=== PATIENT | female | born 1935 | race Caucasian/White ===

== ENCOUNTER 2016-03-07 11:25 | Inpatient (IN) | payer OTHER ==
[~2016-03-07] VITALS: Ht 160 cm; Wt 102.1 kg
[2016-03-07] MEDS ORDERED: ALBUTEROL 0.5% NEB SOLN 2.5 MG/0.5 ML VIAL INH STA (11:40)
--- NOTE | 2016-03-07 11:51 | EMERGENCY ROOM VISIT NOTE ---
History Report prepared by Marcie: Santa Schmidt Under the Supervision of: Dr. Pierce Owen DAnnabel. First contact with patient: 11:37 Chief Complaint: COUGH Stated Complaint: COUGH,WHEEZING, SOB Nursing Triage Summary: pt here with prod cough, wheezing x 3 days. pt having some bilateral leg swelling. hx of cardiac issues. History of Present Illness The patient is an 80 year old female who presents to the Emergency Room with complaints of a persistent cough for the past week. The patient states that two weeks ago she initially got sick for three days and states that her symptoms went away. She states that she became weak after the first illness. The patient states that she has been feeling intermittently chilled and chest pain with coughing, but denies any fever. She denies any sick contacts recently. The patient notes that she has a cardiac catheterization scheduled for next week due to her aorta narrowing. She additionally notes a history of diabetes, heart disease, congestive heart failure, and kidney disease. The patient notes that she had a DVT several years ago and notes that she had previously been on blood thinners. She notes that she then had bleeding problems so her anticoagulants were stopped, but she still takes 81 mg of aspirin daily. The patient denies any history of COPD. She notes a surgical history of an appendectomy, hysterectomy and triple bypass. The patient notes swelling to her bilateral legs. She states that a few years ago she had her pneumonia shot. Source of History: patient Onset: past week Position: other (global) Quality: other (cough) Timing: other (persistent) Associated Symptoms: + chest pain, + chills, + weakness, No fevers Review of Systems See above for pertinent positives & negatives. A total of 10 systems reviewed and were otherwise negative. Past Medical & Surgical Medical Problems: (1) Afib (2) Aortic stenosis (3) AVN of femur (4) CAD (coronary artery disease) (5) CHF (congestive heart failure) (6) CKD (chronic kidney disease), stage III (7) Congestive heart failure (8) Cough (9) DM2 (diabetes mellitus, type 2) (10) DVT (deep venous thrombosis) (11) History of cardioversion (12) HLD (hyperlipidemia) (13) HTN (hypertension) (14) Hypertension Surgical Problems: (1) H/O colonoscopy (2) H/O knee surgery (3) H/O: hysterectomy (4) H/O: hysterectomy (5) History of appendectomy (6) Hx of CABG (7) S/P appendectomy (8) S/P hip replacement (9) S/P triple vessel bypass (10) Stented coronary artery Family History Diabetes mellitus Heart disease Hypertension Social History Smoking Status: Never Smoker Smokeless Tobacco Use: No Alcohol Use: none Housing Status: lives alone Occupation Status: retired Current/Historical Medications Scheduled Aspirin (Aspirin Ec), 81 MG PO DAILY Atorvastatin (Lipitor), 20 MG PO HS Bumetanide (Bumex), 2 MG PO DAILY Cholecalciferol (Vitamin D), 1 TAB PO DAILY Docusate Sodium (Stool Softener), 1 TAB PO BID Gabapentin (Neurontin), 100 MG PO BID Glimepiride (Amaryl), 4 MG PO QAM Metoprolol Succinate (Toprol Xl), 25 MG PO DAILY Pyridoxine HCl (Vitamin B-6), 100 MG PO DAILY Sitagliptin (Januvia), 50 MG PO DAILY Scheduled PRN Hydrocodone/Acetaminophen 5MG/325MG ([place] 5MG/325MG), 1 TABLET PO Q8 PRN for Pain Allergies Coded Allergies: Iodinated Diagnostic Agents (Verified Allergy, Intermediate, HIVES/ LOST VOICE, 03/07/16) Lisinopril (Verified Adverse Reaction, Mild, COUGH, 03/07/16) Physical Exam Vital Signs Date Time Temp Pulse Resp B/P Pulse Ox O2 Delivery O2 Flow Rate FiO2 03/07/16 14:40 69 18 143/68 95 Room Air 03/07/16 12:48 76 22 143/57 94 Room Air 03/07/16 11:56 95 03/07/16 11:52 96 Room Air 03/07/16 11:52 96 Room Air 03/07/16 11:28 37.1 84 18 177/77 96 Room Air Physical Exam GENERAL: Patient is well appearing and in no acute distress. HEENT: No acute trauma, normocephalic atraumatic, mucous membranes moist, no nasal congestion, no scleral icterus. NECK: No stridor, no adenopathy, no meningismus, trachea is midline. LUNGS: Diffuse wheezes bilaterally, Tactile fremitus on right with egophony. HEART: 5/6 systolic ejection murmur. Regular rate and rhythm. No murmurs, rubs , gallops appreciated. ABDOMEN: Soft, nontender, bowel sounds positive, no masses appreciated, no peritonitis. BACK: No midline tenderness, no CVA tenderness EXTREMITIES: Normal motion all extremities, no cyanosis, no edema. NEUROLOGIC: Alert and oriented, no acute motor or sensory deficits, no focal weakness, cranial nerves grossly intact. SKIN: No rash, no jaundice, no diaphoresis. Medical Decision & Procedures ER Provider Diagnostic Interpretation: X ray results and stated below per my interpretation and radiologist interpretation. Other radiology results and stated below per my review and radiologist interpretation: CHEST 2 VIEWS ROUTINE HISTORY: cough COMPARISON: None. FINDINGS: The heart is mildly enlarged. There are poststernotomy changes. No pleural effusions. No pneumothorax. There is mild central pulmonary vascular congestion without overt edema. Mild anterior wedging within the mid thoracic spine vertebral bodies consistent with old compression deformities. IMPRESSION: Cardiomegaly. Mild central pulmonary vascular congestion without overt edema. Electronically signed by: Raghavendra Shaw M.D. 03/07/2016 12:37 PM Dictated Date/Time: 03/07/2016 12:35 PM Laboratory Results 03/07/16 12:05 Red Blood Count 4.57, Mean Corpuscular Volume 93.9, Mean Corpuscular Hemoglobin 31.1, Mean Corpuscular Hemoglobin Concent 33.1, Mean Platelet Volume 12.1, Neutrophils (%) (Auto) 67.9, Lymphocytes (%) (Auto) 13.6, Monocytes (%) (Auto) 15.5, Eosinophils (%) (Auto) 1.9, Basophils (%) (Auto) 0.8, Neutrophils # (Auto ) 4.33, Lymphocytes # (Auto) 0.87, Monocytes # (Auto) 0.99, Eosinophils # (Auto ) 0.12, Basophils # (Auto) 0.05 03/07/16 12:05 03/07/16 13:00 Test 03/07/16 12:05 03/07/16 13:00 03/07/16 14:34 White Blood Count 6.38 K/uL (4.8-10.8) Red Blood Count 4.57 M/uL (4.2-5.4) Hemoglobin 14.2 g/dL (12.0-16.0) Hematocrit 42.9 % (37-47) Mean Corpuscular Volume 93.9 fL (80-100) Mean Corpuscular Hemoglobin 31.1 pg (25-34) Mean Corpuscular Hemoglobin Concent 33.1 g/dl (32-36) Platelet Count 152 K/uL (130-400) Mean Platelet Volume 12.1 fL (7.4-10.4) Neutrophils (%) (Auto) 67.9 % Lymphocytes (%) (Auto) 13.6 % Monocytes (%) (Auto) 15.5 % Eosinophils (%) (Auto) 1.9 % Basophils (%) (Auto) 0.8 % Neutrophils # (Auto) 4.33 K/uL (1.4-6.5) Lymphocytes # (Auto) 0.87 K/uL (1.2-3.4) Monocytes # (Auto) 0.99 K/uL (0.11-0.59) Eosinophils # (Auto) 0.12 K/uL (0-0.5) Basophils # (Auto) 0.05 K/uL (0-0.2) RDW Standard Deviation 49.3 fL (36.4-46.3) RDW Coefficient of Variation 14.5 % (11.5-14.5) Immature Granulocyte % (Auto) 0.3 % Immature Granulocyte # (Auto) 0.02 K/uL (0.00-0.02) Prothrombin Time 10.9 SECONDS (9.0-12.0) Prothromb Time International Ratio 1.0 (0.9-1.1) Activated Partial Thromboplast Time 25.3 SECONDS (21.0-31.0) Partial Thromboplastin Ratio 1.0 Anion Gap 13.0 mmol/L (3-11) Est Creatinine Clear Calc Drug Dose 42.4 ml/min Estimated GFR () 49.1 Estimated GFR (Non- 42.4 BUN/Creatinine Ratio 16.0 (10-20) Calcium Level 9.2 mg/dl (8.5-10.1) Total Bilirubin 0.7 mg/dl (0.2-1) Alanine Aminotransferase (ALT/SGPT) 16 U/L (12-78) Alkaline Phosphatase 82 U/L (45-117) Troponin I < 0.015 ng/ml (0-0.045) Pro-B-Type Natriuretic Peptide 1397 pg/ml (0-1800) Total Protein 7.6 gm/dl (6.4-8.2) Albumin 3.5 gm/dl (3.4-5.0) Lipase 233 U/L (73-393) Magnesium Level 2.3 mg/dl (1.8-2.4) Direct Bilirubin 0.2 mg/dl (0-0.2) Aspartate Amino Transf (AST/SGOT) 14 U/L (15-37) Acetaminophen Level < 2 ug/ml (10-30) Laboratory results as reviewed by me. Medications Administered Medications (Trade) Dose Ordered Sig/Meeta Route Start Time Stop Time Status Last Admin Dose Admin Albuterol Sulfate (Ventolin 0.5% 2.5MG/0.5ML Neb) 2.5 mg NOW STAT INH 03/07/16 11:40 03/07/16 11:43 DC 03/07/16 11:53 2.5 MG Furosemide (Lasix Inj) 40 mg NOW STAT IV 03/07/16 13:08 03/07/16 13:26 DC 03/07/16 13:36 40 MG ECG Indication: chest pain Rate (beats per minute): 84 Rhythm: atrial fibrillation Findings: nonspecific-ST abn, RBBB (incomplete) Comparison ECG Date: no prior available ED Course 1137: The patient was evaluated in room C5. A complete history and physical exam was performed. 1140: Ordered Albuterol Sulfate 2.5 mg INH. 1159: I reevaluated the patient and she is resting comfortably. I discussed her EKG findings with her at this time. 1308: Ordered Lasix Inj 40 mg IV. 1330: I reevaluated the patient and she is resting comfortably. I discussed all the exam findings with her and I discussed the treatment plan. She verbalized complete understanding and agreement. She is ready going to be evaluated for further treatment. 1430: I discussed the patient's case with Rowan Nicolas. She is going to evaluate the patient for further treatment. Medical Decision Differential: Cardiac Ischemia (STEMI, NSTEMI, Unstable Angina, etc), Aortic Dissection, Arrhythmia, Pulmonary Embolism, Pneumonia, Pneumothorax, MSK, Infectious, Pericarditis/Myocarditis, Esophageal Rupture, Gastrointestinal, amongst other pathologies entertained. Consults Time Called: 1424 Consulting Physician: Rowan Nicolas Returned Call: 1430 I discussed the patient's case with Rowan Nicolas. She is going to evaluate the patient for further treatment. Impression Primary Impression: CHF (congestive heart failure) Additional Impressions: Afib Hypokalemia Elevated BUN Contraindication to anticoagulation therapy Cough Scribe Attestation The scribe's documentation has been prepared under my direction and personally reviewed by me in its entirety. I confirm that the note above accurately reflects all work, treatment, procedures, and medical decision making performed by me. Departure Information Dispostion Being Evaluated By Hospitalist Timothy Mccloud M.D. (PCP) Problem Qualifiers
[2016-03-07 12:18] LABS: BASO % 0.8 %; BASO ABS # 0.05 K/uL (0-0.2); COMPLETE YES; EOS % 1.9 %; HEMATOCRIT 42.9 % (37-47); IG% 0.3 %; LYMPH % 13.6 %; LYMPH ABS # 0.87 K/uL (1.2-3.4); MEAN CELL VOLUME 93.9 fL (80-100); MEAN CORPUSCULAR HEMOGLOBIN 31.1 pg (25-34); MEAN CORPUSCULAR HGB CONC 33.1 g/dl (32-36); MEAN PLATELET VOLUME 12.1 fL (7.4-10.4); MONO % 15.5 %; NEUT % 67.9 %; PLATELET COUNT 152 K/uL (130-400); RED BLOOD COUNT 4.57 M/uL (4.2-5.4); WHITE BLOOD COUNT 6.38 K/uL (4.8-10.8)
[2016-03-07] MEDS ORDERED: GABA-112 PO (12:19)
[2016-03-07] MEDS ORDERED: DOCU100C PO (12:19)
[2016-03-07] MEDS ORDERED: ATOR-22 PO (12:19)
[2016-03-07] MEDS ORDERED: GLIM4TAB PO (12:19)
[2016-03-07] MEDS ORDERED: ASPI81TA28 PO (12:19)
[2016-03-07] MEDS ORDERED: METO25TA3 PO (12:19)
[2016-03-07] MEDS ORDERED: CHOL20009 PO (12:19)
[2016-03-07] MEDS ORDERED: HYDR-5688 PO (12:19)
[2016-03-07] MEDS ORDERED: BUME2TAB3 PO (12:19)
[2016-03-07] MEDS ORDERED: SITA50TA3 PO (12:19)
[2016-03-07] MEDS ORDERED: PYR50 PO (12:19)
--- NOTE | 2016-03-07 12:38 | DIAGNOSTIC IMAGING REPORT ---
CHEST 2 VIEWS ROUTINE HISTORY: cough COMPARISON: None. FINDINGS: The heart is mildly enlarged. There are poststernotomy changes. No pleural effusions. No pneumothorax. There is mild central pulmonary vascular congestion without overt edema. Mild anterior wedging within the mid thoracic spine vertebral bodies consistent with old compression deformities. IMPRESSION: Cardiomegaly. Mild central pulmonary vascular congestion without overt edema. Electronically signed by: Raghavendra Shaw M.D. 03/07/2016 12:37 PM Dictated Date/Time: 03/07/2016 12:35 PM
[2016-03-07 12:42] LABS: ALKALINE PHOSPHATASE 82 U/L (45-117); ALT/SGPT 16 U/L (12-78); BLOOD UREA NITROGEN 19 mg/dl (7-18); CALCIUM 9.2 mg/dl (8.5-10.1); CARBON DIOXIDE 23 mmol/L (21-32); CHLORIDE 105 mmol/L (98-107); GLUCOSE 116 mg/dl (70-99); SODIUM 141 mmol/L (136-145)
[2016-03-07 12:45] LABS: PROTHROMBIN TIME (PATIENT) 10.9 SECONDS (9.0-12.0)
[2016-03-07] MEDS ORDERED: FUROSEMIDE 40 MG/4 ML VIAL IV STA (13:08)
[2016-03-07 13:16] LABS: POTASSIUM 3.4 mmol/L (3.5-5.1)
[2016-03-07] MEDS ORDERED: FUROSEMIDE 40 MG/4 ML VIAL ONE (13:26)
[2016-03-07] MEDS ORDERED: ONDANSETRON INJ 2 MG/ML 2 ML VIAL IV PRN (15:00)
[2016-03-07] MEDS ORDERED: NITROGLYCERIN 0.4 MG SL PER TAB CHARGE SL PRN (15:00)
[2016-03-07] MEDS ORDERED: ACETAMINOPHEN 325 MG TAB PO PRN (15:00)
[2016-03-07] MEDS ORDERED: POTASSIUM CHLORIDE 10 MEQ TABCR PO STA ×2 (15:13→16:33)
[2016-03-07] MEDS ORDERED: GLUCOSE 10 TABS/TUBE PO PRN (15:15)
[2016-03-07] MEDS ORDERED: LEVALBUTEROL/IPRATROPIUM NEB INH PRN (15:15)
[2016-03-07] MEDS ORDERED: DEXTROSE 50% 50 ML SYR IV PRN (15:15)
[2016-03-07] MEDS ORDERED: GLUCAGON FOR INJ 1 MG VIAL SQ PRN (15:15)
[2016-03-07] MEDS ORDERED: GLUCOSE 40% GEL 15 GM TUBE PO PRN (15:15)
--- NOTE | 2016-03-07 15:33 | History and Physical ---
History & Physical Date & Time of Service: Mar 07, 2016 at 15:13 Chief Complaint: Cough,Wheezing, Sob Primary Care Physician: Timothy Nathan M.D. History of Present Illness Source: patient, family, clinic records, hospital records Patient seen and examined. 80 year old female with PMHx of CAD, Afib, Valvular Disease, Diastolic CHF, DM2, CKD stage 3, HLD, and HTN presents to the ED complaining of cough x 3-4 days. Patient reports that the cough is productive of yellow sputum. She reports associated wheezing. Over the last day or so she has had increased SOB, and has noticed increased peripheral edema despite taking her Bumex. She reports she feels generally weak and tired. She states she does not follow a low sodium diet or fluid restriction at home. She denies fevers, chills, chest pain, nausea, vomiting, diarrhea, dysuria, calf pain. She denies sick contacts. She reports she is schedule for a heart cath on Tuesday for evaluation of her for risk stratification for elective hip surgery. In the ED VS are stable, she is saturating well on RA.BNP is negative, as are the first set of Alysha. CXR shows mild congestion. She is given IV Lasix and a Duoneb. She is resting comfortably she will be admitted for further workup and treatment. Past Medical/Surgical History Medical Problems: (1) Afib Status: Chronic (2) Aortic stenosis Status: Chronic (3) AVN of femur Status: Chronic (4) CAD (coronary artery disease) Status: Chronic (5) CKD (chronic kidney disease), stage III Status: Chronic (6) Congestive heart failure Status: Chronic (7) DM2 (diabetes mellitus, type 2) Status: Chronic (8) DVT (deep venous thrombosis) Status: Resolved (9) History of cardioversion Status: Chronic (10) HLD (hyperlipidemia) Status: Chronic (11) HTN (hypertension) Status: Chronic (12) Hypertension Status: Chronic Surgical Problems: (1) H/O colonoscopy Status: Chronic (2) H/O knee surgery Status: Chronic (3) H/O: hysterectomy Status: Resolved (4) H/O: hysterectomy Status: Chronic (5) History of appendectomy Status: Chronic (6) Hx of CABG Status: Chronic (7) S/P appendectomy Status: Resolved (8) S/P hip replacement Status: Chronic (9) S/P triple vessel bypass Status: Resolved (10) Stented coronary artery Status: Chronic Family History Diabetes mellitus Heart disease Hypertension Social History Smoking Status: Never Smoker Smokeless Tobacco Use: No Alcohol Use: none Housing status: lives alone Occupational Status: retired Allergies Coded Allergies: Iodinated Diagnostic Agents (Verified Allergy, Intermediate, HIVES/ LOST VOICE, 03/07/16) Lisinopril (Verified Adverse Reaction, Mild, COUGH, 03/07/16) Home Medications Scheduled Aspirin (Aspirin Ec), 81 MG PO DAILY Atorvastatin (Lipitor), 20 MG PO HS Bumetanide (Bumex), 2 MG PO DAILY Cholecalciferol (Vitamin D), 1 TAB PO DAILY Docusate Sodium (Stool Softener), 1 TAB PO BID Gabapentin (Neurontin), 100 MG PO BID Glimepiride (Amaryl), 4 MG PO QAM Metoprolol Succinate (Toprol Xl), 25 MG PO DAILY Pyridoxine HCl (Vitamin B-6), 100 MG PO DAILY Sitagliptin (Januvia), 50 MG PO DAILY Scheduled PRN Hydrocodone/Acetaminophen 5MG/325MG ([place] 5MG/325MG), 1 TABLET PO Q8 PRN for Pain Review of Systems See above for pertinent positives & negatives. A total of 10 systems reviewed and were otherwise negative. Physical Exam Vital Signs Date Time Temp Pulse Resp B/P Pulse Ox O2 Delivery O2 Flow Rate FiO2 03/07/16 14:40 69 18 143/68 95 Room Air 03/07/16 12:48 76 22 143/57 94 Room Air 03/07/16 11:56 95 03/07/16 11:52 96 Room Air 03/07/16 11:52 96 Room Air 03/07/16 11:28 37.1 84 18 177/77 96 Room Air General Appearance: + pertinent finding (Pleasant obese 80 year old female lying in bed in NAD with family at bedside ) Head: normocephalic, atraumatic Eyes: PERRL, EOMI, sclerae normal ENT: normal ENT inspection, hearing grossly normal Neck: supple, no JVD Respiratory/Chest: chest non-tender, lungs clear (trace wheezing ), normal breath sounds, no respiratory distress, no accessory muscle use Cardiovascular: no gallop, no JVD, normal peripheral pulses, + systolic murmur , + irregularly irregular (rate 802) Abdomen/GI: normal bowel sounds, non tender, soft Back: normal inspection, no muscle spasm Extremities/Musculoskelatal: no calf tenderness, normal capillary refill, + pedal edema (+1) Neurologic/Psych: alert, oriented x 3, + pertinent finding (no motor or sensory deficits noted on gross exam ) Skin: normal color, warm/dry, no rash Lymphatic: no adenopathy Diagnostics Laboratory Results Results Past 24 Hours Test 03/07/16 12:05 03/07/16 13:00 03/07/16 14:34 Range/Units White Blood Count 6.38 4.8-10.8 K/uL Red Blood Count 4.57 4.2-5.4 M/uL Hemoglobin 14.2 12.0-16.0 g/dL Hematocrit 42.9 37-47 % Mean Corpuscular Volume 93.9 80-100 fL Mean Corpuscular Hemoglobin 31.1 25-34 pg Mean Corpuscular Hemoglobin Concent 33.1 32-36 g/dl Platelet Count 152 130-400 K/uL Mean Platelet Volume 12.1 7.4-10.4 fL Neutrophils (%) (Auto) 67.9 % Lymphocytes (%) (Auto) 13.6 % Monocytes (%) (Auto) 15.5 % Eosinophils (%) (Auto) 1.9 % Basophils (%) (Auto) 0.8 % Neutrophils # (Auto) 4.33 1.4-6.5 K/uL Lymphocytes # (Auto) 0.87 1.2-3.4 K/uL Monocytes # (Auto) 0.99 0.11-0.59 K/uL Eosinophils # (Auto) 0.12 0-0.5 K/uL Basophils # (Auto) 0.05 0-0.2 K/uL RDW Standard Deviation 49.3 36.4-46.3 fL RDW Coefficient of Variation 14.5 11.5-14.5 % Immature Granulocyte % (Auto) 0.3 % Immature Granulocyte # (Auto) 0.02 0.00-0.02 K/uL Prothrombin Time 10.9 9.0-12.0 SECONDS Prothromb Time International Ratio 1.0 0.9-1.1 Activated Partial Thromboplast Time 25.3 21.0-31.0 SECONDS Partial Thromboplastin Ratio 1.0 Sodium Level 141 136-145 mmol/L Potassium Level 3.4 3.5-5.1 mmol/L Chloride Level 105 98-107 mmol/L Carbon Dioxide Level 23 21-32 mmol/L Anion Gap 13.0 3-11 mmol/L Blood Urea Nitrogen 19 7-18 mg/dl Creatinine 1.20 0.60-1.20 mg/dl Est Creatinine Clear Calc Drug Dose 42.4 ml/min Estimated GFR () 49.1 Estimated GFR (Non- 42.4 BUN/Creatinine Ratio 16.0 10-20 Random Glucose 116 70-99 mg/dl Calcium Level 9.2 8.5-10.1 mg/dl Total Bilirubin 0.7 0.2-1 mg/dl Direct Bilirubin 0.2 0-0.2 mg/dl Aspartate Amino Transf (AST/SGOT) 14 15-37 U/L Alanine Aminotransferase (ALT/SGPT) 16 12-78 U/L Alkaline Phosphatase 82 45-117 U/L Troponin I < 0.015 0-0.045 ng/ml Pro-B-Type Natriuretic Peptide 1397 0-1800 pg/ml Total Protein 7.6 6.4-8.2 gm/dl Albumin 3.5 3.4-5.0 gm/dl Lipase 233 73-393 U/L Diagnostic Radiology CXR Per radiologist read: IMPRESSION: Cardiomegaly. Mild central pulmonary vascular congestion without overt edema. EKG Afib 84 BPM, incomplete RBBB, QTc 475 Impression Assessment and Plan 80 year old female presents to the ED complaining of cough, congestion, worsening SOB ACUTE EXACERBATION OF DIASTOLIC HEART FAILURE -Admit to tele -CXR with mild congestion, increased peripheral ED, BNP <2000 -Hold Bumex -Has history of Diastolic CHF and Severe Valvular disease -IV Lasix 40mg daily -Serial Alysha, EKGs -Repeat Echo -Cardiology consult for further recommendations, input appreciated -I&Os, Daily Weights -AHA, Low Sodium Diet -Repeat CXR in AM ACUTE BRONCHITIS -R/O Flu -CXR with out consolidation -PCR flu pending -Sputum culture pending -Empirically treat with Doxycycline -Will avoid nebs as able d/t Afib HYPOKALEMIA -replaced -daily supplementation while on Lasix -check Mg -follow PRP daily VALVULAR HEART DISEASE -reports she is to have a heart cath on Tuesday for Aortic Stenosis because she would like to have elective hip surgery -Cardiology consult placed CAD -S/P stent, s/p CABG -follows with Dr. Steven -Continue ASA, BB, Statin -nitro prn -Cardiology consulted CKD STAGE 3 -crea at baseline -may see increase with diuresis -monitor PRP daily -avoid nephrotoxins as able AFIB -not on anticoagulation d/t history of GI bleed -continue ASA -continue BB for rate control DM2 -A1c pending -Hold po diabetic agents -SSI coverage -BSG AC HS -Consistent carbohydrate diet HLD -continue Statin -lipid panel in AM HTN -stable -continue BB CHRONIC HIP PAIN -continue home narcotics DVT PROPHYLAXIS: Sq heparin CODE STATUS: LEVEL 3 NO MECHANICAL VENTILATION per my discussion with the patient DISPO:In my clinical judgment this beneficiary meets acute admission criteria, established by [facility], that includes being hospitalized through two midnights. Discharge planning eval Patient seen in collaboration with Dr. Smyth Agree with above H and P.Briefly 80F presents with cough with yellow sputum going on for last few days. says edema in her lower extremity worsening. Denies chest pain. No fevres. No nausea or abdominal pain. 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 worsening lower extremity edema bnp ok Lasix 40mg daily f/u echo cardio consult Acute bronchitis no infiltrate on cxr has cough with sputum nebs and doxycycline will monitor VTE Prophylaxis VTE Risk Assessment Done? Y/N: Yes Risk Level: Moderate
[2016-03-07] MEDS ORDERED: ACETAMINOPHEN 500 MG TAB PO PRN (16:00)
[2016-03-07] MEDS: INSULIN ASPART 100 UNITS/ML 3 ML PEN SC SCH ×2 (16:15→20:40)
[2016-03-07 16:20] VITALS: BP 129/84; PULSE 67; TEMP 36.8; O2SAT 96; BMI 38.9
[2016-03-07] MEDS: HYDROCODONE/ACETAMOPHEN 5/325MG TAB PO PRN (17:34)
[2016-03-07 18:53] LABS: CKMB/CK RATIO 1.6 (0-3.0)
[2016-03-07] MEDS: GABAPENTIN 100 MG CAP PO SCH (19:29)
[2016-03-07] MEDS: ATORVASTATIN 20 MG TAB PO SCH (19:29)
[2016-03-07] MEDS: DOCUSATE SODIUM 100 MG CAP PO SCH (19:30)
[2016-03-07] MEDS: DOXYCYCLINE HYCLATE 100 MG CAP PO SCH (19:30)
[2016-03-07] MEDS: IPRATROPIUM BROMIDE NEB SOLN 0.02% 2.5 ML VIAL INH SCH (19:57)
[2016-03-07] MEDS: LEVALBUTEROL 1.25MG/0.5ML NEB INH SCH (19:57)
[2016-03-07 19:58] VITALS: PULSE 68; O2SAT 96
[2016-03-07 20:09] VITALS: BP 143/74; PULSE 63; TEMP 37; O2SAT 96
[2016-03-07] MEDS ORDERED: LEVALBUTEROL/IPRATROPIUM NEB INH SCH (21:00)
[2016-03-07] MEDS: HEPARIN SOD 5000 UNIT/0.5 ML CARP SQ SCH (21:36)
[2016-03-07 23:14] LABS: INFLUENZA A PCR Neg for Influ A (NEG); INFLUENZA B PCR Neg for Influ B (NEG)
[2016-03-07 23:18] VITALS: BP 113/51; PULSE 66; TEMP 37; O2SAT 94
[2016-03-08] VITALS (11 sets, daily range): BP systolic 99–144; BP diastolic 58–86; PULSE 68–91; TEMP 36.5–37; O2SAT 92–97; Ht 160 cm; Wt 102.1 kg
[2016-03-08 00:48] LABS: CKMB/CK RATIO 1.6 (0-3.0)
[2016-03-08] MEDS: HYDROCODONE/ACETAMOPHEN 5/325MG TAB PO PRN ×2 (03:10→15:31)
[2016-03-08] MEDS: HEPARIN SOD 5000 UNIT/0.5 ML CARP SQ SCH ×3 (06:08→20:20)
[2016-03-08 06:18] LABS: HEMATOCRIT 41.3 % (37-47); MEAN CELL VOLUME 95.8 fL (80-100); MEAN CORPUSCULAR HEMOGLOBIN 30.9 pg (25-34); MEAN CORPUSCULAR HGB CONC 32.2 g/dl (32-36); MEAN PLATELET VOLUME 12.2 fL (7.4-10.4); PLATELET COUNT 143 K/uL (130-400); RED BLOOD COUNT 4.31 M/uL (4.2-5.4); WHITE BLOOD COUNT 5.37 K/uL (4.8-10.8)
[2016-03-08 06:31] LABS: ESTIMATED AVERAGE GLUCOSE 131 mg/dl; HA1C FLAG Normal (Normal)
[2016-03-08 07:00] LABS: CALCIUM 8.9 mg/dl (8.5-10.1); CHOLESTEROL/HDL RATIO 4.2; CREATININE 1.3 mg/dl (0.60-1.20); MAGNESIUM 2.3 mg/dl (1.8-2.4); POTASSIUM 4.1 mmol/L (3.5-5.1)
[2016-03-08] MEDS: DOCUSATE SODIUM 100 MG CAP PO SCH ×2 (07:43→20:18)
[2016-03-08] MEDS: POTASSIUM CHLORIDE 20 MEQ TABCR PO SCH (07:43)
[2016-03-08] MEDS: ASPIRIN 81 MG ECTAB PO SCH (07:43)
[2016-03-08] MEDS: PYRIDOXINE HCL 50 MG TAB PO SCH (07:44)
[2016-03-08] MEDS: CHOLECALCIFEROL 1000 INTER.UNIT TAB PO SCH (07:44)
[2016-03-08] MEDS: GABAPENTIN 100 MG CAP PO SCH ×2 (07:44→20:18)
[2016-03-08] MEDS: DOXYCYCLINE HYCLATE 100 MG CAP PO SCH ×2 (07:44→20:18)
[2016-03-08] MEDS: METOPROLOL SUCC 25MG EXT REL TAB PO SCH (07:44)
[2016-03-08] MEDS: INSULIN ASPART 100 UNITS/ML 3 ML PEN SC SCH ×4 (07:51→20:25)
[2016-03-08] MEDS: LEVALBUTEROL 1.25MG/0.5ML NEB INH SCH ×3 (09:00→19:42)
[2016-03-08] MEDS ORDERED: FUROSEMIDE INJ 40 MG in SYRINGE 0 ML IV SCH (09:00)
[2016-03-08] MEDS: IPRATROPIUM BROMIDE NEB SOLN 0.02% 2.5 ML VIAL INH SCH ×3 (09:00→19:42)
[2016-03-08] MEDS ORDERED: NURSING VERBAL MED ORDER ONE (09:15)
[2016-03-08] MEDS ORDERED: FUROSEMIDE INJ 60 MG in SYRINGE 0 ML IV SCH (09:30)
[2016-03-08] MEDS ORDERED: FUROSEMIDE INJ 20 MG in SYRINGE 0 ML IV ONE (09:45)
--- NOTE | 2016-03-08 09:52 | DIAGNOSTIC IMAGING REPORT ---
TWO VIEW CHEST CLINICAL HISTORY: CHF follow-up. FINDINGS: AP and lateral chest radiographs are compared to study dated 03/07/2016. The examination is degraded by large body habitus. The patient is status post midline sternotomy. The heart is enlarged and there is atherosclerotic calcification of the thoracic aorta. There is mild prominence of the pulmonary vasculature. Chronic interstitial thickening is unchanged. No airspace consolidation or pleural effusion is identified. There is no pneumothorax. The skeletal structures are osteopenic. Degenerative change is noted throughout the thoracic spine. IMPRESSION: 1. Cardiomegaly with mild prominence of the central pulmonary vessels. Correlate clinically for evidence of minimal congestive failure. This is less apparent than on the 03/07/2016 examination. 2. There is no airspace consolidation or pleural effusion identified. Electronically signed by: Thien Ray M.D. 03/08/2016 9:51 AM Dictated Date/Time: 03/08/2016 9:49 AM
--- NOTE | 2016-03-08 10:10 | ECHOCARDIOGRAM REPORT ---
*NOTICE TO RECEIVING [employer] This information is strictly Confidential and protected under [place] law. [place] law prohibits you from making any further disclosure of this information unless further disclosure is expressly permitted by the written consent of the person to whom it pertains or is authorized by law. A general authorization for the release of medical or other information is not sufficient for this purpose. Hospital accepts no responsibility if the information is made available to any other person, INCLUDING THE PATIENT. Interpretation Summary * Name: TWYLA SMITH Study Date: 03/08/2016 06:52 AM BP: 99/361 mmHg * Patient Location: C.2T\S\E218\S\1 HR: 68 * : 1935 (M/d/yyyy) Gender: Female Height: 63 in * Age: 80 yrs Ethnicity: [place] Weight: 229 lb * Ordering Physician: Isatu Bryan * Referring Physician: Self, Referred * Performed By: Juanpablo King RCS * * Reason For Study: CHF * BSA: 2.0 m2 * -- Conclusions -- * Compared to previous study of 06/09/15: aortic valve velocity has slightly increased, still moderate. * Normal LV chamber size and wall thickness. * Normal LV systolic function, EF 65-70%. * No segmental left ventricular wall motion abnormalities are noted. * Diastolic dysfunction is present. * The aortic valve has three leaflets. The aortic valve is moderately calcified. Moderate aortic valve * stenosis is present. Moderate aortic valve regurgitation is present. * Moderate mitral annular calcification with mild mitral regurgitation. * Mild to moderate tricuspid regurgitation. * Mild left atrial enlargement. Procedure Details * A complete two-dimensional transthoracic echocardiogram was performed (2D, M-mode, Doppler and color flow Doppler). Left Ventricle * The left ventricle is normal in size. * There is normal left ventricular wall thickness. * Left ventricular systolic function is normal. * No segmental left ventricular wall motion abnormalities are noted. * Ejection Fraction = 65-70%. * The left ventricular wall motion is normal. Right Ventricle * The right ventricular cavity size is normal (basal dimension <4.2 cm in right ventricular apical 4-chamber view). * The right ventricular systolic function is normal. Atria * The left atrium is mildly dilated. * Right atrial size is normal. * No ASD detected; PFO is not assessed. Mitral Valve * There is moderate mitral annular calcification. * There is no mitral valve stenosis. * There is mild mitral regurgitation. Tricuspid Valve * The tricuspid valve anatomy is normal. * There is no tricuspid stenosis. * There is mild to moderate tricuspid regurgitation. Aortic Valve * The aortic valve has three leaflets. The aortic valve is moderately calcified. Moderate aortic valve stenosis is present. Moderate aortic valve regurgitation is present. Pulmonic Valve * The pulmonary valve is not well seen, but the Doppler examination is normal without significant regurgitation or stenosis. Great Vessels * The aortic root is normal size. Pericardium/Pleural * There is no pericardial effusion. Left Ventricular Diastolic Function * Pulse wave TDI of the anterior and posterior mitral annulas demonstrates abnormal LV relaxation MMode 2D Measurements and Calculations IVSd 0.97 cm IVSs 1.3 cm LVIDd 5.6 cm LVIDs 3.0 cm LVPWd 1.0 cm LVPWs 1.4 cm IVS/LVPW 0.93 FS 47.2 % EDV(Teich) 155.3 ml ESV(Teich) 34.1 ml EF(Teich) 78.0 % EDV(cubed) 178.0 ml ESV(cubed) 26.2 ml EF(cubed) 85.3 % % IVS thick 34.1 % % LVPW thick 32.0 % LV mass(C)d 223.8 grams LV mass(C)dI 109.3 grams/m\S\2 LV mass(C)s 129.0 grams LV mass(C)sI 63.0 grams/m\S\2 CO(Teich) 9.9 l/min CI(Teich) 4.9 l/min/m\S\2 SV(Teich) 121.2 ml SI(Teich) 59.2 ml/m\S\2 CO(cubed) 12.5 l/min CI(cubed) 6.1 l/min/m\S\2 SV(cubed) 151.9 ml SI(cubed) 74.1 ml/m\S\2 LVOT diam 1.8 cm LVOT area 2.5 cm\S\2 LVAd ap4 26.7 cm\S\2 LVLd ap4 7.4 cm EDV(MOD-sp4) 81.0 ml LVAs ap4 12.6 cm\S\2 LVLs ap4 6.1 cm ESV(MOD-sp4) 23.0 ml EF(MOD-sp4) 71.6 % LVAd ap2 23.7 cm\S\2 LVLd ap2 7.7 cm EDV(MOD-sp2) 60.0 ml LVAs ap2 13.4 cm\S\2 LVLs ap2 6.5 cm ESV(MOD-sp2) 23.0 ml EF(MOD-sp2) 61.7 % CO(MOD-sp4) 4.8 l/min CI(MOD-sp4) 2.3 l/min/m\S\2 SV(MOD-sp4) 58.0 ml SI(MOD-sp4) 28.3 ml/m\S\2 CO(MOD-sp2) 3.0 l/min CI(MOD-sp2) 1.5 l/min/m\S\2 SV(MOD-sp2) 37.0 ml SI(MOD-sp2) 18.1 ml/m\S\2 Doppler Measurements and Calculations MV E max leonora 162.7 cm/sec MV P1/2t max leonora 187.7 cm/sec MV P1/2t 87.7 msec MVA(P1/2t) 2.5 cm\S\2 MV dec slope 627.2 cm/sec\S\2 MV dec time 0.25 sec Ao V2 max 382.4 cm/sec Ao max PG 58.6 mmHg Ao max PG (full) 53.6 mmHg Ao V2 mean 265.4 cm/sec Ao mean PG 31.7 mmHg Ao mean PG (full) 29.2 mmHg Ao V2 VTI 97.7 cm CHER(I,A) 0.66 cm\S\2 CHER(I,D) 0.66 cm\S\2 CHER(V,A) 0.73 cm\S\2 CHER(V,D) 0.73 cm\S\2 AI max leonora 402.8 cm/sec AI max PG 64.9 mmHg AI dec slope 332.0 cm/sec\S\2 AI P1/2t 355.4 msec LV V1 max PG 5.0 mmHg LV V1 mean PG 2.5 mmHg LV V1 max 112.0 cm/sec LV V1 mean 72.8 cm/sec LV V1 VTI 25.6 cm SV(LVOT) 64.1 ml SI(LVOT) 31.3 ml/m\S\2 PA V2 max 156.1 cm/sec PA max PG 9.8 mmHg PI max leonora 268.5 cm/sec PI max PG 28.8 mmHg PI dec slope 324.8 cm/sec\S\2 PI P1/2t 242.1 msec TR max leonora 245.3 cm/sec
--- NOTE | 2016-03-08 11:30 | CARDIOLOGY CONSULTATION ---
DATE OF CONSULTATION: 03/08/2016 CONSULTATION REQUESTED BY: Isatu Bryan PA-C. REASON FOR CONSULTATION: Questionable CHF. HISTORY OF PRESENT ILLNESS: Mrs. Alexander is a very pleasant 80-year-old woman who follows very closely with Dr. Steven of our outpatient cardiology practice, who presented to [facility] on 03/07/2016 with a complaint of nonproductive cough and wheezing. She states that since being seen by Dr. Steven on the , she subsequently developed a cough about 4 days ago. She described it as mostly nonproductive, but rather constant. She also has inspiratory wheezing when she would try and breathe, and she is having significant orthopnea, stating that she could not lay down at night or else she would get short of breath. This was also associated with increasing lower extremity edema. She states that she has been compliant with all of her medications. However, she does not follow any salt or fluid restriction at home. Upon presentation to [facility], she was found to have a combination of bronchitis and mild volume overload. She was given a dose of IV Lasix with improvement of her cough and she was also started on antibiotics, as well as nebulizer treatments for her bronchitis. Otherwise, she denies any chest pain, palpitations, lightheadedness, dizziness or syncope. Of note, the patient is already scheduled for a cardiac catheterization on March 16 for further evaluation of her aortic stenosis. Otherwise, she states that she is still having significant hip pain. PAST SURGICAL HISTORY: 1. Coronary artery bypass grafting surgery x3 in 1997, along with PCI to unknown vessel at that time. 2. Repeat cardiac catheterization in 2010. 3. Colonoscopy. 4. Hemorrhoidectomy. 5. Left total hip replacement. 6. Cataract surgery. 7. Hysterectomy. 8. Appendectomy. 9. History of DC cardioversion. PAST MEDICAL ILLNESSES: 1. Coronary artery disease status post CABG x3. 2. Moderate to severe aortic stenosis. 3. Ongoing right hip pain. 4. Stage 3 chronic kidney disease. 5. History of atrial fibrillation. 6. Diabetes. 7. Obstructive sleep apnea. 8. Chronic venous insufficiency. 9. Peripheral neuropathy. FAMILY HISTORY: Noncontributory. SOCIAL HISTORY: The patient denies any alcohol, tobacco or recreational drug use. REVIEW OF SYSTEMS: As per HPI, all other review of systems reviewed and negative at this time. ALLERGIES: 1. IV DYE. 2. KLONOPIN 3. LISINOPRIL. 4. MEPERIDINE. MEDICATIONS AN OUTPATIENT: 1. Aspirin 81 mg daily. 2. Bumex 2 mg p.o. daily. 3. Toprol-XL 25 mg daily. 4. Januvia daily. 5. Amaryl daily. 6. Atorvastatin 20 mg daily. PHYSICAL EXAMINATION: VITALS: Temperature 37, pulse 70, respiratory rate 12, blood pressure 144/77. GENERAL: Awake, alert, oriented x3 in no acute distress, out of bed in chair. HEENT: Normocephalic, atraumatic. Pupils equal, round, and reactive to light and accommodation. Extraocular muscles intact. Anicteric sclerae. Moist mucous membranes. NECK: No JVD, no bruit. CARDIOVASCULAR: Irregularly irregular with a harsh 4/6 mid to late systolic ejection murmur greatest at the right sternal border second intercostal space with radiation to the bilateral carotids. S2 is still present. PULMONARY: Scant bibasilar crackles, no rhonchi, with scattered wheezing. ABDOMEN: Bowel sounds x4, soft. No rebound, guarding, tenderness. No organomegaly. EXTREMITIES: +1 bilateral lower extremity pitting edema. No clubbing or cyanosis. +2 pedal pulses bilaterally. SKIN: Warm and dry. TEST RESULTS: A 12-lead EKG performed in the Emergency Department independently reviewed at this time shows atrial fibrillation at 84 beats per minute. Compared to previous EKG of 02/26/2016 atrial fibrillation has replaced sinus tachycardia with second-degree heart block. No ischemic EKG changes. Chest x-ray was read as cardiomegaly and mild central pulmonary vascular congestion without overt edema. LABORATORY STUDIES OF SIGNIFICANCE: Sodium 144, potassium 4.1, BUN 20, creatinine 1.3. IMPRESSION: 1. Active bronchitis. 2. Minimal volume overload. 3. Chronic venous insufficiency. 4. Moderate to severe aortic stenosis. 5. Paroxysmal atrial fibrillation, no longer a Coumadin candidate secondary to a gastrointestinal bleed. 6. Coronary artery disease. 7. Ongoing right hip pain. RECOMMENDATIONS: It was my pleasure to see Mrs. Alexander in consultation today. At this point I believe her cough and wheezing are most likely due to a combination of active bronchitis and slight volume overload. So at this time, she will be given a dose of Lasix 60 mg IV this a.m. and then further diuretics will be held and her volume status will be followed clinically. Otherwise, I agree with the antibiotics and nebulizers for her bronchitis. I still believe that a plan for her aortic stenosis workup should be maintained. We will attempt to resolve her cough and shortness of breath, and then proceed with outpatient cardiac catheterization as scheduled on the . Otherwise a resting echocardiogram will be repeated at this time. Thank you very much for allowing me to participate in the care of your patient.
--- NOTE | 2016-03-08 14:45 | Progress Note ---
Internal Med Progress Note Date of Service: Mar 08, 2016. Provider Documentation: SUBJECTIVE: sitting on the chair comfortably walking to bathroom made her sob cough improving afebrile says cannot lie flat on the bed leg swelling better complains of lot of soreness in lower extremities OBJECTIVE: Vital Signs-as noted below Exam: General-alert and oriented ENT-normal hearing Neck-no neck masses Lungs-cta b/l no wheezing or crackles Heart-s1 and s2 heard regular rate and rhythm no murmurs Abdomen-soft bowel sounds present non tender no distension Extremities-no erythema b/l lower extremity edema present and tender Neuro-alert and awake moves extremities Lab data as noted below. ASSESSMENT & PLAN: 80 year old female presents to the ED complaining of cough, congestion, worsening SOB ACUTE EXACERBATION OF DIASTOLIC HEART FAILURE echo valvular heart disease and diastolic dusynction holding home Bumex received iv Lasix 40mg yesterday and 60mg today cardiology on board and appreciate inputs close monitor in tele ACUTE BRONCHITIS FLU negative CXR with out consolidation Empirically treating with Doxycycline SOB form above will also check for d dimer and lower extremity Doppler. HYPOKALEMIA replaced f/u labs. VALVULAR HEART DISEASE Plan for heart cath on Tuesday for Aortic Stenosis because she would like to have elective hip surgery Appreciate Cardiology consult CAD S/P stent, s/p CABG follows with Dr. Steven On ASA, BB, Statin nitro prn Cardiology on board. CKD STAGE 3 cr 1.3 today will f/u labs on iv lasix AFIB not on anticoagulation secondary to history of GI bleed on ASA On BB for rate control DM2 HBA1c 6.2 Holding po diabetic agents On SSI coverage will monitor. HLD On Statin LDL 87 HDL 37 TG 152 Total cholesterol 154 HTN stable on BB CHRONIC HIP PAIN To continue home narcotics DVT PROPHYLAXIS: Sq heparin CODE STATUS: LEVEL 3 NO MECHANICAL VENTILATION DISPOSITION To be determined pt/ot Vital Signs: Date Time Temp Pulse Resp B/P Pulse Ox O2 Delivery O2 Flow Rate FiO2 03/08/16 12:04 97 Room Air 03/08/16 11:28 36.9 72 18 120/86 97 Room Air 03/08/16 08:01 97 Room Air 03/08/16 07:48 37.0 70 18 144/77 97 Room Air 03/08/16 04:00 Room Air 03/08/16 03:52 36.5 68 20 99/61 96 Room Air 03/08/16 00:00 Room Air 03/07/16 23:18 37.0 66 22 113/51 94 Room Air 03/07/16 20:09 37.0 63 20 143/74 96 Room Air 03/07/16 20:00 Room Air 03/07/16 19:58 68 20 96 Room Air 03/07/16 16:20 36.8 67 18 129/84 96 Room Air 03/07/16 14:40 69 18 143/68 95 Room Air Lab Results: Results Past 24 Hours Test 03/07/16 17:26 03/07/16 18:07 03/07/16 20:21 03/07/16 21:30 Range/Units Bedside Glucose 116 93 70-90 mg/dl Total Creatine Kinase 67 26-192 U/L Creatine Kinase MB 1.1 0.5-3.6 ng/ml Creatine Kinase MB Ratio 1.6 0-3.0 Troponin I < 0.015 0-0.045 ng/ml Influenza Type A (RT-PCR) Neg for Influ A NEG Influenza Type A Antigen Neg for Influ A NEG Influenza Type B Antigen Neg for Influ B NEG Influenza Type B (RT-PCR) Neg for Influ B NEG Test 03/08/16 00:21 03/08/16 05:56 03/08/16 06:38 03/08/16 11:14 Range/Units Total Creatine Kinase 69 26-192 U/L Creatine Kinase MB 1.1 0.5-3.6 ng/ml Creatine Kinase MB Ratio 1.6 0-3.0 Troponin I < 0.015 0-0.045 ng/ml White Blood Count 5.37 4.8-10.8 K/uL Red Blood Count 4.31 4.2-5.4 M/uL Hemoglobin 13.3 12.0-16.0 g/dL Hematocrit 41.3 37-47 % Mean Corpuscular Volume 95.8 80-100 fL Mean Corpuscular Hemoglobin 30.9 25-34 pg Mean Corpuscular Hemoglobin Concent 32.2 32-36 g/dl RDW Standard Deviation 52.1 36.4-46.3 fL RDW Coefficient of Variation 14.7 11.5-14.5 % Platelet Count 143 130-400 K/uL Mean Platelet Volume 12.2 7.4-10.4 fL Sodium Level 144 136-145 mmol/L Potassium Level 4.1 3.5-5.1 mmol/L Chloride Level 106 98-107 mmol/L Carbon Dioxide Level 28 21-32 mmol/L Anion Gap 10.0 3-11 mmol/L Blood Urea Nitrogen 20 7-18 mg/dl Creatinine 1.30 0.60-1.20 mg/dl Est Creatinine Clear Calc Drug Dose 38.7 ml/min Estimated GFR () 44.6 Estimated GFR (Non- 38.4 BUN/Creatinine Ratio 15.0 10-20 Random Glucose 68 70-99 mg/dl Estimated Average Glucose 131 mg/dl Hemoglobin A1c 6.2 4.5-5.6 % Calcium Level 8.9 8.5-10.1 mg/dl Magnesium Level 2.3 1.8-2.4 mg/dl Triglycerides Level 152 0-150 mg/dl Cholesterol Level 154 0-200 mg/dl HDL Cholesterol 37 mg/dl LDL Cholesterol, Calculated 87 mg/dl VLDL Cholesterol, Calculated 30 mg/dl Cholesterol/HDL Ratio 4.2 Bedside Glucose 75 115 70-90 mg/dl Microbiology Results 03/08/16 Gram Stain, Moustapha Batch Pending 03/08/16 Sputum Culture, Moustapha Batch Pending
--- NOTE | 2016-03-08 16:05 | DIAGNOSTIC IMAGING REPORT ---
ULTRASOUND VENOUS DOPPLER LWR EXT BILA CLINICAL HISTORY: Leg swelling. Cough. Congestive failure. COMPARISON STUDY: No previous studies for comparison. FINDINGS: Real-time and color flow Doppler imaging were performed. Flow was seen within the femoral, popliteal and calf veins with no intraluminal thrombus demonstrated. The saphenous vein is patent. IMPRESSION: No evidence of lower extremity DVT. Electronically signed by: Duran Price M.D. 03/08/2016 4:04 PM Dictated Date/Time: 03/08/2016 4:03 PM
[2016-03-08] MEDS: ATORVASTATIN 20 MG TAB PO SCH (20:18)
[2016-03-09] VITALS (13 sets, daily range): BP systolic 91–134; BP diastolic 53–76; PULSE 62–100; TEMP 36.6–38; O2SAT 93–97
[2016-03-09] MEDS: HYDROCODONE/ACETAMOPHEN 5/325MG TAB PO PRN ×2 (04:15→13:46)
[2016-03-09] MEDS: HEPARIN SOD 5000 UNIT/0.5 ML CARP SQ SCH ×3 (05:34→21:13)
[2016-03-09] MEDS: INSULIN ASPART 100 UNITS/ML 3 ML PEN SC SCH ×4 (07:00→21:12)
[2016-03-09] MEDS: IPRATROPIUM BROMIDE NEB SOLN 0.02% 2.5 ML VIAL INH SCH ×3 (07:22→19:33)
[2016-03-09] MEDS: LEVALBUTEROL 1.25MG/0.5ML NEB INH SCH ×3 (07:22→19:33)
[2016-03-09 08:12] LABS: BASO % 0.6 %; BASO ABS # 0.04 K/uL (0-0.2); COMPLETE YES; EOS % 1.8 %; IG% 0.4 %; LYMPH % 37.5 %; MEAN CELL VOLUME 94.9 fL (80-100); MEAN CORPUSCULAR HEMOGLOBIN 30.7 pg (25-34); MEAN CORPUSCULAR HGB CONC 32.3 g/dl (32-36); MEAN PLATELET VOLUME 12.1 fL (7.4-10.4); MONO % 13.9 %; NEUT % 45.8 %; PLATELET COUNT 139 K/uL (130-400); RED BLOOD COUNT 4.53 M/uL (4.2-5.4)
[2016-03-09 08:36] LABS: BUN/CREATININE RATIO 19.4 (10-20); CREATININE 1.3 mg/dl (0.60-1.20); POTASSIUM 4.1 mmol/L (3.5-5.1)
[2016-03-09] MEDS: GABAPENTIN 100 MG CAP PO SCH ×2 (08:57→21:11)
[2016-03-09] MEDS: DOCUSATE SODIUM 100 MG CAP PO SCH ×2 (08:58→21:11)
[2016-03-09] MEDS: PYRIDOXINE HCL 50 MG TAB PO SCH (08:58)
[2016-03-09] MEDS: ASPIRIN 81 MG ECTAB PO SCH (08:58)
[2016-03-09] MEDS: DOXYCYCLINE HYCLATE 100 MG CAP PO SCH ×2 (08:59→21:11)
[2016-03-09] MEDS: CHOLECALCIFEROL 1000 INTER.UNIT TAB PO SCH (09:00)
[2016-03-09] MEDS: POTASSIUM CHLORIDE 20 MEQ TABCR PO SCH (09:00)
[2016-03-09] MEDS: METOPROLOL SUCC 25MG EXT REL TAB PO SCH (09:00)
--- NOTE | 2016-03-09 10:39 | Cardiology Follow-Up ---
Subjective Subjective Date of Service: Mar 09, 2016. Pt evaluation today including: conversation w/ patient, physical exam, chart review, lab review, review of studies, review of inpatient medication list Additional Details: Pt seen and examined, states that she feels about the same except lower extremity edema almost resolved. Still with nonproductive cough and dyspnea. Denies cp, palpitations, lightheadedness or dizziness. Tele reviewed: atrial fibrillation rate controlled Problem List Medical Problems: (1) Afib Status: Chronic (2) Contraindication to anticoagulation therapy Status: Acute (3) Elevated BUN Status: Acute (4) Hypokalemia Status: Acute Review of Systems Respiratory: + dyspnea on exertion, No cough, No dyspnea at rest, No hemoptysis , No problem reported, No see HPI, No shortness of breath, No sputum, No wheezing Cardiac: + edema, No PND, No chest pain, No claudication, No orthopnea, No palpitations, No problem reported, No see HPI Objective Vital Signs Last Vital Signs Documentation Date Time Temp Pulse Resp B/P Pulse Ox O2 Delivery O2 Flow Rate FiO2 03/09/16 07:28 36.6 79 20 105/66 93 Room Air Physical Exam: General Appearance: WD/WN, no apparent distress Eyes: bilateral eyes EOMI, bilateral eyes PERRL, bilateral eyes normal inspection ENT: normal ENT inspection, hearing grossly normal, pharynx normal Neck: supple, no adenopathy, thyroid normal, no JVD Respiratory/Chest: chest non-tender, lungs clear, normal breath sounds, no respiratory distress Cardiovascular: + systolic murmur, + gallop/S4 (4/6 mid to late SATISH, 2nd ICS, RSB with radiation to B/L carotids), + irregularly irregular Abdomen: normal bowel sounds, non tender, soft, no organomegaly Extremities: normal inspection, + calf tenderness, + pedal edema (trace) Neurologic/Psychiatric: 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 SOB/cough likely a combination of diastolic failure and bronchitis has now diuresed well but symptoms persist, believe to be more bronchitis at this point will restart outpatient oral diuretic 2. aortic stenosis stable by exam for cardiac cath on 03/16 no further treatment at this time 3. borderline hypotension has diuresed well will hold AM lopressor oral diuretic restarted
[2016-03-09] MEDS ORDERED: BUMETANIDE 1 MG TAB PO ONE (10:45)
[2016-03-09] MEDS: CEFTRIAXONE SOD INJ 1 GM in DEXTROSE 5% ADD-VANTAGE 50ML 50 ML IV SCH (11:50)
--- NOTE | 2016-03-09 13:59 | Progress Note ---
Internal Med Progress Note Date of Service: Mar 09, 2016. Provider Documentation: SUBJECTIVE: still feeling sob and wheezing had temp spike cough improving no chest pain OBJECTIVE: Vital Signs-as noted below Exam: General-alert and oriented ENT-normal hearing Neck-no neck masses Lungs-cta b/l mild b/l exp wheezing no crackles Heart-s1 and s2 heard regular rate and rhythm no murmurs Abdomen-soft bowel sounds present non tender no distension Extremities-no erythema b/l lower extremity edema present and tender Neuro-alert and awake moves extremities Lab data as noted below. ASSESSMENT & PLAN: 80 year old female presents to the ED complaining of cough, congestion, worsening SOB ACUTE EXACERBATION OF DIASTOLIC HEART FAILURE echo valvular heart disease and diastolic dysfunction received iv Lasix 40mg yesterday and 60mg today cardiology on board and appreciate inputs restarted home Bumex today close monitor in tele ACUTE BRONCHITIS FLU negative CXR with out consolidation Empirically treating with Doxycycline added Rocephin and prednisone d dimer elevated but lower ext Doppler negative for dvt will monitor HYPOKALEMIA replaced f/u labs. VALVULAR HEART DISEASE Plan for heart cath on Tuesday for Aortic Stenosis because she would like to have elective hip surgery Appreciate Cardiology consult CAD S/P stent, s/p CABG follows with Dr. Steven On ASA, BB, Statin nitro prn Cardiology on board. stable CKD STAGE 3 cr 1.3 today will f/u labs AFIB not on anticoagulation secondary to history of GI bleed on ASA On BB for rate control DM2 HBA1c 6.2 Holding po diabetic agents On SSI coverage will monitor. HLD On Statin LDL 87 HDL 37 TG 152 Total cholesterol 154 HTN stable on BB CHRONIC HIP PAIN To continue home narcotics DVT PROPHYLAXIS: Sq heparin CODE STATUS: LEVEL 3 NO MECHANICAL VENTILATION DISPOSITION possible d/c in 1-2days pt/ot Vital Signs: Date Time Temp Pulse Resp B/P Pulse Ox O2 Delivery O2 Flow Rate FiO2 03/09/16 12:00 Room Air 03/09/16 11:30 37.1 68 18 126/76 95 Room Air 03/09/16 08:00 96 Room Air 03/09/16 07:28 36.6 79 20 105/66 93 Room Air 03/09/16 07:22 82 18 93 Room Air 03/09/16 04:00 37.2 98 22 134/62 95 Room Air 03/09/16 04:00 96 Room Air 03/09/16 00:15 96 Room Air 03/09/16 00:00 38.0 100 20 127/57 95 Room Air 03/08/16 20:15 96 Room Air 03/08/16 19:52 37.0 82 18 107/58 96 Room Air 03/08/16 19:43 82 18 96 Room Air 03/08/16 16:18 36.8 91 18 125/74 92 Room Air 03/08/16 16:11 97 Room Air 03/08/16 14:44 73 18 92 Room Air Lab Results: Results Past 24 Hours Test 03/08/16 14:55 03/08/16 16:10 03/08/16 20:24 03/09/16 06:25 Range/Units D-Dimer 1150 0-500 ug/L FEU Bedside Glucose 161 96 116 70-90 mg/dl Test 03/09/16 07:53 03/09/16 11:21 Range/Units White Blood Count 7.20 4.8-10.8 K/uL Red Blood Count 4.53 4.2-5.4 M/uL Hemoglobin 13.9 12.0-16.0 g/dL Hematocrit 43.0 37-47 % Mean Corpuscular Volume 94.9 80-100 fL Mean Corpuscular Hemoglobin 30.7 25-34 pg Mean Corpuscular Hemoglobin Concent 32.3 32-36 g/dl Platelet Count 139 130-400 K/uL Mean Platelet Volume 12.1 7.4-10.4 fL Neutrophils (%) (Auto) 45.8 % Lymphocytes (%) (Auto) 37.5 % Monocytes (%) (Auto) 13.9 % Eosinophils (%) (Auto) 1.8 % Basophils (%) (Auto) 0.6 % Neutrophils # (Auto) 3.30 1.4-6.5 K/uL Lymphocytes # (Auto) 2.70 1.2-3.4 K/uL Monocytes # (Auto) 1.00 0.11-0.59 K/uL Eosinophils # (Auto) 0.13 0-0.5 K/uL Basophils # (Auto) 0.04 0-0.2 K/uL RDW Standard Deviation 52.5 36.4-46.3 fL RDW Coefficient of Variation 15.0 11.5-14.5 % Immature Granulocyte % (Auto) 0.4 % Immature Granulocyte # (Auto) 0.03 0.00-0.02 K/uL Sodium Level 137 136-145 mmol/L Potassium Level 4.1 3.5-5.1 mmol/L Chloride Level 101 98-107 mmol/L Carbon Dioxide Level 26 21-32 mmol/L Anion Gap 10.0 3-11 mmol/L Blood Urea Nitrogen 25 7-18 mg/dl Creatinine 1.30 0.60-1.20 mg/dl Est Creatinine Clear Calc Drug Dose 38.7 ml/min Estimated GFR () 44.6 Estimated GFR (Non- 38.4 BUN/Creatinine Ratio 19.4 10-20 Random Glucose 131 70-99 mg/dl Calcium Level 9.0 8.5-10.1 mg/dl Bedside Glucose 129 70-90 mg/dl Microbiology Results 03/08/16 Gram Stain - Final, Resulted 03/08/16 Sputum Culture - Preliminary, Resulted HEAVY NORMAL WALI Present, Final Rep...
[2016-03-09] MEDS: ATORVASTATIN 20 MG TAB PO SCH (21:11)
[2016-03-10] VITALS (13 sets, daily range): BP systolic 124–155; BP diastolic 66–89; PULSE 68–88; TEMP 36.5–36.8; O2SAT 92–96
[2016-03-10] MEDS: HYDROCODONE/ACETAMOPHEN 5/325MG TAB PO PRN ×2 (00:35→20:24)
[2016-03-10] MEDS: HEPARIN SOD 5000 UNIT/0.5 ML CARP SQ SCH ×3 (06:10→21:18)
[2016-03-10] MEDS: IPRATROPIUM BROMIDE NEB SOLN 0.02% 2.5 ML VIAL INH SCH ×4 (07:04→23:49)
[2016-03-10] MEDS: LEVALBUTEROL 1.25MG/0.5ML NEB INH SCH ×4 (07:05→23:49)
[2016-03-10 07:42] LABS: BASO % 0.3 %; BASO ABS # 0.02 K/uL (0-0.2); COMPLETE YES; HEMATOCRIT 42.4 % (37-47); IG% 0.3 %; LYMPH % 21.6 %; LYMPH ABS # 1.55 K/uL (1.2-3.4); MEAN PLATELET VOLUME 12.4 fL (7.4-10.4); MONO % 14.8 %; PLATELET COUNT 142 K/uL (130-400); RED BLOOD COUNT 4.51 M/uL (4.2-5.4); WHITE BLOOD COUNT 7.16 K/uL (4.8-10.8)
[2016-03-10] MEDS: POTASSIUM CHLORIDE 20 MEQ TABCR PO SCH (08:10)
[2016-03-10] MEDS: INSULIN ASPART 100 UNITS/ML 3 ML PEN SC SCH ×4 (08:10→21:16)
[2016-03-10 08:11] LABS: BUN/CREATININE RATIO 23.2 (10-20); CALCIUM 9.2 mg/dl (8.5-10.1); CREATININE 1.1 mg/dl (0.60-1.20); MAGNESIUM 2.5 mg/dl (1.8-2.4); POTASSIUM 4.3 mmol/L (3.5-5.1)
[2016-03-10] MEDS: METOPROLOL SUCC 25MG EXT REL TAB PO SCH (08:11)
[2016-03-10] MEDS: ASPIRIN 81 MG ECTAB PO SCH (08:11)
[2016-03-10] MEDS: DOXYCYCLINE HYCLATE 100 MG CAP PO SCH ×2 (08:11→20:27)
[2016-03-10] MEDS: DOCUSATE SODIUM 100 MG CAP PO SCH ×3 (08:11→20:28)
[2016-03-10] MEDS: GABAPENTIN 100 MG CAP PO SCH ×2 (08:12→20:25)
[2016-03-10] MEDS: CHOLECALCIFEROL 1000 INTER.UNIT TAB PO SCH (08:12)
[2016-03-10] MEDS: PYRIDOXINE HCL 50 MG TAB PO SCH (08:12)
[2016-03-10] MEDS: CEFTRIAXONE SOD INJ 1 GM in DEXTROSE 5% ADD-VANTAGE 50ML 50 ML IV SCH (09:50)
--- NOTE | 2016-03-10 10:00 | Cardiology Follow-Up ---
Subjective Subjective Date of Service: Mar 10, 2016. Pt evaluation today including: conversation w/ patient, physical exam, chart review, lab review, review of studies, review of inpatient medication list Additional Details: Pt seen and examined, states that her cough is now productive and slightly improved since initiation of steroids. Still sob. LE edema resolved. Denies cp, palpitations, lightheadedness or dizziness. Tele reviewed: atrial fibrillation, rates controlled, some episodes of rvr overnight. Problem List Medical Problems: (1) Afib Status: Chronic (2) Contraindication to anticoagulation therapy Status: Acute (3) Elevated BUN Status: Acute (4) Hypokalemia Status: Acute Review of Systems Respiratory: + dyspnea on exertion, No cough, No dyspnea at rest, No hemoptysis , No problem reported, No see HPI, No shortness of breath, No sputum, No wheezing Cardiac: + edema, No PND, No chest pain, No claudication, No orthopnea, No palpitations, No problem reported, No see HPI Objective Vital Signs Last Vital Signs Documentation Date Time Temp Pulse Resp B/P Pulse Ox O2 Delivery O2 Flow Rate FiO2 03/10/16 08:33 68 22 95 Room Air 03/10/16 04:00 36.7 143/66 Physical Exam: General Appearance: WD/WN, no apparent distress Eyes: bilateral eyes EOMI, bilateral eyes PERRL, bilateral eyes normal inspection ENT: normal ENT inspection, hearing grossly normal, pharynx normal Neck: supple, no adenopathy, thyroid normal, no JVD Respiratory/Chest: chest non-tender, normal breath sounds, no accessory muscle use, + rhonchi, + wheezing Cardiovascular: + systolic murmur, + gallop/S4 (4/6 mid to late SATISH, 2nd ICS, RSB with radiation to B/L carotids), + irregularly irregular Abdomen: normal bowel sounds, non tender, soft, no organomegaly Extremities: normal inspection, + calf tenderness, + pedal edema (trace) 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 SOB/cough likely a combination of diastolic failure and bronchitis has now diuresed well but symptoms persist, believe to be more bronchitis at this point will restart outpatient oral diuretic somewhat improved with steroids recheck chest xray, PA/LL 2. aortic stenosis stable by exam for cardiac cath on 03/16 no further treatment at this time 3. borderline hypotension resolved beta sid restarted ok to d/c tele from cardiac standpoint
--- NOTE | 2016-03-10 13:05 | DIAGNOSTIC IMAGING REPORT ---
TWO VIEW CHEST CLINICAL HISTORY: Cough and dyspnea. FINDINGS: PA and lateral chest radiographs are compared to study dated 03/08/2016. The examination is degraded by large body habitus. The patient is status post midline sternotomy. The heart is enlarged and there is atherosclerotic calcification of the thoracic aorta. There the pulmonary vasculature is noncongested. Chronic interstitial thickening is unchanged. No airspace consolidation or pleural effusion is identified. There is no pneumothorax. The skeletal structures are osteopenic. Degenerative change is noted throughout the thoracic spine. IMPRESSION: 1. Cardiomegaly. Pulmonary vascular congestion has resolved. 2. There is no airspace consolidation or pleural effusion identified. Electronically signed by: Thien Ray M.D. 03/10/2016 1:04 PM Dictated Date/Time: 03/10/2016 1:02 PM
--- NOTE | 2016-03-10 15:52 | Progress Note ---
Internal Med Progress Note Date of Service: Mar 10, 2016. Provider Documentation: SUBJECTIVE: says still has sob and wheezing asks if she can stay in hospital until Tuesday when she is scheduled for cardiac cath afebrile no chest pain lower extremity edema improved OBJECTIVE: Vital Signs-as noted below Exam: General-alert and oriented ENT-normal hearing Neck-no neck masses Lungs-cta b/l mild b/l exp wheezing no crackles Heart-s1 and s2 heard regular rate and rhythm no murmurs Abdomen-soft bowel sounds present non tender no distension Extremities-no erythema b/l lower extremity edema present improving Neuro-alert and awake moves extremities Lab data as noted below. ASSESSMENT & PLAN: 80 year old female presents to the ED complaining of cough, congestion, worsening SOB ACUTE EXACERBATION OF DIASTOLIC HEART FAILURE echo valvular heart disease and diastolic dysfunction received iv Lasix cardiology on board and appreciate inputs restarted home Bumex 03/09/16 improving close monitor in tele ACUTE BRONCHITIS FLU negative CXR with out consolidation Empirically treating with Doxycycline added Rocephin and prednisone d dimer elevated but lower ext Doppler negative for dvt continue same will monitor HYPOKALEMIA replaced f/u labs. VALVULAR HEART DISEASE Plan for heart cath on Tuesday for Aortic Stenosis because she would like to have elective hip surgery Appreciate Cardiology consult CAD S/P stent, s/p CABG follows with Dr. Steven On ASA, BB, Statin nitro prn Cardiology on board. no issues CKD STAGE 3 cr 1.1 today will f/u labs AFIB not on anticoagulation secondary to history of GI bleed on ASA On BB for rate control DM2 HBA1c 6.2 Holding po diabetic agents On SSI coverage plan to cut back on glimepiride on discharge will monitor. HLD On Statin LDL 87 HDL 37 TG 152 Total cholesterol 154 HTN stable on BB CHRONIC HIP PAIN To continue home narcotics DVT PROPHYLAXIS: Sq heparin CODE STATUS: LEVEL 3 NO MECHANICAL VENTILATION DISPOSITION possible d/c in 1-2days pt/ot Vital Signs: Date Time Temp Pulse Resp B/P Pulse Ox O2 Delivery O2 Flow Rate FiO2 03/10/16 15:37 36.7 74 20 142/89 93 Room Air 03/10/16 12:00 94 Room Air 03/10/16 11:11 36.8 88 18 127/70 92 Room Air 03/10/16 08:33 68 22 95 Room Air 03/10/16 08:00 94 Room Air 03/10/16 04:00 Room Air 03/10/16 04:00 36.7 82 20 143/66 94 Room Air 03/10/16 00:10 Room Air 03/10/16 00:00 36.8 88 20 152/76 94 Room Air 03/09/16 20:16 36.6 18 124/63 97 Room Air 03/09/16 20:05 96 Room Air 03/09/16 19:33 72 18 96 Room Air 03/09/16 16:00 96 Room Air Lab Results: Results Past 24 Hours Test 03/09/16 16:17 03/09/16 20:09 03/10/16 06:42 03/10/16 07:15 Range/Units Bedside Glucose 240 291 129 70-90 mg/dl White Blood Count 7.16 4.8-10.8 K/uL Red Blood Count 4.51 4.2-5.4 M/uL Hemoglobin 14.0 12.0-16.0 g/dL Hematocrit 42.4 37-47 % Mean Corpuscular Volume 94.0 80-100 fL Mean Corpuscular Hemoglobin 31.0 25-34 pg Mean Corpuscular Hemoglobin Concent 33.0 32-36 g/dl Platelet Count 142 130-400 K/uL Mean Platelet Volume 12.4 7.4-10.4 fL Neutrophils (%) (Auto) 63.0 % Lymphocytes (%) (Auto) 21.6 % Monocytes (%) (Auto) 14.8 % Eosinophils (%) (Auto) 0.0 % Basophils (%) (Auto) 0.3 % Neutrophils # (Auto) 4.51 1.4-6.5 K/uL Lymphocytes # (Auto) 1.55 1.2-3.4 K/uL Monocytes # (Auto) 1.06 0.11-0.59 K/uL Eosinophils # (Auto) 0.00 0-0.5 K/uL Basophils # (Auto) 0.02 0-0.2 K/uL RDW Standard Deviation 49.8 36.4-46.3 fL RDW Coefficient of Variation 14.6 11.5-14.5 % Immature Granulocyte % (Auto) 0.3 % Immature Granulocyte # (Auto) 0.02 0.00-0.02 K/uL Sodium Level 138 136-145 mmol/L Potassium Level 4.3 3.5-5.1 mmol/L Chloride Level 103 98-107 mmol/L Carbon Dioxide Level 26 21-32 mmol/L Anion Gap 9.0 3-11 mmol/L Blood Urea Nitrogen 26 7-18 mg/dl Creatinine 1.10 0.60-1.20 mg/dl Est Creatinine Clear Calc Drug Dose 45.7 ml/min Estimated GFR () 54.5 Estimated GFR (Non- 47.0 BUN/Creatinine Ratio 23.2 10-20 Random Glucose 127 70-99 mg/dl Calcium Level 9.2 8.5-10.1 mg/dl Magnesium Level 2.5 1.8-2.4 mg/dl Test 03/10/16 11:07 Range/Units Bedside Glucose 162 70-90 mg/dl
[2016-03-10] MEDS: ATORVASTATIN 20 MG TAB PO SCH (20:26)
[2016-03-10] MEDS: INSULIN GLARGINE SOLOSTAR 100 UNITS/ML 3 ML PEN SC SCH (21:17)
[2016-03-11 03:49] VITALS: BP 142/68; PULSE 78; TEMP 36.7; O2SAT 96
[2016-03-11] MEDS: HEPARIN SOD 5000 UNIT/0.5 ML CARP SQ SCH ×3 (06:20→21:16)
[2016-03-11 07:07] LABS: BASO % 0.2 %; BASO ABS # 0.02 K/uL (0-0.2); COMPLETE YES; EOS % 0.3 %; IG% 0.3 %; LYMPH % 21.5 %; LYMPH ABS # 1.91 K/uL (1.2-3.4); MEAN CELL VOLUME 94.5 fL (80-100); MEAN CORPUSCULAR HEMOGLOBIN 30.5 pg (25-34); MEAN CORPUSCULAR HGB CONC 32.3 g/dl (32-36); MEAN PLATELET VOLUME 12.6 fL (7.4-10.4); MONO % 10.9 %; NEUT % 66.8 %; PLATELET COUNT 158 K/uL (130-400); RED BLOOD COUNT 4.55 M/uL (4.2-5.4); WHITE BLOOD COUNT 8.89 K/uL (4.8-10.8)
[2016-03-11 07:22] VITALS: PULSE 76; O2SAT 96
[2016-03-11] MEDS: IPRATROPIUM BROMIDE NEB SOLN 0.02% 2.5 ML VIAL INH SCH ×3 (07:22→19:40)
[2016-03-11] MEDS: LEVALBUTEROL 1.25MG/0.5ML NEB INH SCH ×3 (07:22→19:40)
[2016-03-11 07:40] VITALS: BP 129/58; PULSE 68; TEMP 36.4; O2SAT 95
[2016-03-11 07:42] LABS: BUN/CREATININE RATIO 29.1 (10-20); CALCIUM 9.5 mg/dl (8.5-10.1); CREATININE 1.1 mg/dl (0.60-1.20); MAGNESIUM 2.5 mg/dl (1.8-2.4); POTASSIUM 3.9 mmol/L (3.5-5.1)
[2016-03-11] MEDS: HYDROCODONE/ACETAMOPHEN 5/325MG TAB PO PRN ×2 (07:56→21:12)
[2016-03-11] MEDS: METOPROLOL SUCC 25MG EXT REL TAB PO SCH (07:56)
[2016-03-11] MEDS: DOCUSATE SODIUM 100 MG CAP PO SCH ×2 (07:56→21:07)
[2016-03-11] MEDS: GABAPENTIN 100 MG CAP PO SCH ×2 (07:57→21:06)
[2016-03-11] MEDS: DOXYCYCLINE HYCLATE 100 MG CAP PO SCH ×2 (07:57→21:07)
[2016-03-11] MEDS: POTASSIUM CHLORIDE 20 MEQ TABCR PO SCH (07:57)
[2016-03-11] MEDS: ASPIRIN 81 MG ECTAB PO SCH (07:57)
[2016-03-11] MEDS: CHOLECALCIFEROL 1000 INTER.UNIT TAB PO SCH (07:58)
[2016-03-11] MEDS: PYRIDOXINE HCL 50 MG TAB PO SCH (07:58)
[2016-03-11] MEDS: INSULIN ASPART 100 UNITS/ML 3 ML PEN SC SCH ×4 (08:01→21:15)
[2016-03-11] MEDS: CEFTRIAXONE SOD INJ 1 GM in DEXTROSE 5% ADD-VANTAGE 50ML 50 ML IV SCH (09:19)
[2016-03-11] MEDS: METHYLPREDNISOLONE IV 40 MG in SYRINGE 0 ML IV SCH ×2 (09:52→21:05)
--- NOTE | 2016-03-11 10:05 | Cardiology Follow-Up ---
Subjective Subjective Date of Service: Mar 11, 2016. Pt evaluation today including: conversation w/ patient, physical exam, chart review, lab review, review of studies, review of inpatient medication list Additional Details: Pt seen and examined, states that she feels the same, however, upon inspection seems to be significantly improved. States still coughing and wheezing. No edema. Denies cp, palpitations, lightheadedness or dizziness Tele reviewed: afib, rate controlled Problem List Medical Problems: (1) Afib Status: Chronic (2) Contraindication to anticoagulation therapy Status: Acute (3) Elevated BUN Status: Acute (4) Hypokalemia Status: Acute Review of Systems Respiratory: + dyspnea on exertion, No cough, No dyspnea at rest, No hemoptysis , No problem reported, No see HPI, No shortness of breath, No sputum, No wheezing Cardiac: + edema, No PND, No chest pain, No claudication, No orthopnea, No palpitations, No problem reported, No see HPI Objective Vital Signs Last Vital Signs Documentation Date Time Temp Pulse Resp B/P Pulse Ox O2 Delivery O2 Flow Rate FiO2 03/11/16 08:00 Room Air 03/11/16 07:40 36.4 68 20 129/58 95 Physical Exam: General Appearance: WD/WN, no apparent distress Eyes: bilateral eyes EOMI, bilateral eyes PERRL, bilateral eyes normal inspection ENT: normal ENT inspection, hearing grossly normal, pharynx normal Neck: supple, no adenopathy, thyroid normal, no JVD Respiratory/Chest: chest non-tender, normal breath sounds, no accessory muscle use, + rhonchi, + wheezing Cardiovascular: + systolic murmur, + gallop/S4 (4/6 mid to late SATISH, 2nd ICS, RSB with radiation to B/L carotids), + irregularly irregular Abdomen: normal bowel sounds, non tender, soft, no organomegaly Extremities: normal inspection, + calf tenderness, + pedal edema (trace) 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 SOB/cough likely a combination of diastolic failure and bronchitis has now diuresed well but symptoms persist, believe to be more bronchitis at this point outpatient oral diuretic restarted somewhat improved with steroids fluid resolved on repeat cxr no consolidation either 2. aortic stenosis stable by exam for cardiac cath on 03/16 no further treatment at this time 3. borderline hypotension resolved beta sid restarted ok to d/c tele or to home from cardiac standpoint Pt requesting to stay an inpatient until cath on Tuesday, explained that would not be possible
[2016-03-11 14:35] VITALS: PULSE 67; O2SAT 96
[2016-03-11 15:09] VITALS: BP 158/91; PULSE 74; TEMP 36.4; O2SAT 98
--- NOTE | 2016-03-11 17:23 | Progress Note ---
Internal Med Progress Note Date of Service: Mar 11, 2016. Provider Documentation: SUBJECTIVE: says sob is same cough better no chest pain ambulated ok in therapy afebrile OBJECTIVE: Vital Signs-as noted below Exam: General-alert and oriented ENT-normal hearing Neck-no neck masses Lungs-cta b/l mild b/l exp wheezing no crackles Heart-s1 and s2 heard regular rate and rhythm no murmurs Abdomen-soft bowel sounds present non tender no distension Extremities-no erythema b/l lower extremity edema present improving Neuro-alert and awake moves extremities Lab data as noted below. ASSESSMENT & PLAN: 80 year old female presents to the ED complaining of cough, congestion, worsening SOB ACUTE EXACERBATION OF DIASTOLIC HEART FAILURE echo valvular heart disease and diastolic dysfunction received iv Lasix cardiology on board and appreciate inputs restarted home Bumex 03/09/16 improving stable ACUTE BRONCHITIS FLU negative CXR with out consolidation Empirically treating with Doxycycline added Rocephin and prednisone still has mild wheezing. changed prednisone to solumedrol. d dimer elevated but lower ext Doppler negative for dvt will monitor HYPOKALEMIA replaced f/u labs. VALVULAR HEART DISEASE Plan for heart cath on Tuesday for Aortic Stenosis because she would like to have elective hip surgery Appreciate Cardiology consult CAD S/P stent, s/p CABG follows with Dr. Steven On ASA, BB, Statin nitro prn Cardiology on board. no issues CKD STAGE 3 cr 1.1 today will f/u labs AFIB not on anticoagulation secondary to history of GI bleed on ASA On BB for rate control DM2 HBA1c 6.2 Holding po diabetic agents On SSI coverage plan to cut back on glimepiride on discharge will monitor. HLD On Statin LDL 87 HDL 37 TG 152 Total cholesterol 154 HTN stable on BB CHRONIC HIP PAIN To continue home narcotics DVT PROPHYLAXIS: Sq heparin CODE STATUS: LEVEL 3 NO MECHANICAL VENTILATION DISPOSITION transfer to medical floor pt/ot Vital Signs: Date Time Temp Pulse Resp B/P Pulse Ox O2 Delivery O2 Flow Rate FiO2 03/11/16 15:09 36.4 74 20 158/91 98 Room Air 03/11/16 14:35 67 18 96 Room Air 03/11/16 10:06 36.4 68 20 95 03/11/16 08:00 Room Air 03/11/16 07:40 36.4 68 20 129/58 95 Room Air 03/11/16 07:22 76 20 96 Room Air 03/11/16 04:00 Room Air 03/11/16 03:49 36.7 78 18 142/68 96 Room Air 03/10/16 23:59 Room Air 03/10/16 23:57 36.5 71 20 155/77 96 Room Air 03/10/16 23:49 69 20 93 Room Air 03/10/16 20:00 93 Room Air 03/10/16 20:00 93 Room Air 03/10/16 19:52 36.6 73 18 124/69 94 Room Air 03/10/16 19:39 76 22 93 Room Air Lab Results: Results Past 24 Hours Test 03/10/16 20:01 03/11/16 06:34 03/11/16 06:36 03/11/16 11:27 Range/Units Bedside Glucose 219 137 150 70-90 mg/dl White Blood Count 8.89 4.8-10.8 K/uL Red Blood Count 4.55 4.2-5.4 M/uL Hemoglobin 13.9 12.0-16.0 g/dL Hematocrit 43.0 37-47 % Mean Corpuscular Volume 94.5 80-100 fL Mean Corpuscular Hemoglobin 30.5 25-34 pg Mean Corpuscular Hemoglobin Concent 32.3 32-36 g/dl Platelet Count 158 130-400 K/uL Mean Platelet Volume 12.6 7.4-10.4 fL Neutrophils (%) (Auto) 66.8 % Lymphocytes (%) (Auto) 21.5 % Monocytes (%) (Auto) 10.9 % Eosinophils (%) (Auto) 0.3 % Basophils (%) (Auto) 0.2 % Neutrophils # (Auto) 5.93 1.4-6.5 K/uL Lymphocytes # (Auto) 1.91 1.2-3.4 K/uL Monocytes # (Auto) 0.97 0.11-0.59 K/uL Eosinophils # (Auto) 0.03 0-0.5 K/uL Basophils # (Auto) 0.02 0-0.2 K/uL RDW Standard Deviation 49.4 36.4-46.3 fL RDW Coefficient of Variation 14.6 11.5-14.5 % Immature Granulocyte % (Auto) 0.3 % Immature Granulocyte # (Auto) 0.03 0.00-0.02 K/uL Sodium Level 139 136-145 mmol/L Potassium Level 3.9 3.5-5.1 mmol/L Chloride Level 104 98-107 mmol/L Carbon Dioxide Level 24 21-32 mmol/L Anion Gap 11.0 3-11 mmol/L Blood Urea Nitrogen 32 7-18 mg/dl Creatinine 1.10 0.60-1.20 mg/dl Est Creatinine Clear Calc Drug Dose 45.8 ml/min Estimated GFR () 54.5 Estimated GFR (Non- 47.0 BUN/Creatinine Ratio 29.1 10-20 Random Glucose 136 70-99 mg/dl Calcium Level 9.5 8.5-10.1 mg/dl Magnesium Level 2.5 1.8-2.4 mg/dl Test 03/11/16 16:50 Range/Units Bedside Glucose 246 70-90 mg/dl
[2016-03-11 19:40] VITALS: PULSE 71; O2SAT 97
[2016-03-11] MEDS: ATORVASTATIN 20 MG TAB PO SCH (21:07)
[2016-03-11] MEDS: INSULIN GLARGINE SOLOSTAR 100 UNITS/ML 3 ML PEN SC SCH (21:15)
[2016-03-11] MEDS: GUAIFENESIN/CODEINE 100MG/10MG 5ML UDC PO PRN (21:28)
[2016-03-12] VITALS (7 sets, daily range): BP systolic 128–163; BP diastolic 69–78; PULSE 62–88; TEMP 36.5–36.7; O2SAT 94–97
[2016-03-12] MEDS: HEPARIN SOD 5000 UNIT/0.5 ML CARP SQ SCH ×3 (05:50→21:13)
[2016-03-12] MEDS: IPRATROPIUM BROMIDE NEB SOLN 0.02% 2.5 ML VIAL INH SCH ×3 (07:00→19:44)
[2016-03-12] MEDS: LEVALBUTEROL 1.25MG/0.5ML NEB INH SCH ×3 (07:00→19:44)
[2016-03-12 07:31] LABS: BASO % 0.1 %; BASO ABS # 0.01 K/uL (0-0.2); COMPLETE YES; HEMATOCRIT 41.8 % (37-47); IG% 0.5 %; LYMPH % 14.1 %; MEAN CELL VOLUME 94.8 fL (80-100); MEAN CORPUSCULAR HEMOGLOBIN 30.2 pg (25-34); MEAN CORPUSCULAR HGB CONC 31.8 g/dl (32-36); MEAN PLATELET VOLUME 12.5 fL (7.4-10.4); MONO % 5.4 %; NEUT % 79.9 %; PLATELET COUNT 152 K/uL (130-400); RED BLOOD COUNT 4.41 M/uL (4.2-5.4); WHITE BLOOD COUNT 8.53 K/uL (4.8-10.8)
[2016-03-12 08:28] LABS: BUN/CREATININE RATIO 28.1 (10-20); CREATININE 1.2 mg/dl (0.60-1.20); MAGNESIUM 2.6 mg/dl (1.8-2.4); POTASSIUM 5.3 mmol/L (3.5-5.1)
[2016-03-12] MEDS: POTASSIUM CHLORIDE 20 MEQ TABCR PO SCH (09:02)
[2016-03-12] MEDS: DOCUSATE SODIUM 100 MG CAP PO SCH ×2 (09:02→21:09)
[2016-03-12] MEDS: METOPROLOL SUCC 25MG EXT REL TAB PO SCH (09:02)
[2016-03-12] MEDS: DOXYCYCLINE HYCLATE 100 MG CAP PO SCH ×2 (09:03→21:08)
[2016-03-12] MEDS: ASPIRIN 81 MG ECTAB PO SCH (09:03)
[2016-03-12] MEDS: CHOLECALCIFEROL 1000 INTER.UNIT TAB PO SCH (09:03)
[2016-03-12] MEDS: PYRIDOXINE HCL 50 MG TAB PO SCH (09:03)
[2016-03-12] MEDS: GABAPENTIN 100 MG CAP PO SCH ×2 (09:03→21:08)
[2016-03-12] MEDS: CEFTRIAXONE SOD INJ 1 GM in DEXTROSE 5% ADD-VANTAGE 50ML 50 ML IV SCH (09:04)
[2016-03-12] MEDS: METHYLPREDNISOLONE IV 40 MG in SYRINGE 0 ML IV SCH ×2 (09:04→21:09)
[2016-03-12] MEDS: INSULIN ASPART 100 UNITS/ML 3 ML PEN SC SCH ×4 (09:10→21:13)
[2016-03-12] MEDS ORDERED: BUMETANIDE IV 2 MG in SYRINGE 0 ML IV ONE (11:00)
[2016-03-12] MEDS: GUAIFENESIN/CODEINE 100MG/10MG 5ML UDC PO PRN ×2 (11:04→21:06)
[2016-03-12] MEDS ORDERED: FUROSEMIDE INJ 40 MG in SYRINGE 0 ML IV SCH (11:30)
--- NOTE | 2016-03-12 17:39 | Progress Note ---
Internal Med Progress Note Date of Service: Mar 12, 2016. Provider Documentation: SUBJECTIVE: sob is improving cough better resting on the chair comfortably afebrile no chest pain OBJECTIVE: Vital Signs-as noted below Exam: General-alert and oriented ENT-normal hearing Neck-no neck masses Lungs-cta b/l mild b/l exp wheezing no crackles Heart-s1 and s2 heard regular rate and rhythm no murmurs Abdomen-soft bowel sounds present non tender no distension Extremities-no erythema b/l lower extremity edema present improving Neuro-alert and awake moves extremities Lab data as noted below. ASSESSMENT & PLAN: 80 year old female presents to the ED complaining of cough, congestion, worsening SOB ACUTE EXACERBATION OF DIASTOLIC HEART FAILURE echo valvular heart disease and diastolic dysfunction received iv Lasix cardiology on board and appreciate inputs restarted home Bumex improving stable ACUTE BRONCHITIS FLU negative CXR with out consolidation Empirically treating with Doxycycline added Rocephin and prednisone still has mild wheezing. changed prednisone to solumedrol. d dimer elevated but lower ext Doppler negative for dvt improving will monitor HYPOKALEMIA replaced f/u labs. VALVULAR HEART DISEASE Plan for heart cath on Tuesday for Aortic Stenosis because she would like to have elective hip surgery Appreciate Cardiology consult CAD S/P stent, s/p CABG follows with Dr. Steven On ASA, BB, Statin nitro prn Cardiology on board. no issues CKD STAGE 3 cr 1.2 today will f/u labs AFIB not on anticoagulation secondary to history of GI bleed on ASA On BB for rate control DM2 HBA1c 6.2 Holding po diabetic agents On SSI coverage plan to cut back on glimepiride on discharge will monitor. HLD On Statin LDL 87 HDL 37 TG 152 Total cholesterol 154 HTN stable on BB CHRONIC HIP PAIN To continue home narcotics DVT PROPHYLAXIS: Sq heparin CODE STATUS: LEVEL 3 NO MECHANICAL VENTILATION DISPOSITION possible d/c in am if stable pt/ot Vital Signs: Date Time Temp Pulse Resp B/P Pulse Ox O2 Delivery O2 Flow Rate FiO2 03/12/16 15:03 36.5 88 20 158/69 94 Room Air 03/12/16 14:05 70 18 97 Room Air 03/12/16 09:25 95 Room Air 03/12/16 08:03 36.5 65 18 128/76 95 Room Air 03/12/16 08:00 Room Air 03/12/16 07:00 77 18 95 Room Air 03/12/16 00:01 36.7 62 18 163/78 94 Room Air 03/12/16 00:01 Room Air 03/11/16 19:40 71 18 97 Room Air Lab Results: Results Past 24 Hours Test 03/11/16 20:12 03/12/16 06:51 03/12/16 07:30 03/12/16 11:24 Range/Units Bedside Glucose 293 204 243 70-90 mg/dl White Blood Count 8.53 4.8-10.8 K/uL Red Blood Count 4.41 4.2-5.4 M/uL Hemoglobin 13.3 12.0-16.0 g/dL Hematocrit 41.8 37-47 % Mean Corpuscular Volume 94.8 80-100 fL Mean Corpuscular Hemoglobin 30.2 25-34 pg Mean Corpuscular Hemoglobin Concent 31.8 32-36 g/dl Platelet Count 152 130-400 K/uL Mean Platelet Volume 12.5 7.4-10.4 fL Neutrophils (%) (Auto) 79.9 % Lymphocytes (%) (Auto) 14.1 % Monocytes (%) (Auto) 5.4 % Eosinophils (%) (Auto) 0.0 % Basophils (%) (Auto) 0.1 % Neutrophils # (Auto) 6.82 1.4-6.5 K/uL Lymphocytes # (Auto) 1.20 1.2-3.4 K/uL Monocytes # (Auto) 0.46 0.11-0.59 K/uL Eosinophils # (Auto) 0.00 0-0.5 K/uL Basophils # (Auto) 0.01 0-0.2 K/uL RDW Standard Deviation 50.3 36.4-46.3 fL RDW Coefficient of Variation 14.5 11.5-14.5 % Immature Granulocyte % (Auto) 0.5 % Immature Granulocyte # (Auto) 0.04 0.00-0.02 K/uL Sodium Level 137 136-145 mmol/L Potassium Level 5.3 3.5-5.1 mmol/L Chloride Level 104 98-107 mmol/L Carbon Dioxide Level 23 21-32 mmol/L Anion Gap 10.0 3-11 mmol/L Blood Urea Nitrogen 34 7-18 mg/dl Creatinine 1.20 0.60-1.20 mg/dl Est Creatinine Clear Calc Drug Dose 41.9 ml/min Estimated GFR () 49.1 Estimated GFR (Non- 42.4 BUN/Creatinine Ratio 28.1 10-20 Random Glucose 225 70-99 mg/dl Calcium Level 9.0 8.5-10.1 mg/dl Magnesium Level 2.6 1.8-2.4 mg/dl Test 03/12/16 16:53 03/12/16 17:00 Range/Units Bedside Glucose 230 70-90 mg/dl
[2016-03-12] MEDS: HYDROCODONE/ACETAMOPHEN 5/325MG TAB PO PRN (21:07)
[2016-03-12] MEDS: ATORVASTATIN 20 MG TAB PO SCH (21:09)
[2016-03-12] MEDS: INSULIN GLARGINE SOLOSTAR 100 UNITS/ML 3 ML PEN SC SCH (21:13)
[2016-03-13] VITALS (7 sets, daily range): BP systolic 116–144; BP diastolic 66–73; PULSE 60–88; TEMP 36.6; O2SAT 93–98
[2016-03-13] MEDS: HEPARIN SOD 5000 UNIT/0.5 ML CARP SQ SCH ×3 (05:57→21:36)
[2016-03-13] MEDS: LEVALBUTEROL 1.25MG/0.5ML NEB INH SCH ×3 (06:59→19:10)
[2016-03-13] MEDS: IPRATROPIUM BROMIDE NEB SOLN 0.02% 2.5 ML VIAL INH SCH ×3 (06:59→19:10)
[2016-03-13] MEDS: ASPIRIN 81 MG ECTAB PO SCH (08:57)
[2016-03-13] MEDS: DOCUSATE SODIUM 100 MG CAP PO SCH ×2 (08:57→21:34)
[2016-03-13] MEDS: METOPROLOL SUCC 25MG EXT REL TAB PO SCH (08:57)
[2016-03-13] MEDS: DOXYCYCLINE HYCLATE 100 MG CAP PO SCH ×2 (08:57→21:35)
[2016-03-13] MEDS: GABAPENTIN 100 MG CAP PO SCH ×2 (08:57→21:35)
[2016-03-13] MEDS: CHOLECALCIFEROL 1000 INTER.UNIT TAB PO SCH (08:58)
[2016-03-13] MEDS: BUMETANIDE 1 MG TAB PO SCH (08:58)
[2016-03-13] MEDS: PYRIDOXINE HCL 50 MG TAB PO SCH (08:59)
[2016-03-13] MEDS: POTASSIUM CHLORIDE 20 MEQ TABCR PO SCH (08:59)
[2016-03-13] MEDS: INSULIN ASPART 100 UNITS/ML 3 ML PEN SC SCH ×4 (09:01→21:32)
[2016-03-13] MEDS: CEFTRIAXONE SOD INJ 1 GM in DEXTROSE 5% ADD-VANTAGE 50ML 50 ML IV SCH (09:43)
[2016-03-13] MEDS: METHYLPREDNISOLONE IV 40 MG in SYRINGE 0 ML IV SCH ×2 (09:44→21:36)
[2016-03-13] MEDS: GUAIFENESIN/CODEINE 100MG/10MG 5ML UDC PO PRN (15:56)
--- NOTE | 2016-03-13 17:53 | Progress Note ---
Internal Med Progress Note Date of Service: Mar 13, 2016. Provider Documentation: SUBJECTIVE: says sob same still resting comfortably 'saturating fine on room air afebrile no chest pain OBJECTIVE: Vital Signs-as noted below Exam: General-alert and oriented ENT-normal hearing Neck-no neck masses Lungs-cta b/l mild b/l exp wheezing no crackles Heart-s1 and s2 heard regular rate and rhythm no murmurs Abdomen-soft bowel sounds present non tender no distension Extremities-no erythema b/l lower extremity edema present improving Neuro-alert and awake moves extremities Lab data as noted below. ASSESSMENT & PLAN: 80 year old female presents to the ED complaining of cough, congestion, worsening SOB ACUTE EXACERBATION OF DIASTOLIC HEART FAILURE echo valvular heart disease and diastolic dysfunction received iv Lasix cardiology on board and appreciate inputs restarted home Bumex continue same stable ACUTE BRONCHITIS FLU negative CXR with out consolidation Empirically treating with Doxycycline added Rocephin and prednisone still has mild wheezing. changed prednisone to solumedrol. d dimer elevated but lower ext Doppler negative for dvt will f/u v/q scan as still sob will monitor HYPOKALEMIA replaced f/u labs. Stable conditions: VALVULAR HEART DISEASE Plan for heart cath on Tuesday for Aortic Stenosis because she would like to have elective hip surgery Appreciate Cardiology consult CAD S/P stent, s/p CABG follows with Dr. Steven On ASA, BB, Statin nitro prn Cardiology on board. no issues CKD STAGE 3 cr 1.2 today will f/u labs AFIB not on anticoagulation secondary to history of GI bleed on ASA On BB for rate control DM2 HBA1c 6.2 Holding po diabetic agents On SSI coverage plan to cut back on glimepiride on discharge will monitor. HLD On Statin LDL 87 HDL 37 TG 152 Total cholesterol 154 HTN stable on BB CHRONIC HIP PAIN To continue home narcotics DVT PROPHYLAXIS: Sq heparin CODE STATUS: LEVEL 3 NO MECHANICAL VENTILATION DISPOSITION possible d/c in am if stable pt/ot Vital Signs: Date Time Temp Pulse Resp B/P Pulse Ox O2 Delivery O2 Flow Rate FiO2 03/13/16 16:00 Room Air 03/13/16 15:46 36.6 88 20 144/70 93 03/13/16 14:11 81 18 96 Room Air 03/13/16 07:54 Room Air 03/13/16 07:33 36.6 71 20 116/66 96 Room Air 03/13/16 06:59 77 18 93 Room Air 03/13/16 00:18 36.6 60 18 119/71 96 Room Air 03/13/16 00:00 95 Room Air 03/12/16 19:45 70 18 95 Room Air Lab Results: Results Past 24 Hours Test 03/12/16 20:31 03/13/16 07:46 03/13/16 11:46 03/13/16 16:22 Range/Units Bedside Glucose 231 186 229 273 70-90 mg/dl
--- NOTE | 2016-03-13 18:23 | DIAGNOSTIC IMAGING REPORT ---
NUCLEAR MEDICINE VENTILATION/PERFUSION SCAN CLINICAL HISTORY: Cough. Chest pain. COMPARISON: None TECHNIQUE: For the ventilation portion of this exam, 25.5 mCi of DTPA was inhaled at 6:16 PM. Immediately following inhalation, imaging of the chest was carried out in the anterior, posterior, left lateral, right lateral, LPO, RPO, DANISH and CHRISTIE projections. For the perfusion portion of exam, 5.7 mCi of technetium 99m MAA was injected IV at 6:16 PM. Immediately following injection, imaging of the chest was carried out in the same projections. FINDINGS: Moderate central air trapping. Moderate in homogeneity of perfusion. No significant ventilation/perfusion mismatch is not identified. IMPRESSION: Low probability of pulmonary embolus. Moderate central air trapping. Electronically signed by: Josh Talbert M.D. 03/13/2016 6:21 PM Dictated Date/Time: 03/13/2016 6:20 PM
--- NOTE | 2016-03-13 18:24 | DIAGNOSTIC IMAGING REPORT ---
CHEST 2 VIEWS ROUTINE CLINICAL HISTORY: FOR V/Q SCAN dyspnea COMPARISON STUDY: 03/10/2016 FINDINGS: Mild stable cardiomegaly. Mild chronic pulmonary vascular congestion. No focal infiltrate. IMPRESSION: Mild cardiomegaly. Mild chronic pulmonary vascular congestion. Electronically signed by: Josh Talbert M.D. 03/13/2016 6:22 PM Dictated Date/Time: 03/13/2016 6:22 PM
--- NOTE | 2016-03-13 19:36 | DIAGNOSTIC IMAGING REPORT ---
CHEST CT WITHOUT CONTRAST CT DOSE: 902.07 mGy.cm HISTORY: Chest pain infiltrate TECHNIQUE: Multiaxial CT images of the chest were performed without contrast. COMPARISON: Chest series same date. Lung scan same date. FINDINGS: Lungs are clear. Moderate emphysematous change. No significant mediastinal or hilar adenopathy. Minimal dependent basilar atelectasis. IMPRESSION: 1. Moderate emphysematous change. 2. Minimal platelike bibasilar atelectatic change. 3. Lungs otherwise are clear. Electronically signed by: Josh Talbert M.D. 03/13/2016 7:35 PM Dictated Date/Time: 03/13/2016 7:34 PM
[2016-03-13] MEDS: INSULIN GLARGINE SOLOSTAR 100 UNITS/ML 3 ML PEN SC SCH (21:33)
[2016-03-13] MEDS: ATORVASTATIN 20 MG TAB PO SCH (21:34)
[2016-03-14] VITALS: O2SAT 96
[2016-03-14 00:07] VITALS: BP 147/58; PULSE 79; TEMP 36.5; O2SAT 94
[2016-03-14] MEDS: HYDROCODONE/ACETAMOPHEN 5/325MG TAB PO PRN (01:30)
[2016-03-14] MEDS: HEPARIN SOD 5000 UNIT/0.5 ML CARP SQ SCH ×2 (05:43→14:05)
[2016-03-14 06:32] LABS: BASO % 0.1 %; BASO ABS # 0.01 K/uL (0-0.2); COMPLETE YES; HEMATOCRIT 43.7 % (37-47); IG% 1.3 %; LYMPH % 12.6 %; LYMPH ABS # 1.39 K/uL (1.2-3.4); MEAN CORPUSCULAR HEMOGLOBIN 29.9 pg (25-34); MEAN CORPUSCULAR HGB CONC 31.8 g/dl (32-36); MEAN PLATELET VOLUME 12.4 fL (7.4-10.4); MONO % 4.7 %; NEUT % 81.3 %; PLATELET COUNT 168 K/uL (130-400); RED BLOOD COUNT 4.65 M/uL (4.2-5.4); WHITE BLOOD COUNT 11.07 K/uL (4.8-10.8)
[2016-03-14] MEDS: LEVALBUTEROL 1.25MG/0.5ML NEB INH SCH (06:55)
[2016-03-14] MEDS: IPRATROPIUM BROMIDE NEB SOLN 0.02% 2.5 ML VIAL INH SCH (06:55)
[2016-03-14 06:56] VITALS: PULSE 91; O2SAT 94
[2016-03-14 06:58] LABS: BUN/CREATININE RATIO 35.3 (10-20); CALCIUM 9.3 mg/dl (8.5-10.1); CREATININE 1.2 mg/dl (0.60-1.20); MAGNESIUM 2.6 mg/dl (1.8-2.4); POTASSIUM 5.1 mmol/L (3.5-5.1)
[2016-03-14 07:01] VITALS: BP 153/67; PULSE 65; TEMP 36.4; O2SAT 92
[2016-03-14] MEDS: BUMETANIDE 1 MG TAB PO SCH (08:29)
[2016-03-14] MEDS: DOCUSATE SODIUM 100 MG CAP PO SCH (08:29)
[2016-03-14] MEDS: ASPIRIN 81 MG ECTAB PO SCH (08:29)
[2016-03-14] MEDS: DOXYCYCLINE HYCLATE 100 MG CAP PO SCH (08:29)
[2016-03-14] MEDS: METOPROLOL SUCC 25MG EXT REL TAB PO SCH (08:30)
[2016-03-14] MEDS: CHOLECALCIFEROL 1000 INTER.UNIT TAB PO SCH (08:30)
[2016-03-14] MEDS: POTASSIUM CHLORIDE 20 MEQ TABCR PO SCH (08:30)
[2016-03-14] MEDS: GABAPENTIN 100 MG CAP PO SCH (08:30)
[2016-03-14] MEDS: PYRIDOXINE HCL 50 MG TAB PO SCH (08:31)
[2016-03-14] MEDS: INSULIN ASPART 100 UNITS/ML 3 ML PEN SC SCH ×2 (08:35→12:39)
[2016-03-14] MEDS: METHYLPREDNISOLONE IV 40 MG in SYRINGE 0 ML IV SCH (10:26)
[2016-03-14] MEDS: CEFTRIAXONE SOD INJ 1 GM in DEXTROSE 5% ADD-VANTAGE 50ML 50 ML IV SCH (10:26)
[2016-03-14] MEDS ORDERED: PRED10TA PO (11:38)
[2016-03-14] MEDS ORDERED: GLIM2TAB2 PO (11:38)
[2016-03-14] MEDS ORDERED: CEFU1TAB36 PO (11:38)
[2016-03-14] MEDS ORDERED: DOXY100C41 PO (11:38)
[2016-03-14] MEDS ORDERED: GUAISYP4 PO (11:38)
[2016-03-14] MEDS ORDERED: IPRA1AER2 INH (11:39)
[2016-03-14] MEDS ORDERED: VNTHFA/IN INH (11:39)
--- NOTE | 2016-03-14 11:42 | Discharge Instructions ---
Discharge Instructions Admission Reason for Admission: Chf,Cough Discharge Discharge Diagnosis / Problem: ACUTE BRONCHITIS, CHF Discharge Goals Goal(s): Decrease discomfort, Improve function Activity Recommendations Activity Limitations: resume your previous activity . Instructions / Follow-Up Instructions / Follow-Up FOLLOWUP WITH FAMILY DOCTOR Timothy Madison ON Mar AT 2:10PM FOLLOWUP WITH CARDIOLOGY SCHEDULED. CUT BACK ON DIABETES MEDICATION GLIMEPIRIDE TO 2MG DAILY. CHECK BLOOD SUGARS DAILY AT LEAST TWICE IN AM AND PM AND NOTE THEM IN A LOG BOOK AND SHOW THEM TO FAMILY DOCTOR FOR ANY FURTHER ADJUSTMENTS IN DIABETES MEDICATION. Call your Primary Care doctor if any of the following symptoms or problems start or get worse: * Shortness of breath or difficulty breathing * Wake up at night short of breath * Chest pain * Cough * Swelling of your hands, feet, or legs * More fatigued or tired with your normal activity * Palpitations - sudden fast heart beats WEIGHT * Weigh yourself every morning after using the bathroom. * Use the same scale. * Wear the same amount of clothing. * Write your weight down on a chart. * Call your Primary Care doctor if you gain more than 2-3 pounds in 1-2 days. MEDICATIONS * Use this discharge instruction sheet for medication instructions. * Take your medications at the time your doctor ordered. * Do not skip a dose of your medicines. * If you miss a dose of medicine, take it as soon as possible, but DO NOT DOUBLE A DOSE. * Read your medicine information when you get home. * Know all of the side effects of your medicine. If in doubt, ask your pharmacist * Call your Primary Care doctor's office if you have any side effects. * Be sure all of your doctors know what medicine and herbs you take (including cold, flu, and herbal medicine). Take the following with you to your follow-up doctor appointments: * Weight Chart * Medication List * List of questions Do not drink excessive alcohol, beer or wine. Current Hospital Diet Patient's current hospital diet: AHA Diet (Heart Healthy), Diabetes Type 2 Diet , Low Sodium Diet (2gm Na) Discharge Diet Recommended Diet: AHA Diet (Heart Healthy), Diabetes Type 2 Diet Pending Studies Studies pending at discharge: no Laboratory Results Hemoglobin A1c Test 03/08/16 05:56 Range/Units Estimated Average Glucose 131 mg/dl Hemoglobin A1c 6.2 H 4.5-5.6 % Lipid Panel Test 03/08/16 05:56 Range/Units Triglycerides Level 152 H 0-150 mg/dl Cholesterol Level 154 0-200 mg/dl HDL Cholesterol 37 mg/dl Cholesterol/HDL Ratio 4.2 LDL Cholesterol, Calculated 87 mg/dl Medical Emergencies . Who to Call and When: Call 911 or go to the Emergency Room if: * If at any time you feel your situation is an emergency * You have tightness or pain in your chest that does not go away with rest or Nitroglycerin * You are very short of breath even with rest . Non-Emergent Contact Non-Emergency issues call your: Primary Care Provider . . "Provider Documentation" section prepared by Vlad Smyth. VTE Core Measure Inpt VTE Proph given/why not?: Unfractionated heparin SQ
[2016-03-14] MEDS ORDERED: SODIUM POLYST. SULF SUSP 15G/60ML PO ONE (11:45)
--- NOTE | 2016-03-14 12:51 | Progress Note ---
Internal Med Progress Note Date of Service: Mar 14, 2016. Provider Documentation: SUBJECTIVE: sob is getting better afebrile ambulated fine passed two step ok to go home OBJECTIVE: Vital Signs-as noted below Exam: General-alert and oriented ENT-normal hearing Neck-no neck masses Lungs-cta b/l mild b/l exp wheezing no crackles Heart-s1 and s2 heard regular rate and rhythm no murmurs Abdomen-soft bowel sounds present non tender no distension Extremities-no erythema b/l lower extremity edema present improving Neuro-alert and awake moves extremities Lab data as noted below. ASSESSMENT & PLAN: 80 year old female presents to the ED complaining of cough, congestion, worsening SOB ACUTE EXACERBATION OF DIASTOLIC HEART FAILURE echo valvular heart disease and diastolic dysfunction received iv Lasix cardiology on board and appreciate inputs restarted home Bumex continue same f/u with cardiology stable ACUTE BRONCHITIS FLU negative CXR with out consolidation Empirically treating with Doxycycline added Rocephin and prednisone still has mild wheezing. changed prednisone to solumedrol. d dimer elevated but lower ext Doppler negative for dvt v/q scan -low probability ct chest no acute findings discharged on prednisone taper, abx to complete course, inhalers f/u with pcp HYPOKALEMIA replaced f/u labs. VALVULAR HEART DISEASE Plan for heart cath on Tuesday for Aortic Stenosis because she would like to have elective hip surgery Appreciate Cardiology consult CAD S/P stent, s/p CABG follows with Dr. Steven On ASA, BB, Statin nitro prn Cardiology on board. no issues CKD STAGE 3 cr 1.2 today will f/u labs AFIB not on anticoagulation secondary to history of GI bleed on ASA On BB for rate control DM2 HBA1c 6.2 Holding po diabetic agents On SSI coverage plan to cut back on glimepiride on discharge f/u with pcp HLD On Statin LDL 87 HDL 37 TG 152 Total cholesterol 154 HTN stable on BB CHRONIC HIP PAIN To continue home narcotics Discharged home with home health Vital Signs: Date Time Temp Pulse Resp B/P Pulse Ox O2 Delivery O2 Flow Rate FiO2 03/14/16 07:32 Room Air 03/14/16 07:01 36.4 65 18 153/67 92 Room Air 03/14/16 06:56 91 18 94 Room Air 03/14/16 00:07 36.5 79 20 147/58 94 Room Air 03/14/16 00:00 96 Room Air 03/13/16 20:00 Room Air 03/13/16 16:00 Room Air 03/13/16 15:46 36.6 88 20 144/70 93 03/13/16 14:11 81 18 96 Room Air Lab Results: Results Past 24 Hours Test 03/13/16 16:22 03/13/16 20:10 03/14/16 05:19 03/14/16 07:41 Range/Units Bedside Glucose 273 312 222 70-90 mg/dl White Blood Count 11.07 4.8-10.8 K/uL Red Blood Count 4.65 4.2-5.4 M/uL Hemoglobin 13.9 12.0-16.0 g/dL Hematocrit 43.7 37-47 % Mean Corpuscular Volume 94.0 80-100 fL Mean Corpuscular Hemoglobin 29.9 25-34 pg Mean Corpuscular Hemoglobin Concent 31.8 32-36 g/dl Platelet Count 168 130-400 K/uL Mean Platelet Volume 12.4 7.4-10.4 fL Neutrophils (%) (Auto) 81.3 % Lymphocytes (%) (Auto) 12.6 % Monocytes (%) (Auto) 4.7 % Eosinophils (%) (Auto) 0.0 % Basophils (%) (Auto) 0.1 % Neutrophils # (Auto) 9.01 1.4-6.5 K/uL Lymphocytes # (Auto) 1.39 1.2-3.4 K/uL Monocytes # (Auto) 0.52 0.11-0.59 K/uL Eosinophils # (Auto) 0.00 0-0.5 K/uL Basophils # (Auto) 0.01 0-0.2 K/uL RDW Standard Deviation 49.3 36.4-46.3 fL RDW Coefficient of Variation 14.5 11.5-14.5 % Immature Granulocyte % (Auto) 1.3 % Immature Granulocyte # (Auto) 0.14 0.00-0.02 K/uL Sodium Level 138 136-145 mmol/L Potassium Level 5.1 3.5-5.1 mmol/L Chloride Level 102 98-107 mmol/L Carbon Dioxide Level 27 21-32 mmol/L Anion Gap 9.0 3-11 mmol/L Blood Urea Nitrogen 42 7-18 mg/dl Creatinine 1.20 0.60-1.20 mg/dl Est Creatinine Clear Calc Drug Dose 41.9 ml/min Estimated GFR () 49.1 Estimated GFR (Non- 42.4 BUN/Creatinine Ratio 35.3 10-20 Random Glucose 227 70-99 mg/dl Calcium Level 9.3 8.5-10.1 mg/dl Magnesium Level 2.6 1.8-2.4 mg/dl Test 03/14/16 11:25 Range/Units Bedside Glucose 235 70-90 mg/dl
[2016-03-14 13:06] VITALS: BP 153/67; PULSE 65; TEMP 36.4; O2SAT 92
--- NOTE | 2016-03-14 13:09 | Discharge Summary ---
Discharge Summary Admission Date: Mar 07, 2016 at 15:00 Discharge Date: Mar 14, 2016 Discharge Disposition: Home with services Principal Diagnosis: ACUTE BRONCHITIS ACUTE DIASTOLIC CHF Secondary Diagnoses/Problems: (1) Afib Status: Chronic (2) Aortic stenosis Status: Chronic (3) AVN of femur Status: Chronic (4) CAD (coronary artery disease) Status: Chronic (5) CKD (chronic kidney disease), stage III Status: Chronic (6) Congestive heart failure Status: Chronic (7) DM2 (diabetes mellitus, type 2) Status: Chronic (8) DVT (deep venous thrombosis) Status: Resolved (9) History of cardioversion Status: Chronic (10) HLD (hyperlipidemia) Status: Chronic (11) HTN (hypertension) Status: Chronic (12) Hypertension Status: Chronic Procedures: CXR: Cardiomegaly. Mild central pulmonary vascular congestion without overt edema. VENOUS DOPPLER: No evidence of lower extremity DVT. V/Q SCAN: Low probability of pulmonary embolus. Moderate central air trapping. CT CHEST: 1. Moderate emphysematous change. 2. Minimal platelike bibasilar atelectatic change. 3. Lungs otherwise are clear. ECHO: Compared to previous study of 06/09/15: aortic valve velocity has slightly increased, still moderate. * Normal LV chamber size and wall thickness. * Normal LV systolic function, EF 65-70%. * No segmental left ventricular wall motion abnormalities are noted. * Diastolic dysfunction is present. * The aortic valve has three leaflets. The aortic valve is moderately calcified. Moderate aortic valve * stenosis is present. Moderate aortic valve regurgitation is present. * Moderate mitral annular calcification with mild mitral regurgitation. * Mild to moderate tricuspid regurgitation. * Mild left atrial enlargement. Consultations: CARDIOLOGY Medication Reconciliation New Medications: Albuterol Hfa (Ventolin Hfa) 200 Puffs/14241 Mcg Aers 2 PUFFS INH Q4 PRN for SOB/Wheezing, #1 INHALER 1 Refill Cefuroxime Axetil (Cefuroxime Axetil) 500 Mg Tab 1 TAB PO BID for 3 Days, #6 TAB Doxycycline (Monohydrate) (Monodox) 100 Mg Cap 100 MG PO BID for 3 Days, #6 CAP Glimepiride (Glimepiride) 2 Mg Tab 1 TAB PO DAILY for 90 Days, #90 TAB 3 Refills Ipratropium-Albuterol (Combivent Respimat) 1 Aer Aer 1 PUFFS INH QID, #1 INH 1 Refill Prednisone Tab (Prednisone) 10 Mg Tab 60 MG PO UD, #43 TAB PREDNISONE 60MG PO DAILY X 2 DAYS THEN PREDNISONE 50MG PO DAILY X 2 DAYS THEN PREDNISONE 40MG PO DAILY X 2 DAYS THEN PREDNISONE 30MG PO DAILY X 2 DAYS THEN PREDNISONE 20MG PO DAILY X 2 DAYS THEN PREDNISONE 10MG PO DAILY X 2 DAYS THEN PREDNISONE 5MG PO DAILY X 2 DAYS THEN SOP. Guaifenesin/Codeine (Robitussin-Ac Syrup) Syrp 5 ML PO Q6H PRN for Cough for 10 Days Continued Medications: Aspirin (Aspirin Ec) 81 Mg Tab 81 MG PO DAILY Atorvastatin (Lipitor) 20 Mg Tab 20 MG PO HS, TAB Bumetanide (Bumex) 2 Mg Tab 2 MG PO DAILY, TAB Cholecalciferol (Vitamin D) 2,000 Unit Tab 1 TAB PO DAILY Docusate Sodium (Stool Softener) 100 Mg Cap 1 TAB PO BID Gabapentin (Neurontin) 100 Mg Cap 100 MG PO BID, CAP Hydrocodone/Acetaminophen 5MG/325MG ([place] 5MG/325MG) Tab 1 TABLET PO Q8 PRN for Pain, TAB PRN PAIN Metoprolol Succinate (Toprol Xl) 25 Mg Tabcr 25 MG PO DAILY, #30 TAB Pyridoxine HCl (Vitamin B-6) 50 Mg Tab 100 MG PO DAILY Sitagliptin (Januvia) 50 Mg Tab 50 MG PO DAILY, TAB Discontinued Medications: Glimepiride (Amaryl) 4 Mg Tab 4 MG PO QAM, TAB Admission Information HPI (per Admitting provider): Patient seen and examined. 80 year old female with PMHx of CAD, Afib, Valvular Disease, Diastolic CHF, DM2, CKD stage 3, HLD, and HTN presents to the ED complaining of cough x 3-4 days. Patient reports that the cough is productive of yellow sputum. She reports associated wheezing. Over the last day or so she has had increased SOB, and has noticed increased peripheral edema despite taking her Bumex. She reports she feels generally weak and tired. She states she does not follow a low sodium diet or fluid restriction at home. She denies fevers, chills, chest pain, nausea, vomiting, diarrhea, dysuria, calf pain. She denies sick contacts. She reports she is schedule for a heart cath on Tuesday for evaluation of her for risk stratification for elective hip surgery. In the ED VS are stable, she is saturating well on RA.BNP is negative, as are the first set of Alysha. CXR shows mild congestion. She is given IV Lasix and a Duoneb. She is resting comfortably she will be admitted for further workup and treatment. Physical Exam (per Admitting): General Appearance: + pertinent finding (Pleasant obese 80 year old female lying in bed in NAD with family at bedside ) Head: normocephalic, atraumatic Eyes: PERRL, EOMI, sclerae normal ENT: normal ENT inspection, hearing grossly normal Neck: supple, no JVD Respiratory/Chest: chest non-tender, lungs clear (trace wheezing ), normal breath sounds, no respiratory distress, no accessory muscle use Cardiovascular: no gallop, no JVD, normal peripheral pulses, + systolic murmur, + irregularly irregular (rate 802) Abdomen/GI: normal bowel sounds, non tender, soft Back: normal inspection, no muscle spasm Extremities/Musculoskelatal: no calf tenderness, normal capillary refill, + pedal edema (+1) Neurologic/Psych: alert, oriented x 3, + pertinent finding (no motor or sensory deficits noted on gross exam ) Skin: normal color, warm/dry, no rash Lymphatic: no adenopathy Physical Exam (per Admitting): General Appearance: + pertinent finding (Pleasant obese 80 year old female lying in bed in NAD with family at bedside ) Head: normocephalic, atraumatic Eyes: PERRL, EOMI, sclerae normal ENT: normal ENT inspection, hearing grossly normal Neck: supple, no JVD Respiratory/Chest: chest non-tender, lungs clear (trace wheezing ), normal breath sounds, no respiratory distress, no accessory muscle use Cardiovascular: no gallop, no JVD, normal peripheral pulses, + systolic murmur , + irregularly irregular (rate 802) Abdomen/GI: normal bowel sounds, non tender, soft Back: normal inspection, no muscle spasm Extremities/Musculoskelatal: no calf tenderness, normal capillary refill, + pedal edema (+1) Neurologic/Psych: alert, oriented x 3, + pertinent finding (no motor or sensory deficits noted on gross exam ) Skin: normal color, warm/dry, no rash Lymphatic: no adenopathy Hospital Course 80 year old female presents to the ED complaining of cough, congestion, worsening SOB ACUTE EXACERBATION OF DIASTOLIC HEART FAILURE echo valvular heart disease and diastolic dysfunction received iv Lasix cardiology on board and appreciate inputs restarted home Bumex continue same f/u with cardiology stable ACUTE BRONCHITIS FLU negative CXR with out consolidation Empirically treating with Doxycycline added Rocephin and prednisone still has mild wheezing. changed prednisone to solumedrol. d dimer elevated but lower ext Doppler negative for dvt v/q scan -low probability ct chest no acute findings discharged on prednisone taper, abx to complete course, inhalers f/u with pcp HYPOKALEMIA replaced f/u labs. VALVULAR HEART DISEASE Plan for heart cath on Tuesday for Aortic Stenosis because she would like to have elective hip surgery Appreciate Cardiology consult CAD S/P stent, s/p CABG follows with Dr. Steven On ASA, BB, Statin nitro prn Cardiology on board. no issues CKD STAGE 3 cr 1.2 today will f/u labs AFIB not on anticoagulation secondary to history of GI bleed on ASA On BB for rate control DM2 HBA1c 6.2 Holding po diabetic agents On SSI coverage plan to cut back on glimepiride on discharge f/u with pcp HLD On Statin LDL 87 HDL 37 TG 152 Total cholesterol 154 HTN stable on BB CHRONIC HIP PAIN To continue home narcotics Discharged home with home health Total time spent on discharge = 40MINUTES This includes examination of the patient, discharge planning, medication reconciliation, and communication with other providers. Discharge Instructions Please take this sheet to every appointment for the next month Discharge Instructions Admission Reason for Admission: Chf,Cough Discharge Discharge Diagnosis / Problem: ACUTE BRONCHITIS, CHF Discharge Goals Goal(s): Decrease discomfort, Improve function Activity Recommendations Activity Limitations: resume your previous activity . Instructions / Follow-Up Instructions / Follow-Up FOLLOWUP WITH FAMILY DOCTOR Timothy Madison ON Mar AT 2:10PM FOLLOWUP WITH CARDIOLOGY SCHEDULED. CUT BACK ON DIABETES MEDICATION GLIMEPIRIDE TO 2MG DAILY. CHECK BLOOD SUGARS DAILY AT LEAST TWICE IN AM AND PM AND NOTE THEM IN A LOG BOOK AND SHOW THEM TO FAMILY DOCTOR FOR ANY FURTHER ADJUSTMENTS IN DIABETES MEDICATION. Call your Primary Care doctor if any of the following symptoms or problems start or get worse: * Shortness of breath or difficulty breathing * Wake up at night short of breath * Chest pain * Cough * Swelling of your hands, feet, or legs * More fatigued or tired with your normal activity * Palpitations - sudden fast heart beats WEIGHT * Weigh yourself every morning after using the bathroom. * Use the same scale. * Wear the same amount of clothing. * Write your weight down on a chart. * Call your Primary Care doctor if you gain more than 2-3 pounds in 1-2 days. MEDICATIONS * Use this discharge instruction sheet for medication instructions. * Take your medications at the time your doctor ordered. * Do not skip a dose of your medicines. * If you miss a dose of medicine, take it as soon as possible, but DO NOT DOUBLE A DOSE. * Read your medicine information when you get home. * Know all of the side effects of your medicine. If in doubt, ask your pharmacist * Call your Primary Care doctor's office if you have any side effects. * Be sure all of your doctors know what medicine and herbs you take (including cold, flu, and herbal medicine). Take the following with you to your follow-up doctor appointments: * Weight Chart * Medication List * List of questions Do not drink excessive alcohol, beer or wine. Current Hospital Diet Patient's current hospital diet: AHA Diet (Heart Healthy), Diabetes Type 2 Diet , Low Sodium Diet (2gm Na) Discharge Diet Recommended Diet: AHA Diet (Heart Healthy), Diabetes Type 2 Diet Pending Studies Studies pending at discharge: no Laboratory Results Hemoglobin A1c Test 03/08/16 05:56 Range/Units Estimated Average Glucose 131 mg/dl Hemoglobin A1c 6.2 H 4.5-5.6 % Lipid Panel Test 03/08/16 05:56 Range/Units Triglycerides Level 152 H 0-150 mg/dl Cholesterol Level 154 0-200 mg/dl HDL Cholesterol 37 mg/dl Cholesterol/HDL Ratio 4.2 LDL Cholesterol, Calculated 87 mg/dl Medical Emergencies . Who to Call and When: Call 911 or go to the Emergency Room if: * If at any time you feel your situation is an emergency * You have tightness or pain in your chest that does not go away with rest or Nitroglycerin * You are very short of breath even with rest . Non-Emergent Contact Non-Emergency issues call your: Primary Care Provider . . "Provider Documentation" section prepared by Vlad Smyth. VTE Core Measure Inpt VTE Proph given/why not?: Unfractionated heparin SQ
[2016-03-16] MEDS ORDERED: VNTHFA/IN INH (09:58)
[2016-03-16] MEDS ORDERED: IPRA1AER2 INH (09:58)
[2016-03-16] MEDS ORDERED: CEFU1TAB36 PO (10:07)
[2016-03-16] MEDS ORDERED: GLIM2TAB2 PO (10:07)
[2016-03-16] MEDS ORDERED: DOXY-300 PO (10:07)
[2016-03-16] MEDS ORDERED: PRED10TA PO (10:07)
== END 2016-03-14 14:48 | disposition home health service (06) | DRG 202 ==
LOC: ENRESERVTM → ENRESERVDT → C.EDB 11:26 → C.2T 15:00 → C.MS2W 03-11 10:13
PROVIDERS: ADMIT Internal Medicine; ATTEND Internal Medicine
DX: J20.9 Acute bronchitis, unspecified (principal); I50.33 Acute on chronic diastolic (congestive) heart failure; E11.9 Type 2 diabetes mellitus without complications; E78.5 Hyperlipidemia, unspecified; E87.6 Hypokalemia; G47.33 Obstructive sleep apnea (adult) (pediatric); I12.9 Hypertensive chronic kidney disease with stage 1 through stage 4 chronic kidney disease, or unspecified chronic kidney disease; I25.10 Atherosclerotic heart disease of native coronary artery without angina pectoris; I35.0 Nonrheumatic aortic (valve) stenosis; I48.0 Paroxysmal atrial fibrillation; I48.2 Chronic atrial fibrillation; I87.2 Venous insufficiency (chronic) (peripheral); M25.551 Pain in right hip; N18.3 Chronic kidney disease, stage 3 (moderate); Z95.1 Presence of aortocoronary bypass graft; Z96.642 Presence of left artificial hip joint; R60.9 Edema, unspecified

== ENCOUNTER → 2016-03-16 | Day surgery (SDC) | payer OTHER ==
[~2016-03-16] VITALS: Ht 158.8 cm; Wt 102.0 kg
[~2016-03-16] MED LIST: ACETAMINOPHEN 325 MG TAB PO PRN; ASPEC325 PO; ASPI-435 PO; ASPI325T4 PO; ASPI81TA28 PO; ATOR-22 PO; ATROPINE SULFATE 0.1 MG/ML 5ML SYR IV PRN; BUME2TAB3 PO; CEFU1TAB36 PO; CHOL20009 PO; DOCU100C PO; DOXY-300 PO; DOXY100C41 PO; DiphenhydrAMINE HCL 50 MG/ML VIAL ONE; FENTANYL CITRATE INJ 50 MCG/1 ML 2 ML VIAL ONE; GABA-112 PO; GLIM2TAB2 PO; GUAISYP4 PO; HYDR-5688 PO; IPRA1AER2 INH; METHYLPREDNISOLONE 125 MG VIAL ONE; METO25TA3 PO; MIDAZOLAM HCL 1 MG/ML 2ML VIAL ONE; ONDANSETRON INJ 2 MG/ML 2 ML VIAL IV PRN; OXYC1TAB3 PO; PRD20 PO; PRED10TA PO; PRT40 PO; PYR50 PO; RANITIDINE HCL 25 MG/ML INJ ONE; SITA50TA3 PO; SODIUM CHLORIDE 0.9% 1000ML 1,000 ML IV ONE; SODIUM CHLORIDE 0.9% 1000ML 250 ML IV PRN; VNTHFA/IN INH
[2016-03-16 09:16] VITALS: BP 171/75; PULSE 71; TEMP 36.4; O2SAT 94; Ht 158.8 cm; Wt 102.0 kg
--- NOTE | 2016-03-16 11:58 | History & Physical Bridge Note ---
H&P Re-Evaluation Bridge Note: I have examined the patient, reviewed the History & Physical and in the interval since the performance of the History & Physical I have noted the following changes of clinical significance: No changes noted
--- NOTE | 2016-03-16 12:07 | Cardiac Catheterization ---
Procedure Note Procedure Date Mar 16, 2016. Pre-Procedure Diagnosis Valvular Disease, Cardiomyopathy AUC Score 9 Post-Procedure Diagnosis Moderate CAD, Normal LV Systolic Function Procedure(s) Performed Coronary Angiography, Left Heart Cath, Right Heart Cath, LV Angiography, Aortography Regulatory Affairs Manager Dr. Steven Osteology Teacher(s) None Estimated Blood Loss None Medication(s) Versed, Lidocaine 1%, Diphenhydramine Summary of Findings moderate , Bipass grafts patent Hemodynamics Rest Ao: 181/79 Final Ao: 186/84 LV: 190/10 RA: 8 RV: 52/4 PA: 52/18 PW: 15 Recommendations Medical therapy and/or Counseling Specimens None Radiation Exposure (mGy) 2134 Contrast (mls) 196 Fluids (cc crystalloids) 100 Procedural Complication(s) None Disposition Furnace Room Supervisor Holding/Recovery ACC Data Cardiac Status Clinical evaluation leading to the procedure CAD Presntation: No Sxs, no angina Anginal Classification: No symptoms Heart Failure: No Cardiogenic Shock w/in 24Hrs: No Cardiac Arrest w/in 24Hrs: No Imaging studies past 6 months: Yes Stress studies past 6 months: No Standard Exercise Stress Test: No Stress Echocardiogram: No Stress Testing w/SPECT MPI: No Cardiac CTA: No Coronary Anatomy Dominant: Right Left Main (% Stenosis): Normal LAD (% Stenosis): Normal Circumflex (% Stenosis): Ostial (90) OM2 (% Stenosis): Ostial (90) RCA (% Stenosis): Ostial (100) Grafts - LAD (%): Normal Grafts - Circumflex (%): Normal Grafts - RCA (%): Normal Left Ventricular Angiography EF (%): 50 Mitral Regurgitation: None Aortography Aortic Regurgitation: 1+ Diagnostic Status: Elective Closure Device Percutaneous Entry Location: Femoral Closure Device: Mynx Recommendations: Medical therapy and/or Counseling
--- NOTE | 2016-03-16 12:09 | Discharge Instructions ---
Discharge Instructions Procedure Procedure Date: Mar 16, 2016. Reason for Visit: Pt Has Iv Dye Allergy/Aortic Valve Stenosis. Discharge Discharge Date: Mar 16, 2016. Discharge Diagnosis: Moderate Aortic Stenosis, Patent bipass grafts Last Recorded Wt (Kilograms): 102 Anesthesia Post Anesthesia Instructions: If you have had General Anesthesia or IV Sedation: * Do not drive today. * Resume driving when surgeon permits. * Do not make important decisions or sign legal documents today. * Call surgeon for: 1. Temperature elevations greater than 101 degrees F. 2. Uncontrollable pain. 3. Excessive bleeding. 4. Persistent nausea and vomiting. 5. Medication intolerance (nausea, vomiting or rash). * For nausea and vomiting use only clear liquids such as: tea, soda, bouillon until nausea subsides, then gradually increase diet as tolerated. * If you have any concerns or questions, call your surgeon's office. If physician is unavailable and it is an emergency, call 911 or go to the nearest emergency room. Instructions Activity Recommendations: limitations Recommended Home Diet: resume previous diet Allergies: Coded Allergies: Iodinated Diagnostic Agents (Verified Allergy, Intermediate, HIVES/ LOST VOICE, 03/07/16) Clonazepam (Unverified Allergy, Unknown, Rash, hives, 03/16/16) Lisinopril (Verified Adverse Reaction, Mild, COUGH, 03/07/16) Meperidine (Unverified Adverse Reaction, Unknown, Hallucinations, 03/16/16) Provider Instructions ACTIVITY RECOMMENDATIONS: It is common to feel weak and fatigue for a few days. * Do not drive or operate any motorized equipment for the next three days. * Limit stair usage (2 or 3 trips a day only) for the next three days. * Do not lift anything heavier than 10 pounds for the next three days. * Do not engage in vigorous exercise or any sports for the next five days. * You may shower the day after your procedure, but do not immerse the area for three days. Cleanse the site gently with soap and water. SPECIAL CARE INSTRUCTIONS: * You may replace the pressure dressing or band-aid the morning after the procedure. * After your procedure, it is normal to have a small bruise or small lump at the site. Examine your site daily for any change in the bruise or lump, redness, swelling, drainage or numbness. Notify your doctor if any change. BLEEDING: * If there is a small amount of bleeding at the site, lie down and apply firm pressure with a clean cloth for ten minutes. When the bleeding stops, lie quietly keeping the procedure limb straight for six hours. Notify your doctor as soon as possible. * If the bleeding does not stop after ten minutes or if there is a large amount of bleeding or spurting, call 911 immediately. Continue to lie down and hold firm pressure until help arrives. SKIN IRRITATION: * You may experience some redness and/or swelling in the area where radiation was administered. If any skin irritation occurs, please contact your family physician. FOLLOW UP VISIT: Keep any scheduled doctor appointments. Follow Up Malik Bond Recommendations: Call your doctor if: * Temperature above 101 degrees * Pain not relieved by pain medicine ordered * There is increased drainage or redness from any incision * You have any unanswered questions or concerns. Your Doctors Instructions noted above were prepared by provider Jb Steven. Patient Signature Section: Patient Instructions Signature Page Libia Alexander Patient (or Guardian) Signature/Date: I have read and understand the instructions given to me by my caregivers. Caregiver/RN/Doctor Signature/Date: The above-named patient and/or guardian has received patient instructions on this date. + Original Patient Signature Page (only) stays with chart. Please make copy for patient.
--- NOTE | 2016-03-16 14:09 | CARDIAC CATH REPORT ---
PROCEDURE: 1. Left heart catheterization. 2. Right heart catheterization. 3. Coronary angiography. 4. Left ventriculography. 5. Aortography HISTORY OF PRESENT ILLNESS: The patient is an 80-year-old female with a previous history of coronary artery bypass surgery and aortic stenosis. She would like to have a right total hip replacement performed due to severe degenerative joint disease and severe pain. The patient had an echocardiogram recently that suggests severe aortic stenosis. The procedure is being done for preoperative clearance either for aortic valve replacement or for clearance regarding her hip surgery. PROCEDURE SUMMARY: The patient was seen and evaluated in the holding area of the sawyer [employer] sl[employer]. Once informed consent was obtained, the patient was taken to the cardiac catheterization lab where access was obtained using a retrograde Seldinger technique from the right femoral artery and vein. Preformed 5-Guamanian diagnostic catheters were utilized for the coronary angiograms. A 5-Guamanian pigtail catheter was utilized across the aortic valve and to perform the left ventriculogram and aortogram. A 7-Guamanian [place] catheter was utilized for right heart pressures and cardiac outputs. Following the procedure, the patient had the arterial site closed with a Mynx device. She was then taken to the holding area of the sawyer cork slabs in stable condition. HEMODYNAMIC DATA: The right atrial pressure is a mean of 8 mmHg. The right ventricular pressure is 52/4 mmHg, pulmonary artery pressure is 52/18 mmHg, pulmonary capillary wedge pressure is a mean of 15 mmHg, left ventricular pressure is 199/8 mmHg, central aortic pressure is 184/82 mmHg. Cardiac output by thermal dilution is 3.6 liters per minute. The estimated aortic valve area is 1.2 cm2. The aortic valve area index is 0.59 cm2 per meter squared. LEFT VENTRICULOGRAM: The left ventricle was of normal size with normal systolic function. The mitral valve is competent. AORTOGRAM: The aortic root and ascending aorta are of normal morphology. There is mild aortic insufficiency. CORONARY ANGIOGRAPHY: The [place] right coronary artery is known to be occluded from the previous heart catheterization. Selective injections of the saphenous vein graft to the right coronary artery reveal it to be widely patent with excellent retrograde and antegrade flow within the right coronary artery. Selective injections in the [place] graft to the LAD revealed it to be widely patent competitive flow from the [place] vessel. Selective injections of the right coronary artery revealed the left main trunk to be widely patent, as well as the LAD system. There is an ostial 90% stenosis of the left circumflex artery and the second marginal branch has a 90% ostial stenosis with evidence of competitive flow from the saphenous vein graft. Selective injections of the saphenous vein graft to the second marginal branch reveal it to be widely patent supplying excellent antegrade and retrograde flow to the artery. SUMMARY: The patient has moderate aortic stenosis. It appeared left ventricular systolic function is preserved. All coronary artery bypass grafts including the left internal mammary artery to the left anterior descending, saphenous vein graft to the left circumflex marginal, and saphenous vein graft to the right coronary artery are patent. RECOMMENDATIONS: The patient can continue medical therapy. She should proceed with her left hip replacement for improvement in her pain and mobility.
[2016-03-16 16:55] VITALS: BP 179/100; PULSE 86; O2SAT 94
== END | disposition home or self-care (01) ==
LOC: C.CATH 07:56
PROVIDERS: ATTEND Internal Medicine Interventional Cardiology
DX: I25.10 Atherosclerotic heart disease of native coronary artery without angina pectoris (principal); I35.0 Nonrheumatic aortic (valve) stenosis; I48.91 Unspecified atrial fibrillation; E11.49 Type 2 diabetes mellitus with other diabetic neurological complication; M19.90 Unspecified osteoarthritis, unspecified site; I49.5 Sick sinus syndrome; G47.33 Obstructive sleep apnea (adult) (pediatric); N18.3 Chronic kidney disease, stage 3 (moderate); Z95.2 Presence of prosthetic heart valve; Z95.1 Presence of aortocoronary bypass graft; Z96.649 Presence of unspecified artificial hip joint; Z91.041 Radiographic dye allergy status; Z88.8 Allergy status to other drugs, medicaments and biological substances; Z79.82 Long term (current) use of aspirin

== ENCOUNTER 2016-05-02 13:31 | Inpatient (IN) | payer OTHER ==
[~2016-05-02] VITALS: Ht 157.5 cm; Wt 106.0 kg
[~2016-05-02 13:31] MED LIST changes: -ACETAMINOPHEN 325 MG TAB PO PRN; -ASPEC325 PO; -ASPI-435 PO; -ASPI325T4 PO; -ATROPINE SULFATE 0.1 MG/ML 5ML SYR IV PRN; -DOXY100C41 PO; -DiphenhydrAMINE HCL 50 MG/ML VIAL ONE; -FENTANYL CITRATE INJ 50 MCG/1 ML 2 ML VIAL ONE; -GUAISYP4 PO; -METHYLPREDNISOLONE 125 MG VIAL ONE; -MIDAZOLAM HCL 1 MG/ML 2ML VIAL ONE; -ONDANSETRON INJ 2 MG/ML 2 ML VIAL IV PRN; -OXYC1TAB3 PO; -PRD20 PO; -PRT40 PO; -RANITIDINE HCL 25 MG/ML INJ ONE; -SODIUM CHLORIDE 0.9% 1000ML 1,000 ML IV ONE; -SODIUM CHLORIDE 0.9% 1000ML 250 ML IV PRN
--- NOTE | 2016-05-02 13:54 | EMERGENCY ROOM VISIT NOTE ---
History Report prepared by Marcie: Irina Bradley Under the Supervision of: Dr. Castillo Vargas D.O. First contact with patient: 13:36 Stated Complaint: GI ASSESSMENT History of Present Illness The patient is an 81 year old female who presents to the Emergency Room with complaints of an episode of rectal bleeding starting 1 day [employer]. The patient states that last night she had some blood in her stool. She states that today her stool appeared normal. She states she has normal stool today. She states she has history of a severe GI bleed from diverticula and had to be life flighted to [place] for treatment. The patient states that she had clips placed and has since not had any symptoms. The patient states she had hip surgery 2 weeks ago and has since been in nursing care because she is unable to ambulate. The patient states she also has been taken off her Coumadin which she took for atrial fibrillation due to her GI bleed. The patient states that other than the rectal bleeding she states she feels good. The patient denies any constipation, or dizziness. The patient states that she does take aspirin daily. Source of History: patient Onset: 1 day [employer] Position: other (rectal) Timing: other (episode) Note: Patient denies constipation or dizziness. Review of Systems See HPI for pertinent positives & negatives. A total of 10 systems reviewed and were otherwise negative. Past Medical & Surgical Medical Problems: (1) Afib (2) Aortic stenosis (3) AVN of femur (4) CAD (coronary artery disease) (5) CHF (congestive heart failure) (6) CKD (chronic kidney disease), stage III (7) Congestive heart failure (8) DM2 (diabetes mellitus, type 2) (9) DVT (deep venous thrombosis) (10) History of cardioversion (11) HLD (hyperlipidemia) (12) HTN (hypertension) (13) Hypertension (14) Rectal bleeding Surgical Problems: (1) H/O colonoscopy (2) H/O knee surgery (3) H/O: hysterectomy (4) H/O: hysterectomy (5) History of appendectomy (6) Hx of CABG (7) S/P appendectomy (8) S/P hip replacement (9) S/P triple vessel bypass (10) Stented coronary artery Family History Diabetes mellitus Heart disease Hypertension Social History Smoking Status: Never Smoker Alcohol Use: none Housing Status: lives alone Occupation Status: retired Current/Historical Medications Scheduled Aspirin (Aspirin), 325 MG PO DAILY Atorvastatin (Lipitor), 20 MG PO HS Bumetanide (Bumex), 2 MG PO DAILY Cholecalciferol (Vitamin D), 1 TAB PO DAILY Docusate Sodium (Stool Softener), 1 TAB PO BID Gabapentin (Neurontin), 100 MG PO BID Glimepiride (Glimepiride), 1 TAB PO DAILY Ipratropium-Albuterol (Combivent Respimat), 1 PUFFS INH QID Metoprolol Succinate (Toprol Xl), 25 MG PO DAILY Prednisone (Prednisone), 40 MG PO DAILY Pyridoxine HCl (Vitamin B-6), 100 MG PO DAILY Sitagliptin (Januvia), 50 MG PO DAILY Scheduled PRN Albuterol Hfa (Ventolin Hfa), 2-4 PUFFS INH Q4H PRN for Wheezing Oxycodone Ir (Roxicodone Ir), 1 TAB PO Q4H PRN for Pain Allergies Coded Allergies: Iodinated Diagnostic Agents (Verified Allergy, Intermediate, HIVES/ LOST VOICE, 05/02/16) Clonazepam (Unverified Allergy, Unknown, Rash, hives, 05/02/16) Lisinopril (Verified Adverse Reaction, Mild, COUGH, 05/02/16) Meperidine (Unverified Adverse Reaction, Unknown, Hallucinations, 05/02/16) Physical Exam Vital Signs Date Time Temp Pulse Resp B/P Pulse Ox O2 Delivery O2 Flow Rate FiO2 05/02/16 16:10 63 05/02/16 15:20 74 20 132/67 99 Room Air 05/02/16 14:47 72 20 141/88 99 Room Air 05/02/16 13:45 36.7 72 18 150/80 98 Room Air Physical Exam GENERAL: Patient is awake, alert, and in no acute distress. Patient is resting comfortably and showing no signs of anxiety EYES: The conjunctivae are clear. The pupils are round and reactive. EARS, NOSE, MOUTH AND THROAT: The nose is without any evidence of any deformity. Mucous membranes are moist tongue is midline NECK: The neck is nontender and supple. RESPIRATORY: Normal respiratory effort is noted there is no evidence of wheezing rhonchi or rales CARDIOVASCULAR: Tachycardic rate and regular rhythm, systolic murmur noted to auscultation. normal S1 normal S2 GASTROINTESTINAL: The abdomen is soft. Bowel sounds are present in all quadrants. Abdomen is nontender RECTAL: Revealed dark stool that was heme positive. MUSCULOSKELETAL/EXTREMITIES: There is no evidence of gross deformity. Decrease ROM with right hip associated with right hip surgery. SKIN: There is no obvious evidence of any rash. There are no petechiae, pallor or cyanosis noted. Pedal edema bilaterally. NEUROLOGIC: Patient is awake alert and oriented x3. Medical Decision & Procedures ER Provider Diagnostic Interpretation: X-ray results as stated below per interpretation by me and the radiologist. FRONTAL CHEST RADIOGRAPH CLINICAL HISTORY: Bowel pain. Bloody stools. COMPARISON STUDY: Chest radiograph and chest CT March 16, 2016. FINDINGS: There are median sternotomy wires. Mild to moderate cardiomegaly is unchanged. No pneumothorax or pleural effusion is present. There is pulmonary vascular congestion with possible mild pulmonary edema. IMPRESSION: 1. Pulmonary vascular congestion with possible mild pulmonary edema. 2. Mild to moderate cardiomegaly. Electronically signed by: Shane Griffin M.D. 05/02/2016 3:15 PM Dictated Date/Time: 05/02/2016 3:14 PM KUB CLINICAL HISTORY: Abdominal pain. Bloody stools. COMPARISON STUDY: None. FINDINGS: Bilateral hip arthroplasties are partially imaged on this exam. There is heterotopic ossification. The bowel gas pattern is normal. Pelvic calcifications likely reflect phleboliths. IMPRESSION: No evidence for a bowel obstruction. Electronically signed by: Shane Griffin M.D. 05/02/2016 3:16 PM Dictated Date/Time: 05/02/2016 3:15 PM Laboratory Results 05/02/16 14:00 Red Blood Count 2.96, Mean Corpuscular Volume 97.6, Mean Corpuscular Hemoglobin 30.7, Mean Corpuscular Hemoglobin Concent 31.5, Mean Platelet Volume 10.4, Neutrophils (%) (Auto) 74.2, Lymphocytes (%) (Auto) 15.0, Monocytes (%) (Auto) 9.6, Eosinophils (%) (Auto) 0.5, Basophils (%) (Auto) 0.2, Neutrophils # (Auto) 9.08, Lymphocytes # (Auto) 1.84, Monocytes # (Auto) 1.17, Eosinophils # (Auto) 0.06, Basophils # (Auto) 0.02 05/02/16 14:00 Test 05/02/16 14:00 05/02/16 14:40 White Blood Count 12.23 K/uL (4.8-10.8) Red Blood Count 2.96 M/uL (4.2-5.4) Hemoglobin 9.1 g/dL (12.0-16.0) Hematocrit 28.9 % (37-47) Mean Corpuscular Volume 97.6 fL (80-100) Mean Corpuscular Hemoglobin 30.7 pg (25-34) Mean Corpuscular Hemoglobin Concent 31.5 g/dl (32-36) Platelet Count 334 K/uL (130-400) Mean Platelet Volume 10.4 fL (7.4-10.4) Neutrophils (%) (Auto) 74.2 % Lymphocytes (%) (Auto) 15.0 % Monocytes (%) (Auto) 9.6 % Eosinophils (%) (Auto) 0.5 % Basophils (%) (Auto) 0.2 % Neutrophils # (Auto) 9.08 K/uL (1.4-6.5) Lymphocytes # (Auto) 1.84 K/uL (1.2-3.4) Monocytes # (Auto) 1.17 K/uL (0.11-0.59) Eosinophils # (Auto) 0.06 K/uL (0-0.5) Basophils # (Auto) 0.02 K/uL (0-0.2) RDW Standard Deviation 55.8 fL (36.4-46.3) RDW Coefficient of Variation 16.0 % (11.5-14.5) Immature Granulocyte % (Auto) 0.5 % Immature Granulocyte # (Auto) 0.06 K/uL (0.00-0.02) Prothrombin Time 11.1 SECONDS (9.0-12.0) Prothromb Time International Ratio 1.0 (0.9-1.1) Activated Partial Thromboplast Time 23.7 SECONDS (21.0-31.0) Partial Thromboplastin Ratio 0.9 Anion Gap 9.0 mmol/L (3-11) Est Creatinine Clear Calc Drug Dose 41.4 ml/min Estimated GFR () 48.7 Estimated GFR (Non- 42.1 BUN/Creatinine Ratio 19.3 (10-20) Calcium Level 8.9 mg/dl (8.5-10.1) Total Bilirubin 0.5 mg/dl (0.2-1) Direct Bilirubin 0.1 mg/dl (0-0.2) Aspartate Amino Transf (AST/SGOT) 14 U/L (15-37) Alanine Aminotransferase (ALT/SGPT) 14 U/L (12-78) Alkaline Phosphatase 98 U/L (45-117) Troponin I < 0.015 ng/ml (0-0.045) Total Protein 6.9 gm/dl (6.4-8.2) Albumin 2.8 gm/dl (3.4-5.0) Lipase 218 U/L (73-393) Urine Color YELLOW Urine Appearance CLEAR (CLEAR) Urine pH 6.0 (4.5-7.5) Urine Specific [place] 1.006 (1.000-1.030) Urine Protein NEG (NEG) Urine Glucose (UA) NEG (NEG) Urine Ketones NEG (NEG) Urine Occult Blood NEG (NEG) Urine Nitrite NEG (NEG) Urine Bilirubin NEG (NEG) Urine Urobilinogen NEG (NEG) Urine Leukocyte Esterase NEG (NEG) Laboratory results per my review. ED Course 1336: The patient was evaluated in room B8. A complete history and physical examination were performed. 1428: I discussed the case with Isatu Bryan PA-C [facility] Hospitalist. She agreed to evaluate the patient for further management and care. 1440: I reevaluated the patient and she was resting comfortably. I discussed with her the results and treatment plan. Medical Decision Differential diagnosis: Etiologies such as diverticulosis, AVM, coagulopathy, colitis, inflammatory bowel disease, malignancy, Debra-Bass tear, esophagitis, peptic ulcer disease , variceal bleed, gastritis, epistaxis, fissure, hemorrhoids, as well as others were entertained. Nursing notes reviewed. Additional history was obtained from the prehospital personnel. The patient is an 81-year-old female who presented to the emergency Department from a custodial for an evaluation of lower GI bleeding. The patient has a history of diverticulosis and had a very significant lower GI bleed in the past. The patient had one episode of bloody bowel movement last evening. She presented to the emergency department today. Her stool revealed heme positive stool but no active bleeding. The patient was found have significant anemia but I am unsure if this represents her post operative hemoglobin or results of her lower GI bleeding. I discussed the patient's laboratory and radiographic studies with her. I also discussed her case with the on-call [facility] hospitalist group. They've agreed to evaluate the patient in the emergency department for further management and disposition. Consults Time Called: 1426 Consulting Physician: Isatu Segura Returned Call: 1428 I discussed the case with Isatu Segura. She agreed to evaluate the patient for further management and care. Impression Primary Impression: Lower GI bleed Additional Impression: Anemia Scribe Attestation The scribe's documentation has been prepared under my direction and personally reviewed by me in its entirety. I confirm that the note above accurately reflects all work, treatment, procedures, and medical decision making performed by me. Departure Information Dispostion Being Evaluated By Hospitalist Referrals Timothy Nathan M.D. (PCP) Problem Qualifiers Additional Impression: Anemia Anemia type: unspecified type Qualified Codes: D64.9 - Anemia, unspecified
[2016-05-02 14:13] LABS: BASO % 0.2 %; BASO ABS # 0.02 K/uL (0-0.2); COMPLETE YES; EOS % 0.5 %; HEMATOCRIT 28.9 % (37-47); IG% 0.5 %; LYMPH ABS # 1.84 K/uL (1.2-3.4); MEAN CELL VOLUME 97.6 fL (80-100); MEAN CORPUSCULAR HEMOGLOBIN 30.7 pg (25-34); MEAN CORPUSCULAR HGB CONC 31.5 g/dl (32-36); MEAN PLATELET VOLUME 10.4 fL (7.4-10.4); MONO % 9.6 %; NEUT % 74.2 %; PLATELET COUNT 334 K/uL (130-400); RED BLOOD COUNT 2.96 M/uL (4.2-5.4); WHITE BLOOD COUNT 12.23 K/uL (4.8-10.8)
[2016-05-02 14:23] LABS: PARTIAL THROMBOPLASTIN RATIO 0.9; PROTHROMBIN TIME (PATIENT) 11.1 SECONDS (9.0-12.0)
[2016-05-02 14:34] LABS: ALT/SGPT 14 U/L (12-78); BLOOD UREA NITROGEN 23 mg/dl (7-18); BUN/CREATININE RATIO 19.3 (10-20); CALCIUM 8.9 mg/dl (8.5-10.1); CARBON DIOXIDE 29 mmol/L (21-32); CHLORIDE 103 mmol/L (98-107); GLUCOSE 212 mg/dl (70-99); POTASSIUM 4.4 mmol/L (3.5-5.1); SODIUM 141 mmol/L (136-145)
[2016-05-02 14:39] LABS: ALKALINE PHOSPHATASE 98 U/L (45-117); AST/SGOT 14 U/L (15-37)
[2016-05-02] MEDS ORDERED: ASPI325T4 PO (15:09)
[2016-05-02] MEDS ORDERED: OXYC1TAB3 PO (15:09)
--- NOTE | 2016-05-02 15:17 | DIAGNOSTIC IMAGING REPORT ---
KUB CLINICAL HISTORY: Abdominal pain. Bloody stools. COMPARISON STUDY: None. FINDINGS: Bilateral hip arthroplasties are partially imaged on this exam. There is heterotopic ossification. The bowel gas pattern is normal. Pelvic calcifications likely reflect phleboliths. IMPRESSION: No evidence for a bowel obstruction. Electronically signed by: Shane Griffin M.D. 05/02/2016 3:16 PM Dictated Date/Time: 05/02/2016 3:15 PM
--- NOTE | 2016-05-02 15:17 | DIAGNOSTIC IMAGING REPORT ---
FRONTAL CHEST RADIOGRAPH CLINICAL HISTORY: Bowel pain. Bloody stools. COMPARISON STUDY: Chest radiograph and chest CT March 16, 2016. FINDINGS: There are median sternotomy wires. Mild to moderate cardiomegaly is unchanged. No pneumothorax or pleural effusion is present. There is pulmonary vascular congestion with possible mild pulmonary edema. IMPRESSION: 1. Pulmonary vascular congestion with possible mild pulmonary edema. 2. Mild to moderate cardiomegaly. Electronically signed by: Shane Griffin M.D. 05/02/2016 3:15 PM Dictated Date/Time: 05/02/2016 3:14 PM
[2016-05-02 15:25] LABS: URINE APPEARANCE CLEAR (CLEAR); URINE BILIRUBIN NEG (NEG); URINE COLOR YELLOW; URINE NITRITE NEG (NEG); URINE SPECIFIC GRAVITY 1.006 (1.000-1.030); UROBILINOGEN NEG (NEG)
[2016-05-02] MEDS ORDERED: PRD20 PO (15:25)
[2016-05-02] MEDS ORDERED: ASPI81TA28 PO (15:41)
[2016-05-02] MEDS ORDERED: ONDANSETRON INJ 2 MG/ML 2 ML VIAL IV PRN (15:45)
[2016-05-02] MEDS ORDERED: ASPEC325 PO (15:56)
[2016-05-02 16:02] LABS: MANUAL MICROSCOPIC REQUIRED? NO; REVIEW REQ? NO
[2016-05-02] MEDS ORDERED: GLUCOSE 10 TABS/TUBE PO PRN (16:15)
[2016-05-02] MEDS ORDERED: GLUCOSE 40% GEL 15 GM TUBE PO PRN (16:15)
[2016-05-02] MEDS ORDERED: DEXTROSE 50% 50 ML SYR IV PRN (16:15)
[2016-05-02] MEDS ORDERED: IV FLUIDS COMPLETED PRN (16:15)
[2016-05-02] MEDS ORDERED: GLUCAGON FOR INJ 1 MG VIAL SQ PRN (16:15)
[2016-05-02] MEDS ORDERED: ALBUTEROL HFA 8 GM INHALER INH PRN (16:15)
--- NOTE | 2016-05-02 16:15 | History and Physical ---
History & Physical Date & Time of Service: May 02, 2016 at 15:44 Chief Complaint: Gi Assessment Primary Care Physician: Timothy Nathan M.D. History of Present Illness Source: patient, clinic records, hospital records, fpc Patient seen and examined. 81 year old female with PMHx of CAD, Afib, CKD stage 3, DM2, HLD, HTN and other problems listed below presents to the ED complaining of maroon stools last night. Patient reports that her nurses told her BMs last night looked like they could have blood in them. Today the stool has returned to normal. She reports that she has a history of a severe diverticular bleed 7 years ago while on coumadin so she was sent to the ED for further evaluation. Patient states she feels well denying fevers, chills, URI symptoms, chest pain, SOB, nausea, vomiting, diarrhea, dysuria, calf pain and edema. She reports she has gout and was started on prednisone a few days ago. Patient had RTHA last week and is taking full dose aspirin for DVT prophylaxis. She is at [facility] for rehab. In the ED VS are stable, Hgb is 9.1 WBC count is 12.23. Stool is heme positive. She will be observed for further workup and treatment. Past Medical/Surgical History Medical Problems: (1) Afib Status: Chronic (2) Aortic stenosis Status: Chronic (3) AVN of femur Status: Chronic (4) CAD (coronary artery disease) Status: Chronic (5) CHF (congestive heart failure) Status: Chronic (6) CKD (chronic kidney disease), stage III Status: Chronic (7) Congestive heart failure Status: Chronic (8) DM2 (diabetes mellitus, type 2) Status: Chronic (9) DVT (deep venous thrombosis) Status: Resolved (10) History of cardioversion Status: Chronic (11) HLD (hyperlipidemia) Status: Chronic (12) HTN (hypertension) Status: Chronic (13) Hypertension Status: Chronic Surgical Problems: (1) H/O colonoscopy Status: Chronic (2) H/O knee surgery Status: Chronic (3) H/O: hysterectomy Status: Resolved (4) H/O: hysterectomy Status: Chronic (5) History of appendectomy Status: Chronic (6) Hx of CABG Status: Chronic (7) S/P appendectomy Status: Resolved (8) S/P hip replacement Status: Chronic (9) S/P triple vessel bypass Status: Resolved (10) Stented coronary artery Status: Chronic Family History Diabetes mellitus Heart disease Hypertension Social History Smoking Status: Never Smoker Alcohol Use: none Housing status: lives alone Occupational Status: retired Allergies Coded Allergies: Iodinated Diagnostic Agents (Verified Allergy, Intermediate, HIVES/ LOST VOICE, 05/02/16) Clonazepam (Unverified Allergy, Unknown, Rash, hives, 05/02/16) Lisinopril (Verified Adverse Reaction, Mild, COUGH, 05/02/16) Meperidine (Unverified Adverse Reaction, Unknown, Hallucinations, 05/02/16) Home Medications Scheduled Aspirin (Aspirin), 325 MG PO DAILY Atorvastatin (Lipitor), 20 MG PO HS Bumetanide (Bumex), 2 MG PO DAILY Cholecalciferol (Vitamin D), 1 TAB PO DAILY Docusate Sodium (Stool Softener), 1 TAB PO BID Gabapentin (Neurontin), 100 MG PO BID Glimepiride (Glimepiride), 1 TAB PO DAILY Ipratropium-Albuterol (Combivent Respimat), 1 PUFFS INH QID Metoprolol Succinate (Toprol Xl), 25 MG PO DAILY Prednisone (Prednisone), 40 MG PO DAILY Pyridoxine HCl (Vitamin B-6), 100 MG PO DAILY Sitagliptin (Januvia), 50 MG PO DAILY Scheduled PRN Albuterol Hfa (Ventolin Hfa), 2-4 PUFFS INH Q4H PRN for Wheezing Oxycodone Ir (Roxicodone Ir), 1 TAB PO Q4H PRN for Pain Review of Systems See above for pertinent positives & negatives. A total of 10 systems reviewed and were otherwise negative. Physical Exam Vital Signs Date Time Temp Pulse Resp B/P Pulse Ox O2 Delivery O2 Flow Rate FiO2 05/02/16 15:20 74 20 132/67 99 Room Air 05/02/16 14:47 72 20 141/88 99 Room Air 05/02/16 13:45 36.7 72 18 150/80 98 Room Air General Appearance: + pertinent finding (Pleasant WD/WN 81 year old female lying in bed in NAD ) Head: normocephalic, atraumatic Eyes: PERRL, EOMI, sclerae normal ENT: hearing grossly normal, pharynx normal Neck: supple, no JVD Respiratory/Chest: chest non-tender, lungs clear, normal breath sounds, no respiratory distress, no accessory muscle use Cardiovascular: regular rate, rhythm, no edema, no gallop, no JVD, normal peripheral pulses, + systolic murmur Abdomen/GI: normal bowel sounds, non tender, soft, no organomegaly Back: normal inspection, no muscle spasm Extremities/Musculoskelatal: no calf tenderness, normal capillary refill, no pedal edema, + pertinent finding (dressing i/c/d right hip) Neurologic/Psych: no motor/sensory deficits, alert, oriented x 3 Skin: normal color, warm/dry, no rash Lymphatic: no adenopathy Diagnostics Laboratory Results Results Past 24 Hours Test 05/02/16 14:00 05/02/16 14:40 Range/Units White Blood Count 12.23 4.8-10.8 K/uL Red Blood Count 2.96 4.2-5.4 M/uL Hemoglobin 9.1 12.0-16.0 g/dL Hematocrit 28.9 37-47 % Mean Corpuscular Volume 97.6 80-100 fL Mean Corpuscular Hemoglobin 30.7 25-34 pg Mean Corpuscular Hemoglobin Concent 31.5 32-36 g/dl Platelet Count 334 130-400 K/uL Mean Platelet Volume 10.4 7.4-10.4 fL Neutrophils (%) (Auto) 74.2 % Lymphocytes (%) (Auto) 15.0 % Monocytes (%) (Auto) 9.6 % Eosinophils (%) (Auto) 0.5 % Basophils (%) (Auto) 0.2 % Neutrophils # (Auto) 9.08 1.4-6.5 K/uL Lymphocytes # (Auto) 1.84 1.2-3.4 K/uL Monocytes # (Auto) 1.17 0.11-0.59 K/uL Eosinophils # (Auto) 0.06 0-0.5 K/uL Basophils # (Auto) 0.02 0-0.2 K/uL RDW Standard Deviation 55.8 36.4-46.3 fL RDW Coefficient of Variation 16.0 11.5-14.5 % Immature Granulocyte % (Auto) 0.5 % Immature Granulocyte # (Auto) 0.06 0.00-0.02 K/uL Prothrombin Time 11.1 9.0-12.0 SECONDS Prothromb Time International Ratio 1.0 0.9-1.1 Activated Partial Thromboplast Time 23.7 21.0-31.0 SECONDS Partial Thromboplastin Ratio 0.9 Sodium Level 141 136-145 mmol/L Potassium Level 4.4 3.5-5.1 mmol/L Chloride Level 103 98-107 mmol/L Carbon Dioxide Level 29 21-32 mmol/L Anion Gap 9.0 3-11 mmol/L Blood Urea Nitrogen 23 7-18 mg/dl Creatinine 1.20 0.60-1.20 mg/dl Est Creatinine Clear Calc Drug Dose 41.4 ml/min Estimated GFR () 48.7 Estimated GFR (Non- 42.1 BUN/Creatinine Ratio 19.3 10-20 Random Glucose 212 70-99 mg/dl Calcium Level 8.9 8.5-10.1 mg/dl Total Bilirubin 0.5 0.2-1 mg/dl Direct Bilirubin 0.1 0-0.2 mg/dl Aspartate Amino Transf (AST/SGOT) 14 15-37 U/L Alanine Aminotransferase (ALT/SGPT) 14 12-78 U/L Alkaline Phosphatase 98 45-117 U/L Troponin I < 0.015 0-0.045 ng/ml Total Protein 6.9 6.4-8.2 gm/dl Albumin 2.8 3.4-5.0 gm/dl Lipase 218 73-393 U/L Diagnostic Radiology CXR Per radiologist read: IMPRESSION: 1. Pulmonary vascular congestion with possible mild pulmonary edema. 2. Mild to moderate cardiomegaly. KUB Per radiologist read: IMPRESSION: No evidence for a bowel obstruction. EKG Afib 74 BPM, incomplete RBBB, Qtc 466 Impression Assessment and Plan 81 year old female presents to the ED complaining of 2 episodes of maroon stools last night, stools returned to normal today. Stool heme positive in ED. Patient denies any symptoms RECTAL BLEEDING -Observation in med/surg -Hgb 9.1 today was 8.9 six days ago following RTHA, -has history of diverticular bleed while on Coumadin several years ago -currently taking full dose ASA for DVT prophylaxis s/p hip surgery. -hold aspirin for now -daily po Protonix -repeat H&H in AM -If Hgb decreases on repeat consider further workup defer to attending -hemodynamically stable -no indication for transfusion ANEMIA -likely acute blood loss anemia from recent RTHA -Hgb has actually improved from six days ago 8.9->9.1 -repeat CBC in AM LEUKOCYTOSIS -12K -likely secondary to steroid use -afebrile, no indication for Abx -repeat CBC in AM GOUT -continue Prednisone 5 day course -add Protonix for GI prophylaxis DIASTOLIC CHF -secondary to severe aortic valve disease -appear euvolemic -continue Bumex CAD -S/P stent, s/p CABG -follows with Dr. Steven -continue BB, Statin -hold aspirin CKD STAGE 3 -crea 1.2 which is baseline -avoid nephrotoxic agents as able -repeat PRP in AM AFIB -rate controlled -not on anticoagulation d/t history of GI bleed -hold aspirin -continue BB DM2 -hyperglycemia, likely secondary to steroids -SSI coverage -BSG AC HS -pharmacy consulted for glycemic control HLD -continue Statin HTN -stable -continue BB RECENT RIGHT TOTAL HIP ARTHROPLASTY -likely return to [facility] for rehab -continue pain control, bowel regimen DVT PROPHYLAXIS: SCDs CODE STATUS: FULL CODE per fpc paper work DISPO:observation pending further workup Patient seen in collaboration with Dr. Majano Attending Addendum Patient seen and examined with son at bedside. Agreed with Danielle SIMPSON's physical exam, assessment and plan. 81 year old female with PMHx of CAD, Afib, CKD stage 3, DM2, HLD, HTN presents to the ED complaining of dark stools last night. Patient said that her nurses told her that her BM last night seems to have some blood. Son said that yesterday she was having some abdominal pain and diarrhea that resolved. Pt said that today her stool is normal. she said that she feels fine. denies any chest pain, palpitation, dizziness and SOB. General- no acute distress, obese Head- atraumatic Eyes- PERRL, EOMI ENT- oropharynx clear Neck- supple, no JVD Lungs- clear to auscultation, no wheezing Heart- +systolic murmur Abdomen- normal bowel sounds, soft A/p RECTAL BLEEDING Asymptomatic Hgb 9.1 on admission, was 8.9 few day ago. Will hold asa for now daily po Protonix CBC in am hemodynamically stable Lab, EKG, imaging reviewed Please refer to Isatu SIMPSON's documentation for other problems. Shakira Majano MD VTE Prophylaxis VTE Risk Assessment Done? Y/N: Yes Risk Level: Moderate
[2016-05-02] MEDS ORDERED: PHARMACY GLYCEMIC MGMT CONSULT PRN (16:18)
--- NOTE | 2016-05-02 16:39 | Pharmacy Progress Note ---
Glycemic Control Intl Consult Date of Service May 02, 2016. Scope Glycemic Pharmacist consulted by Isatu Byran PA-C on 05/02/16 for glycemic control and to write orders per [facility] inpatient glycemic control protocol Objective Weight (Kilograms): 106.000 Accuchecks BSG (last 24hrs): Test 05/02/16 14:00 Random Glucose 212 mg/dl (70-99) Laboratory Data (last 24hrs) Test 05/02/16 14:00 Anion Gap 9.0 mmol/L BUN/Creatinine Ratio 19.3 Blood Urea Nitrogen 23 mg/dl Creatinine 1.20 mg/dl Potassium Level 4.4 mmol/L Sodium Level 141 mmol/L White Blood Count 12.23 K/uL Red Blood Count 2.96 M/uL Hemoglobin 9.1 g/dL Hematocrit 28.9 % Mean Corpuscular Volume 97.6 fL Mean Corpuscular Hemoglobin 30.7 pg Mean Corpuscular Hemoglobin Concent 31.5 g/dl Platelet Count 334 K/uL Mean Platelet Volume 10.4 fL Neutrophils (%) (Auto) 74.2 % Lymphocytes (%) (Auto) 15.0 % Monocytes (%) (Auto) 9.6 % Eosinophils (%) (Auto) 0.5 % Basophils (%) (Auto) 0.2 % Neutrophils # (Auto) 9.08 K/uL Lymphocytes # (Auto) 1.84 K/uL Monocytes # (Auto) 1.17 K/uL Eosinophils # (Auto) 0.06 K/uL Basophils # (Auto) 0.02 K/uL HbA1c Item Value Date Time Hemoglobin A1c 6.2 % H 03/08/16 0556 Recent Pertinent Medications Outpatient Anti-diabetic Regimen: * Amaryl 2 mg PO daily * Januvia 50 mg PO daily Risk Factors for Insulin Resistance: * Steroids: Prednisone 40 mg as outpatient for gout (short course, has been continued) * Diet: T2DM Assessment & Plan ASSESSMENT: * 81 yo F admitted with rectal bleeding, BSG in the ED ~212 mg/dL * Most recent A1c from February 2016 (within 90 days) indicative of good glycemic control * Plan will be to hold oral medications while inpatient and initiate weight- based Novolog (stress 1.5) * Given age and comorbidities, hold off on basal insulin * Consider initiating if BSGs consistently >200 mg/dL * ADA & AACE recommend a goal blood sugar range 140-180 mg/dl for the majority of critically ill & non-critically ill patients. However, more stringent targets may be selected in individual cases. Since patient is on short course of steroids, step goal range down to 120-160mg/dL. PLAN FOR INPATIENT GLYCEMIC CONTROL: * Holding outpatient oral diabetes medications * No basal insulin at this time * Correctional Insulin with NOVOLOG per scale ACHS or Q6hrs while NPO * Goal Range: Low 120 mg/dL - High 160 mg/dL * Correction Factor: 30 mg/dL/unit * Nutritional / Prandial insulin per carb ratio of 1 unit per 10 grams CHO consumed * A1c added to D/C instructions * Please note that the plan above was derived based on current level of insulin resistance and hospital stress. These recommendations are appropriate for inpatient admission only. Plan of care upon discharge will need to be reassessed to avoid potential outpatient hypo/hyperglycemia. Thank you.
[2016-05-02] MEDS: IPRATROPIUM BROMIDE/ALBUTEROL respimat INH INH SCH ×2 (17:00→21:16)
[2016-05-02 17:54] VITALS: BP 112/51; PULSE 67; TEMP 36.7; O2SAT 98; Ht 157.5 cm; Wt 106.0 kg
[2016-05-02] MEDS: ACETAMINOPHEN 325 MG TAB PO PRN (18:31)
[2016-05-02] MEDS: OXYCODONE HCL IR 5 MG TAB (IMMEDIATE RELEASE) PO PRN (20:50)
[2016-05-02] MEDS: INSULIN ASPART 100 UNITS/ML 3 ML PEN SC SCH (21:00)
[2016-05-02] MEDS: DOCUSATE SODIUM 100 MG CAP PO SCH (21:00)
[2016-05-02] MEDS: ATORVASTATIN 20 MG TAB PO SCH (21:08)
[2016-05-02] MEDS: GABAPENTIN 100 MG CAP PO SCH (21:08)
[2016-05-02 23:09] VITALS: BP 110/49; PULSE 67; TEMP 36.5; O2SAT 99
[2016-05-03] MEDS: OXYCODONE HCL IR 5 MG TAB (IMMEDIATE RELEASE) PO PRN ×2 (06:01→21:01)
[2016-05-03 06:24] LABS: HEMATOCRIT 28.7 % (37-47); MEAN CORPUSCULAR HEMOGLOBIN 30.7 pg (25-34); MEAN CORPUSCULAR HGB CONC 31.4 g/dl (32-36); MEAN PLATELET VOLUME 10.1 fL (7.4-10.4); PLATELET COUNT 304 K/uL (130-400); RED BLOOD COUNT 2.93 M/uL (4.2-5.4); WHITE BLOOD COUNT 10.27 K/uL (4.8-10.8)
[2016-05-03 06:49] LABS: BUN/CREATININE RATIO 22.7 (10-20); CALCIUM 8.8 mg/dl (8.5-10.1)
[2016-05-03 07:48] VITALS: BP 133/70; PULSE 69; TEMP 36.3; O2SAT 99
[2016-05-03] MEDS: BUMETANIDE 1 MG TAB PO SCH (08:41)
[2016-05-03] MEDS: IPRATROPIUM BROMIDE/ALBUTEROL respimat INH INH SCH ×4 (08:41→21:02)
[2016-05-03] MEDS: DOCUSATE SODIUM 100 MG CAP PO SCH ×2 (08:41→21:02)
[2016-05-03] MEDS: GABAPENTIN 100 MG CAP PO SCH ×2 (08:42→21:02)
[2016-05-03] MEDS: CHOLECALCIFEROL 1000 INTER.UNIT TAB PO SCH (08:43)
[2016-05-03] MEDS: PYRIDOXINE HCL 50 MG TAB PO SCH (08:43)
[2016-05-03] MEDS: METOPROLOL SUCC 25MG EXT REL TAB PO SCH (08:43)
[2016-05-03] MEDS: INSULIN ASPART 100 UNITS/ML 3 ML PEN SC SCH ×4 (08:48→21:04)
[2016-05-03] MEDS ORDERED: PANTOprazole SOD 40 MG TAB PO SCH (09:00)
--- NOTE | 2016-05-03 12:03 | Pharmacy Progress Note ---
Glycemic Control: Progress Nt Date of Service May 03, 2016. Scope Glycemic Pharmacist consulted by Isatu Bryan PA-C on 05/02/16 for glycemic control and to write orders per [facility] inpatient glycemic control protocol. Objective Accuchecks BSG (last 24hrs): Test 05/02/16 14:00 05/02/16 20:35 05/02/16 21:04 05/03/16 06:03 Random Glucose 212 mg/dl (70-99) 103 mg/dl (70-99) Bedside Glucose 133 mg/dl (70-90) 141 mg/dl (70-90) Test 05/03/16 07:30 05/03/16 11:18 Bedside Glucose 104 mg/dl (70-90) 132 mg/dl (70-90) Laboratory Data (last 24hrs) Test 05/02/16 14:00 05/03/16 06:03 Anion Gap 9.0 mmol/L 7.0 mmol/L BUN/Creatinine Ratio 19.3 22.7 Blood Urea Nitrogen 23 mg/dl 23 mg/dl Creatinine 1.20 mg/dl 1.00 mg/dl Potassium Level 4.4 mmol/L 4.0 mmol/L Sodium Level 141 mmol/L 142 mmol/L White Blood Count 12.23 K/uL 10.27 K/uL Red Blood Count 2.96 M/uL Hemoglobin 9.1 g/dL Hematocrit 28.9 % Mean Corpuscular Volume 97.6 fL Mean Corpuscular Hemoglobin 30.7 pg Mean Corpuscular Hemoglobin Concent 31.5 g/dl Platelet Count 334 K/uL Mean Platelet Volume 10.4 fL Neutrophils (%) (Auto) 74.2 % Lymphocytes (%) (Auto) 15.0 % Monocytes (%) (Auto) 9.6 % Eosinophils (%) (Auto) 0.5 % Basophils (%) (Auto) 0.2 % Neutrophils # (Auto) 9.08 K/uL Lymphocytes # (Auto) 1.84 K/uL Monocytes # (Auto) 1.17 K/uL Eosinophils # (Auto) 0.06 K/uL Basophils # (Auto) 0.02 K/uL HbA1c: 6.2% on 03/08/16 Recent Pertinent Medications Outpatient Anti-diabetic Regimen: * Amaryl 2 mg PO daily * Januvia 50 mg PO daily The patient is currently receiving: * Basal insulin: N/A- none indicated at this time * Correctional Insulin: Novolog Correction per scale ACHS Goal Range: Low 120 mg/dL - High 160 mg/dL Correction Factor: 30 mg/dL/unit * Prandial insulin: Per carb ratio of 1 unit per 10 grams CHO consumed * Oral Agents: On hold for admission Risk Factors for Insulin Resistance: * Steroids: Prednisone 40 mg as outpatient for gout (short course, has been continued) * Diet: T2DM Assessment & Plan ASSESSMENT: * Most recent A1c from February 2016 (within 90 days) indicative of good glycemic control * Reasonable to resume outpatient regimen at the time of discharge * May even consider d/c one agent as A1c is significantly below goal range of ~ 7-8% based on age and co-morbidities * Consider c/d Amaryl base on hypo risk in an elderly patient * Pt has been requiring minimal insulin for adequate glycemic control while outpatient oral agents on hold * Bolus insulin parameters may need loosened when prednisone d/c * ADA & AACE recommend a goal blood sugar range 140-180 mg/dl for the majority of critically ill & non-critically ill patients. However, more stringent targets may be selected in individual cases. Will utilize more stringent goal range of 120-160mg/dl based on tight glycemic control at baseline PLAN FOR INPATIENT GLYCEMIC CONTROL: * Hold outpatient oral diabetes medications - may resume at the time of discharge * Basal insulin not warranted/needed at this time. * Will initiate for persistent hyperglycemia BSG > 180mg/dl * NOVOLOG per scale ACHS or Q6hrs while NPO * Goal Range: Low 120 mg/dL - High 160 mg/dL * Correction Factor: 30 mg/dL/unit * Nutritional / Prandial insulin per carb ratio of 1 unit per 10 grams CHO consumed * Please note that the plan above was derived based on current level of insulin resistance and hospital stress. These recommendations are appropriate for inpatient admission only. Plan of care upon discharge will need to be reassessed to avoid potential outpatient hypo/hyperglycemia. Thank you.
[2016-05-03 16:06] VITALS: BP 128/63; PULSE 79; TEMP 36.9; O2SAT 96
--- NOTE | 2016-05-03 20:16 | Progress Note ---
Internal Med Progress Note Date of Service: May 03, 2016. Provider Documentation: SUBJECTIVE: no episode of dark stool no nausea or abdominal pain tolerating diet well rt hip surgical suture removed stable to return to [facility] tomorrow OBJECTIVE: Vital Signs-as noted below Exam: General-no sign of distress , very pleasant Eyes-sclera non icteric ENT-NAD Neck-no JVD Lungs-CTA , no wheeze or rales Heart-regular S1/S2 Abdomen-soft, non tender Extremities-s/p rt hip surgery , sutures removed Neuro-no focal neurological deficit Lab data as noted below. ASSESSMENT & PLAN: RECTAL BLEEDING -no further episode -H&H remains stable -currently taking full dose ASA for DVT prophylaxis s/p hip surgery. -aspirin kept on hold -daily po Protonix pt is s/p > 2 weeks post op sutures removed resume Aspirin lower dose 162 mg daily ANEMIA -likely acute blood loss anemia from recent RTHA -Hgb has actually improved from six days ago 8.9->9.1 -no evidence of GI bleed LEUKOCYTOSIS -resolved normal white count now GOUT -no pain or discomfort D/c PO Prednisone -add Protonix for GI prophylaxis DIASTOLIC CHF -secondary to severe aortic valve disease -appear euvolemic -continue Bumex CAD -S/P stent, s/p CABG -follows with Dr. Steven -continue BB, Statin -Aspirin resumed CKD STAGE 3 -crea 1.2 which is baseline -avoid nephrotoxic agents as able -r AFIB -rate controlled -not on anticoagulation d/t history of GI bleed on aspirin -continue BB DM2 -SSI coverage -BSG AC HS -pharmacy consulted for glycemic control HLD -continue Statin HTN -stable -continue BB RECENT RIGHT TOTAL HIP ARTHROPLASTY -likely return to [facility] for rehab -continue pain control, bowel regimen DVT PROPHYLAXIS: SCDs CODE STATUS: FULL CODE DISPOSITION return to [facility] tomorrow 05/04/16 for continued rehab rt hip surgical sutures removed out pt follow up for post op as per schedule pt will need litter van transport tomorrow Social service consulted Lab work : CBC in 2-3 days to assess anemia Vital Signs: Date Time Temp Pulse Resp B/P Pulse Ox O2 Delivery O2 Flow Rate FiO2 05/03/16 16:06 36.9 79 18 128/63 96 Room Air 05/03/16 16:00 Room Air 05/03/16 08:20 Room Air 05/03/16 07:48 36.3 69 18 133/70 99 Room Air 05/03/16 00:00 Room Air Lab Results: Results Past 24 Hours Test 05/03/16 06:03 05/03/16 07:30 05/03/16 11:18 05/03/16 16:30 Range/Units White Blood Count 10.27 4.8-10.8 K/uL Red Blood Count 2.93 4.2-5.4 M/uL Hemoglobin 9.0 12.0-16.0 g/dL Hematocrit 28.7 37-47 % Mean Corpuscular Volume 98.0 80-100 fL Mean Corpuscular Hemoglobin 30.7 25-34 pg Mean Corpuscular Hemoglobin Concent 31.4 32-36 g/dl RDW Standard Deviation 58.5 36.4-46.3 fL RDW Coefficient of Variation 16.4 11.5-14.5 % Platelet Count 304 130-400 K/uL Mean Platelet Volume 10.1 7.4-10.4 fL Sodium Level 142 136-145 mmol/L Potassium Level 4.0 3.5-5.1 mmol/L Chloride Level 106 98-107 mmol/L Carbon Dioxide Level 29 21-32 mmol/L Anion Gap 7.0 3-11 mmol/L Blood Urea Nitrogen 23 7-18 mg/dl Creatinine 1.00 0.60-1.20 mg/dl Est Creatinine Clear Calc Drug Dose 49.6 ml/min Estimated GFR () 60.8 Estimated GFR (Non- 52.4 BUN/Creatinine Ratio 22.7 10-20 Random Glucose 103 70-99 mg/dl Calcium Level 8.8 8.5-10.1 mg/dl Bedside Glucose 104 132 238 70-90 mg/dl Test 05/03/16 16:32 05/03/16 21:02 Range/Units Bedside Glucose 230 274 70-90 mg/dl
[2016-05-03] MEDS ORDERED: NURSING VERBAL MED ORDER ONE (21:00)
[2016-05-03] MEDS: ATORVASTATIN 20 MG TAB PO SCH (21:02)
[2016-05-03] MEDS ORDERED: BACITRACIN OINT 15 GM TUBE EXT ONE (21:30)
[2016-05-03] MEDS ORDERED: PRT40 PO (23:11)
[2016-05-03] MEDS ORDERED: ASPI-435 PO (23:11)
[2016-05-03] MEDS ORDERED: OXYC1TAB3 PO (23:11)
--- NOTE | 2016-05-03 23:13 | Discharge Instructions ---
Discharge Instructions Date of Service May 03, 2016. Admission Reason for Admission: Rectal Bleeding Discharge Discharge Diagnosis / Problem: RECTAL BLEED RESOLVED, RECENT RIGHT HIP SURGERY Discharge Goals Goal(s): Improve function, Increase independence, Improve disease control Activity Recommendations Activity Level: Assistance Required Therapies: Physical Therapy, Occupational Therapy Weightbearing Status: Right weightbearing (as tolerated) Shower/Bathe: no limitations . Additional Information Patient informed of condition: Yes Advance Directives: No DNR: No Level of Care: Skilled Communicable Disease: No Prognosis: Improving Uribe Catheter: No Instructions / Follow-Up Instructions / Follow-Up FOLLOW UP WITH FAMILY PHYSICIAN AFTER DISCHARGE FROM REHAB FOLLOW UP WITH ORTHOPEDICS PER SCHEDULE BLOOD WORK : CBC IN 2-3 DAYS Current Hospital Diet Patient's current hospital diet: AHA Diet (Heart Healthy), Low Potassium Diet ( 2g K), Diabetes Type 2 Diet Discharge Diet Recommended Diet: AHA Diet (Heart Healthy) Pending Studies Studies pending at discharge: yes List of pending studies: COMPLETE BLOOD COUNT IN 2-3 DAYS Laboratory Results Hemoglobin A1c Test 03/08/16 05:56 Range/Units Estimated Average Glucose 131 mg/dl Hemoglobin A1c 6.2 H 4.5-5.6 % Lipid Panel Test 03/08/16 05:56 Range/Units Triglycerides Level 152 H 0-150 mg/dl Cholesterol Level 154 0-200 mg/dl HDL Cholesterol 37 mg/dl Cholesterol/HDL Ratio 4.2 LDL Cholesterol, Calculated 87 mg/dl Medical Emergencies . Who to Call and When: Medical Emergencies: If at any time you feel your situation is an emergency, please call 911 immediately. . Non-Emergent Contact Non-Emergency issues call your: Primary Care Provider . . "Provider Documentation" section prepared by Sherron Tafoya. Core Measure Problem Core Measures: None
[2016-05-03 23:35] VITALS: BP 97/62; PULSE 71; TEMP 36.9; O2SAT 91
[2016-05-04 07:04] LABS: HEMATOCRIT 27.4 % (37-47)
--- NOTE | 2016-05-04 07:13 | Progress Note ---
Progress Note Date of Service May 04, 2016. Progress Note ATTENDING NOTE : am lab reviewed hb drop 9.1-> 9-> 8.8 presented with concern for GI bleed will need to be on Aspirin high dose for DVT prophylaxis -recent hip surgery GI eval requested cont to hold Aspirin Cancel transfer to [facility] today Dr Lawson will resume care for the patient will be updated
[2016-05-04 07:23] VITALS: BP 122/67; PULSE 53; TEMP 36.4; O2SAT 96
[2016-05-04 07:55] LABS: BUN/CREATININE RATIO 23.7 (10-20); CALCIUM 8.9 mg/dl (8.5-10.1); POTASSIUM 3.6 mmol/L (3.5-5.1)
[2016-05-04] MEDS: IPRATROPIUM BROMIDE/ALBUTEROL respimat INH INH SCH ×4 (08:25→20:57)
[2016-05-04] MEDS: BACITRACIN OINT 15 GM TUBE EXT SCH ×2 (08:25→20:57)
[2016-05-04] MEDS: DOCUSATE SODIUM 100 MG CAP PO SCH ×2 (08:25→20:57)
[2016-05-04] MEDS: PYRIDOXINE HCL 50 MG TAB PO SCH (08:25)
[2016-05-04] MEDS: METOPROLOL SUCC 25MG EXT REL TAB PO SCH (08:26)
[2016-05-04] MEDS: BUMETANIDE 1 MG TAB PO SCH (08:26)
[2016-05-04] MEDS: GABAPENTIN 100 MG CAP PO SCH ×2 (08:27→20:58)
[2016-05-04] MEDS: PANTOprazole SOD 40 MG TAB PO SCH ×2 (08:27→20:58)
[2016-05-04] MEDS: CHOLECALCIFEROL 1000 INTER.UNIT TAB PO SCH (08:27)
[2016-05-04] MEDS: INSULIN ASPART 100 UNITS/ML 3 ML PEN SC SCH ×4 (08:35→21:04)
[2016-05-04] MEDS ORDERED: INSULIN HUMAN NPH SC SCH (09:00)
--- NOTE | 2016-05-04 09:53 | Gastrointestinal Consultation ---
Gastrointestinal Consultation Date of Consultation: May 04, 2016 Consulting Physician: Pema Reason for Consultation: hx of GI bleed History of Present Illness Patient is a 81 year old female with past medical history significant for diverticular bleed requiring transfer to [place] for management, CAD, Afib on ASA, CKD-3, DMT2 and HTN who presented to the ED on Tuesday follow an episode of abdominal cramping and maroon colored stools per nursing staff at [facility] on Tuesday. Hip repair 2 weeks ago and has been on ASA since. She reports she had normal BMs on Tuesday, but has not had any BM since. She was admitted for anemia. She reports that she feels fine. Denies fever, chills, chest pain, SOB, abdominal pain, abdominal cramping, black/bloody stools, hematemesis or coffee ground emesis. KUB 05/02/16: Bilateral hip arthroplasties are partially imaged on this exam. There is heterotopic ossification. The bowel gas pattern is normal. Pelvic calcifications likely reflect phleboliths. Colonoscopy 01/04/14:A tattoo was seen in the ascending colon. The tattoo site appeared normal. Diverticulosis in the entire examined colon EGD 11/29/13: gastritis Colonoscopy 11/29/13: diverticulitis Colonoscopy 11/24/09: Diverticulosis throughout the colon, greater in the left colon. One actively bleeding diverticulum was found in the mid to proximal ascending colon which was successfully injected with 4 mL of a 1:10,000 solution of epinephrine for hemostasis. Two hemostatic clips were successfully placed. This area was tattooed with Calista ink. There was no bleeding at the end of the procedure. Past Medical/Surgical History Medical Problems: (1) Anemia Status: Acute (2) Contraindication to anticoagulation therapy Status: Acute (3) Elevated BUN Status: Acute (4) Hypokalemia Status: Acute (5) Lower GI bleed Status: Acute Family History Diabetes mellitus Heart disease Hypertension Social History Smoking Status: Never Smoker Alcohol Use: none Housing Status: lives alone Occupation Status: retired Allergies Coded Allergies: Iodinated Diagnostic Agents (Verified Allergy, Intermediate, HIVES/ LOST VOICE, 05/02/16) Clonazepam (Unverified Allergy, Unknown, Rash, hives, 05/02/16) Lisinopril (Verified Adverse Reaction, Mild, COUGH, 05/02/16) Meperidine (Unverified Adverse Reaction, Unknown, Hallucinations, 05/02/16) Current Medications Home Meds and Scripts Medications Dose Route/Sig Max Daily Dose Days Date Category Aspirin 81 (Aspirin) 81 Mg Tab 2 Tabs PO DAILY 30 05/03/16 Rx Pantoprazole Sodium (Pantoprazole) 40 Mg Tab 40 Mg PO QAM 30 05/03/16 Rx Roxicodone Ir (Oxycodone HCl) 5 Mg Tab 1 Tab PO Q4H PRN 05/03/16 Rx Aspirin 325 Mg Ectab 325 Mg PO DAILY 05/02/16 Reported Prednisone 20 Mg Tab 40 Mg PO DAILY 5 05/02/16 Reported Glimepiride 2 Mg Tab 1 Tab PO DAILY 90 03/16/16 Reported Combivent Respimat (Ipratropium-Albuterol) 1 Aer Aer 1 Puffs INH QID 03/16/16 Reported Ventolin Hfa (Albuterol) 200 Puffs/27591 Mcg Aers 2-4 Puffs INH Q4H PRN 03/16/16 Reported Stool Softener (Docusate Sodium) 100 Mg Cap 1 Tab PO BID 03/07/16 Reported Bumex (Bumetanide) 2 Mg Tab 2 Mg PO DAILY 03/07/16 Reported Lipitor (Atorvastatin Calcium) 20 Mg Tab 20 Mg PO HS 03/07/16 Reported Toprol Xl (Metoprolol Succinate) 25 Mg Tabcr 25 Mg PO DAILY 03/07/16 Reported Neurontin (Gabapentin) 100 Mg Cap 100 Mg PO BID 03/07/16 Reported Januvia (Sitagliptin) 50 Mg Tab 50 Mg PO DAILY 03/07/16 Reported Vitamin B-6 (Pyridoxine HCl) 50 Mg Tab 100 Mg PO DAILY 03/07/16 Reported Vitamin D (Cholecalciferol) 2,000 Unit Tab 1 Tab PO DAILY 03/07/16 Reported Review of Systems Constitutional: No chills, No fever Respiratory: No cough, No shortness of breath Cardiac: No chest pain, No edema Abdomen: No GI bleeding, No constipation, No diarrhea, No nausea, No pain, No vomiting Physical Exam Date Time Temp Pulse Resp B/P Pulse Ox O2 Delivery O2 Flow Rate FiO2 05/04/16 08:00 Room Air 05/04/16 07:23 36.4 53 20 122/67 96 Room Air 05/04/16 00:00 Room Air 05/03/16 23:35 36.9 71 18 97/62 91 05/03/16 16:06 36.9 79 18 128/63 96 Room Air 05/03/16 16:00 Room Air General Appearance: no apparent distress Eyes: PERRL ENT: hearing grossly normal Neck: supple, trachea midline Respiratory/Chest: lungs clear, normal breath sounds, no respiratory distress, no accessory muscle use Cardiovascular: regular rate, rhythm, no edema, no murmur Abdomen: normal bowel sounds, non tender, soft, no organomegaly Neurologic/Psych: alert, normal mood/affect, oriented x 3 Skin: normal color, no jaundice Laboratory Results Last 24 Hours Test 05/03/16 11:18 05/03/16 16:30 05/03/16 16:32 05/03/16 21:02 Bedside Glucose 132 mg/dl 238 mg/dl 230 mg/dl 274 mg/dl Test 05/04/16 06:38 05/04/16 07:45 Hemoglobin 8.8 g/dL Hematocrit 27.4 % Sodium Level 140 mmol/L Potassium Level 3.6 mmol/L Chloride Level 104 mmol/L Carbon Dioxide Level 29 mmol/L Anion Gap 7.0 mmol/L Blood Urea Nitrogen 24 mg/dl Creatinine 1.00 mg/dl Est Creatinine Clear Calc Drug Dose 49.6 ml/min Estimated GFR () 60.8 Estimated GFR (Non- 52.4 BUN/Creatinine Ratio 23.7 Random Glucose 138 mg/dl Calcium Level 8.9 mg/dl Bedside Glucose 131 mg/dl Impression Patient is a 81 year old female who presented on Tuesday following an episode of abdominal cramping and marroon colored stools per nursing staff at [facility]. She had a normal BM Tuesday. On admission HGB was 9.1. Today is 8.8. No evidence of any GI bleeding. No BMs since Tuesday. Differentials include hemorrhoidal bleed, diverticular bleed, ischemic colitis, infectious colitis etc. Differentials were explained to patient, she verbalized understanding. Colonoscopy was offered for evaluation - patient refused due to inability to maneuver to toilet issue related to hip surgery and mechanical lift. Plan No evidence of ongoing GI bleed Monitor H&H - has remained stable PPI once daily Suggest colonoscopy - pt refuse Suggest to monitor stools and HGB with ASA use. GI to sign off. Call with any questions.
--- NOTE | 2016-05-04 12:15 | Pharmacy Progress Note ---
Glycemic Control: Progress Nt Date of Service May 04, 2016. Scope Glycemic Pharmacist consulted by Isatu Bryan PA-C on 05/02/16 for glycemic control and to write orders per [facility] inpatient glycemic control protocol. Objective Accuchecks BSG (last 24hrs): Test 05/03/16 16:30 05/03/16 16:32 05/03/16 21:02 05/04/16 06:38 Bedside Glucose 238 mg/dl (70-90) 230 mg/dl (70-90) 274 mg/dl (70-90) Random Glucose 138 mg/dl (70-99) Test 05/04/16 07:45 05/04/16 11:30 Bedside Glucose 131 mg/dl (70-90) 140 mg/dl (70-90) Laboratory Data (last 24hrs) Test 05/04/16 06:38 Anion Gap 7.0 mmol/L BUN/Creatinine Ratio 23.7 Blood Urea Nitrogen 24 mg/dl Creatinine 1.00 mg/dl Potassium Level 3.6 mmol/L Sodium Level 140 mmol/L HbA1c: 6.2% on 03/08/16 Recent Pertinent Medications Outpatient Anti-diabetic Regimen: * Amaryl 2 mg PO daily * Januvia 50 mg PO daily The patient is currently receiving: * Basal insulin: None ordered at this time * Correctional Insulin: Novolog Correction per scale ACHS Goal Range: Low 120 mg/dL - High 160 mg/dL Correction Factor: 30 mg/dL/unit * Prandial insulin: Per carb ratio of 1 unit per 10 grams CHO consumed * Oral Agents: On hold for admission Risk Factors for Insulin Resistance: * Steroids: Prednisone 40 mg as outpatient for gout (short course, has been continued) * Diet: T2DM Assessment & Plan ASSESSMENT: * Pt is insulin naive with adequately controlled BSGs on oral agents as an outpatient. Minimal risk factors for insulin resistance on admission therefore only bolus insulin per CF/CR initiated (no basal insulin ordered) * Pt is currently receiving Prednisone 40mg PO daily (for gout flare?) * BSGs rising throughout the day 104 --> 132 --> 230 --> 274 d/t prednisone * Best regimen for steroid induced hyperglycemia secondary to daily prednisone is once daily NPH given at the time prednisone is administered * AM fasting BSG is adequate therefore 24hr basal insulin not required. * NPH will need tapered as prednisone dosing is tapered * ADA & AACE recommend a goal blood sugar range 140-180 mg/dl for the majority of critically ill & non-critically ill patients. However, more stringent targets may be selected in individual cases. Will utilize more stringent goal range of 120-160mg/dl based on tight glycemic control at baseline PLAN FOR INPATIENT GLYCEMIC CONTROL: * Hold outpatient oral diabetes medications - may resume at the time of discharge * Start NPH 10 units SQ daily - to be administered with once daily prednisone. This will help prevent/offset hyperglycemia (rising BSGs throughout the day) secondary to prednisone * Taper dosing with each step down in steroid dosing * NOVOLOG per scale ACHS or Q6hrs while NPO * Goal Range: Low 120 mg/dL - High 160 mg/dL * Correction Factor: 30 mg/dL/unit * Nutritional / Prandial insulin per carb ratio of 1 unit per 10 grams CHO consumed * Please note that the plan above was derived based on current level of insulin resistance and hospital stress. These recommendations are appropriate for inpatient admission only. Plan of care upon discharge will need to be reassessed to avoid potential outpatient hypo/hyperglycemia. Thank you. Looking ahead to discharge: * Most recent A1c from February 2016 (within 90 days) indicative of good glycemic control * Reasonable to resume outpatient regimen at the time of discharge * May even consider d/c one agent as A1c is significantly below goal range of ~ 7-8% based on age and co-morbidities * Consider c/d Amaryl base on hypo risk in an elderly patient
[2016-05-04] MEDS: ACETAMINOPHEN 325 MG TAB PO PRN (14:09)
[2016-05-04 14:29] VITALS: BP 130/72; PULSE 57; TEMP 36.9; O2SAT 95
--- NOTE | 2016-05-04 17:46 | Progress Note ---
Subjective Date of Service: May 04, 2016. Subjective Pt evaluation today including: conversation w/ patient, physical exam, lab review, review of studies, review of inpatient medication list Saw/examined the patient in room 278 She is doing fine, no problems/issues to note - wants to go back to [facility] Problem List Medical Problems: (1) Anemia Status: Acute (2) Contraindication to anticoagulation therapy Status: Acute (3) Elevated BUN Status: Acute (4) Hypokalemia Status: Acute (5) Lower GI bleed Status: Acute Review of Systems Constitutional: No chills, No fever Respiratory: No cough, No shortness of breath, No sputum Cardiac: No chest pain Abdomen: No GI bleeding, No constipation, No diarrhea, No nausea, No pain, No vomiting Medications Current Inpatient Medications Medications (Trade) Dose Ordered Sig/Meeta Route Start Time Stop Time Status Last Admin Dose Admin Acetaminophen (Tylenol Tab) 650 mg Q4H PRN PO 05/02/16 15:45 06/01/16 15:44 05/04/16 14:09 650 MG Ondansetron HCl (Zofran Inj) 4 mg Q6H PRN IV 05/02/16 15:45 06/01/16 15:44 Miscellaneous (Iv Fluids Completed) 1 ea PRN PRN N/A 05/02/16 16:15 05/02/17 16:14 Albuterol (Ventolin Hfa Inhaler) 2 puffs Q4H PRN INH 05/02/16 16:15 06/01/16 16:14 Atorvastatin Calcium (Lipitor Tab) 20 mg HS PO 05/02/16 21:00 06/01/16 20:59 05/03/16 21:02 20 MG Bumetanide (Bumex Tab) 2 mg DAILY PO 05/03/16 09:00 06/02/16 08:59 05/04/16 08:26 2 MG Docusate Sodium (coLACE CAP) 100 mg BID PO 05/02/16 21:00 06/01/16 20:59 05/04/16 08:25 100 MG Gabapentin (Neurontin Cap) 100 mg BID PO 05/02/16 21:00 06/01/16 20:59 05/04/16 08:27 100 MG Albuterol/ Ipratropium (Combivent Respimat Inh) 1 puffs QID INH 05/02/16 17:00 06/01/16 16:59 05/04/16 17:18 1 PUFFS Metoprolol Succinate (Toprol Xl Tab) 25 mg DAILY PO 05/03/16 09:00 06/02/16 08:59 05/04/16 08:26 25 MG Oxycodone HCl (Roxicodone Immediate Rel Tab) 5 mg Q4H PRN PO 05/02/16 16:15 05/16/16 16:14 05/03/16 21:01 5 MG Prednisone (PredniSONE TAB) 40 mg DAILY PO 05/03/16 09:00 06/02/16 08:59 05/04/16 08:26 40 MG Pyridoxine HCl (Vitamin B-6 Tab) 100 mg DAILY PO 05/03/16 09:00 06/02/16 08:59 05/04/16 08:25 100 MG Cholecalciferol (Vitamin D Tab) 2,000 inter.unit DAILY PO 05/03/16 09:00 06/02/16 08:59 05/04/16 08:27 2,000 INTER.UNIT Insulin Aspart (novoLOG ASPART) SLIDING SCALE If C... ACHS SC 05/02/16 21:00 06/01/16 20:59 05/04/16 17:21 7 UNITS Glucose (Glucose 40% Gel) 15-30 GRAMS 15 GRAMS... UD PRN PO 05/02/16 16:15 06/01/16 16:14 Glucose (Glucose Chew Tab) 4-8 Tablets 4 Tabl... UD PRN PO 05/02/16 16:15 06/01/16 16:14 Dextrose (Dextrose 50% 50ML Syringe) 25-50ML OF 50% DW IV FOR... UD PRN IV 05/02/16 16:15 06/01/16 16:14 Glucagon (Glucagon Inj) 1 mg UD PRN SQ 05/02/16 16:15 06/01/16 16:14 Miscellaneous Information (Consult Glycemic Management Pharmacy) 1 ea UD PRN N/A 05/02/16 16:18 06/01/16 16:17 Bacitracin (Bacitracin Oint) 1 appln BID EXT 05/04/16 09:00 06/03/16 08:59 05/04/16 08:25 1 APPLN Pantoprazole Sodium (Protonix Tab) 40 mg BID PO 05/04/16 09:00 06/03/16 08:59 05/04/16 08:27 40 MG Insulin Human NPH (novoLIN-N NPH) 10 units QDB SC 05/04/16 09:00 06/03/16 08:59 05/04/16 10:21 10 UNITS Objective Vital Signs Date Time Temp Pulse Resp B/P Pulse Ox O2 Delivery O2 Flow Rate FiO2 05/04/16 16:00 Room Air 05/04/16 14:29 36.9 57 18 130/72 95 Room Air 05/04/16 08:00 Room Air 05/04/16 07:23 36.4 53 20 122/67 96 Room Air 05/04/16 00:00 Room Air 05/03/16 23:35 36.9 71 18 97/62 91 Physical Exam General Appearance: no apparent distress, + obese Respiratory/Chest: lungs clear, normal breath sounds, no respiratory distress, no accessory muscle use Cardiovascular: regular rate, rhythm, no edema, no murmur Abdomen: normal bowel sounds, non tender, soft Extremities: + pertinent finding (decreased/painful ROM of right hip) Laboratory Results Last 24 Hours Test 05/03/16 21:02 05/04/16 06:38 05/04/16 07:45 05/04/16 11:30 Bedside Glucose 274 mg/dl 131 mg/dl 140 mg/dl Hemoglobin 8.8 g/dL Hematocrit 27.4 % Sodium Level 140 mmol/L Potassium Level 3.6 mmol/L Chloride Level 104 mmol/L Carbon Dioxide Level 29 mmol/L Anion Gap 7.0 mmol/L Blood Urea Nitrogen 24 mg/dl Creatinine 1.00 mg/dl Est Creatinine Clear Calc Drug Dose 49.6 ml/min Estimated GFR () 60.8 Estimated GFR (Non- 52.4 BUN/Creatinine Ratio 23.7 Random Glucose 138 mg/dl Calcium Level 8.9 mg/dl Test 05/04/16 16:10 Bedside Glucose 242 mg/dl Assessment and Plan This is an 81 year old female with PMH of CAD, Afib, CKD stage 3, DM2, HLD, HTN and obesity presents with GI bleeding Lower GI bleed seems to have resolved; presented with maroon colored stools; but no longer has them has had a history if diverticular bleeds Hgb on presentation was > 9; has trended down to 8.8 appreciate GI input patient is refusing colonoscopy for now, will continue PPI recheck H/H in AM, if stable, can d/c back to [facility] Recent Right RAMAKRISHNA no weightbearing on that side for now to f/u with ortho at [place] zeus removed plan for d/c back to [facility] Gout d/c steroids due to GI bleed continue PPI Diastolic CHF secondary to valvular disease continue Bumex euvolemic CAD s/p stent, s/p CABG continue b-sid, statin, aspirin CKD stage 3 creat at baseline Atrial Fibrillation will restart ASA in AM continue b-sid DM2 insulin sliding scale appreciate pharmacy glycemic scale HLD continue statin HTN stable, continue home medications DVT ppx SCDs FULL CODE Plan for d/c back to [facility]
[2016-05-04] MEDS ORDERED: BISACODYL 5 MG TABEC PO ONE (18:00)
[2016-05-04] MEDS: SENNA 8.6 MG TAB PO SCH (18:40)
[2016-05-04 20:50] VITALS: BP 130/72; PULSE 57; TEMP 36.9; O2SAT 95
[2016-05-04 20:55] VITALS: BP 120/60; PULSE 73; TEMP 36.7; O2SAT 96
[2016-05-04] MEDS: ATORVASTATIN 20 MG TAB PO SCH (20:57)
[2016-05-04 23:14] VITALS: BP 130/81; PULSE 76; TEMP 36.6; O2SAT 96
[2016-05-05] MEDS: ACETAMINOPHEN 325 MG TAB PO PRN ×2 (02:01→15:14)
[2016-05-05 07:59] LABS: HEMATOCRIT 29.5 % (37-47); MEAN CELL VOLUME 96.7 fL (80-100); MEAN CORPUSCULAR HEMOGLOBIN 29.8 pg (25-34); MEAN CORPUSCULAR HGB CONC 30.8 g/dl (32-36); MEAN PLATELET VOLUME 10.7 fL (7.4-10.4); PLATELET COUNT 300 K/uL (130-400); RED BLOOD COUNT 3.05 M/uL (4.2-5.4)
[2016-05-05] MEDS: METOPROLOL SUCC 25MG EXT REL TAB PO SCH (08:00)
[2016-05-05] MEDS: SENNA 8.6 MG TAB PO SCH (08:00)
[2016-05-05] MEDS: BUMETANIDE 1 MG TAB PO SCH (08:00)
[2016-05-05] MEDS ORDERED: INSULIN HUMAN NPH SC SCH (08:00)
[2016-05-05] MEDS: DOCUSATE SODIUM 100 MG CAP PO SCH (08:00)
[2016-05-05] MEDS: PYRIDOXINE HCL 50 MG TAB PO SCH (08:01)
[2016-05-05] MEDS: PANTOprazole SOD 40 MG TAB PO SCH (08:01)
[2016-05-05] MEDS: CHOLECALCIFEROL 1000 INTER.UNIT TAB PO SCH (08:01)
[2016-05-05] MEDS: IPRATROPIUM BROMIDE/ALBUTEROL respimat INH INH SCH ×3 (08:02→17:23)
[2016-05-05] MEDS: GABAPENTIN 100 MG CAP PO SCH (08:02)
[2016-05-05] MEDS: INSULIN ASPART 100 UNITS/ML 3 ML PEN SC SCH ×2 (08:09→12:13)
[2016-05-05] MEDS: BACITRACIN OINT 15 GM TUBE EXT SCH (08:10)
[2016-05-05 08:23] VITALS: BP 130/80; PULSE 60; TEMP 36.4; O2SAT 97
[2016-05-05 08:56] VITALS: O2SAT 97
[2016-05-05 09:00] VITALS: BP 130/80; PULSE 60; TEMP 36.4; O2SAT 97
--- NOTE | 2016-05-05 09:06 | Progress Note ---
Subjective Date of Service: May 05, 2016. Subjective Pt evaluation today including: conversation w/ patient, physical exam, lab review, review of studies, review of inpatient medication list Saw/examined the patient in room 263 She is doing well, laying comfortably, pain controlled at right hip Problem List Medical Problems: (1) Anemia Status: Acute (2) Contraindication to anticoagulation therapy Status: Acute (3) Elevated BUN Status: Acute (4) Hypokalemia Status: Acute (5) Lower GI bleed Status: Acute Review of Systems Constitutional: No chills, No fever, No weakness Respiratory: No cough, No shortness of breath, No sputum Cardiac: No chest pain, No edema, No orthopnea, No palpitations Abdomen: + GI bleeding (improving), No diarrhea, No nausea, No pain, No vomiting Heme: No abnormal bleeding/bruising Medications Current Inpatient Medications Medications (Trade) Dose Ordered Sig/Meeta Route Start Time Stop Time Status Last Admin Dose Admin Acetaminophen (Tylenol Tab) 650 mg Q4H PRN PO 05/02/16 15:45 06/01/16 15:44 05/05/16 02:01 650 MG Ondansetron HCl (Zofran Inj) 4 mg Q6H PRN IV 05/02/16 15:45 06/01/16 15:44 Miscellaneous (Iv Fluids Completed) 1 ea PRN PRN N/A 05/02/16 16:15 05/02/17 16:14 Albuterol (Ventolin Hfa Inhaler) 2 puffs Q4H PRN INH 05/02/16 16:15 06/01/16 16:14 Atorvastatin Calcium (Lipitor Tab) 20 mg HS PO 05/02/16 21:00 06/01/16 20:59 05/04/16 20:57 20 MG Bumetanide (Bumex Tab) 2 mg DAILY PO 05/03/16 09:00 06/02/16 08:59 05/05/16 08:00 2 MG Docusate Sodium (coLACE CAP) 100 mg BID PO 05/02/16 21:00 06/01/16 20:59 05/05/16 08:00 100 MG Gabapentin (Neurontin Cap) 100 mg BID PO 05/02/16 21:00 06/01/16 20:59 05/05/16 08:02 100 MG Albuterol/ Ipratropium (Combivent Respimat Inh) 1 puffs QID INH 05/02/16 17:00 06/01/16 16:59 05/05/16 08:02 1 PUFFS Metoprolol Succinate (Toprol Xl Tab) 25 mg DAILY PO 05/03/16 09:00 06/02/16 08:59 05/05/16 08:00 25 MG Oxycodone HCl (Roxicodone Immediate Rel Tab) 5 mg Q4H PRN PO 05/02/16 16:15 05/16/16 16:14 05/03/16 21:01 5 MG Prednisone (PredniSONE TAB) 40 mg DAILY PO 05/03/16 09:00 06/02/16 08:59 05/05/16 08:00 40 MG Pyridoxine HCl (Vitamin B-6 Tab) 100 mg DAILY PO 05/03/16 09:00 06/02/16 08:59 05/05/16 08:01 100 MG Cholecalciferol (Vitamin D Tab) 2,000 inter.unit DAILY PO 05/03/16 09:00 06/02/16 08:59 05/05/16 08:01 2,000 INTER.UNIT Insulin Aspart (novoLOG ASPART) SLIDING SCALE If C... ACHS SC 05/02/16 21:00 06/01/16 20:59 05/05/16 08:09 5 UNITS Glucose (Glucose 40% Gel) 15-30 GRAMS 15 GRAMS... UD PRN PO 05/02/16 16:15 06/01/16 16:14 Glucose (Glucose Chew Tab) 4-8 Tablets 4 Tabl... UD PRN PO 05/02/16 16:15 06/01/16 16:14 Dextrose (Dextrose 50% 50ML Syringe) 25-50ML OF 50% DW IV FOR... UD PRN IV 05/02/16 16:15 06/01/16 16:14 Glucagon (Glucagon Inj) 1 mg UD PRN SQ 05/02/16 16:15 06/01/16 16:14 Miscellaneous Information (Consult Glycemic Management Pharmacy) 1 ea UD PRN N/A 05/02/16 16:18 06/01/16 16:17 Bacitracin (Bacitracin Oint) 1 appln BID EXT 05/04/16 09:00 4/27/17 08:59 05/04/16 20:57 1 APPLN Pantoprazole Sodium (Protonix Tab) 40 mg BID PO 05/04/16 09:00 06/03/16 08:59 05/05/16 08:01 40 MG Senna (Senokot Tab) 8.6 mg QAM PO 05/04/16 18:00 06/03/16 17:59 05/05/16 08:00 8.6 MG Insulin Human NPH (novoLIN-N NPH) 20 units QDB SC 05/05/16 08:00 06/04/16 07:59 05/05/16 08:10 20 UNITS Objective Vital Signs Date Time Temp Pulse Resp B/P Pulse Ox O2 Delivery O2 Flow Rate FiO2 05/05/16 08:23 36.4 60 19 130/80 97 Room Air 05/05/16 07:46 Room Air 05/05/16 00:00 Room Air 05/04/16 23:14 36.6 76 20 130/81 96 Room Air 05/04/16 20:55 36.7 73 18 120/60 96 Room Air 05/04/16 20:50 36.9 57 18 95 05/04/16 16:00 Room Air 05/04/16 14:29 36.9 57 18 130/72 95 Room Air Physical Exam General Appearance: no apparent distress, + obese Respiratory/Chest: lungs clear, normal breath sounds, no respiratory distress, no accessory muscle use Cardiovascular: + systolic murmur (systolic ejection murmur, +4/6), + irregularly irregular Abdomen: normal bowel sounds, non tender, soft Extremities: normal inspection, no pedal edema, + pertinent finding (decreased ROM of right hip) Neurologic/Psychiatric: no motor/sensory deficits, alert, normal mood/affect Laboratory Results Last 24 Hours Test 05/04/16 11:30 05/04/16 16:10 05/04/16 20:12 05/05/16 07:24 Bedside Glucose 140 mg/dl 242 mg/dl 258 mg/dl White Blood Count 10.10 K/uL Red Blood Count 3.05 M/uL Hemoglobin 9.1 g/dL Hematocrit 29.5 % Mean Corpuscular Volume 96.7 fL Mean Corpuscular Hemoglobin 29.8 pg Mean Corpuscular Hemoglobin Concent 30.8 g/dl RDW Standard Deviation 55.9 fL RDW Coefficient of Variation 16.0 % Platelet Count 300 K/uL Mean Platelet Volume 10.7 fL Test 05/05/16 07:50 Bedside Glucose 141 mg/dl Assessment and Plan This is an 81 year old female with PMH of CAD, Afib, CKD stage 3, DM2, HLD, HTN and obesity presents with GI bleeding Lower GI bleed 05/05 patient states that her GI bleeding is improving states she's had this before and it has resolved in the past did mention she's had diverticular bleeding once which required life-flight to [place] H/H is stable and up to 9.1 this morning she states she can't have colonoscopy done due to her recent right hip surgery plan is to d/c back to [facility] today 05/04 seems to have resolved; presented with maroon colored stools; but no longer has them has had a history if diverticular bleeds Hgb on presentation was > 9; has trended down to 8.8 appreciate GI input patient is refusing colonoscopy for now, will continue PPI recheck H/H in AM, if stable, can d/c back to [facility] Recent Right RAMAKRISHNA no weightbearing on that side for now to f/u with ortho at [place] zeus removed plan for d/c back to [facility] Gout d/c steroids due to GI bleed continue PPI Diastolic CHF secondary to valvular disease continue Bumex euvolemic CAD s/p stent, s/p CABG continue b-sid, statin, aspirin CKD stage 3 creat at baseline Atrial Fibrillation will restart ASA in AM continue b-sid DM2 insulin sliding scale appreciate pharmacy glycemic scale HLD continue statin HTN stable, continue home medications DVT ppx SCDs FULL CODE Plan for d/c back to [facility]
--- NOTE | 2016-05-05 09:08 | Discharge Summary ---
Discharge Summary Date of Service May 05, 2016. Discharge Summary Admission Date: May 04, 2016 at 15:31 Discharge Date: May 05, 2016 Discharge Disposition: alf facility Principal Diagnosis: Lower GI Bleed Hx. of Diverticular Bleeding Recent Right RAMAKRISHNA Medication Reconciliation New Medications: Aspirin (Aspirin 81) 81 Mg Tab 2 TABS PO DAILY for 30 Days Pantoprazole (Pantoprazole Sodium) 40 Mg Tab 40 MG PO QAM for 30 Days, #30 TAB Continued Medications: Albuterol Hfa (Ventolin Hfa) 200 Puffs/36986 Mcg Aers 2-4 PUFFS INH Q4H PRN for Wheezing, #1 INHALER Atorvastatin (Lipitor) 20 Mg Tab 20 MG PO HS, TAB Bumetanide (Bumex) 2 Mg Tab 2 MG PO DAILY, TAB Cholecalciferol (Vitamin D) 2,000 Unit Tab 1 TAB PO DAILY Docusate Sodium (Stool Softener) 100 Mg Cap 1 TAB PO BID Gabapentin (Neurontin) 100 Mg Cap 100 MG PO BID, CAP Glimepiride (Glimepiride) 2 Mg Tab 1 TAB PO DAILY for 90 Days, #90 TAB 3 Refills Ipratropium-Albuterol (Combivent Respimat) 1 Aer Aer 1 PUFFS INH QID, INH Metoprolol Succinate (Toprol Xl) 25 Mg Tabcr 25 MG PO DAILY, #30 TAB Oxycodone Ir (Roxicodone Ir) 5 Mg Tab 1 TAB PO Q4H PRN for Pain, #30 TAB (This prescription has been renewed) Pyridoxine HCl (Vitamin B-6) 50 Mg Tab 100 MG PO DAILY Sitagliptin (Januvia) 50 Mg Tab 50 MG PO DAILY, TAB Discontinued Medications: Aspirin (Aspirin) 325 Mg Ectab 325 MG PO DAILY Prednisone (Prednisone) 20 Mg Tab 40 MG PO DAILY for 5 Days Admission Information HPI (per Admitting provider): Patient seen and examined. 81 year old female with PMHx of CAD, Afib, CKD stage 3, DM2, HLD, HTN and other problems listed below presents to the ED complaining of maroon stools last night. Patient reports that her nurses told her BMs last night looked like they could have blood in them. Today the stool has returned to normal. She reports that she has a history of a severe diverticular bleed 7 years ago while on coumadin so she was sent to the ED for further evaluation. Patient states she feels well denying fevers, chills, URI symptoms, chest pain, SOB, nausea, vomiting, diarrhea, dysuria, calf pain and edema. She reports she has gout and was started on prednisone a few days ago. Patient had RTHA last week and is taking full dose aspirin for DVT prophylaxis. She is at [facility] for rehab. In the ED VS are stable, Hgb is 9.1 WBC count is 12.23. Stool is heme positive. She will be observed for further workup and treatment. Physical Exam (per Admitting): General Appearance: + pertinent finding (Pleasant WD/WN 81 year old female lying in bed in NAD ) Head: normocephalic, atraumatic Eyes: PERRL, EOMI, sclerae normal ENT: hearing grossly normal, pharynx normal Neck: supple, no JVD Respiratory/Chest: chest non-tender, lungs clear, normal breath sounds, no respiratory distress, no accessory muscle use Cardiovascular: regular rate, rhythm, no edema, no gallop, no JVD, normal peripheral pulses, + systolic murmur Abdomen/GI: normal bowel sounds, non tender, soft, no organomegaly Back: normal inspection, no muscle spasm Extremities/Musculoskelatal: no calf tenderness, normal capillary refill, no pedal edema, + pertinent finding (dressing i/c/d right hip) Neurologic/Psych: no motor/sensory deficits, alert, oriented x 3 Skin: normal color, warm/dry, no rash Lymphatic: no adenopathy Hospital Course This is an 81 year old female with PMH of CAD, Afib, CKD stage 3, DM2, HLD, HTN and obesity presents with GI bleeding Lower GI bleed 05/05 patient states that her GI bleeding is improving states she's had this before and it has resolved in the past did mention she's had diverticular bleeding once which required life-flight to [facility] H/H is stable and up to 9.1 this morning she states she can't have colonoscopy done due to her recent right hip surgery plan is to d/c back to [facility] today 05/04 seems to have resolved; presented with maroon colored stools; but no longer has them has had a history if diverticular bleeds Hgb on presentation was > 9; has trended down to 8.8 appreciate GI input patient is refusing colonoscopy for now, will continue PPI recheck H/H in AM, if stable, can d/c back to [facility] Recent Right RAMAKRISHNA no weightbearing on that side for now to f/u with ortho at [facility] zeus removed plan for d/c back to [facility] Gout d/c steroids due to GI bleed continue PPI Diastolic CHF secondary to valvular disease continue Bumex euvolemic CAD s/p stent, s/p CABG continue b-sid, statin, aspirin CKD stage 3 creat at baseline Atrial Fibrillation will restart ASA in AM continue b-sid DM2 insulin sliding scale appreciate pharmacy glycemic scale HLD continue statin HTN stable, continue home medications DVT ppx SCDs FULL CODE Plan for d/c back to [facility] Total time spent on discharge = 35 minutes This includes examination of the patient, discharge planning, medication reconciliation, and communication with other providers. Discharge Instructions FOLLOW UP WITH FAMILY PHYSICIAN AFTER DISCHARGE FROM REHAB FOLLOW UP WITH ORTHOPEDICS PER SCHEDULE BLOOD WORK : CBC IN 2-3 DAYS
[2016-05-05] MEDS ORDERED: NovoLOG PER UNIT CHARGE SC SCH (17:45)
== END 2016-05-05 21:50 | DRG 378 ==
LOC: ENRESERVDT → ENRESERVTM → EDBD 13:31 → C.EDB 13:37 → C.MED 15:42 → OBSVTOIN 05-04 15:31 → C.MS2W 05-04 20:25
PROVIDERS: ADMIT Internal Medicine; ATTEND Family Medicine
DX: K57.91 Diverticulosis of intestine, part unspecified, without perforation or abscess with bleeding (principal); M87.059 Idiopathic aseptic necrosis of unspecified femur; I50.30 Unspecified diastolic (congestive) heart failure; I25.10 Atherosclerotic heart disease of native coronary artery without angina pectoris; Z68.41 Body mass index [BMI] 40.0-44.9, adult; Z79.01 Long term (current) use of anticoagulants; I48.2 Chronic atrial fibrillation; N18.3 Chronic kidney disease, stage 3 (moderate); I12.9 Hypertensive chronic kidney disease with stage 1 through stage 4 chronic kidney disease, or unspecified chronic kidney disease; I35.0 Nonrheumatic aortic (valve) stenosis; E11.21 Type 2 diabetes mellitus with diabetic nephropathy; E66.9 Obesity, unspecified; E78.5 Hyperlipidemia, unspecified; T38.0X5A Adverse effect of glucocorticoids and synthetic analogues, initial encounter; Z95.0 Presence of cardiac pacemaker; E87.6 Hypokalemia; Z95.1 Presence of aortocoronary bypass graft; Z96.649 Presence of unspecified artificial hip joint; Z83.3 Family history of diabetes mellitus; R73.9 Hyperglycemia, unspecified; Y92.009 Unspecified place in unspecified non-institutional (private) residence as the place of occurrence of the external cause

== ENCOUNTER 2016-12-20 13:26 | Inpatient (IN) | payer OTHER ==
[2016-12-20] VITALS (10 sets, daily range): BP systolic 112–144; BP diastolic 52–82; PULSE 49–70; TEMP 36.8–37; O2SAT 93–99; Ht 160 cm; Wt 97.0 kg
[~2016-12-20] VITALS: Ht 160 cm; Wt 97.0 kg
[~2016-12-20 13:26] MED LIST changes: +ASPI-435 PO; -ASPI81TA28 PO; -CEFU1TAB36 PO; -DOXY-300 PO; -HYDR-5688 PO; +OXYC1TAB3 PO; -PRED10TA PO; +PRT40 PO
--- NOTE | 2016-12-20 13:58 | EMERGENCY ROOM VISIT NOTE ---
History Report prepared by Marcie: Prateek Hurtado Under the Supervision of: Dr. Abel Atkins M.D. First contact with patient: 13:29 Chief Complaint: SYNCOPE (NEAR SYNCOPE) Stated Complaint: LIGHTHEADED/NEAR SYNCOPE History of Present Illness The patient is a 81 year old female who presents to the Emergency Room with complaints of intermittent episodes of near syncope that began this morning. She describes these as getting severely lightheaded and feeling as if she will pass out. She TAVR [address] Polanco of [facility]. En route per EMS, the patient had about 15 of these episodes with a prolonged 5-6 second episode where she was unresponsive. She was also given Aspirin 81 PO x4. She denies any falls, head trauma, or chest pain. She has a past medical history of diabetes and atrial fibrillation. She is experiencing mild upper back pain. She has been eating and drinking normally. She felt some mild weakness yesterday, but it worsened today. Source of History: patient Onset: this morning Position: other (Global) Symptom Intensity: Multiple episodes Quality: other (Near Syncope) Timing: intermittent Associated Symptoms: + weakness, No chest pain Note: She is experiencing lightheadedness. Review of Systems See HPI for pertinent positives and negatives. A total of ten systems were reviewed and were otherwise negative. Past Medical & Surgical Medical Problems: (1) Afib (2) Aortic stenosis (3) AVN of femur (4) CAD (coronary artery disease) (5) CHF (congestive heart failure) (6) CKD (chronic kidney disease), stage III (7) Congestive heart failure (8) DM2 (diabetes mellitus, type 2) (9) DVT (deep venous thrombosis) (10) History of cardioversion (11) HLD (hyperlipidemia) (12) HTN (hypertension) (13) Hypertension (14) Rectal bleeding Surgical Problems: (1) H/O colonoscopy (2) H/O knee surgery (3) H/O: hysterectomy (4) H/O: hysterectomy (5) History of appendectomy (6) Hx of CABG (7) S/P appendectomy (8) S/P hip replacement (9) S/P triple vessel bypass (10) Stented coronary artery Family History Diabetes mellitus Heart disease Hypertension Social History Smoking Status: Never Smoker Alcohol Use: none Housing Status: lives alone Occupation Status: retired Current/Historical Medications Scheduled Aspirin (Aspirin 81), 2 TABS PO DAILY Atorvastatin (Lipitor), 20 MG PO HS Bumetanide (Bumex), 2 MG PO DAILY Cholecalciferol (Vitamin D), 1 TAB PO DAILY Docusate Sodium (Stool Softener), 1 TAB PO BID Gabapentin (Neurontin), 100 MG PO BID Glimepiride (Glimepiride), 1 TAB PO DAILY Ipratropium-Albuterol (Combivent Respimat), 1 PUFFS INH QID Pantoprazole (Pantoprazole Sodium), 40 MG PO QAM Pyridoxine HCl (Vitamin B-6), 100 MG PO DAILY Sitagliptin (Januvia), 50 MG PO DAILY Scheduled PRN Albuterol Hfa (Ventolin Hfa), 2-4 PUFFS INH Q4H PRN for Wheezing Oxycodone Ir (Roxicodone Ir), 1 TAB PO Q4H PRN for Pain Allergies Coded Allergies: Iodinated Diagnostic Agents (Verified Allergy, Intermediate, HIVES/ LOST VOICE, 05/02/16) Clonazepam (Unverified Allergy, Unknown, Rash, hives, 05/02/16) Lisinopril (Verified Adverse Reaction, Mild, COUGH, 05/02/16) Meperidine (Unverified Adverse Reaction, Unknown, Hallucinations, 05/02/16) Physical Exam Vital Signs Date Time Temp Pulse Resp B/P (MAP) Pulse Ox O2 Delivery O2 Flow Rate FiO2 12/20/16 16:45 58 16 112/68 (83) 95 Room Air 12/20/16 16:30 58 16 118/80 (93) 95 Room Air 12/20/16 16:12 58 16 112/80 (91) 95 Room Air 12/20/16 15:25 69 20 173/95 94 12/20/16 14:55 69 20 192/90 94 Room Air 12/20/16 14:37 67 20 178/104 98 Room Air 12/20/16 14:36 63 12/20/16 13:58 70 20 150/104 98 Room Air 12/20/16 13:46 68 12/20/16 13:43 95 Room Air 12/20/16 13:40 37.0 78 20 109/85 98 Room Air Physical Exam GENERAL: Awake, alert, fatigued and uncomfortable appearing, in no distress HENT: Normocephalic, atraumatic. Oropharynx shows dry mucous membranes. EYES: Normal conjunctiva. Sclera non-icteric. NECK: Supple. No nuchal rigidity. FROM. No JVD. RESPIRATORY: Diminished bibasilar breath sounds, otherwise clear to auscultation. CARDIAC: Irregular rate with an irregular rhythm. Extremities warm and well perfused. Pulses equal. ABDOMEN: Soft, obese. No tenderness to palpation. No rebound or guarding. No masses. RECTAL: Deferred. MUSCULOSKELETAL: Chest examination reveals no tenderness. The back is symmetrical on inspection without obvious abnormality. There is no CVA tenderness to palpation. No joint edema. LOWER EXTREMITIES: Calves are equal size bilaterally and non-tender. No edema. There is a soft right medial upper leg contusion. NEURO: Normal sensorium. No sensory or motor deficits noted. SKIN: No rash or jaundice noted. Medical Decision & Procedures ER Provider Diagnostic Interpretation: Radiology results as stated below per my review and radiologist interpretation: CHEST ONE VIEW PORTABLE HISTORY: 81 years-old Female CHEST PAIN atypical chest pain COMPARISON: Chest radiograph 05/02/2016 TECHNIQUE: Portable upright AP view of the chest FINDINGS: Moderate cardiomegaly redemonstrated. Prior median sternotomy. Valvular endograft noted which is new from prior study. There is atherosclerosis of the aorta. No pneumothorax or pleural effusion. Mild pulmonary vascular congestion with chronic appearing reticular opacities. There may be some mild pulmonary edema. No lobar airspace consolidations. The bones are grossly intact. IMPRESSION: 1. No acute cardiopulmonary process. 2. Cardiomegaly with pulmonary vascular congestion and possible mild pulmonary edema. The above report was generated using voice recognition software. It may contain grammatical, syntax or spelling errors. Electronically signed by: Lemuel Moncada M.D. 12/20/2016 3:22 PM Dictated Date/Time: 12/20/2016 3:17 PM Laboratory Results 12/20/16 13:30 Red Blood Count 3.90, Mean Corpuscular Volume 93.8, Mean Corpuscular Hemoglobin 29.0, Mean Corpuscular Hemoglobin Concent 30.9, Mean Platelet Volume 11.2, Neutrophils (%) (Auto) 64.4, Lymphocytes (%) (Auto) 24.5, Monocytes (%) (Auto) 8.3, Eosinophils (%) (Auto) 1.7, Basophils (%) (Auto) 0.9, Neutrophils # (Auto) 5.23, Lymphocytes # (Auto) 1.99, Monocytes # (Auto) 0.67, Eosinophils # (Auto) 0.14, Basophils # (Auto) 0.07 12/20/16 14:23 Test 12/20/16 13:30 12/20/16 13:55 12/20/16 14:23 White Blood Count 8.12 K/uL (4.8-10.8) Red Blood Count 3.90 M/uL (4.2-5.4) Hemoglobin 11.3 g/dL (12.0-16.0) Hematocrit 36.6 % (37-47) Mean Corpuscular Volume 93.8 fL (80-100) Mean Corpuscular Hemoglobin 29.0 pg (25-34) Mean Corpuscular Hemoglobin Concent 30.9 g/dl (32-36) Platelet Count 199 K/uL (130-400) Mean Platelet Volume 11.2 fL (7.4-10.4) Neutrophils (%) (Auto) 64.4 % Lymphocytes (%) (Auto) 24.5 % Monocytes (%) (Auto) 8.3 % Eosinophils (%) (Auto) 1.7 % Basophils (%) (Auto) 0.9 % Neutrophils # (Auto) 5.23 K/uL (1.4-6.5) Lymphocytes # (Auto) 1.99 K/uL (1.2-3.4) Monocytes # (Auto) 0.67 K/uL (0.11-0.59) Eosinophils # (Auto) 0.14 K/uL (0-0.5) Basophils # (Auto) 0.07 K/uL (0-0.2) RDW Standard Deviation 58.0 fL (36.4-46.3) RDW Coefficient of Variation 17.0 % (11.5-14.5) Immature Granulocyte % (Auto) 0.2 % Immature Granulocyte # (Auto) 0.02 K/uL (0.00-0.02) Bedside Hemoglobin 11.9 g/dl (12.0-16.0) Bedside Hematocrit 35 % (37-47) Bedside Sodium 141 mEq/L (135-144) Bedside Potassium 3.7 mEq/L (3.3-5.0) Bedside Chloride 106 mEq/L (101-112) Bedside Total CO2 27 mEq/l (24-31) Bedside Blood Urea Nitrogen 27 mg/dl (7-18) Bedside Creatinine 1.1 mg/dl (0.6-1.3) Bedside Glucose (other) 146 mg/dl (70-99) Bedside Ionized Calcium (Mushtaq) 1.15 mmol/l (1.12-1.32) Prothrombin Time 11.0 SECONDS (9.0-12.0) Prothromb Time International Ratio 1.0 (0.9-1.1) Activated Partial Thromboplast Time 25.6 SECONDS (21.0-31.0) Partial Thromboplastin Ratio 1.0 Anion Gap 9.0 mmol/L (3-11) Est Creatinine Clear Calc Drug Dose 46.3 ml/min Estimated GFR () 57.9 Estimated GFR (Non- 50.0 BUN/Creatinine Ratio 20.4 (10-20) Calcium Level 8.9 mg/dl (8.5-10.1) Magnesium Level 2.3 mg/dl (1.8-2.4) Total Bilirubin 0.7 mg/dl (0.2-1) Direct Bilirubin 0.2 mg/dl (0-0.2) Aspartate Amino Transf (AST/SGOT) 13 U/L (15-37) Alanine Aminotransferase (ALT/SGPT) 14 U/L (12-78) Alkaline Phosphatase 101 U/L (45-117) Troponin I 0.084 ng/ml (0-0.045) Pro-B-Type Natriuretic Peptide 2327 pg/ml (0-1800) Total Protein 6.9 gm/dl (6.4-8.2) Albumin 2.9 gm/dl (3.4-5.0) Lipase 251 U/L (73-393) Laboratory results reviewed by me Medications Administered Medications (Trade) Dose Ordered Sig/Meeta Route Start Time Stop Time Status Last Admin Dose Admin Sodium Chloride 250 ml @ 999 mls/hr Q16M STAT IV 12/20/16 14:03 12/20/16 14:18 DC 12/20/16 14:09 999 MLS/HR Midazolam HCl (Versed Inj) 2 mg STK-MED ONCE .ROUTE 12/20/16 15:09 11/13/17 15:10 DC 12/20/16 15:09 1 MG Fentanyl Citrate (Fentanyl Inj) 100 mcg STK-MED ONCE .ROUTE 12/20/16 15:09 12/20/16 15:10 DC 12/20/16 15:09 100 MCG Lidocaine HCl (Xylocaine 1% Inj (Local)) 20 ml STK-MED ONCE .ROUTE 12/20/16 16:08 12/20/16 16:09 DC 12/20/16 16:08 20 ML ECG Indication: syncope (near) Rate (beats per minute): 82 Rhythm: atrial fibrillation Findings: LBBB, other (normal axis) Comparison ECG Date: 05/02/16 Change: Findings are new compared to prior. ED Course 1329: The patient was evaluated in room B1. A complete history and physical exam was performed. 1401: I spoke with Dr. López of Cardiology at this time. He will come to the ER to evaluate that patient. 1403: Ordered Sodium Chloride 250 ml @ 999 mls/hr IV 1430: Dr. López states that there is no ability today to put in a permanent pacer in the patient. Also, the patient would like to go to [facility] because that is where she had her previous procedure. Therefore, transfer to their facility is reasonable. 1445: I spoke with Dr. Natarajan of . They recommended temporary IV pacing because it is the more reliable option. 1450: I spoke with Dr. Perkins of the [facility] ED. They accepted the patient for further treatment. The patient will be transferred via helicopter after a temporary pacer is placed in the catheterization lab. 1622: I was informed that the [facility] ER is currently in a Code Red (at capacity) and they cannot accept the patient. I spoke with Dr. Fiore of [facility] Cardiology. They accepted the patient directly onto patient floors. Medical Decision I reviewed the patient's past medical history, medications, and the nursing notes as described above. Differential diagnosis includes but is not limited to: symptomatic dysrhythmia, dehydration, electrolyte abnormalities, acute coronary syndrome, congestive heart failure, pneumonia, and bronchitis. The patient is an 81-year-old woman with a past medical history of Afib (not on AC but unclear why) and TAVR at [facility] 2l weeks ago presents emergency department with near syncopal episodes that started today per history of present illness. On arrival the patient appears uncomfortable but in no acute distress. On the monitor she has brief 2-3 second asystolic pauses during which she reports feeling lightheaded but is able to talk through the episodes. Blood pressures otherwise stable with systolics in the 160s. EKG with afib with LBBB that has been presents since her TAVR. Bedside echo shows mildly dilated LV with mildly decreased to normal function. IVC shows greater than 50% variability with respirations. Case was discussed with Rowan Marlow roll over loader who evaluated the patient at the bedside. Agrees that given the patient is having symptomatic dysrhythmia will require a permanent pacemaker. Initially transcutaneous pacing considered however Transvenous pacing ultimately decided in consultation with Dr. Natarajan, JARVIS roll over loader at [facility], who agrees that IV pacing is most appropriate given risks of transcutaneous failure. Case was additionally discussed with Dr. Martinez, [facility] ED physician who accepted the patient for transfer. The patient was taken to [facility] for transvenous pacer placement and transfer center will be updated to arrange for [facility] transfer. Otherwise labs resulting with mildly elevated troponin to 0.08 . The patient denies any chest pain may be secondary to demand in the setting of her dysrhythmia. Continue to trend. Following placement of transvenous pacer, [facility] ED reached capacity and thus direct admission arranged. I d/w Dr. Begum, [facility] roll over loader who accepted the patient for direct admission. Transfer center assisting and projected that bed likely would become available within 2 hours. However given prolonged wait. Admission arranged with [facility] hospitalist and ICU assurance assistant with plan to continue with transfer when bed becomes available but to have plan of care and orders should the patient's transfer be unexpectedly further delayed. Medication Reconcilliation Current Medication List: was personally reviewed by me Blood Pressure Screening Patient's blood pressure: Elevated blood pressure Will be addressed by the accepting physician. Consults Time Called: 1400 Consulting Physician: Dr. López - Cardiology Returned Call: 1401 We discussed the patient's case. He will come into the ER to evaluate the patient. After he evaluated the patient and speaking with Dr. Natarajan of EP, he states that permanent pacer placement is not possible today. He will place a temporary IV pacer in the patient via catheterization lab. Additional Consults: Time Called: 1440 Consulted Physician: Dr. Delgado CONLEY Returned Call: 1442 Additional Comments: They recommended a more reliable IV placer to temporarily be placed in the patient before transfer. Time Called: 1446 [facility] Phys[facility] Returned Call: 1451 Additional Comments: They accepted the patient for further evaluation and management. The patient will be transferred to their facility via helicopter after her pacer is placed. 1622: I was informed that [facility] is currently in a Code Red. I spoke with Dr. Fiore of Cardiology. They accepted the patient direct to patient floors. Impression Primary Impression: Symptomatic advanced heart block Critical Care I have personally spent greater than 35 minutes of critical care time in the direct management of this patient. This includes bedside care, interpretation of diagnostic studies, and testing, discussion with consultants, patient, and family members, and other required patient management activities. This 35 minutes is in excess of all separately billable procedures. Scribe Attestation The scribe's documentation has been prepared under my direction and personally reviewed by me in its entirety. I confirm that the note above accurately reflects all work, treatment, procedures, and medical decision making performed by me. Departure Information Dispostion Transfer Acute Care Facility Referrals Timothy Nathan M.D. (PCP) Patient Instructions [facility]
[2016-12-20] MEDS ORDERED: SODIUM CHLORIDE 0.9% 250ML 250 ML IV STA (14:03)
[2016-12-20 14:12] LABS: BASO % 0.9 %; BASO ABS # 0.07 K/uL (0-0.2); COMPLETE YES; EOS % 1.7 %; HEMATOCRIT 36.6 % (37-47); IG% 0.2 %; LYMPH % 24.5 %; LYMPH ABS # 1.99 K/uL (1.2-3.4); MEAN CELL VOLUME 93.8 fL (80-100); MEAN CORPUSCULAR HGB CONC 30.9 g/dl (32-36); MEAN PLATELET VOLUME 11.2 fL (7.4-10.4); MONO % 8.3 %; NEUT % 64.4 %; PLATELET COUNT 199 K/uL (130-400); WHITE BLOOD COUNT 8.12 K/uL (4.8-10.8)
[2016-12-20 14:59] LABS: BUN/CREATININE RATIO 20.4 (10-20); CALCIUM 8.9 mg/dl (8.5-10.1); CREATININE 1.04 mg/dl (0.60-1.20); MAGNESIUM 2.3 mg/dl (1.8-2.4); POTASSIUM 3.6 mmol/L (3.5-5.1)
[2016-12-20] MEDS ORDERED: MIDAZOLAM HCL 1 MG/ML 2ML VIAL ONE (15:09)
[2016-12-20] MEDS ORDERED: FENTANYL CITRATE INJ 50 MCG/1 ML 2 ML VIAL ONE (15:09)
--- NOTE | 2016-12-20 15:24 | DIAGNOSTIC IMAGING REPORT ---
CHEST ONE VIEW PORTABLE HISTORY: 81 years-old Female CHEST PAIN atypical chest pain COMPARISON: Chest radiograph 05/02/2016 TECHNIQUE: Portable upright AP view of the chest FINDINGS: Moderate cardiomegaly redemonstrated. Prior median sternotomy. Valvular endograft noted which is new from prior study. There is atherosclerosis of the aorta. No pneumothorax or pleural effusion. Mild pulmonary vascular congestion with chronic appearing reticular opacities. There may be some mild pulmonary edema. No lobar airspace consolidations. The bones are grossly intact. IMPRESSION: 1. No acute cardiopulmonary process. 2. Cardiomegaly with pulmonary vascular congestion and possible mild pulmonary edema. The above report was generated using voice recognition software. It may contain grammatical, syntax or spelling errors. Electronically signed by: Lemuel Moncada M.D. 12/20/2016 3:22 PM Dictated Date/Time: 12/20/2016 3:17 PM
--- NOTE | 2016-12-20 15:27 | CARDIOLOGY CONSULTATION ---
DATE OF CONSULTATION: 12/20/2016 CONSULTATION REQUESTED BY: Dr. Abel Atkins. REASON FOR CONSULTATION: Syncope and sinus pauses. HISTORY OF PRESENT ILLNESS: Mrs. Alexander is a very pleasant 81-year-old woman who presented to [facility] Emergency Department via EMS on 12/20/2016 with a complaint of recurrent syncopal spells. The patient states that she was in her normal state of health last night, but after waking up this morning, she started having spells where she felt herself just starting to pass out. She states that she was simply sitting at the kitchen table and felt herself pass out and believes that she did actually lose consciousness several times. Luckily, she did not fall and there was no trauma, but this happened repeatedly throughout the morning. Finally, EMS was called and she was transported to the Emergency Department. En route to the ER, she once again syncopized and this correlated with a 5-6 second pause on telemetry monitoring. She did spontaneously regain a pulse and consciousness. I was contacted upon arrival to the Emergency Department. She was seen at the bedside and transcutaneous pacer pads were placed and the patient was started on transcutaneous pacing at baseline rate 60 beats per minute with an output of 10 which she tolerated well without any significant discomfort. The patient notes that she has had all of her cardiac procedures done at [facility] at [place] and absolutely must be transferred to [place] for first availability for further care. She does not want to have any invasive procedures done here at [facility]. Also of note, the patient recently underwent TAVR at [facility] in [place]. Her postoperative course was complicated by bradycardia and new left bundle branch block. She was seen by electrophysiology at that time, her beta sid was discontinued and she remained stable and no further intervention was necessary at that time. PAST SURGICAL HISTORY: 1. TAVR placement 12/07/2016. 2. History of coronary bypass grafting surgery x3 with all grafts patent by most recent cardiac catheterization March 2016. 3. History of DC cardioversions. 4. Appendectomy. 5. Cataract surgery. 6. Total hip replacement bilaterally. 7. Partial hysterectomy. MEDICAL ILLNESSES: 1. Aortic stenosis, status post TAVR. 2. Coronary artery disease status post CABG with patent grafts. 3. History of sinus node dysfunction. 4. Atrial fibrillation, currently not on Coumadin given recent GI bleed. 5. Ongoing hip pain. 6. History of hemorrhagic shock secondary to blood loss while on Coumadin and gastrointestinal bleed. 7. Hypertension. 8. Stage III chronic kidney disease. 9. Obstructive sleep apnea. FAMILY HISTORY: Noncontributory. SOCIAL HISTORY: Denies any alcohol, tobacco or recreational drug use. She is . She lives at home by herself. REVIEW OF SYSTEMS: As per HPI, all other review of systems reviewed and negative at this time. ALLERGIES: 1. IV DYE. 2. Clonazepam. 3. Lisinopril. 4. DEMEROL. MEDICATIONS AN OUTPATIENT: 1. Aspirin 81 mg daily. 2. Plavix 75 mg daily. 3. Atorvastatin 20 mg daily. 4. Bumex 2 mg p.o. daily. 5. Januvia daily. 6. Gabapentin b.i.d. 7. Amaryl daily. PHYSICAL EXAMINATION: VITAL SIGNS: Temperature 37, pulse 67, respiratory rate 12, and blood pressure 178/101. GENERAL: Awake, alert, oriented x3, in mild distress. The patient lost consciousness to correlate with 5-second pause during the examination. HEENT: Normocephalic, atraumatic. Pupils are equal, round, and reactive to light and accommodation. Extraocular muscles intact. Anicteric sclerae. Moist mucous membranes. NECK: No JVD, no bruit. CARDIOVASCULAR: Irregularly irregular and slow with significant pauses with slight 2/6 mid to late systolic ejection murmur greatest at right sternal border second intercostal space with radiation to bilateral carotids. No rubs. PULMONARY: Clear to auscultation bilaterally. No rales, rhonchi, or wheezing. ABDOMEN: Bowel sounds x4, soft. No rebound, guarding, tenderness. No organomegaly. EXTREMITIES: No clubbing, cyanosis or edema. +2 pedal pulses bilaterally. SKIN: Warm and dry. TEST RESULTS: Limited 2D bedside echocardiogram showed normal aortic valve function with no significant stenosis or regurgitation, grossly normal LV systolic function. IMPRESSION: 1. Significant sinus pauses resulting in syncope. 2. Recent transcatheter aortic valve replacement. 3. Coronary artery disease, stable. RECOMMENDATIONS: It was my pleasure to see Mrs. Catherine allen in consultation today. The patient is currently stabilized for the moment with external pacer pads and she is tolerating well. Given the patient's desire to be transferred to [facility] in [place], we will attempt to proceed with the insurance clearance and transfer. I did discuss the case with electrophysiology, Dr. Natarajan at [facility] and is awaiting her arrival. The patient was counseled that there is a significant risk associated with transfer in an unstable state. She states that she understands, she is accepting that risk and absolutely wants to go to [place] immediately. So, no other medications will be started at this time. Peripheral dopamine could be started, but she is rather hypertensive at this point and given the fact that she is stable with the transcutaneous pacer pads, we will hold off for now.
--- NOTE | 2016-12-20 15:31 | Procedure Note ---
Pre-Mod Sedation Assessment General Date of Moderate Sedation: Dec 20, 2016. Vital Signs: Vital Signs Past 12 Hours Date Time Temp Pulse Resp B/P (MAP) Pulse Ox O2 Delivery O2 Flow Rate FiO2 12/20/16 14:55 69 20 192/90 94 Room Air 12/20/16 14:37 67 20 178/104 98 Room Air 12/20/16 14:36 63 12/20/16 13:58 70 20 150/104 98 Room Air 12/20/16 13:46 68 12/20/16 13:43 95 Room Air 12/20/16 13:40 37.0 78 20 109/85 98 Room Air Review Cardiovascular: + abnormal rhythm Abdomen: soft Lungs: lungs clear Pre-Sedation Airway Assessment Able to Visualize Vocal Cords: No Short Thick Neck: Yes Hx of Sleep Apnea: Yes Smoking Status: Never Smoker Mallampati Classification: Class III ASA Classification: Class IV Procedure Planning Contraindications-for Mod Sed: None Yes Notes The planned sedation has been discussed with the patient and consent obtained. I have identified the patient, determined the appropriateness of sedation and have assessed the patient immediately prior to the procedure. All medicine(s) and interventions are by my order.
[2016-12-20 15:55] LABS: ISTAT CREATININE 1.1 mg/dl (0.6-1.3); ISTAT HEMOGLOBIN 11.9 g/dl (12.0-16.0); ISTAT IONIZED CALCIUM 1.15 mmol/l (1.12-1.32)
[2016-12-20] MEDS ORDERED: LIDOCAINE HCL 1% 20 ML VIAL ONE (16:08)
--- NOTE | 2016-12-20 16:25 | [facility] Post Operative Brief Note ---
Preliminary Procedure Note Procedure Date Dec 20, 2016. Pre-Procedure Diagnosis Arrhythmia (5-6 second pauses in rhythm) AUC Score NA Post-Procedure Diagnosis Cardiothoracic Finding (Successful placement of temporary transvenous pacemaker) Procedure(s) Performed Temporary Pacemaker Farm Consultant Dr. Mcelroy Signaling Project Engineer(s) Justyna Lion,RTR Estimated Blood Loss 7 ml Medication(s) Fentanyl, Versed, Lidocaine 1% Preliminary Findings Procedure: Temporary transvenous pacemaker Clinical indications: syncope, 5-6 second pauses in rhythm Site: 6 Fr long sheath right femoral vein Catheter: 5 Fr balloon tipped bipolar electrode catheter Findings: Catheter tip placed in RV apex under fluoroscopic guidance. Threshold 0.6 mA. Pacer set at mA of 5, rate of 40. Sheath and catheter secured in place. Complications: None. Recommendations management recommendations (Permanent pacemaker) Specimens None Fluids (cc crystalloids) 15 Drains None Anesthesia IV versed,fentanyl. Procedural Complication(s) None
--- NOTE | 2016-12-20 16:29 | Procedure Note ---
Post-Mod Sedation Assessment General Date of Moderate Sedation Dec 20, 2016. Vital Signs: Vital Signs Past 12 Hours Date Time Temp Pulse Resp B/P (MAP) Pulse Ox O2 Delivery O2 Flow Rate FiO2 12/20/16 15:25 69 20 173/95 94 12/20/16 14:55 69 20 192/90 94 Room Air 12/20/16 14:37 67 20 178/104 98 Room Air 12/20/16 14:36 63 12/20/16 13:58 70 20 150/104 98 Room Air 12/20/16 13:46 68 12/20/16 13:43 95 Room Air 12/20/16 13:40 37.0 78 20 109/85 98 Room Air Review - Discharge Criteria Vital Signs Stable: Yes Alert/Oriented/Conversant: Yes Returned to Baseline Mental St: Yes Nausea Absent/Minimal: Yes Pain/Discomfort/Absent/Minimal: Yes Normal/Baseline Respirations: Yes Active Bleeding?: No Pt Received D/C Instructions: N/A Prescriptions Given: None Specific Proced. D/C Criteria Distal Pulses Present (Cardiac: N/A Groin site assessed-Card Cath: Yes Voided Prior To Discharge: N/A Discharged Patients Adult Escort/Transportation: N/A
--- NOTE | 2016-12-20 16:41 | ECHOCARDIOGRAM REPORT ---
*NOTICE TO RECEIVING REPUBLICAN AGENCY This information is strictly Confidential and protected under [place] law. [place] law prohibits you from making any further disclosure of this information unless further disclosure is expressly permitted by the written consent of the person to whom it pertains or is authorized by law. A general authorization for the release of medical or other information is not sufficient for this purpose. Hospital accepts no responsibility if the information is made available to any other person, INCLUDING THE PATIENT. Interpretation Summary * Name: TWYLA SMITH Study Date: 12/20/2016 03:38 PM BP: 178/104 mmHg * Patient Location: ED B1 HR: 67 * : 1935 (M/d/yyyy) Gender: Female Height: 62 in * Age: 81 yrs Ethnicity: CA Weight: 214 lb * Ordering Physician: Amado López DO * Performed By: Holly Bryan RDCS * * Reason For Study: Syncope * BSA: 2.0 m2 * -- Conclusions -- * Limited study. * Grossly normal LV systolic function. * Grossly normal bioprosthetic aortic valve without significant stenosis or regurgitation. Procedure Details * Limited views were obtained.
[2016-12-20] MEDS ORDERED: HEPARIN SOD 5000 UNIT/0.5 ML CARP SQ SCH (17:00)
--- NOTE | 2016-12-20 17:19 | CARDIAC CATH REPORT ---
REFERRING PHYSICIAN: Amado López DO PROCEDURE PERFORMED: Asa Mcelroy M.D. PROCEDURE: Temporary transvenous pacemaker. CLINICAL INDICATIONS: Significant pauses in heart rhythm causing syncope. HISTORY: The patient recently underwent a TAVR procedure at the [facility]. Post-procedure, she had bradycardia which improved with discontinuation of beta sid therapy. She presented to [facility] Emergency Department today with complaints of syncope. On monitoring, she had up to 5- to 6-second pauses noted. Her electrocardiogram revealed atrial fibrillation. She was placed on a temporary transcutaneous pacemaker. The patient desired to be transferred to the [facility] for further therapy. Prior to transfer, a temporary transvenous pacemaker was requested by the accepting physician at the [facility]. PROTOCOL: Under ultrasound guidance, a 6-Luxembourger sheath was placed in the right femoral vein. Because of the depth of the femoral vein, a long sheath was placed. Through this sheath, a 5-Luxembourger balloon tipped bipolar temporary pacemaker catheter was inserted. The tip was advanced to the right ventricular apex under fluoroscopic guidance. The balloon was then deflated. The pacemaker was then attached to the temporary pacemaker generator. The threshold was 0.6 mA. The pacemaker generator was then set at a rate of 40 and an output of 5.0 mA. The sheath and pacemaker were then secured in place. Throughout the procedure, the patient was in atrial fibrillation with a controlled ventricular response. COMPLICATIONS: None. CONCLUSIONS: Successful insertion of temporary transvenous pacemaker via right femoral venous access site. PLAN: The patient is being transferred to [facility] for further cardiac care. This is at the patient's request.
--- NOTE | 2016-12-20 17:47 | History and Physical ---
History & Physical Date & Time of Service: Dec 20, 2016 at 17:36 Chief Complaint: Symptomatic Advanced Heart Block Primary Care Physician: Timothy Nathan M.D. History of Present Illness Source: patient, clinic records, hospital records This is an 81 year old female with a PMH of severe aortic stenosis s/p TAVR about 2 weeks prior at [facility], CAD s/p CABG, CHF, CKD stage 3, DM2, HTN, HLD - presents with dizziness. She states she was in her usual state of health and then she woke up and developed syncope, dizziness and was losing consciousness. She did not have any falls; denies chest pain/shortness of breath, denied n/v/d or fevers/chills. Presented to the ED and found to have rhythm pauses and likely heart block. Was sent to the slab inspector immediately and had a temporary pacemaker inserted. Plan as per cardiology and patient is to send patient directly to [facility]. This was to be done ER to ER, but due to no bed availability, patient was admitted to ICU - she will be sent via life flight to [place] when bed is available. I saw the patient in room 106 She denies any symptoms since temporary pacer was placed. Past Medical/Surgical History Medical Problems: (1) Afib Status: Chronic (2) Aortic stenosis Status: Chronic (3) AVN of femur Status: Chronic (4) CAD (coronary artery disease) Status: Chronic (5) CHF (congestive heart failure) Status: Chronic (6) CKD (chronic kidney disease), stage III Status: Chronic (7) Congestive heart failure Status: Chronic (8) DM2 (diabetes mellitus, type 2) Status: Chronic (9) DVT (deep venous thrombosis) Status: Resolved (10) History of cardioversion Status: Chronic (11) HLD (hyperlipidemia) Status: Chronic (12) HTN (hypertension) Status: Chronic (13) Hypertension Status: Chronic Surgical Problems: (1) H/O colonoscopy Status: Chronic (2) H/O knee surgery Status: Chronic (3) H/O: hysterectomy Status: Resolved (4) H/O: hysterectomy Status: Chronic (5) History of appendectomy Status: Chronic (6) Hx of CABG Status: Chronic (7) S/P appendectomy Status: Resolved (8) S/P hip replacement Status: Chronic (9) S/P triple vessel bypass Status: Resolved (10) Stented coronary artery Status: Chronic Family History Diabetes mellitus Heart disease Hypertension Social History Smoking Status: Never Smoker Housing status: lives alone Occupational Status: retired Allergies Coded Allergies: Iodinated Diagnostic Agents (Verified Allergy, Intermediate, HIVES/ LOST VOICE, 05/02/16) Clonazepam (Unverified Allergy, Unknown, Rash, hives, 05/02/16) Lisinopril (Verified Adverse Reaction, Mild, COUGH, 05/02/16) Meperidine (Unverified Adverse Reaction, Unknown, Hallucinations, 05/02/16) Home Medications Scheduled Aspirin (Aspirin 81), 2 TABS PO DAILY Atorvastatin (Lipitor), 20 MG PO HS Bumetanide (Bumex), 2 MG PO DAILY Cholecalciferol (Vitamin D), 1 TAB PO DAILY Docusate Sodium (Stool Softener), 1 TAB PO BID Gabapentin (Neurontin), 100 MG PO BID Glimepiride (Glimepiride), 1 TAB PO DAILY Ipratropium-Albuterol (Combivent Respimat), 1 PUFFS INH QID Pantoprazole (Pantoprazole Sodium), 40 MG PO QAM Pyridoxine HCl (Vitamin B-6), 100 MG PO DAILY Sitagliptin (Januvia), 50 MG PO DAILY Scheduled PRN Albuterol Hfa (Ventolin Hfa), 2-4 PUFFS INH Q4H PRN for Wheezing Oxycodone Ir (Roxicodone Ir), 1 TAB PO Q4H PRN for Pain Review of Systems Constitutional: No fever, No chills Respiratory: No cough, No sputum, No wheezing, No shortness of breath Cardiovascular: No chest pain, No edema, No palpitations Abdomen: No pain, No nausea, No vomiting, No diarrhea, No constipation Musculoskeletal: No joint pain Genitourinary - Female: No dysuria, No urinary frequency, No urinary urgency Neurologic: + weakness, + balance problems, No memory loss, No paralysis, No numbness/tingling, No vertigo Psychiatric: No depression symptoms, No anxiety, No insomnia Endocrine: No fatigue Hematologic / Lymphatic: No abnormal bleeding/bruising Integumentary: No rash Allergic / Immunologic: No environmental allergies, No seasonal allergies Physical Exam Vital Signs Date Time Temp Pulse Resp B/P (MAP) Pulse Ox O2 Delivery O2 Flow Rate FiO2 12/20/16 16:45 58 16 112/68 (83) 95 Room Air 12/20/16 16:30 58 16 118/80 (93) 95 Room Air 12/20/16 16:12 58 16 112/80 (91) 95 Room Air 12/20/16 15:25 69 20 173/95 94 12/20/16 14:55 69 20 192/90 94 Room Air 12/20/16 14:37 67 20 178/104 98 Room Air 12/20/16 14:36 63 12/20/16 13:58 70 20 150/104 98 Room Air 12/20/16 13:46 68 12/20/16 13:43 95 Room Air 12/20/16 13:40 37.0 78 20 109/85 98 Room Air General Appearance: no apparent distress, + obese Head: normocephalic, atraumatic Eyes: normal inspection ENT: hearing grossly normal Neck: supple, no adenopathy Respiratory/Chest: chest non-tender, lungs clear, normal breath sounds, no respiratory distress, no accessory muscle use Cardiovascular: regular rate, rhythm, no edema, + systolic murmur Abdomen/GI: normal bowel sounds, non tender, soft Extremities/Musculoskelatal: normal inspection, no calf tenderness, normal capillary refill, no pedal edema, normal range of motion, + pertinent finding (+ temporary pacemaker inserted) Neurologic/Psych: no motor/sensory deficits, alert, normal mood/affect, oriented x 3 Skin: normal color Lymphatic: no adenopathy Diagnostics Laboratory Results Results Past 24 Hours Test 12/20/16 13:30 12/20/16 13:55 12/20/16 14:23 Range/Units White Blood Count 8.12 4.8-10.8 K/uL Red Blood Count 3.90 4.2-5.4 M/uL Hemoglobin 11.3 12.0-16.0 g/dL Hematocrit 36.6 37-47 % Mean Corpuscular Volume 93.8 80-100 fL Mean Corpuscular Hemoglobin 29.0 25-34 pg Mean Corpuscular Hemoglobin Concent 30.9 32-36 g/dl Platelet Count 199 130-400 K/uL Mean Platelet Volume 11.2 7.4-10.4 fL Neutrophils (%) (Auto) 64.4 % Lymphocytes (%) (Auto) 24.5 % Monocytes (%) (Auto) 8.3 % Eosinophils (%) (Auto) 1.7 % Basophils (%) (Auto) 0.9 % Neutrophils # (Auto) 5.23 1.4-6.5 K/uL Lymphocytes # (Auto) 1.99 1.2-3.4 K/uL Monocytes # (Auto) 0.67 0.11-0.59 K/uL Eosinophils # (Auto) 0.14 0-0.5 K/uL Basophils # (Auto) 0.07 0-0.2 K/uL RDW Standard Deviation 58.0 36.4-46.3 fL RDW Coefficient of Variation 17.0 11.5-14.5 % Immature Granulocyte % (Auto) 0.2 % Immature Granulocyte # (Auto) 0.02 0.00-0.02 K/uL Bedside Hemoglobin 11.9 12.0-16.0 g/dl Bedside Hematocrit 35 37-47 % Bedside Sodium 141 135-144 mEq/L Bedside Potassium 3.7 3.3-5.0 mEq/L Bedside Chloride 106 101-112 mEq/L Bedside Total CO2 27 24-31 mEq/l Anion Gap 13.0 9.0 3-11 mmol/L Bedside Blood Urea Nitrogen 27 7-18 mg/dl Bedside Creatinine 1.1 0.6-1.3 mg/dl Bedside Glucose (other) 146 70-99 mg/dl Bedside Ionized Calcium (Mushtaq) 1.15 1.12-1.32 mmol/l Prothrombin Time 11.0 9.0-12.0 SECONDS Prothromb Time International Ratio 1.0 0.9-1.1 Activated Partial Thromboplast Time 25.6 21.0-31.0 SECONDS Partial Thromboplastin Ratio 1.0 Sodium Level 142 136-145 mmol/L Potassium Level 3.6 3.5-5.1 mmol/L Chloride Level 108 98-107 mmol/L Carbon Dioxide Level 25 21-32 mmol/L Blood Urea Nitrogen 21 7-18 mg/dl Creatinine 1.04 0.60-1.20 mg/dl Est Creatinine Clear Calc Drug Dose 46.3 ml/min Estimated GFR () 57.9 Estimated GFR (Non- 50.0 BUN/Creatinine Ratio 20.4 10-20 Random Glucose 146 70-99 mg/dl Calcium Level 8.9 8.5-10.1 mg/dl Magnesium Level 2.3 1.8-2.4 mg/dl Total Bilirubin 0.7 0.2-1 mg/dl Direct Bilirubin 0.2 0-0.2 mg/dl Aspartate Amino Transf (AST/SGOT) 13 15-37 U/L Alanine Aminotransferase (ALT/SGPT) 14 12-78 U/L Alkaline Phosphatase 101 45-117 U/L Troponin I 0.084 0-0.045 ng/ml Pro-B-Type Natriuretic Peptide 2327 0-1800 pg/ml Total Protein 6.9 6.4-8.2 gm/dl Albumin 2.9 3.4-5.0 gm/dl Lipase 251 73-393 U/L Microbiology Results 12/20/16 MRSA DNA Surveillance Screen, Received Pending Impression Assessment and Plan This is an 81 year old female with a PMH of severe aortic stenosis s/p TAVR about 2 weeks prior at [facility], CAD s/p CABG, CHF, CKD stage 3, DM2, HTN, HLD - presents with dizziness/syncope Syncope secondary to Arrhythmia has had pauses and likely heart block temporary pacemaker placed plan is to transfer to [facility] accepting physician: Dr. Natarajan, medical accounts receivable specialist at [place] needs permanent pacer Recent TAVR should be on dual antiplatelets (aspirin + Plavix) will await transfer to [place] and possible permanent pacer first CAD s/p CABG off of b-sid due to symptomatic bradycardia and pauses continue other medications as per cardiology/medical accounts receivable specialist at [facility] DM2 should hold oral medications and insulin sliding scale at tertiary facility CKD stage 3 creat at baseline DVT ppx subq heparin FULL CODE VTE Prophylaxis VTE Risk Assessment Done? Y/N: Yes Risk Level: Moderate
--- NOTE | 2016-12-20 18:29 | Discharge Instructions ---
Discharge Instructions Date of Service Dec 20, 2016. Admission Reason for Admission: Symptomatic Advanced Heart Block Discharge Discharge Diagnosis / Problem: Symptomatic Heart Block Discharge Goals Goal(s): Decrease discomfort, Improve function, Diagnostic testing, Therapeutic intervention Activity Recommendations Activity Level: Up Ad Susannah . Additional Information Patient informed of condition: Yes Advance Directives: No DNR: No Level of Care: Other Communicable Disease: No Prognosis: Stable Instructions / Follow-Up Instructions / Follow-Up Patient being transferred to [facility] for permanent pacemaker and further management as per cardiology and community service specialist Current Hospital Diet Patient's current hospital diet: Discharge Diet Recommended Diet: AHA Diet (Heart Healthy) Pending Studies Studies pending at discharge: no Medical Emergencies . Who to Call and When: Medical Emergencies: If at any time you feel your situation is an emergency, please call 911 immediately. . Non-Emergent Contact Non-Emergency issues call your: Primary Care Provider, Aircraft Armament Mechanic . . "Provider Documentation" section prepared by Regina Lawson. . Core Measure Problem Core Measures: None
--- NOTE | 2016-12-20 18:34 | Discharge Summary ---
Discharge Summary Date of Service Dec 20, 2016. Discharge Summary Admission Date: Dec 20, 2016 at 16:53 Discharge Date: Dec 20, 2016 Discharge Disposition: Acute care facility Principal Diagnosis: Symptomatic Heart Block/Pause Recent TAVR CAD s/p CABG Medication Reconciliation Continued Medications: Albuterol Hfa (Ventolin Hfa) 200 Puffs/01365 Mcg Aers 2-4 PUFFS INH Q4H PRN for Wheezing, #1 INHALER Aspirin (Aspirin 81) 81 Mg Tab 2 TABS PO DAILY for 30 Days Atorvastatin (Lipitor) 20 Mg Tab 20 MG PO HS, TAB Bumetanide (Bumex) 2 Mg Tab 2 MG PO DAILY, TAB Cholecalciferol (Vitamin D) 2,000 Unit Tab 1 TAB PO DAILY Docusate Sodium (Stool Softener) 100 Mg Cap 1 TAB PO BID Gabapentin (Neurontin) 100 Mg Cap 100 MG PO BID, CAP Glimepiride (Glimepiride) 2 Mg Tab 1 TAB PO DAILY for 90 Days, #90 TAB 3 Refills Ipratropium-Albuterol (Combivent Respimat) 1 Aer Aer 1 PUFFS INH QID, INH Oxycodone Ir (Roxicodone Ir) 5 Mg Tab 1 TAB PO Q4H PRN for Pain, #30 TAB Pantoprazole (Pantoprazole Sodium) 40 Mg Tab 40 MG PO QAM for 30 Days, #30 TAB Pyridoxine HCl (Vitamin B-6) 50 Mg Tab 100 MG PO DAILY Sitagliptin (Januvia) 50 Mg Tab 50 MG PO DAILY, TAB Admission Information HPI (per Admitting provider): This is an 81 year old female with a PMH of severe aortic stenosis s/p TAVR about 2 weeks prior at [facility], CAD s/p CABG, CHF, CKD stage 3, DM2, HTN, HLD - presents with dizziness. She states she was in her usual state of health and then she woke up and developed syncope, dizziness and was losing consciousness. She did not have any falls; denies chest pain/shortness of breath, denied n/v/d or fevers/chills. Presented to the ED and found to have rhythm pauses and likely heart block. Was sent to the director of cath lab immediately and had a temporary pacemaker inserted. Plan as per cardiology and patient is to send patient directly to [facility]. This was to be done ER to ER, but due to no bed availability, patient was admitted to ICU - she will be sent via life flight to [place] when bed is available. I saw the patient in room 106 She denies any symptoms since temporary pacer was placed. Physical Exam (per Admitting): General Appearance: no apparent distress, + obese Head: normocephalic, atraumatic Eyes: normal inspection ENT: hearing grossly normal Neck: supple, no adenopathy Respiratory/Chest: chest non-tender, lungs clear, normal breath sounds, no respiratory distress, no accessory muscle use Cardiovascular: regular rate, rhythm, no edema, + systolic murmur Abdomen/GI: normal bowel sounds, non tender, soft Extremities/Musculoskelatal: normal inspection, no calf tenderness, normal capillary refill, no pedal edema, normal range of motion, + pertinent finding (+ temporary pacemaker inserted) Neurologic/Psych: no motor/sensory deficits, alert, normal mood/affect, oriented x 3 Skin: normal color Lymphatic: no adenopathy Hospital Course This is an 81 year old female with a PMH of severe aortic stenosis s/p TAVR about 2 weeks prior at [facility], CAD s/p CABG, CHF, CKD stage 3, DM2, HTN, HLD - presents with dizziness. She states she was in her usual state of health and then she woke up and developed syncope, dizziness and was losing consciousness. She did not have any falls; denies chest pain/shortness of breath, denied n/v/d or fevers/chills. Presented to the ED and found to have rhythm pauses and likely heart block. Was sent to the director of cath lab immediately and had a temporary pacemaker inserted. Plan as per cardiology and patient is to send patient directly to [facility]. This was to be done ER to ER, but due to no bed availability, patient was admitted to ICU - she will be sent via life flight to [place] when bed is available. I saw the patient in room 106 She denies any symptoms since temporary pacer was placed. This is an 81 year old female with a PMH of severe aortic stenosis s/p TAVR about 2 weeks prior at [facility], CAD s/p CABG, CHF, CKD stage 3, DM2, HTN, HLD - presents with dizziness/syncope Syncope secondary to Arrhythmia has had pauses and likely heart block temporary pacemaker placed plan is to transfer to [facility] accepting physician: Dr. Natarajan, explosive ordnance disposal specialist at [place] needs permanent pacer Recent TAVR should be on dual antiplatelets (aspirin + Plavix) will await transfer to [place] and possible permanent pacer first CAD s/p CABG off of b-sid due to symptomatic bradycardia and pauses continue other medications as per cardiology/explosive ordnance disposal specialist at [place] DM2 should hold oral medications and insulin sliding scale at tertiary facility CKD stage 3 creat at baseline DVT ppx subq heparin FULL CODE Total time spent on discharge = 50 minutes This includes examination of the patient, discharge planning, medication reconciliation, and communication with other providers. Discharge Instructions Patient transferred to [place] for permanent pacemaker and patient request
[2016-12-20] MEDS ORDERED: ATORVASTATIN 20 MG TAB PO SCH (21:00)
[2016-12-20] MEDS ORDERED: GABAPENTIN 100 MG CAP PO SCH (21:00)
[2016-12-21] MEDS ORDERED: ASPIRIN 81 MG ECTAB PO SCH ×2 (09:00)
[2016-12-21] MEDS ORDERED: PYRIDOXINE HCL 50 MG TAB PO SCH (09:00)
[2016-12-21] MEDS ORDERED: PANTOprazole SOD 40 MG TAB PO SCH (09:00)
[2016-12-21] MEDS ORDERED: BUMETANIDE 1 MG TAB PO SCH (09:00)
--- NOTE | 2016-12-22 16:23 | Medical Consult ---
Consultation Note Date of Service Dec 22, 2016. Consultation Note Attending: Dr. Murguia This patient was admitted to the ICU at 17:10 and a mandatory consult was placed. Patient was maintained in the ICU pending transfer to [facility]. Patient had complete heart block on admission and a temporary pacer was placed by Dr. Mcelroy. Patient had no complication awaiting transfer and no critical care services were provided prior to transfer. Patient was transferred at 18:57. Please do not bill the patient for this consult as we did not see or examine the patient and were not directly involved in this patient's care.
== END 2016-12-20 19:00 | disposition short-term general hospital (02) | DRG 261 ==
LOC: EDBD 13:26 → C.EDB 13:28 → ENRESERV 16:42 → C.MSICU 16:53
PROVIDERS: ADMIT Family Medicine; ATTEND Family Medicine
PROC: 4A12X4Z Monitoring of Cardiac Electrical Activity, External Approach (ICD-10-PCS; 2016-12-20)
PROC: 02HK3MZ Insertion of Cardiac Lead into Right Ventricle, Percutaneous Approach (ICD-10-PCS; principal; 2016-12-20 15:11)
DX: I49.5 Sick sinus syndrome (principal); I13.0 Hypertensive heart and chronic kidney disease with heart failure and stage 1 through stage 4 chronic kidney disease, or unspecified chronic kidney disease; I44.7 Left bundle-branch block, unspecified; I48.91 Unspecified atrial fibrillation; I50.9 Heart failure, unspecified; N18.3 Chronic kidney disease, stage 3 (moderate); E11.22 Type 2 diabetes mellitus with diabetic chronic kidney disease; I25.10 Atherosclerotic heart disease of native coronary artery without angina pectoris; E78.5 Hyperlipidemia, unspecified; E66.9 Obesity, unspecified; Z51.81 Encounter for therapeutic drug level monitoring; Z79.899 Other long term (current) drug therapy; Z79.84 Long term (current) use of oral hypoglycemic drugs; Z79.82 Long term (current) use of aspirin; Z95.2 Presence of prosthetic heart valve; Z86.718 Personal history of other venous thrombosis and embolism; Z95.1 Presence of aortocoronary bypass graft; Z95.5 Presence of coronary angioplasty implant and graft; Z68.37 Body mass index [BMI] 37.0-37.9, adult; Z83.3 Family history of diabetes mellitus; Z82.49 Family history of ischemic heart disease and other diseases of the circulatory system

== ENCOUNTER 2017-02-06 12:52 | Emergency (ER) | payer OTHER ==
[2017-02-06] VITALS (7 sets, daily range): BP systolic 146–179; BP diastolic 65–122; PULSE 64–83; TEMP 36.9; O2SAT 97–100; Ht 160 cm; Wt 100.9 kg
[~2017-02-06] VITALS: Ht 160 cm; Wt 100.9 kg
[~2017-02-06 12:52] MED LIST changes: -METO25TA3 PO; +OXYC-90 PO; -OXYC1TAB3 PO; +PANT1TAB4 PO; -PRT40 PO
--- NOTE | 2017-02-06 13:08 | EMERGENCY ROOM VISIT NOTE ---
History Report prepared by Marcie: Foster Madrid Under the Supervision of: Dr. Castillo Vargas D.O. First contact with patient: 12:55 Stated Complaint: HIP DISLOCATION History of Present Illness The patient is an 81 year old female with a history of 4 left hip dislocations who presents to the Emergency Room via EMS with complaints of a sudden left hip dislocation that occurred prior to arrival today. She states that she has a history of a left hip replacement as well on September 20. The patient notes that she was sitting on the edge of the bed when the injury occurred, and she has had a lot of pain ever since. She was unable to get up after the injury. The patient says that she last ate around 4 and a half hours ago. Source of History: patient, nursing staff Onset: QUOTER today Position: other (left hip ) Symptom Intensity: very painful Quality: other (dislocation) Timing: other (sudden) Note: Associated symptoms: Unable to get up after injury. Review of Systems See HPI for pertinent positives & negatives. A total of 10 systems reviewed and were otherwise negative. Past Medical & Surgical Medical Problems: (1) Afib (2) Aortic stenosis (3) AVN of femur (4) CAD (coronary artery disease) (5) CHF (congestive heart failure) (6) CKD (chronic kidney disease), stage III (7) Congestive heart failure (8) DM2 (diabetes mellitus, type 2) (9) DVT (deep venous thrombosis) (10) History of cardioversion (11) HLD (hyperlipidemia) (12) HTN (hypertension) (13) Hypertension (14) Rectal bleeding Surgical Problems: (1) H/O colonoscopy (2) H/O knee surgery (3) H/O: hysterectomy (4) H/O: hysterectomy (5) History of appendectomy (6) Hx of CABG (7) S/P appendectomy (8) S/P hip replacement (9) S/P triple vessel bypass (10) Stented coronary artery Family History Diabetes mellitus Heart disease Hypertension Social History Smoking Status: Never Smoker Alcohol Use: none Housing Status: lives alone Occupation Status: retired Current/Historical Medications Scheduled Aspirin (Aspirin Ec), 81 MG PO DAILY Atorvastatin (Lipitor), 20 MG PO HS Bumetanide (Bumex), 2 MG PO DAILY Cholecalciferol (Vitamin D), 1 TAB PO DAILY Docusate Sodium (Stool Softener), 1 TAB PO BID Gabapentin (Neurontin), 100 MG PO BID Glimepiride (Glimepiride), 1 TAB PO DAILY Ipratropium-Albuterol (Combivent Respimat), 1 PUFFS INH QID Pyridoxine HCl (Vitamin B-6), 100 MG PO DAILY Sitagliptin (Januvia), 50 MG PO DAILY Scheduled PRN Albuterol Hfa (Ventolin Hfa), 2-4 PUFFS INH Q4H PRN for Wheezing Allergies Coded Allergies: Iodinated Diagnostic Agents (Verified Allergy, Intermediate, HIVES/ LOST VOICE, 05/02/16) Clonazepam (Verified Allergy, Unknown, Rash, hives, 02/06/17) Lisinopril (Verified Adverse Reaction, Mild, COUGH, 05/02/16) Meperidine (Unverified Adverse Reaction, Unknown, Hallucinations, 02/06/17 ) Physical Exam Vital Signs Physical Exam GENERAL: Patient is awake, alert, slightly anxious appearing and uncomfortable. EYES: The conjunctivae are clear. The pupils are round and reactive. EARS, NOSE, MOUTH AND THROAT: The nose is without any evidence of any deformity. Mucous membranes are moist tongue is midline NECK: The neck is nontender and supple. RESPIRATORY: Normal respiratory effort is noted there is no evidence of wheezing rhonchi or rales CARDIOVASCULAR: Regular rate and rhythm noted there no murmurs rubs or gallops normal S1 normal S2 GASTROINTESTINAL: The abdomen is soft. Bowel sounds are present in all quadrants. Abdomen is nontender MUSCULOSKELETAL/EXTREMITIES: Left lower extremity was shortened but not rotated significantly. There was pain with range of motion testing of left hip. SKIN: There is pedal edema bilaterally. NEUROLOGIC: Patient is awake alert and oriented x3. Medical Decision & Procedures ER Provider Diagnostic Interpretation: X-ray results as stated below per interpretation by me and the radiologist. L PELVIS/UNILATERAL HIP 2-3VIEWS CLINICAL HISTORY: left hip psin dislocation COMPARISON: None. DISCUSSION: Superior dislocation left hip. No evidence for fracture. Acetabular cup appears intact. Pre-existing total right hip replacement in good position. There is no evidence for soft tissue swelling. IMPRESSION: Superior dislocation left hip. The above report was generated using voice recognition software. It may contain grammatical, syntax or spelling errors. Electronically signed by: Josh Talbert M.D. 02/06/2017 2:04 PM Dictated Date/Time: 02/06/2017 2:03 PM L HIP UNILATERAL 2 VIEWS CLINICAL HISTORY: POST REDUCTION dislocation COMPARISON: None. DISCUSSION: Anatomic alignment status post closed reduction left hip. Patient's total hip prosthesis remains remains aligned anatomically. There is no evidence for soft tissue swelling. IMPRESSION: Anatomic alignment status post closed reduction The above report was generated using voice recognition software. It may contain grammatical, syntax or spelling errors. Electronically signed by: Josh Talbert M.D. 02/06/2017 3:56 PM Dictated Date/Time: 02/06/2017 3:55 PM Laboratory Results 02/06/17 13:05 Red Blood Count 4.05, Mean Corpuscular Volume 92.6, Mean Corpuscular Hemoglobin 29.1, Mean Corpuscular Hemoglobin Concent 31.5, Mean Platelet Volume 11.3, Neutrophils (%) (Auto) 72.0, Lymphocytes (%) (Auto) 14.5, Monocytes (%) (Auto) 10.8, Eosinophils (%) (Auto) 1.8, Basophils (%) (Auto) 0.6, Neutrophils # (Auto ) 5.06, Lymphocytes # (Auto) 1.02, Monocytes # (Auto) 0.76, Eosinophils # (Auto ) 0.13, Basophils # (Auto) 0.04 02/06/17 13:05 Test 02/06/17 13:05 White Blood Count 7.03 K/uL (4.8-10.8) Red Blood Count 4.05 M/uL (4.2-5.4) Hemoglobin 11.8 g/dL (12.0-16.0) Hematocrit 37.5 % (37-47) Mean Corpuscular Volume 92.6 fL (80-100) Mean Corpuscular Hemoglobin 29.1 pg (25-34) Mean Corpuscular Hemoglobin Concent 31.5 g/dl (32-36) Platelet Count 133 K/uL (130-400) Mean Platelet Volume 11.3 fL (7.4-10.4) Neutrophils (%) (Auto) 72.0 % Lymphocytes (%) (Auto) 14.5 % Monocytes (%) (Auto) 10.8 % Eosinophils (%) (Auto) 1.8 % Basophils (%) (Auto) 0.6 % Neutrophils # (Auto) 5.06 K/uL (1.4-6.5) Lymphocytes # (Auto) 1.02 K/uL (1.2-3.4) Monocytes # (Auto) 0.76 K/uL (0.11-0.59) Eosinophils # (Auto) 0.13 K/uL (0-0.5) Basophils # (Auto) 0.04 K/uL (0-0.2) RDW Standard Deviation 52.9 fL (36.4-46.3) RDW Coefficient of Variation 15.6 % (11.5-14.5) Immature Granulocyte % (Auto) 0.3 % Immature Granulocyte # (Auto) 0.02 K/uL (0.00-0.02) Prothrombin Time 10.4 SECONDS (9.0-12.0) Prothromb Time International Ratio 1.0 (0.9-1.1) Activated Partial Thromboplast Time 24.5 SECONDS (21.0-31.0) Partial Thromboplastin Ratio 0.9 Anion Gap 4.0 mmol/L (3-11) Est Creatinine Clear Calc Drug Dose 46.8 ml/min Estimated GFR () 57.3 Estimated GFR (Non- 49.4 BUN/Creatinine Ratio 16.1 (10-20) Calcium Level 8.9 mg/dl (8.5-10.1) Total Bilirubin 0.6 mg/dl (0.2-1) Direct Bilirubin 0.2 mg/dl (0-0.2) Aspartate Amino Transf (AST/SGOT) 18 U/L (15-37) Alanine Aminotransferase (ALT/SGPT) 17 U/L (12-78) Alkaline Phosphatase 103 U/L (45-117) Total Protein 7.3 gm/dl (6.4-8.2) Albumin 3.3 gm/dl (3.4-5.0) Laboratory results per my review. Medications Administered Medications (Trade) Dose Ordered Sig/Meeta Route Start Time Stop Time Status Last Admin Dose Admin Morphine Sulfate (MoRPHine SULFATE INJ) 4 mg Q15M PRN IV 02/06/17 13:15 02/06/17 18:28 DC 02/06/17 13:08 4 MG Oxycodone HCl (Roxicodone Immediate Rel 5MG Home Pack) 1 homepack UD ONCE PO 02/06/17 17:00 02/06/17 17:01 DC 02/06/17 17:39 1 HOMEPACK Procedure Procedural Sedation Indication Left hip dislocation. Total time: 10 minutes. Written consent was obtained after the risks and benefits were explained to the patient, including, but not limited to aspiration, allergic reaction, breathing difficulties, cardiac complications, vomiting, pain, event recall, bleeding, and /or infection. Pre-sedation examination and paperwork completed. The patient was on 100% oxygen via NRB prior to the procedure. Continous end tidal CO2 monitoring, pulse oximetry, and cardiac monitoring were utilized. Suction, airway equipment, medications, respiratory equipment, and appropriate personnel were prepared prior to the initiation of the procedure. A time out was taken. Sedation was achieved utilizing 30 mg of Propofol - please see separate sedation note by Dr. Gorman. After I observed the patient had reached the appropriate level of sedation the main procedure was performed without complication. Sedation was discontinued and the monitoring continued. The patient recovered quickly from the effects of the medication without complication or adverse event. The particulars of the hip reduction are as follows. The patient was in the supine position. She was sedated by Dr. Gorman. Please see his note for procedural sedation details elsewhere. The patient was under the effects of the sedation. The left hip was brought into full flexion. Using some internal and external rotation as well as traction towards the ceiling the hip was felt to reduce. The patient's hip was brought back down into extension. There was no longer a leg length discrepancy noted. Pulses were symmetric. Postprocedure x-ray was ordered. The patient tolerated the procedure well. ED Course 1256: The patient was evaluated in room B11B. A complete history and physical examination were performed. 1315: Ordered Morphine Sulfate Inj 4 mg IV PRN. 1615: I reevaluated and updated the patient. 1648: Upon reevaluation, the patient is doing well. I discussed the results and treatment plan with her. She verbalized agreement of the treatment plan. She was discharged home. 1700: Ordered Roxicodone Immediate Rel 5MG Home Pack 1 homepack PO. Medical Decision Differential diagnosis: Etiologies such as fracture, dislocation, intra-abdominal, pneumothorax, intrathoracic , intracranial, neurologic, as well as other traumatic pathologies were entertained. Nursing notes reviewed. The patient is an 81-year-old female who presented to the emergency department for an evaluation of left hip pain. The patient is a history of left hip replacement. She is had episodes of dislocation in the past. The patient's history and physical exam appear to be consistent with a hip dislocation. She was treated with pain medication prior to arrival as well as in the emergency department. She was then treated with closed reduction using procedural sedation. The patient tolerated this quite well. The hip was reduced in usual fashion. Post reduction x-rays showed normal alignment. The patient was reevaluated multiple times. She was awake alert and able to hold a normal oxygen saturation on room air. She was encouraged to follow-up with her primary orthopedic physician but she already has a follow-up appointment at [facility] for specialist evaluation to determine if she needs revision of the left hip. The patient was also encouraged to continue using her walker as before. She was also encouraged to return to the emergency department immediately symptoms change worsen or the need arises. Medication Reconcilliation Current Medication List: was personally reviewed by me Blood Pressure Screening Patient's blood pressure: Elevated blood pressure Blood pressure disposition: Elevated BP felt to be situational Impression Primary Impression: Hip dislocation, left Scribe Attestation The scribe's documentation has been prepared under my direction and personally reviewed by me in its entirety. I confirm that the note above accurately reflects all work, treatment, procedures, and medical decision making performed by me. Departure Information Dispostion Home / Self-Care Referrals No Doctor, Assigned (PCP) Forms HOME CARE DOCUMENTATION FORM, IMPORTANT VISIT INFORMATION, WORK / SCHOOL INSTRUCTIONS Patient Instructions ED Dislocation Hip Traumatic Redu, ED Sedation Procedural Discon, My [facility] Additional Instructions Continue to use your walker when ambulating. Follow-up with your upcoming orthopedic appointment as scheduled. Return to the emergency department immediately symptoms change worsen or the need arises. Continue using Motrin and Tylenol as directed for pain. Problem Qualifiers Primary Impression: Hip dislocation, left Encounter type: initial encounter Qualified Codes: S73.005A - Unspecified dislocation of left hip, initial encounter
[2017-02-06] MEDS ORDERED: MoRPHine SULFATE 4 MG/ML 1 ML CARP\\VIAL IV PRN (13:15)
[2017-02-06] MEDS ORDERED: ASPI81TA28 PO (13:18)
[2017-02-06 13:29] LABS: BASO % 0.6 %; BASO ABS # 0.04 K/uL (0-0.2); EOS % 1.8 %; EOS ABS # 0.13 K/uL (0-0.5); HEMATOCRIT 37.5 % (37-47); HEMOGLOBIN 11.8 g/dL (12.0-16.0); IG# 0.02 K/uL (0.00-0.02); LYMPH % 14.5 %; LYMPH ABS # 1.02 K/uL (1.2-3.4); MEAN CELL VOLUME 92.6 fL (80-100); MEAN CORPUSCULAR HEMOGLOBIN 29.1 pg (25-34); MEAN CORPUSCULAR HGB CONC 31.5 g/dl (32-36); MEAN PLATELET VOLUME 11.3 fL (7.4-10.4); MONO % 10.8 %; MONO ABS # 0.76 K/uL (0.11-0.59); NEUT ABS # 5.06 K/uL (1.4-6.5); PLATELET COUNT 133 K/uL (130-400); RED CELL DISTRIBUTION WIDTH CV 15.6 % (11.5-14.5); RED CELL DISTRIBUTION WIDTH SD 52.9 fL (36.4-46.3); WHITE BLOOD COUNT 7.03 K/uL (4.8-10.8)
[2017-02-06 13:37] LABS: PTT PATIENT 24.5 SECONDS (21.0-31.0)
[2017-02-06 13:49] LABS: ALBUMIN 3.3 gm/dl (3.4-5.0); CALCIUM 8.9 mg/dl (8.5-10.1); CREATININE 1.05 mg/dl (0.60-1.20); POTASSIUM 3.4 mmol/L (3.5-5.1)
[2017-02-06 13:51] LABS: TOTAL PROTEIN 7.3 gm/dl (6.4-8.2)
--- NOTE | 2017-02-06 14:05 | DIAGNOSTIC IMAGING REPORT ---
L PELVIS/UNILATERAL HIP 2-3VIEWS CLINICAL HISTORY: left hip psin dislocation COMPARISON: None. DISCUSSION: Superior dislocation left hip. No evidence for fracture. Acetabular cup appears intact. Pre-existing total right hip replacement in good position. There is no evidence for soft tissue swelling. IMPRESSION: Superior dislocation left hip. The above report was generated using voice recognition software. It may contain grammatical, syntax or spelling errors. Electronically signed by: Josh Talbert M.D. 02/06/2017 2:04 PM Dictated Date/Time: 02/06/2017 2:03 PM
[2017-02-06] MEDS ORDERED: PROPOFOL IV EMULSION 10 MG/ML 20 ML VIAL IV ONE (15:15)
--- NOTE | 2017-02-06 15:29 | EMERGENCY ROOM VISIT NOTE ---
ED Visit Note Procedure note for procedural sedation provided by myself for left hip dislocation EM PROCEDURE NOTE- PROCEDURAL SEDATION Sedation Level: Moderate PRIOR TO THE PROCEDURE THE FOLLOWING INFORMATION WAS VERIFIED: Procedure/Indication: L hip fracture Verify Correct Patient: Yes Verify Correct Site: Yes Verify Correct Procedure: Yes Patient has been NPO for 8 hours Airway Assessment: Normal anatomy ASA Physical Status: 3 Procedure sedation was discussed with the patient. Risks and benefits were explained with the possible risks including but not limited to hypotension, allergic reaction, vomiting, pneumonia, loss of respiratory effort, cardiac arrest, and emergence reaction. PROCEDURE NOTE: Preparation for the sedation procedure included: arborist representative, IV access, pulse oxymetry, ETCO2 monitor, oxygen, suction and ambu bag. Sedation was accomplished using meds propofol mg 30 mg IV. I provided anesthesia care for this patient for 10 minutes. Weather Reporter/Embedded Firmware Developer: Matthew Gorman DO. Complication(s) during the procedure: None Mental status post procedure: Response to verbal stimuli - Appropriate Disposition See nurses record for monitoring/vital signs Alert prior to discharge
--- NOTE | 2017-02-06 15:57 | DIAGNOSTIC IMAGING REPORT ---
L HIP UNILATERAL 2 VIEWS CLINICAL HISTORY: POST REDUCTION dislocation COMPARISON: None. DISCUSSION: Anatomic alignment status post closed reduction left hip. Patient's total hip prosthesis remains remains aligned anatomically. There is no evidence for soft tissue swelling. IMPRESSION: Anatomic alignment status post closed reduction The above report was generated using voice recognition software. It may contain grammatical, syntax or spelling errors. Electronically signed by: Josh Talbert M.D. 02/06/2017 3:56 PM Dictated Date/Time: 02/06/2017 3:55 PM
[2017-02-06] MEDS ORDERED: OXYCODONE IR HOME PACK PO ONE (17:00)
--- NOTE | 2017-02-06 17:03 | EMERGENCY ROOM VISIT NOTE ---
Pre-Mod Sedation Assessment General Date of Moderate Sedation: Feb 06, 2017. Vital Signs: Vital Signs Past 12 Hours Date Time Temp Pulse Resp B/P (MAP) Pulse Ox O2 Delivery O2 Flow Rate FiO2 02/06/17 16:22 71 18 148/81 98 Room Air 02/06/17 15:58 36.9 71 20 146/66 97 Room Air 02/06/17 15:43 36.9 66 20 163/68 100 Room Air 02/06/17 15:28 67 20 169/67 100 Room Air 02/06/17 15:23 76 20 179/72 100 Nasal Cannula 4.0 02/06/17 15:18 83 20 160/122 100 Non-Rebreather 15.0 02/06/17 15:15 36.8 85 20 167/94 100 Room Air 02/06/17 14:05 64 16 141/74 95 02/06/17 13:06 83 02/06/17 12:58 36.5 83 20 170/105 93 Room Air Review Airway Class: III Pre-Sedation Airway Assessment Oral Cavity: Dentures Able to Visualize Vocal Cords: No Short Thick Neck: No Hx of Sleep Apnea: No Smoking Status: Never Smoker Mallampati Classification: Class III (Soft palate, base of uvula) ASA Classification: Class III Procedure Planning Contraindications-for Mod Sed: None Yes Notes The planned sedation has been discussed with the patient and consent obtained. I have identified the patient, determined the appropriateness of sedation and have assessed the patient immediately prior to the procedure. All medicine(s) and interventions are by my order.
--- NOTE | 2017-02-06 17:05 | EMERGENCY ROOM VISIT NOTE ---
Post-Moderate Sedation Plan General Date of Moderate Sedation Feb 06, 2017. Vital Signs: Vital Signs Past 12 Hours Date Time Temp Pulse Resp B/P (MAP) Pulse Ox O2 Delivery O2 Flow Rate FiO2 02/06/17 16:22 71 18 148/81 98 Room Air 02/06/17 15:58 36.9 71 20 146/66 97 Room Air 02/06/17 15:43 36.9 66 20 163/68 100 Room Air 02/06/17 15:28 67 20 169/67 100 Room Air 02/06/17 15:23 76 20 179/72 100 Nasal Cannula 4.0 02/06/17 15:18 83 20 160/122 100 Non-Rebreather 15.0 02/06/17 15:15 36.8 85 20 167/94 100 Room Air 02/06/17 14:05 64 16 141/74 95 02/06/17 13:06 83 02/06/17 12:58 36.5 83 20 170/105 93 Room Air Review - Discharge Plan Post Moderate Sedation Plan: On clinical assessment, the patient appears to have tolerated the conscious sedation without complications. Patient is recovering as anticipated. Patient will continue to be monitored by nursing and may be discharged when conscious sedation discharge criteria are met. Patient lasted for a total 10 minutes. She did state the last time she ate or drank anything was around 6 to 6:30 this morning and that was with pills that she took but other than that she has not had anything since last night.
[2017-08-14] MEDS ORDERED: [UNRECOGNIZED DRUG - REMARK] INH (15:30)
[2017-08-14] MEDS ORDERED: LOSA1TAB PO (15:30)
[2017-08-14] MEDS ORDERED: PRED20TA PO (16:17)
[2017-09-22] MEDS ORDERED: ACET-1138 PO (11:41)
[2017-09-22] MEDS ORDERED: ULT50X PO (11:41)
[2017-09-22] MEDS ORDERED: HYDR-5688 PO (11:41)
[2017-09-22] MEDS ORDERED: ENOX1INJ9 SQ (11:41)
== END 2017-02-06 17:43 | disposition home or self-care (01) ==
LOC: EDBD 12:52 → C.EDB 12:53
DX: S73.005A Unspecified dislocation of left hip, initial encounter (principal); X58.XXXA Exposure to other specified factors, initial encounter; Y92.013 Bedroom of single-family (private) house as the place of occurrence of the external cause; Z96.642 Presence of left artificial hip joint; I48.91 Unspecified atrial fibrillation; I35.0 Nonrheumatic aortic (valve) stenosis; I25.10 Atherosclerotic heart disease of native coronary artery without angina pectoris; I11.0 Hypertensive heart disease with heart failure; E11.9 Type 2 diabetes mellitus without complications; Z86.718 Personal history of other venous thrombosis and embolism; E78.5 Hyperlipidemia, unspecified; Z95.1 Presence of aortocoronary bypass graft; Z83.3 Family history of diabetes mellitus; Z82.49 Family history of ischemic heart disease and other diseases of the circulatory system; Z79.82 Long term (current) use of aspirin; Z79.899 Other long term (current) drug therapy

== ENCOUNTER 2017-09-19 14:56 | Inpatient (IN) | payer OTHER ==
[~2017-09-19] VITALS: Ht 157.5 cm; Wt 101.3 kg
[~2017-09-19 14:56] MED LIST changes: -ASPI-435 PO; +ASPI81TA28 PO; -IPRA1AER2 INH; +LOSA1TAB PO; -OXYC-90 PO; -PANT1TAB4 PO; +PRED20TA PO; +[UNRECOGNIZED DRUG - REMARK] INH
[2017-09-19] MEDS ORDERED: SODIUM CHLORIDE 0.9% 1000ML 1,000 ML IV ONE (15:18)
[2017-09-19] MEDS ORDERED: ONDANSETRON INJ 2 MG/ML 2 ML VIAL IV STA (15:18)
--- NOTE | 2017-09-19 16:20 | DIAGNOSTIC IMAGING REPORT ---
CHEST ONE VIEW PORTABLE CLINICAL HISTORY: Fall. Hip pain. COMPARISON STUDY: Chest radiograph December 20, 2016. FINDINGS: Note is made of median sternotomy wires, this single lead left subclavian pacemaker and prosthetic cardiac valve. Moderate cardiomegaly is unchanged. There is no pneumothorax or pleural effusion. There is pulmonary vascular congestion with possible mild pulmonary edema. IMPRESSION: No change in appearance of the chest. Pulmonary vascular congestion with possible mild pulmonary edema. Electronically signed by: Shane Griffin M.D. 09/19/2017 4:19 PM Dictated Date/Time: 09/19/2017 4:17 PM
[2017-09-19] MEDS ORDERED: METO25TA3 PO (16:25)
--- NOTE | 2017-09-19 16:26 | DIAGNOSTIC IMAGING REPORT ---
L PELVIS/UNILATERAL HIP 2-3VIEWS CLINICAL HISTORY: L hip pain, fall, RAMAKRISHNA COMPARISON STUDY: Pelvis and left hip 02/06/2017. FINDINGS: Bilateral total hip arthroplasties. The hardware appears intact. No acute fracture or dislocation. The bones are osteopenic. Heterotopic ossification within the bilateral hips. The sacrum is intact. IMPRESSION: Bilateral total hip arthroplasties. No fracture or dislocation within the pelvis or hips. Electronically signed by: Raghavendra Shaw M.D. 09/19/2017 4:25 PM Dictated Date/Time: 09/19/2017 4:23 PM
[2017-09-19] MEDS: MoRPHine SULFATE 2 MG/ML CARP IV PRN ×2 (16:39→18:18)
[2017-09-19 16:47] LABS: CALCIUM 9.2 mg/dl (8.5-10.1); CREATININE 1.2 mg/dl (0.60-1.20); POTASSIUM 4.5 mmol/L (3.5-5.1)
[2017-09-19] MEDS ORDERED: CEFTRIAXONE SOD INJ 1 GM ADDVIAL IV STA (16:52)
[2017-09-19 17:16] LABS: HEMATOCRIT 41.9 % (37-47); HEMOGLOBIN 13.4 g/dL (12.0-16.0); MEAN CELL VOLUME 92.3 fL (80-100); MEAN CORPUSCULAR HEMOGLOBIN 29.5 pg (25-34); RED CELL DISTRIBUTION WIDTH CV 17.9 % (11.5-14.5); RED CELL DISTRIBUTION WIDTH SD 60.9 fL (36.4-46.3); WHITE BLOOD COUNT 8.16 K/uL (4.8-10.8)
[2017-09-19 18:04] LABS: BASO % 0.6 %; BASO ABS # 0.05 K/uL (0-0.2); EOS % 1.2 %; IG# 0.03 K/uL (0.00-0.02); LYMPH % 18.4 %; MONO % 13.4 %; MONO ABS # 1.09 K/uL (0.11-0.59); NEUT ABS # 5.39 K/uL (1.4-6.5); PLATELET COUNT 127 K/uL (130-400)
[2017-09-19] MEDS ORDERED: ONDANSETRON INJ 2 MG/ML 2 ML VIAL IV PRN (20:00)
[2017-09-19] MEDS ORDERED: METO-478 PO (20:07)
[2017-09-19] MEDS ORDERED: NRN/300 PO (20:07)
[2017-09-19] MEDS ORDERED: IPRA1AER2 INH (20:07)
[2017-09-19] MEDS ORDERED: FERR1TAB13 PO (20:07)
[2017-09-19] MEDS ORDERED: CARBOHYDRATES FOR HYPOGLYCEMIA PO PRN (20:15)
[2017-09-19] MEDS ORDERED: GLUCAGON FOR INJ 1 MG VIAL SQ PRN (20:15)
[2017-09-19] MEDS ORDERED: GLUCOSE 10 TABS/TUBE PO PRN (20:15)
[2017-09-19] MEDS ORDERED: DEXTROSE 50% 50 ML SYR IV PRN (20:15)
[2017-09-19] MEDS ORDERED: DOCUSATE SODIUM 100 MG CAP PO PRN (20:15)
[2017-09-19] MEDS ORDERED: GLUCOSE 40% GEL 15 GM TUBE PO PRN (20:15)
--- NOTE | 2017-09-19 20:40 | DIAGNOSTIC IMAGING REPORT ---
PELVIS AND LEFT HIP CT CT DOSE: 1374.98 mGy.cm HISTORY: Fall with left hip pain. L thigh pain with weight bearing, RAMAKRISHNA TECHNIQUE: Multiaxial CT images of the pelvis and left hip were performed and reformatted in the sagittal and coronal plane without the use of contrast. A dose lowering technique was utilized adhering to the principles of ALARA. COMPARISON: Pelvis and left hip 09/19/2017. FINDINGS: Bilateral total hip arthroplasties. The hardware appears intact. This results in metallic artifact at the adjacent bony structures of the hips. There is slight interval irregularity within the right inferior pubic ramus on image 652. This may be due to an old fracture. This does not clearly represent an acute fracture. No definite acute fracture or dislocation within the pelvis or hips. Moderate degenerative disc disease at L4-L5 and L5-S1 as well as moderate facet osteoarthritis within the lower lumbar spine. IMPRESSION: Right inferior pubic ramus fracture which is likely old. No definite acute fracture or dislocation within the pelvis or hips. Electronically signed by: Raghavendra Shaw M.D. 09/19/2017 8:55 PM Dictated Date/Time: 09/19/2017 8:31 PM
--- NOTE | 2017-09-19 20:48 | EMERGENCY ROOM VISIT NOTE ---
History Report prepared by Marcie: Diane Michael Under the Supervision of: Dr. Urszula Garcia M.D. First contact with patient: 15:03 Chief Complaint: FALL Stated Complaint: FALL/HIP PAIN History of Present Illness The patient is an 82 year old female who presents to the Emergency Room with complaints of an episode of a fall occurring this morning. The patient states that she becomes extremely off balance if she doesn't have two hands on her walker. She states that this morning she was trying to carry a cup of coffee and walk with her walker. She states that she slipped and fell backwards into a box. She reports that EMS came and got her up, but she did not feel the need to come in at that time. She reports that she laid down for a nap and woke up unable to walk. She reports that she had left hip and left leg pain. She states that putting weight on it made the pain worse. She states that at this time she called the ambulance again and came in to be evaluated. The patient notes that she has had both hips replaced and a conversion done to the left hip in [place]. The patient denies hitting her head when she fell. The patient notes that she takes aspirin. Source of History: patient Onset: this morning Position: leg (left), other (left hip) Quality: other (fall) Timing: other (episode) Modifying Factors (Worsening): other (putting weight on it) Note: The patient complains of left hip pain and left leg pain. Review of Systems See HPI for pertinent positives & negatives. A total of 10 systems reviewed and were otherwise negative. Past Medical & Surgical Medical Problems: (1) Afib (2) Aortic stenosis (3) AVN of femur (4) CAD (coronary artery disease) (5) Chronic diastolic CHF (congestive heart failure) (6) CKD (chronic kidney disease), stage III (7) Complete heart block (8) DM2 (diabetes mellitus, type 2) (9) GI bleed (10) History of cardioversion (11) History of pacemaker (12) History of revision of total replacement of left hip joint (13) HLD (hyperlipidemia) (14) HTN (hypertension) (15) Hypertension (16) Thoracic compression fracture Surgical Problems: (1) H/O: hysterectomy (2) History of appendectomy (3) History of cataract surgery (4) History of partial hysterectomy (5) History of total left hip replacement (6) History of total right hip replacement (7) S/P appendectomy (8) S/P right knee arthroscopy (9) S/P TAVR (transcatheter aortic valve replacement) (10) S/P triple vessel bypass Family History Diabetes mellitus Heart disease Hypertension Social History Smoking Status: Never Smoker Alcohol Use: none Marital Status: single Housing Status: lives alone Occupation Status: retired Current/Historical Medications Scheduled Aspirin (Aspirin Ec), 81 MG PO DAILY Atorvastatin (Lipitor), 20 MG PO HS Bumetanide (Bumex), 2 MG PO DAILY Cholecalciferol (Vitamin D), 1 TAB PO DAILY Ferrous Sulfate (Kp Ferrous Sulfate), 1 TAB PO BID Gabapentin (Neurontin), 100 MG PO DAILY Gabapentin (Neurontin), 300 MG PO HS Glimepiride (Glimepiride), 1 TAB PO DAILY Losartan Potassium (Cozaar), 25 MG PO DAILY Metoprolol Succinate (Toprol Xl), 50 MG PO DAILY Pyridoxine HCl (Vitamin B-6), 100 MG PO DAILY Sitagliptin (Januvia), 50 MG PO DAILY Scheduled PRN Docusate Sodium (Stool Softener), 1 TAB PO BID PRN for Constipation Ipratropium-Albuterol (Combivent Respimat), 1 PUFFS INH QID PRN for SOB/Wheezing Allergies Coded Allergies: Iodinated Diagnostic Agents (Verified Allergy, Intermediate, HIVES/ LOST VOICE, 08/14/17) Clonazepam (Verified Allergy, Unknown, Rash, hives, 08/14/17) Lisinopril (Verified Adverse Reaction, Mild, COUGH, 08/14/17) Meperidine (Unverified Adverse Reaction, Unknown, Hallucinations, 08/14/17) Physical Exam Vital Signs Date Time Temp Pulse Resp B/P (MAP) Pulse Ox O2 Delivery O2 Flow Rate FiO2 09/19/17 19:18 66 15 141/79 97 Room Air 09/19/17 19:18 70 09/19/17 16:56 60 16 148/76 94 Room Air 09/19/17 15:50 64 09/19/17 15:01 36.8 89 18 136/80 93 Room Air Physical Exam Vital signs reviewed. General: Elderly appearing, in no significant distress. HEENT: No scleral icterus, PERRLA, neck supple. Atraumatic. Cardiovascular: Regular rate and rhythm, no extra sounds. Pulmonary: Clear to auscultation bilaterally, normal work of breathing. Abdomen: Soft, obese, nontender, nondistended, positive bowel sounds. Musculoskeletal: Atraumatic, no peripheral edema. Tenderness to palpation of the left hip. Full ROM without difficulty. Neurologic: Patient awake alert and oriented x 3, full strength in all 4 extremities. Cranial nerves 2 through 12 grossly intact. Skin: Warm, dry, no rash Medical Decision & Procedures ER Provider Diagnostic Interpretation: Radiology results as stated below per my review and radiologist interpretation: L PELVIS/UNILATERAL HIP 2-3VIEWS CLINICAL HISTORY: L hip pain, fall, RAMAKRISHNA COMPARISON STUDY: Pelvis and left hip 02/06/2017. FINDINGS: Bilateral total hip arthroplasties. The hardware appears intact. No acute fracture or dislocation. The bones are osteopenic. Heterotopic ossification within the bilateral hips. The sacrum is intact. IMPRESSION: Bilateral total hip arthroplasties. No fracture or dislocation within the pelvis or hips. Electronically signed by: Raghavendra Shaw M.D. 09/19/2017 4:25 PM Dictated Date/Time: 09/19/2017 4:23 PM CHEST ONE VIEW PORTABLE CLINICAL HISTORY: Fall. Hip pain. COMPARISON STUDY: Chest radiograph December 20, 2016. FINDINGS: Note is made of median sternotomy wires, this single lead left subclavian pacemaker and prosthetic cardiac valve. Moderate cardiomegaly is unchanged. There is no pneumothorax or pleural effusion. There is pulmonary vascular congestion with possible mild pulmonary edema. IMPRESSION: No change in appearance of the chest. Pulmonary vascular congestion with possible mild pulmonary edema. Electronically signed by: Shane Griffin M.D. 09/19/2017 4:19 PM Dictated Date/Time: 09/19/2017 4:17 PM PELVIS AND LEFT HIP CT CT DOSE: 1374.98 mGy.cm HISTORY: Fall with left hip pain. L thigh pain with weight bearing, RAMAKRISHNA TECHNIQUE: Multiaxial CT images of the pelvis and left hip were performed and reformatted in the sagittal and coronal plane without the use of contrast. A dose lowering technique was utilized adhering to the principles of ALARA. COMPARISON: Pelvis and left hip 09/19/2017. FINDINGS: Bilateral total hip arthroplasties. The hardware appears intact. This results in metallic artifact at the adjacent bony structures of the hips. There is slight interval irregularity within the right inferior pubic ramus on image 652. This may be due to an old fracture. This does not clearly represent an acute fracture. No definite acute fracture or dislocation within the pelvis or hips. Moderate degenerative disc disease at L4-L5 and L5-S1 as well as moderate facet osteoarthritis within the lower lumbar spine. IMPRESSION: Probable old right inferior pubic ramus fracture. No definite acute fracture or dislocation within the pelvis or hips. Laboratory Results 09/19/17 16:16 Red Blood Count 4.54, Mean Corpuscular Volume 92.3, Mean Corpuscular Hemoglobin 29.5, Mean Corpuscular Hemoglobin Concent 32.0, Mean Platelet Volume 12.0, Neutrophils (%) (Auto) 66.0, Lymphocytes (%) (Auto) 18.4, Monocytes (%) (Auto) 13.4, Eosinophils (%) (Auto) 1.2, Basophils (%) (Auto) 0.6, Neutrophils # (Auto ) 5.39, Lymphocytes # (Auto) 1.50, Monocytes # (Auto) 1.09, Eosinophils # (Auto ) 0.10, Basophils # (Auto) 0.05 09/19/17 16:16 Test 09/19/17 15:49 09/19/17 16:16 Urine Color YELLOW Urine Appearance CLOUDY (CLEAR) Urine pH 6.0 (4.5-7.5) Urine Specific [place] 1.017 (1.000-1.030) Urine Protein NEG (NEG) Urine Glucose (UA) NEG (NEG) Urine Ketones NEG (NEG) Urine Occult Blood NEG (NEG) Urine Nitrite POS (NEG) Urine Bilirubin NEG (NEG) Urine Urobilinogen NEG (NEG) Urine Leukocyte Esterase MODERATE (NEG) Urine WBC (Auto) >30 /hpf (0-5) Urine RBC (Auto) 0-4 /hpf (0-4) Urine Hyaline Casts (Auto) 5-10 /lpf (0-5) Urine Epithelial Cells (Auto) 20-30 /lpf (0-5) Urine Bacteria (Auto) 4+ (NEG) White Blood Count 8.16 K/uL (4.8-10.8) Red Blood Count 4.54 M/uL (4.2-5.4) Hemoglobin 13.4 g/dL (12.0-16.0) Hematocrit 41.9 % (37-47) Mean Corpuscular Volume 92.3 fL (80-100) Mean Corpuscular Hemoglobin 29.5 pg (25-34) Mean Corpuscular Hemoglobin Concent 32.0 g/dl (32-36) Platelet Count 127 K/uL (130-400) Mean Platelet Volume 12.0 fL (7.4-10.4) Neutrophils (%) (Auto) 66.0 % Lymphocytes (%) (Auto) 18.4 % Monocytes (%) (Auto) 13.4 % Eosinophils (%) (Auto) 1.2 % Basophils (%) (Auto) 0.6 % Neutrophils # (Auto) 5.39 K/uL (1.4-6.5) Lymphocytes # (Auto) 1.50 K/uL (1.2-3.4) Monocytes # (Auto) 1.09 K/uL (0.11-0.59) Eosinophils # (Auto) 0.10 K/uL (0-0.5) Basophils # (Auto) 0.05 K/uL (0-0.2) RDW Standard Deviation 60.9 fL (36.4-46.3) RDW Coefficient of Variation 17.9 % (11.5-14.5) Immature Granulocyte % (Auto) 0.4 % Immature Granulocyte # (Auto) 0.03 K/uL (0.00-0.02) Platelet Estimate DECREASED Red Blood Cell Morphology Unremarkable Prothrombin Time 10.8 SECONDS (9.0-12.0) Prothromb Time International Ratio 1.0 (0.9-1.1) Activated Partial Thromboplast Time 26.0 SECONDS (21.0-31.0) Partial Thromboplastin Ratio 1.0 Anion Gap 6.0 mmol/L (3-11) Est Creatinine Clear Calc Drug Dose 39.6 ml/min Estimated GFR () 48.4 Estimated GFR (Non- 41.8 BUN/Creatinine Ratio 17.6 (10-20) Calcium Level 9.2 mg/dl (8.5-10.1) Laboratory results per my review. Medications Administered Medications (Trade) Dose Ordered Sig/Meeta Route Start Time Stop Time Status Last Admin Dose Admin Sodium Chloride 1,000 ml @ 75 mls/hr [id number] ONCE IV 09/19/17 15:18 09/19/17 20:34 DC 09/19/17 16:39 75 MLS/HR Morphine Sulfate (MoRPHine SULFATE INJ) 2 mg Q60M PRN IV 09/19/17 15:30 09/19/17 20:34 DC 09/19/17 18:18 2 MG Ondansetron HCl (Zofran Inj) 4 mg NOW STAT IV 09/19/17 15:18 09/19/17 15:23 DC 09/19/17 16:39 4 MG Ceftriaxone Sodium (Rocephin Inj) 1 gm NOW STAT IV 09/19/17 16:52 09/19/17 16:53 DC 09/19/17 17:04 1 GM ECG Per My Interpretation Indication: weakness Rate (beats per minute): 68 Rhythm: other (ventricular paced rhythm) Findings: no ectopy, other (QT-c 508) ED Course 1516: Past medical records reviewed. The patient was evaluated in room B6. A complete history and physical examination was performed. 1518: Ordered Zofran Inj 4 mg IV, NSS 1000 ml @ 75 mls/hr IV. 1530: Ordered Morphine Sulfate 2 mg PRN IV Moderate Pain (pain scale 3-6). 1652: Ordered Rocephin Inj 1 gm IV. 1800: I reevaluated the patient and updated her on her results. She is going to do an ambulatory trial at this time. 1849: The patient failed her ambulatory trial at this time. 1856: [facility] She will evaluate the patient for further management. Medical Decision Differential diagnosis: Etiologies such as fracture, dislocation, neurovascular compromise, compartment syndrome, soft tissue injury, as well as others were entertained. This patient was evaluated and appeared to be in no significant distress. Physical examination is fairly unrevealing with the exception of some tenderness noted to the left hip. Patient has full range of motion of the left hip without significant difficulty. X-rays were obtained and are negative for acute fracture. Patient was hydrated with normal saline solution, she was given IV morphine and Zofran. Laboratory work is significant for a UTI. Patient was given ceftriaxone 1 g IV. An ambulatory trial was attempted however the patient is unable to even do toe-touch weightbearing without significant pain. CT scan of the pelvis and left lower extremity were performed and are negative for acute fracture per radiology. The case was discussed with the hospitalist service, she will be evaluated for further management. Patient is aware of the plan and agrees. Medication Reconcilliation Current Medication List: was personally reviewed by me Blood Pressure Screening Patient's blood pressure: Elevated blood pressure Will be further monitored by the hospitalist. Consults Time Called: 1848 Consulting Physician: MAREN Mayfield Returned Call: [phone] I reviewed the patient's case with MAREN Mayfield. She will evaluate the patient for further management. Impression Primary Impression: UTI (urinary tract infection) Additional Impressions: Left hip pain Ambulatory dysfunction Scribe Attestation The scribe's documentation has been prepared under my direction and personally reviewed by me in its entirety. I confirm that the note above accurately reflects all work, treatment, procedures, and medical decision making performed by me. Departure Information Dispostion Being Evaluated By Hospitalist Referrals Timothy Nathan M.D. (PCP) Patient Instructions My [facility] Health Problem Qualifiers
[2017-09-19] MEDS: INSULIN ASPART 100 UNITS/ML 3 ML PEN SC SCH (21:00)
--- NOTE | 2017-09-19 21:03 | History and Physical ---
History & Physical Date & Time of Service: Sep 19, 2017 ~ 1915 Chief Complaint: Fall, left hip pain Primary Care Physician: Timothy Nathan M.D. History of Present Illness 82-year-old female who presents the ED after a fall and subsequent left hip pain. Patient reports she fell this morning while making her coffee. She reports that she was reaching over the table to place her coffee on it when she lost her balance and fell. She called EMS that time to help her off of the floor. They offered to transport her to the hospital however she declined at that time. Patient denies any associated lightheadedness, dizziness, loss of consciousness, chest pain, shortness of breath. She did not strike her head. Patient reports took a nap for about an hour and a half and whenever she woke up she reports she had increased pain in her left hip. She had significant difficulty ambulating. She reports the pain is radiating into her left groin and down the front of her left thigh. Patient reports he otherwise has been feeling well recently. She had her left total hip revised about 5 months ago. She reports she continues to ambulate with a walker. No abdominal pain, nausea , vomiting, diarrhea. She denies fevers and chills. No urinary symptoms. In the ED, hip x-ray is negative for acute findings. UA is suggestive of UTI. Patient was given IVF, IV Rocephin, IV morphine, IV Zofran. They attempted to have her ambulate in the ER however she was unable to bear any weight on her left leg. Past Medical/Surgical History Medical Problems: (1) Afib Status: Chronic (2) Aortic stenosis Status: Chronic (3) AVN of femur Status: Chronic (4) CAD (coronary artery disease) Permanent Comment: S/P CABG x 3 1997 Cardiac cath 03/2016 demonstrated patent stents Status: Chronic (5) Chronic diastolic CHF (congestive heart failure) Status: Chronic (6) CKD (chronic kidney disease), stage III Status: Chronic (7) Complete heart block Status: Chronic (8) DM2 (diabetes mellitus, type 2) Status: Chronic (9) GI bleed Status: Chronic (10) History of cardioversion Status: Chronic (11) History of pacemaker Status: Chronic (12) 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 (13) HLD (hyperlipidemia) Status: Chronic (14) HTN (hypertension) Status: Chronic (15) Hypertension Status: Chronic (16) Thoracic compression fracture Status: Chronic Surgical Problems: (1) H/O: hysterectomy Status: Resolved (2) History of appendectomy Status: Chronic (3) History of cataract surgery Status: Chronic (4) History of partial hysterectomy Status: Chronic (5) History of total left hip replacement Status: Chronic (6) History of total right hip replacement Status: Chronic (7) S/P appendectomy Status: Resolved (8) S/P right knee arthroscopy Status: Chronic (9) S/P TAVR (transcatheter aortic valve replacement) Status: Chronic (10) S/P triple vessel bypass Status: Resolved Family History Noncontributory secondary to patient's advanced age Social History Smoking Status: Never Smoker Alcohol Use: none Housing status: lives alone Immunizations History of Influenza Vaccine: Yes (12/17/16) History of Tetanus Vaccine?: Yes Tetanus Immunization Date: Oct 18, 2004 History of Pneumococcal: Yes Pneumococcal Date: Apr 17, 2015 Allergies Coded Allergies: Iodinated Diagnostic Agents (Verified Allergy, Intermediate, HIVES/ LOST VOICE, 08/14/17) Clonazepam (Verified Allergy, Unknown, Rash, hives, 08/14/17) Lisinopril (Verified Adverse Reaction, Mild, COUGH, 08/14/17) Meperidine (Unverified Adverse Reaction, Unknown, Hallucinations, 08/14/17) Home Medications Scheduled Aspirin (Aspirin Ec), 81 MG PO DAILY Atorvastatin (Lipitor), 20 MG PO HS Bumetanide (Bumex), 2 MG PO DAILY Cholecalciferol (Vitamin D), 1 TAB PO DAILY Ferrous Sulfate (Kp Ferrous Sulfate), 1 TAB PO BID Gabapentin (Neurontin), 100 MG PO DAILY Gabapentin (Neurontin), 300 MG PO HS Glimepiride (Glimepiride), 1 TAB PO DAILY Losartan Potassium (Cozaar), 25 MG PO DAILY Metoprolol Succinate (Toprol Xl), 50 MG PO DAILY Pyridoxine HCl (Vitamin B-6), 100 MG PO DAILY Sitagliptin (Januvia), 50 MG PO DAILY Scheduled PRN Docusate Sodium (Stool Softener), 1 TAB PO BID PRN for Constipation Ipratropium-Albuterol (Combivent Respimat), 1 PUFFS INH QID PRN for SOB/Wheezing Review of Systems ROS per HPI, all other systems reviewed and negative Physical Exam Vital Signs Date Time Temp Pulse Resp B/P (MAP) Pulse Ox O2 Delivery O2 Flow Rate FiO2 09/19/17 19:18 66 15 141/79 97 Room Air 09/19/17 19:18 70 09/19/17 16:56 60 16 148/76 94 Room Air 09/19/17 15:50 64 09/19/17 15:01 36.8 89 18 136/80 93 Room Air General Appearance: WD/WN, no apparent distress, + obese Head: normocephalic, atraumatic Eyes: normal inspection, EOMI, sclerae normal ENT: hearing grossly normal, + pertinent finding (Mucous membranes moist) Neck: supple, no JVD, trachea midline Respiratory/Chest: no respiratory distress, + decreased breath sounds Cardiovascular: regular rate, rhythm, normal peripheral pulses, + pertinent finding (Trace edema BLE, left greater than right) Abdomen/GI: normal bowel sounds, non tender, soft, no organomegaly Extremities/Musculoskelatal: normal capillary refill, + calf tenderness (Left) , + pertinent finding (Pain with palpation and minimal movement of the left hip) Neurologic/Psych: no motor/sensory deficits, alert, normal mood/affect, oriented x 3 Skin: normal color, warm/dry Diagnostics Laboratory Results Results Past 24 Hours Test 09/19/17 15:49 09/19/17 16:16 Range/Units Urine Color YELLOW Urine Appearance CLOUDY CLEAR Urine pH 6.0 4.5-7.5 Urine Specific [place] 1.017 1.000-1.030 Urine Protein NEG NEG Urine Glucose (UA) NEG NEG Urine Ketones NEG NEG Urine Occult Blood NEG NEG Urine Nitrite POS NEG Urine Bilirubin NEG NEG Urine Urobilinogen NEG NEG Urine Leukocyte Esterase MODERATE NEG Urine WBC (Auto) >30 0-5 /hpf Urine RBC (Auto) 0-4 0-4 /hpf Urine Hyaline Casts (Auto) 5-10 0-5 /lpf Urine Epithelial Cells (Auto) 20-30 0-5 /lpf Urine Bacteria (Auto) 4+ NEG White Blood Count 8.16 4.8-10.8 K/uL Red Blood Count 4.54 4.2-5.4 M/uL Hemoglobin 13.4 12.0-16.0 g/dL Hematocrit 41.9 37-47 % Mean Corpuscular Volume 92.3 80-100 fL Mean Corpuscular Hemoglobin 29.5 25-34 pg Mean Corpuscular Hemoglobin Concent 32.0 32-36 g/dl Platelet Count 127 130-400 K/uL Mean Platelet Volume 12.0 7.4-10.4 fL Neutrophils (%) (Auto) 66.0 % Lymphocytes (%) (Auto) 18.4 % Monocytes (%) (Auto) 13.4 % Eosinophils (%) (Auto) 1.2 % Basophils (%) (Auto) 0.6 % Neutrophils # (Auto) 5.39 1.4-6.5 K/uL Lymphocytes # (Auto) 1.50 1.2-3.4 K/uL Monocytes # (Auto) 1.09 0.11-0.59 K/uL Eosinophils # (Auto) 0.10 0-0.5 K/uL Basophils # (Auto) 0.05 0-0.2 K/uL RDW Standard Deviation 60.9 36.4-46.3 fL RDW Coefficient of Variation 17.9 11.5-14.5 % Immature Granulocyte % (Auto) 0.4 % Immature Granulocyte # (Auto) 0.03 0.00-0.02 K/uL Platelet Estimate DECREASED Red Blood Cell Morphology Unremarkable Prothrombin Time 10.8 9.0-12.0 SECONDS Prothromb Time International Ratio 1.0 0.9-1.1 Activated Partial Thromboplast Time 26.0 21.0-31.0 SECONDS Partial Thromboplastin Ratio 1.0 Sodium Level 139 136-145 mmol/L Potassium Level 4.5 3.5-5.1 mmol/L Chloride Level 105 98-107 mmol/L Carbon Dioxide Level 28 21-32 mmol/L Anion Gap 6.0 3-11 mmol/L Blood Urea Nitrogen 21 7-18 mg/dl Creatinine 1.20 0.60-1.20 mg/dl Est Creatinine Clear Calc Drug Dose 39.6 ml/min Estimated GFR () 48.4 Estimated GFR (Non- 41.8 BUN/Creatinine Ratio 17.6 10-20 Random Glucose 147 70-99 mg/dl Calcium Level 9.2 8.5-10.1 mg/dl Microbiology Results 09/19/17 Urine Culture, Received Pending Diagnostic Radiology HIP/PELVIS X-RAY IMPRESSION: Bilateral total hip arthroplasties. No fracture or dislocation within the pelvis or hips. CXR IMPRESSION: No change in appearance of the chest. Pulmonary vascular congestion with possible mild pulmonary edema. PELVIS, LEFT HIP CT IMPRESSION: Probable old right inferior pubic ramus fracture. No definite acute fracture or dislocation within the pelvis or hips. Impression Assessment and Plan FALL, LEFT HIP PAIN -Admit to [facility] -Patient presenting from home after she suffered a mechanical fall this morning -X-ray and CT negative for acute findings in the left hip -Patient was unable to ambulate in the ED -Will check x-ray of thoracic and lumbar spine due to history of compression fractures -Left lower extremity Doppler due to calf tenderness -PT/OT UTI -Last positive urine culture from 03/2017 grew pansensitive E. coli -S/P Rocephin in the ED, will continue with for now -Follow urine culture HISTORY OF CAD -Stable, no reports chest pain -Continue aspirin, statin, beta-sid CHRONIC DIASTOLIC CHF -Appears euvolemic -Continue Bumex HISTORY OF COMPLETE HEART BLOCK S/P PACER -No acute issues DM TYPE II -Hgb A1c 6.02/2017 -Hold oral agents, utilize NovoLog per protocol while hospitalized HYPERTENSION -BP stable, continue metoprolol and losartan CKD STAGE III - baseline creat runs in the low 1s - creat noted to be 1.2 today - continue to monitor, avoid nephrotoxic agents when able DVT PROPHYLAXIS -SQ heparin CODE STATUS -Patient is a full code as per my discussion with her. DISPOSITION -In my clinical judgment this beneficiary meets acute admission criteria, established by [facility], that includes being hospitalized through two midnights. Agree with above H and P. Briefly 82F who lives alone and uses walker for ambulation was walking with holding coffee in one hand when she lost balance and fell back wards and could not get up. EMS came and helped her and she felt ok and did not come to hospital initially. Then later she lay on her bed and could not get up and was having severe pain in her left hip region when she called EMS again and came to ER.Imaging studies no fractures seen. Still has significant pain in her left hp region and painful left lower extremity movements. Recently had compression fractures of thoracic spine and follows with [place] spine surgery.Denies any fevers/chills. No cough. No chest pain or sob. No nausea.No headaches. 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 SLR test negative. painful left lower extremity movements a/p FAll Ambulatory dysfunction severe pain in left hip and painful left lower extremity movements Pelvic and lower extremity CT no fractures. Await spine xray pt/ot pain control CAd stable on home meds Resuscitation Status VTE Prophylaxis Will order VTE Prophylaxis: Yes
[2017-09-19] MEDS ORDERED: MoRPHine SULFATE 2 MG/ML CARP IV PRN (21:15)
[2017-09-19] MEDS: FERROUS SULFATE 325 MG TAB PO SCH (21:39)
[2017-09-19] MEDS: ATORVASTATIN 20 MG TAB PO SCH (21:39)
[2017-09-19] MEDS: GABAPENTIN 300 MG CAP PO SCH (21:39)
[2017-09-19] MEDS: HEPARIN SOD 5000 UNIT/0.5 ML CARP SQ SCH (21:42)
[2017-09-19 22:11] VITALS: BP 127/63; PULSE 77; TEMP 36.8; O2SAT 97; BMI 40.3
--- NOTE | 2017-09-19 22:53 | DIAGNOSTIC IMAGING REPORT ---
LEFT LOWER EXTREMITY VENOUS DOPPLER HISTORY: left calf pain, edema COMPARISON STUDY: None. FINDINGS: There is normal compressibility, flow, and augmentation within the left lower extremity deep venous system. IMPRESSION: No DVT within the left lower extremity. Electronically signed by: Raghavendra Shaw M.D. 09/19/2017 10:52 PM Dictated Date/Time: 09/19/2017 10:51 PM
[2017-09-19 23:04] VITALS: BP 90/51; PULSE 68; TEMP 36.7; O2SAT 95
[2017-09-20] MEDS: OXYCODONE/ACETAMINOPHEN 5-325 TAB PO PRN ×2 (04:53→08:47)
[2017-09-20] MEDS: HEPARIN SOD 5000 UNIT/0.5 ML CARP SQ SCH ×3 (04:58→21:05)
[2017-09-20 07:14] LABS: HEMATOCRIT 41.5 % (37-47); HEMOGLOBIN 13.1 g/dL (12.0-16.0); MEAN CELL VOLUME 94.3 fL (80-100); MEAN CORPUSCULAR HEMOGLOBIN 29.8 pg (25-34); MEAN CORPUSCULAR HGB CONC 31.6 g/dl (32-36); PLATELET COUNT 122 K/uL (130-400); RED CELL DISTRIBUTION WIDTH CV 18.2 % (11.5-14.5); RED CELL DISTRIBUTION WIDTH SD 63.1 fL (36.4-46.3); WHITE BLOOD COUNT 5.93 K/uL (4.8-10.8)
[2017-09-20 07:24] LABS: CALCIUM 8.8 mg/dl (8.5-10.1); CREATININE 1.15 mg/dl (0.60-1.20); POTASSIUM 4.1 mmol/L (3.5-5.1)
[2017-09-20 07:49] VITALS: BP 98/64; PULSE 68; TEMP 36.6; O2SAT 95
[2017-09-20] MEDS: GABAPENTIN 100 MG CAP PO SCH (08:38)
[2017-09-20] MEDS: FERROUS SULFATE 325 MG TAB PO SCH (08:38)
[2017-09-20] MEDS: PYRIDOXINE HCL 50 MG TAB PO SCH (08:38)
[2017-09-20] MEDS: LOSARTAN POTASSIUM 25 MG TAB PO SCH (08:38)
[2017-09-20] MEDS: ASPIRIN 81 MG ECTAB PO SCH (08:39)
[2017-09-20] MEDS: BUMETANIDE 1 MG TAB PO SCH (08:39)
[2017-09-20] MEDS: METOPROLOL SUCC 50MG EXT REL TAB PO SCH (08:39)
[2017-09-20] MEDS: CHOLECALCIFEROL 1000 INTER.UNIT TAB PO SCH (08:39)
[2017-09-20] MEDS: INSULIN ASPART 100 UNITS/ML 3 ML PEN SC SCH ×4 (08:49→21:04)
[2017-09-20 09:15] VITALS: O2SAT 95
--- NOTE | 2017-09-20 09:48 | DIAGNOSTIC IMAGING REPORT ---
THORACIC SPINE 3 VIEWS ROUTINE CLINICAL HISTORY: Fall. History of compression fractures. COMPARISON STUDY: CT of the thoracic spine August 14, 2017. FINDINGS: Pacer leads, median sternotomy wires and prosthetic aortic valve are noted. Cardiomegaly is noted. Mild multilevel disc space narrowing and extensive anterior osteophytosis of the mid to lower thoracic spine is noted. Mild compression deformities of T3 and T5 are similar to CT of August 14, 2017. No additional thoracic spine compression fractures are noted. IMPRESSION: 1. No change in mild compression fractures of T3 and T5 since CT of August 14, 2017. These fractures are old. 2. No acute thoracic spine fracture. 3. No change in appearance of the thoracic spine. Electronically signed by: Shane Griffin M.D. 09/20/2017 9:47 AM Dictated Date/Time: 09/20/2017 9:44 AM
--- NOTE | 2017-09-20 09:52 | DIAGNOSTIC IMAGING REPORT ---
LUMBAR SPINE RADIOGRAPHS CLINICAL HISTORY: Fall. History of compression fractures. COMPARISON: None FINDINGS: Bilateral hip arthroplasties are partially imaged. There is mild dextroscoliosis of the lumbar spine. No acute lumbar spine fracture is identified. There is marked disc space narrowing with osteophytosis and vacuum disc phenomenon at L5-S1. Moderate disc space narrowing is noted additional levels. There is severe multilevel facet arthrosis. IMPRESSION: 1. No acute lumbar spine fracture or subluxation. 2. Severe multilevel degenerative disc disease and facet arthrosis. 3. Mild dextroscoliosis of the lumbar spine. Electronically signed by: Shane Griffin M.D. 09/20/2017 9:51 AM Dictated Date/Time: 09/20/2017 9:47 AM
[2017-09-20 10:41] VITALS: Ht 157.5 cm; Wt 101.3 kg
[2017-09-20] MEDS ORDERED: PROMETHAZINE HCL INJ 12.5 MG in SODIUM CHLORIDE 0.9% 50ML 50 ML IV ONE (11:00)
[2017-09-20 11:08] VITALS: BP 131/60; PULSE 61; O2SAT 94
[2017-09-20 15:55] VITALS: O2SAT 94
[2017-09-20 16:12] VITALS: BP 104/65; PULSE 67; TEMP 36.5; O2SAT 93
[2017-09-20] MEDS: CEFTRIAXONE SOD INJ 1 GM in DEXTROSE 5% ADD-VANTAGE 50ML 50 ML IV SCH (18:24)
[2017-09-20] MEDS ORDERED: HYDROCODONE/ACETAMIN 5/325MG TAB PO PRN (20:30)
[2017-09-20] MEDS ORDERED: PROMETHAZINE HCL INJ 12.5 MG in SODIUM CHLORIDE 0.9% 50ML 50 ML IV PRN (20:30)
--- NOTE | 2017-09-20 20:51 | Progress Note ---
Medicine Progress Note Date & Time of Visit: Sep 20, 2017 at 14:40 . Subjective CC: Follow-up visit for left hip pain, possible UTI, and other problems. HPI: Persistent left hip pain, especially when bearing weight or ambulating. Percocet helps some. Experiencing some nausea, possibly secondary to Percocet. No fever or dysuria. ROS: General- no fever, no chills Resp- no cough; no shortness of breath Cardiac- no chest pain, no edema GI- + nausea, no vomiting, no diarrhea, no constipation - no dysuria . Objective Last 8 Hrs Date Time Temp Pulse Resp B/P (MAP) Pulse Ox O2 Delivery O2 Flow Rate FiO2 09/20/17 16:12 36.5 67 18 104/65 (78) 93 Room Air 09/20/17 15:55 94 Room Air Physical Exam: General- lying in bed, no distress Lungs- clear to auscultation; no respiratory distress Cardiovascular- RRR; no gallop appreciated; no JVD; no pretibial edema Abdomen- + bowel sounds, soft, nontender Extremities- no cyanosis; no calf tenderness; left hip pain with flexion; no apparent hematoma of hip or thigh Neuro- alert, oriented Skin- warm & dry . Laboratory Results: Last 24 Hours Test 09/19/17 21:04 09/20/17 06:23 09/20/17 08:23 09/20/17 11:55 Bedside Glucose 99 mg/dl 148 mg/dl 167 mg/dl White Blood Count 5.93 K/uL Red Blood Count 4.40 M/uL Hemoglobin 13.1 g/dL Hematocrit 41.5 % Mean Corpuscular Volume 94.3 fL Mean Corpuscular Hemoglobin 29.8 pg Mean Corpuscular Hemoglobin Concent 31.6 g/dl RDW Standard Deviation 63.1 fL RDW Coefficient of Variation 18.2 % Platelet Count 122 K/uL Mean Platelet Volume 12.0 fL Sodium Level 138 mmol/L Potassium Level 4.1 mmol/L Chloride Level 105 mmol/L Carbon Dioxide Level 26 mmol/L Anion Gap 7.0 mmol/L Blood Urea Nitrogen 21 mg/dl Creatinine 1.15 mg/dl Est Creatinine Clear Calc Drug Dose 41.3 ml/min Estimated GFR () 51.0 Estimated GFR (Non- 44.0 BUN/Creatinine Ratio 18.1 Random Glucose 161 mg/dl Calcium Level 8.8 mg/dl Test 09/20/17 17:08 09/20/17 20:18 Bedside Glucose 139 mg/dl 190 mg/dl Assessment & Plan LEFT HIP PAIN No apparent fracture per plain films or CT. Continue analgesics, physical therapy. FALL Mechanical fall while trying to negotiate her walker while carrying a cup of coffee. PT / OT. ? UTI Admission UA demonstrated WBCs, bacteria, many epithelial cells. No fever or dysuria. Urine culture pending. CORONARY ARTERY DISEASE No anginal symptoms. Continue aspirin, metoprolol. CHF History of chronic left ventricular diastolic heart failure. Compensated. Continue bumetanide. CKD III Serum creatinine 1.15. Follow. DIABETES MELLITUS TYPE 2 Hold oral agents during hospital stay. NovoLog coverage as needed. Fasting blood sugar today = 148. VTE PROPHYLAXIS SQ heparin. Ambulate as able. DISPOSITION To be determined. May need skilled care or inpatient rehab. Family Medicine follow-up with Dr. Nathan. . Current Inpatient Medications: Current Inpatient Medications Medications (Trade) Dose Ordered Sig/Meeta Route Start Time Stop Time Status Last Admin Dose Admin Heparin Sodium (Porcine) (Heparin Sq 5000 Unit/0.5ml) 5,000 unit Q8 SQ 09/19/17 22:00 10/19/17 21:59 09/20/17 13:05 5,000 UNIT Acetaminophen (Tylenol Tab) 650 mg Q4H PRN PO 09/19/17 20:00 10/19/17 19:59 Ceftriaxone Sodium 1 gm/ Dextrose 50 ml @ 100 mls/hr Q24H IV 09/20/17 19:00 09/30/17 18:59 09/20/17 18:24 100 MLS/HR Aspirin (Ecotrin Tab) 81 mg DAILY PO 09/20/17 09:00 10/20/17 08:59 09/20/17 08:39 81 MG Atorvastatin Calcium (Lipitor Tab) 20 mg HS PO 09/19/17 21:00 10/19/17 20:59 09/19/17 21:39 20 MG Bumetanide (Bumex Tab) 2 mg DAILY PO 09/20/17 09:00 10/20/17 08:59 09/20/17 08:39 2 MG Docusate Sodium (coLACE CAP) 100 mg BID PRN PO 09/19/17 20:15 10/19/17 20:14 Gabapentin (Neurontin Cap) 100 mg DAILY PO 09/20/17 09:00 10/20/17 08:59 09/20/17 08:38 100 MG Gabapentin (Neurontin Cap) 300 mg HS PO 09/19/17 21:00 10/19/17 20:59 09/19/17 21:39 300 MG Losartan Potassium (coZAAR TAB) 25 mg DAILY PO 09/20/17 09:00 10/20/17 08:59 09/20/17 08:38 25 MG Metoprolol Succinate (Toprol Xl Tab) 50 mg DAILY PO 09/20/17 09:00 10/20/17 08:59 09/20/17 08:39 50 MG Pyridoxine HCl (Vitamin B-6 Tab) 100 mg DAILY PO 09/20/17 09:00 10/20/17 08:59 09/20/17 08:38 100 MG Cholecalciferol (Vitamin D Tab) 2,000 inter.unit DAILY PO 09/20/17 09:00 10/20/17 08:59 09/20/17 08:39 2,000 INTER.UNIT Insulin Aspart (novoLOG ASPART) SLIDING SCALE If C... ACHS SC 09/19/17 21:00 10/19/17 20:59 09/20/17 18:26 6 UNITS Glucose (Glucose 40% Gel) 15-30 GRAMS 15 GRAMS... UD PRN PO 09/19/17 20:15 10/19/17 20:14 Glucose (Glucose Chew Tab) 4-8 Tablets 4 Tabl... UD PRN PO 09/19/17 20:15 10/19/17 20:14 Dextrose (Dextrose 50% 50ML Syringe) 25-50ML 25ML FOR ... UD PRN IV 09/19/17 20:15 10/19/17 20:14 Glucagon (Glucagon Inj) 1 mg UD PRN SQ 09/19/17 20:15 10/19/17 20:14 Carbohydrates (Carbohydrates For Hypoglycemia) 15-30 GRAMS 15 grams if BSG 54-69... UD PRN PO 09/19/17 20:15 10/19/17 20:14 Morphine Sulfate (MoRPHine SULFATE INJ) 2 mg Q3HWA PRN IV 09/19/17 21:15 10/03/17 21:14 09/19/17 22:08 2 MG Acetaminophen/ Hydrocodone Bitart ([place] 5/325 Tab) 2 tab Q6H PRN PO 09/20/17 20:30 10/04/17 20:29 Acetaminophen/ Hydrocodone Bitart ([place] 5/325 Tab) 1 tab Q6H PRN PO 09/20/17 20:30 10/04/17 20:29 Promethazine HCl 12.5 mg/Sodium Chloride 50.5 ml @ 204 mls/hr Q6H PRN IV 09/20/17 20:30 10/20/17 20:29
[2017-09-20] MEDS: GABAPENTIN 300 MG CAP PO SCH (21:01)
[2017-09-20] MEDS: ATORVASTATIN 20 MG TAB PO SCH (21:01)
[2017-09-20] MEDS: ACETAMINOPHEN 325 MG TAB PO PRN (21:07)
[2017-09-20 23:04] VITALS: BP 123/77; PULSE 60; TEMP 36.5; O2SAT 94
[2017-09-20] MEDS: HYDROCODONE/ACETAMIN 5/325MG TAB PO PRN (23:28)
[2017-09-21] MEDS: HEPARIN SOD 5000 UNIT/0.5 ML CARP SQ SCH ×3 (05:32→21:17)
[2017-09-21 07:57] VITALS: BP 110/64; PULSE 68; TEMP 36.5; O2SAT 93
[2017-09-21 08:23] VITALS: O2SAT 93
[2017-09-21] MEDS: LOSARTAN POTASSIUM 25 MG TAB PO SCH (09:31)
[2017-09-21] MEDS: METOPROLOL SUCC 50MG EXT REL TAB PO SCH (09:31)
[2017-09-21] MEDS: CHOLECALCIFEROL 1000 INTER.UNIT TAB PO SCH (09:31)
[2017-09-21] MEDS: PYRIDOXINE HCL 50 MG TAB PO SCH (09:31)
[2017-09-21] MEDS: GABAPENTIN 100 MG CAP PO SCH (09:32)
[2017-09-21] MEDS: ASPIRIN 81 MG ECTAB PO SCH (09:32)
[2017-09-21] MEDS: BUMETANIDE 1 MG TAB PO SCH (09:32)
[2017-09-21] MEDS: INSULIN ASPART 100 UNITS/ML 3 ML PEN SC SCH ×4 (09:41→21:18)
[2017-09-21] MEDS: HYDROCODONE/ACETAMIN 5/325MG TAB PO PRN (09:43)
--- NOTE | 2017-09-21 10:43 | Progress Note ---
Medicine Progress Note Date & Time of Visit: Sep 21, 2017 at 09:50 . Subjective CC: Follow-up visit for left hip pain, possible UTI, and other problems. HPI: Persistent left hip pain, especially when bearing weight or ambulating. Needs assistance. Changed analgesic from Percocet to [place] because of nausea. No fever or dysuria. ROS: General- no fever, no chills Resp- no cough; no shortness of breath Cardiac- no chest pain, no edema GI- no further nausea; no vomiting, no diarrhea, no constipation - no dysuria . Objective Last 8 Hrs Date Time Temp Pulse Resp B/P (MAP) Pulse Ox O2 Delivery O2 Flow Rate FiO2 09/21/17 08:23 93 Room Air 09/21/17 07:57 36.5 68 18 110/64 (79) 93 Room Air 09/21/17 07:40 Room Air Physical Exam: General- lying in bed, no distress Lungs- clear to auscultation; no respiratory distress Cardiovascular- RRR; no gallop appreciated; no JVD; no pretibial edema Abdomen- + bowel sounds, soft, nontender Extremities- no cyanosis; no calf tenderness; left hip pain with flexion; no apparent hematoma of hip or thigh Neuro- alert, oriented Skin- warm & dry . Laboratory Results: Last 24 Hours Test 09/20/17 11:55 09/20/17 17:08 09/20/17 20:18 Bedside Glucose 167 mg/dl 139 mg/dl 190 mg/dl Assessment & Plan LEFT HIP PAIN No apparent fracture per plain films or CT. Continue analgesics, physical therapy. FALL Mechanical fall while trying to negotiate her walker while carrying a cup of coffee. PT / OT. ? UTI Admission UA demonstrated WBCs, bacteria, many epithelial cells. No fever or dysuria. Urine culture growing E coli and Group B beta Strep. UTI vs colonization. Rx with IV ceftriaxone x 3 doses. CORONARY ARTERY DISEASE No anginal symptoms. Continue aspirin, metoprolol. CHF History of chronic left ventricular diastolic heart failure. Compensated. Continue bumetanide. CKD III Serum creatinine 09/20 = 1.15. Follow. DIABETES MELLITUS TYPE 2 Hold oral agents during hospital stay. NovoLog coverage as needed. Fasting blood sugar today = VTE PROPHYLAXIS SQ heparin. Ambulate as able. DISPOSITION To be determined. Anticipate need skilled care or inpatient rehab. Case Management consulted. Family Medicine follow-up with Dr. Nathan. . Current Inpatient Medications: Current Inpatient Medications Medications (Trade) Dose Ordered Sig/Meeta Route Start Time Stop Time Status Last Admin Dose Admin Heparin Sodium (Porcine) (Heparin Sq 5000 Unit/0.5ml) 5,000 unit Q8 SQ 09/19/17 22:00 10/19/17 21:59 09/21/17 05:32 5,000 UNIT Acetaminophen (Tylenol Tab) 650 mg Q4H PRN PO 09/19/17 20:00 10/19/17 19:59 09/20/17 21:07 650 MG Ceftriaxone Sodium 1 gm/ Dextrose 50 ml @ 100 mls/hr Q24H IV 09/20/17 19:00 09/30/17 18:59 09/20/17 18:24 100 MLS/HR Aspirin (Ecotrin Tab) 81 mg DAILY PO 09/20/17 09:00 10/20/17 08:59 09/21/17 09:32 81 MG Atorvastatin Calcium (Lipitor Tab) 20 mg HS PO 09/19/17 21:00 10/19/17 20:59 09/20/17 21:01 20 MG Bumetanide (Bumex Tab) 2 mg DAILY PO 09/20/17 09:00 10/20/17 08:59 09/21/17 09:32 2 MG Docusate Sodium (coLACE CAP) 100 mg BID PRN PO 09/19/17 20:15 10/19/17 20:14 Gabapentin (Neurontin Cap) 100 mg DAILY PO 09/20/17 09:00 10/20/17 08:59 09/21/17 09:32 100 MG Gabapentin (Neurontin Cap) 300 mg HS PO 09/19/17 21:00 10/19/17 20:59 09/20/17 21:01 300 MG Losartan Potassium (coZAAR TAB) 25 mg DAILY PO 09/20/17 09:00 10/20/17 08:59 09/21/17 09:31 25 MG Metoprolol Succinate (Toprol Xl Tab) 50 mg DAILY PO 09/20/17 09:00 10/20/17 08:59 09/21/17 09:31 50 MG Pyridoxine HCl (Vitamin B-6 Tab) 100 mg DAILY PO 09/20/17 09:00 9/13/18 08:59 09/21/17 09:31 100 MG Cholecalciferol (Vitamin D Tab) 2,000 inter.unit DAILY PO 09/20/17 09:00 10/20/17 08:59 09/21/17 09:31 2,000 INTER.UNIT Insulin Aspart (novoLOG ASPART) SLIDING SCALE If C... ACHS SC 09/19/17 21:00 10/19/17 20:59 09/21/17 09:41 5 UNITS Glucose (Glucose 40% Gel) 15-30 GRAMS 15 GRAMS... UD PRN PO 09/19/17 20:15 10/19/17 20:14 Glucose (Glucose Chew Tab) 4-8 Tablets 4 Tabl... UD PRN PO 09/19/17 20:15 10/19/17 20:14 Dextrose (Dextrose 50% 50ML Syringe) 25-50ML 25ML FOR ... UD PRN IV 09/19/17 20:15 10/19/17 20:14 Glucagon (Glucagon Inj) 1 mg UD PRN SQ 09/19/17 20:15 10/19/17 20:14 Carbohydrates (Carbohydrates For Hypoglycemia) 15-30 GRAMS 15 grams if BSG 54-69... UD PRN PO 09/19/17 20:15 10/19/17 20:14 Morphine Sulfate (MoRPHine SULFATE INJ) 2 mg Q3HWA PRN IV 09/19/17 21:15 10/03/17 21:14 09/19/17 22:08 2 MG Acetaminophen/ Hydrocodone Bitart ([place] 5/325 Tab) 2 tab Q6H PRN PO 09/20/17 20:30 10/04/17 20:29 Acetaminophen/ Hydrocodone Bitart ([place] 5/325 Tab) 1 tab Q6H PRN PO 09/20/17 20:30 10/04/17 20:29 09/21/17 09:43 1 TAB Promethazine HCl 12.5 mg/Sodium Chloride 50.5 ml @ 204 mls/hr Q6H PRN IV 09/20/17 20:30 10/20/17 20:29
[2017-09-21 14:56] VITALS: BP 123/76; PULSE 60; TEMP 36.7; O2SAT 95
[2017-09-21 15:30] VITALS: O2SAT 95
[2017-09-21] MEDS: CEFTRIAXONE SOD INJ 1 GM in DEXTROSE 5% ADD-VANTAGE 50ML 50 ML IV SCH (18:40)
[2017-09-21] MEDS ORDERED: INSULIN GLARGINE SOLOSTAR 100 UNITS/ML 3 ML PEN SC SCH (21:00)
[2017-09-21] MEDS: ACETAMINOPHEN 325 MG TAB PO PRN (21:13)
[2017-09-21] MEDS: GABAPENTIN 300 MG CAP PO SCH (21:13)
[2017-09-21] MEDS: ATORVASTATIN 20 MG TAB PO SCH (21:13)
[2017-09-21 22:43] VITALS: BP 114/72; PULSE 62; TEMP 36.8; O2SAT 92
[2017-09-22] MEDS: HEPARIN SOD 5000 UNIT/0.5 ML CARP SQ SCH ×2 (06:29→12:36)
[2017-09-22 07:27] VITALS: BP 110/68; PULSE 60; TEMP 36.6; O2SAT 95
[2017-09-22] MEDS: CHOLECALCIFEROL 1000 INTER.UNIT TAB PO SCH (08:35)
[2017-09-22] MEDS: BUMETANIDE 1 MG TAB PO SCH (08:35)
[2017-09-22] MEDS: LOSARTAN POTASSIUM 25 MG TAB PO SCH (08:35)
[2017-09-22] MEDS: PYRIDOXINE HCL 50 MG TAB PO SCH (08:36)
[2017-09-22] MEDS: ASPIRIN 81 MG ECTAB PO SCH (08:36)
[2017-09-22] MEDS: GABAPENTIN 100 MG CAP PO SCH (08:36)
[2017-09-22] MEDS: METOPROLOL SUCC 50MG EXT REL TAB PO SCH (08:36)
[2017-09-22] MEDS: INSULIN ASPART 100 UNITS/ML 3 ML PEN SC SCH ×2 (08:41→12:36)
[2017-09-22] MEDS: HYDROCODONE/ACETAMIN 5/325MG TAB PO PRN ×2 (10:32→17:29)
--- NOTE | 2017-09-22 11:30 | Progress Note ---
Medicine Progress Note Date & Time of Visit: Sep 22, 2017 at 11:10 . Subjective CC: Follow-up visit for left hip pain and other problems. HPI: Persistent left hip pain when bearing weight or ambulating. Needs assistance with ambulation and ADL's. No fever or dysuria. ROS: General- no fever, no chills Resp- no cough; no shortness of breath Cardiac- no chest pain, no edema GI- no nausea; no vomiting, no constipation - no dysuria . Objective Last 8 Hrs Date Time Temp Pulse Resp B/P (MAP) Pulse Ox O2 Delivery O2 Flow Rate FiO2 09/22/17 07:30 Room Air 09/22/17 07:27 36.6 60 18 110/68 (82) 95 Room Air Physical Exam: General- lying in bed, no distress Lungs- clear to auscultation; no respiratory distress Cardiovascular- RRR; II/ systolic murmur at base; no gallop appreciated; no JVD; no pretibial edema Abdomen- + bowel sounds, soft, nontender Extremities- no cyanosis; no calf tenderness Neuro- alert, oriented Skin- warm & dry . Laboratory Results: Last 24 Hours Test 09/21/17 12:03 09/21/17 17:05 09/21/17 20:17 09/21/17 21:09 Bedside Glucose 181 mg/dl 130 mg/dl 174 mg/dl 167 mg/dl Test 09/22/17 08:08 Bedside Glucose 134 mg/dl Assessment & Plan LEFT HIP PAIN No apparent fracture per plain films or CT. Continue analgesics, physical therapy. Will need follow-up imaging and / or Ortho follow-up if pain does not improve. FALL Mechanical fall while trying to negotiate her walker while carrying a cup of coffee. PT / OT. ? UTI Admission UA demonstrated WBCs, bacteria, many epithelial cells. No fever or dysuria. Urine culture growing E coli and Group B beta Strep. UTI vs colonization. Treated with IV ceftriaxone x 3 doses. CORONARY ARTERY DISEASE No anginal symptoms. Continue aspirin, metoprolol. CHF History of chronic left ventricular diastolic heart failure. Compensated. Continue bumetanide. SLEEP APNEA Did not tolerate CPAP. CKD III Serum creatinine 09/20 = 1.15. Follow. DIABETES MELLITUS TYPE 2 Hold oral agents during hospital stay. NovoLog coverage as needed. Fasting blood sugar today = 134. Resume usual regimen upon discharge. VTE PROPHYLAXIS Received SQ heparin. Discharge on SQ enoxaparin until ambulatory. Ambulate as able. DISPOSITION Needs skilled care. Case Management consulted. Arrangements being made for transfer to [facility] for skilled care. Family Medicine follow-up with Dr. Nathan. . Current Inpatient Medications: Current Inpatient Medications Medications (Trade) Dose Ordered Sig/Meeta Route Start Time Stop Time Status Last Admin Dose Admin Heparin Sodium (Porcine) (Heparin Sq 5000 Unit/0.5ml) 5,000 unit Q8 SQ 09/19/17 22:00 10/19/17 21:59 09/22/17 06:29 5,000 UNIT Acetaminophen (Tylenol Tab) 650 mg Q4H PRN PO 09/19/17 20:00 10/19/17 19:59 09/21/17 21:13 650 MG Aspirin (Ecotrin Tab) 81 mg DAILY PO 09/20/17 09:00 10/20/17 08:59 09/22/17 08:36 81 MG Atorvastatin Calcium (Lipitor Tab) 20 mg HS PO 09/19/17 21:00 10/19/17 20:59 09/21/17 21:13 20 MG Bumetanide (Bumex Tab) 2 mg DAILY PO 09/20/17 09:00 10/20/17 08:59 09/22/17 08:35 2 MG Docusate Sodium (coLACE CAP) 100 mg BID PRN PO 09/19/17 20:15 10/19/17 20:14 Gabapentin (Neurontin Cap) 100 mg DAILY PO 09/20/17 09:00 10/20/17 08:59 09/22/17 08:36 100 MG Gabapentin (Neurontin Cap) 300 mg HS PO 09/19/17 21:00 10/19/17 20:59 09/21/17 21:13 300 MG Losartan Potassium (coZAAR TAB) 25 mg DAILY PO 09/20/17 09:00 10/20/17 08:59 09/22/17 08:35 25 MG Metoprolol Succinate (Toprol Xl Tab) 50 mg DAILY PO 09/20/17 09:00 10/20/17 08:59 09/22/17 08:36 50 MG Pyridoxine HCl (Vitamin B-6 Tab) 100 mg DAILY PO 09/20/17 09:00 10/20/17 08:59 09/22/17 08:36 100 MG Cholecalciferol (Vitamin D Tab) 2,000 inter.unit DAILY PO 09/20/17 09:00 10/20/17 08:59 09/22/17 08:35 2,000 INTER.UNIT Insulin Aspart (novoLOG ASPART) SLIDING SCALE If C... ACHS SC 09/19/17 21:00 10/19/17 20:59 09/22/17 08:41 7 UNITS Glucose (Glucose 40% Gel) 15-30 GRAMS 15 GRAMS... UD PRN PO 09/19/17 20:15 10/19/17 20:14 Glucose (Glucose Chew Tab) 4-8 Tablets 4 Tabl... UD PRN PO 09/19/17 20:15 10/19/17 20:14 Dextrose (Dextrose 50% 50ML Syringe) 25-50ML 25ML FOR ... UD PRN IV 09/19/17 20:15 10/19/17 20:14 Glucagon (Glucagon Inj) 1 mg UD PRN SQ 09/19/17 20:15 10/19/17 20:14 Carbohydrates (Carbohydrates For Hypoglycemia) 15-30 GRAMS 15 grams if BSG 54-69... UD PRN PO 09/19/17 20:15 10/19/17 20:14 Morphine Sulfate (MoRPHine SULFATE INJ) 2 mg Q3HWA PRN IV 09/19/17 21:15 10/03/17 21:14 09/19/17 22:08 2 MG Acetaminophen/ Hydrocodone Bitart ([place] 5/325 Tab) 2 tab Q6H PRN PO 09/20/17 20:30 10/04/17 20:29 Acetaminophen/ Hydrocodone Bitart ([place] 5/325 Tab) 1 tab Q6H PRN PO 09/20/17 20:30 10/04/17 20:29 09/22/17 10:32 1 TAB Promethazine HCl 12.5 mg/Sodium Chloride 50.5 ml @ 204 mls/hr Q6H PRN IV 09/20/17 20:30 10/20/17 20:29 Insulin Glargine (Lantus Solostar Pen) 10 units HS SC 09/21/17 21:00 10/21/17 20:59 09/21/17 21:18 10 UNITS
[2017-09-22] MEDS ORDERED: METO-217 PO (11:34)
[2017-09-22] MEDS ORDERED: ULT50X PO (11:41)
[2017-09-22] MEDS ORDERED: ENOX1INJ9 SQ (11:41)
[2017-09-22] MEDS ORDERED: ACET-1138 PO (11:41)
[2017-09-22] MEDS ORDERED: HYDR-5688 PO (11:41)
--- NOTE | 2017-09-22 11:44 | Discharge Instructions ---
Discharge Instructions Date of Service Sep 22, 2017. Admission Reason for Admission: fall, left hip pain . Discharge Discharge Diagnosis / Problem: fall, left hip pain (no sign of fracture) Discharge Goals Goal(s): Decrease discomfort, Improve function Activity Recommendations Activity Level: Assistance Required Therapies: Physical Therapy, Occupational Therapy . Additional Information Patient informed of condition: Yes Advance Directives: No DNR: No Level of Care: Skilled Communicable Disease: No Prognosis: Stable Uribe Catheter: No Instructions / Follow-Up Instructions / Follow-Up Thank you for receiving this patient in transfer. Please call if you have any questions. Ras Valadez . Current Hospital Diet Patient's current hospital diet: AHA Diet (Heart Healthy), Low Sodium Diet (2gm Na), Diabetes Type 2 Diet Discharge Diet Recommended Diet: AHA Diet (Heart Healthy) Pending Studies Studies pending at discharge: no Physician Orders On Transfer Special Precautions: fall precautions . Vital Signs: routine . Medical Emergencies . Who to Call and When: Medical Emergencies: If at any time you feel your situation is an emergency, please call 911 immediately. . Non-Emergent Contact Non-Emergency issues call your: Primary Care Provider, Hospital Doctor . . "Provider Documentation" section prepared by Ras Valadez. . Core Measure Problem Core Measures: None [place] Drug Monitoring Program Search Results: patient reviewed within database, no issues identified
--- NOTE | 2017-09-22 11:50 | Discharge Summary ---
Discharge Summary Date of Service Sep 22, 2017. Discharge Summary Admission Date: Sep 19, 2017 at 19:47 Discharge Date: Sep 22, 2017 Discharge Disposition: assisted facility ([facility]) Principal Diagnosis: left hip pain . Secondary Diagnoses/Problems: Chronic and Resolved Medical Problems: (1) Afib Status: Chronic (2) Aortic stenosis Status: Chronic (3) AVN of femur Status: Chronic (4) CAD (coronary artery disease) Permanent Comment: S/P CABG x 3 1997 Cardiac cath 03/2016 demonstrated patent stents Status: Chronic (5) Chronic diastolic CHF (congestive heart failure) Status: Chronic (6) CKD (chronic kidney disease), stage III Status: Chronic (7) Complete heart block Status: Chronic (8) DM2 (diabetes mellitus, type 2) Status: Chronic (9) GI bleed Status: Chronic (10) History of cardioversion Status: Chronic (11) History of pacemaker Status: Chronic (12) 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 (13) HLD (hyperlipidemia) Status: Chronic (14) HTN (hypertension) Status: Chronic (15) Hypertension Status: Chronic (16) Thoracic compression fracture Status: Chronic Surgical Problems: (1) H/O: hysterectomy Status: Resolved (2) History of appendectomy Status: Chronic (3) History of cataract surgery Status: Chronic (4) History of partial hysterectomy Status: Chronic (5) History of total left hip replacement Status: Chronic (6) History of total right hip replacement Status: Chronic (7) S/P appendectomy Status: Resolved (8) S/P right knee arthroscopy Status: Chronic (9) S/P TAVR (transcatheter aortic valve replacement) Status: Chronic (10) S/P CABG Status: Resolved . Procedures: CT hip / pelvis PT OT . Medication Reconciliation New Medications: Acetaminophen (Tylenol Extra Strength) 500 Mg Tab 1000 MG PO Q8 PRN for moderate pain for 30 Days no more than 3000 mg acetaminophen / 24 hrs Enoxaparin Sodium (Lovenox) 40 Mg/0.4 Ml Inj 40 MG SQ DAILY for 30 Days discontinue when ambulatory Hydrocodone/Acetaminophen 5MG/325MG ([place] 5MG/325MG) Tab 1 TABLET PO Q6 PRN for severe pain, #8 TAB no more than 3000 mg acetaminophen / 24 hrs Tramadol HCl (Tramadol HCl) 50 Mg Tab 50 MG PO Q6 PRN for moderate-severe pain, #12 TAB Continued Medications: Aspirin (Aspirin Ec) 81 Mg Tab 81 MG PO DAILY Atorvastatin (Lipitor) 20 Mg Tab 20 MG PO HS, TAB Bumetanide (Bumex) 2 Mg Tab 2 MG PO DAILY, TAB Cholecalciferol (Vitamin D) 2,000 Unit Tab 1 TAB PO DAILY Docusate Sodium (Stool Softener) 100 Mg Cap 1 TAB PO BID PRN for Constipation Ferrous Sulfate (Kp Ferrous Sulfate) 325 Mg Tab 1 TAB PO BID for 30 Days, #60 TAB 3 Refills Gabapentin (Neurontin) 100 Mg Cap 100 MG PO DAILY, CAP Gabapentin (Neurontin) 300 Mg Cap 300 MG PO HS, CAP Glimepiride (Glimepiride) 2 Mg Tab 2 MG PO DAILY for 90 Days, #90 TAB 3 Refills Ipratropium-Albuterol (Combivent Respimat) 1 Aer Aer 1 PUFFS INH QID, INH Losartan Potassium (Cozaar) 25 Mg Tab 25 MG PO DAILY, TAB Metoprolol Succinate (Toprol Xl) 50 Mg Tabcr 50 MG PO DAILY Pyridoxine HCl (Vitamin B-6) 50 Mg Tab 100 MG PO DAILY Sitagliptin (Januvia) 50 Mg Tab 50 MG PO DAILY, TAB Admission Information HPI (per Admitting provider): 82-year-old female who presents the ED after a fall and subsequent left hip pain. Patient reports she fell this morning while making her coffee. She reports that she was reaching over the table to place her coffee on it when she lost her balance and fell. She called EMS that time to help her off of the floor. They offered to transport her to the hospital however she declined at that time. Patient denies any associated lightheadedness, dizziness, loss of consciousness, chest pain, shortness of breath. She did not strike her head. Patient reports took a nap for about an hour and a half and whenever she woke up she reports she had increased pain in her left hip. She had significant difficulty ambulating. She reports the pain is radiating into her left groin and down the front of her left thigh. Patient reports he otherwise has been feeling well recently. She had her left total hip revised about 5 months ago. She reports she continues to ambulate with a walker. No abdominal pain, nausea , vomiting, diarrhea. She denies fevers and chills. No urinary symptoms. In the ED, hip x-ray is negative for acute findings. UA is suggestive of UTI. Patient was given IVF, IV Rocephin, IV morphine, IV Zofran. They attempted to have her ambulate in the ER however she was unable to bear any weight on her left leg. Physical Exam (per Admitting): General Appearance: WD/WN, no apparent distress, + obese Head: normocephalic, atraumatic Eyes: normal inspection, EOMI, sclerae normal ENT: hearing grossly normal, + pertinent finding (Mucous membranes moist) Neck: supple, no JVD, trachea midline Respiratory/Chest: no respiratory distress, + decreased breath sounds Cardiovascular: regular rate, rhythm, normal peripheral pulses, + pertinent finding (Trace edema BLE, left greater than right) Abdomen/GI: normal bowel sounds, non tender, soft, no organomegaly Extremities/Musculoskelatal: normal capillary refill, + calf tenderness ( Left), + pertinent finding (Pain with palpation and minimal movement of the left hip) Neurologic/Psych: no motor/sensory deficits, alert, normal mood/affect, oriented x 3 Skin: normal color, warm/dry Hospital Course LEFT HIP PAIN No apparent acute fracture per plain films or CT. Continue analgesics, physical therapy. Will need follow-up imaging and / or Ortho follow-up if pain does not improve. FALL Mechanical fall while trying to negotiate her walker while carrying a cup of coffee. PT / OT. ? UTI Admission UA demonstrated WBCs, bacteria, many epithelial cells. No fever or dysuria. Urine culture growing E coli and Group B beta Strep. UTI vs colonization. Treated with IV ceftriaxone x 3 doses. CORONARY ARTERY DISEASE No anginal symptoms. Continue aspirin, metoprolol. CHF History of chronic left ventricular diastolic heart failure. Compensated. Continue bumetanide. SLEEP APNEA Did not tolerate CPAP. CKD III Serum creatinine 09/20 = 1.15. Follow. DIABETES MELLITUS TYPE 2 Hold oral agents during hospital stay. NovoLog coverage as needed. Fasting blood sugar day of discharge was 134. Resume usual regimen upon discharge. VTE PROPHYLAXIS Received SQ heparin. Discharge on SQ enoxaparin until ambulatory. Ambulate as able. DISPOSITION Needs assistance with ambulation and ADL's. Case Management consulted. Arrangements being made for transfer to [facility] for skilled care. Family Medicine follow-up with Dr. Nathan. . Total time spent on discharge = 40 min. This includes examination of the patient, discharge planning, medication reconciliation, and communication with other providers. . Discharge Instructions Discharge Instructions Date of Service Sep 22, 2017. Admission Reason for Admission: fall, left hip pain . Discharge Discharge Diagnosis / Problem: fall, left hip pain (no sign of fracture) Discharge Goals Goal(s): Decrease discomfort, Improve function Activity Recommendations Activity Level: Assistance Required Therapies: Physical Therapy, Occupational Therapy . Additional Information Patient informed of condition: Yes Advance Directives: No DNR: No Level of Care: Skilled Communicable Disease: No Prognosis: Stable Uribe Catheter: No Instructions / Follow-Up Instructions / Follow-Up Thank you for receiving this patient in transfer. Please call if you have any questions. Ras Valadez . Current Hospital Diet Patient's current hospital diet: AHA Diet (Heart Healthy), Low Sodium Diet (2gm Na), Diabetes Type 2 Diet Discharge Diet Recommended Diet: AHA Diet (Heart Healthy) Pending Studies Studies pending at discharge: no Physician Orders On Transfer Special Precautions: fall precautions . Vital Signs: routine . Medical Emergencies . Who to Call and When: Medical Emergencies: If at any time you feel your situation is an emergency, please call 911 immediately. . Non-Emergent Contact Non-Emergency issues call your: Primary Care Provider, Hospital Doctor . . "Provider Documentation" section prepared by Ras Valadez. . Additional Copies To Timothy Nathan M.D.
[2017-09-22 13:40] VITALS: BP 110/68; PULSE 60; TEMP 36.6; O2SAT 95
[2017-09-22 15:07] VITALS: BP 123/74; PULSE 60; TEMP 36.4; O2SAT 97
== END 2017-09-22 17:54 | DRG 690 ==
LOC: EDBD 14:56 → C.EDB 14:57 → CANRESERV 19:27 → ENRESERV 19:27 → C.MSW 19:47 → ENRESERV 19:51
PROVIDERS: ADMIT Internal Medicine; ATTEND Hospitalist
DX: N39.0 Urinary tract infection, site not specified (principal); M25.552 Pain in left hip; I13.0 Hypertensive heart and chronic kidney disease with heart failure and stage 1 through stage 4 chronic kidney disease, or unspecified chronic kidney disease; I50.32 Chronic diastolic (congestive) heart failure; I48.91 Unspecified atrial fibrillation; I35.0 Nonrheumatic aortic (valve) stenosis; N18.3 Chronic kidney disease, stage 3 (moderate); B95.1 Streptococcus, group B, as the cause of diseases classified elsewhere; E11.21 Type 2 diabetes mellitus with diabetic nephropathy; I25.10 Atherosclerotic heart disease of native coronary artery without angina pectoris; B96.20 Unspecified Escherichia coli [E. coli] as the cause of diseases classified elsewhere; Y92.019 Unspecified place in single-family (private) house as the place of occurrence of the external cause; Z96.643 Presence of artificial hip joint, bilateral; Z95.1 Presence of aortocoronary bypass graft; Z83.3 Family history of diabetes mellitus; W01.0XXA Fall on same level from slipping, tripping and stumbling without subsequent striking against object, initial encounter; Z82.49 Family history of ischemic heart disease and other diseases of the circulatory system; Y93.01 Activity, walking, marching and hiking; Z88.8 Allergy status to other drugs, medicaments and biological substances

== ENCOUNTER 2019-09-26 17:36 | Inpatient (IN) ==
[~2019-09-26 17:36] MED LIST changes: -ASPI81TA28 PO; -ATOR-22 PO; -BUME2TAB3 PO; -CHOL20009 PO; -DOCU100C PO; +DiphenhydrAMINE HCL 50 MG/ML VIAL IV STA; -GABA-112 PO; -GLIM2TAB2 PO; -LOSA1TAB PO; +OPTIRAY 320 125ml IV ONE; -PRED20TA PO; -PYR50 PO; -SITA50TA3 PO; +SODIUM CHLORIDE 0.9% 1000ML 1,000 ML IV SCH; -VNTHFA/IN INH; -[UNRECOGNIZED DRUG - REMARK] INH; +methylPREDNISolone 125 MG/2 ML VIAL IV STA
--- NOTE | 2019-09-26 17:54 | CT Scan Report ---
CT head/brain wo con CLINICAL HISTORY: 84 years-old Female with Stroke evaluation . Acute strokelike symptoms TECHNIQUE: Multiple axial CT images of the head were obtained without contrast. A dose lowering tech nique was utilized adhering to the principles of ALARA. COMPARISON: Head CT 09/20/2018 FINDINGS: No acute intracranial hemorrhage, midline shift, intracranial mass, hydrocephalus, or abnormal extra- axial collection. Age-related involutional changes. Senescent calcifications of the right lentiform n ucleus. There is a large area of decreased attenuation with blurring of the freeman-white interface invo lving the right frontal and temporal lobes, right caudate nucleus, lentiform nucleus and right insula /external capsule. This results in partial effacement of the frontal horn right lateral ventricle wit h local gyral expansion and partial sulcal effacement. This overall measures up to approximately 8.5 cm in AP dimension. The calvarium is intact. The paranasal sinuses, mastoid air cells, and middle ear cavities are clear . 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 Associated c ytotoxic edema results in partial effacement of the right lateral ventricle with areas of associated gyral expansion and partial sulcal effacement. ACT 112: Negative or not required by law. The above report was generated using voice recognition software. It may contain grammatical, syntax o r spelling errors. Electronically signed by: Lemuel Moncada M.D. 09/26/2019 5:53 PM
--- NOTE | 2019-09-26 18:04 | CT Scan Report ---
CT angio neck with con, CT angio head w con CLINICAL HISTORY: 84 years-old Female with Stroke evaluation. Acute strokelike symptoms COMPARISON STUDY: Head CT of same day TECHNIQUE: Following the IV administration of 118 mL of Optiray 320, CT angiogram of the head and nec k was performed from the aortic arch to the skull apex. Images are reviewed in the axial, sagittal, a nd coronal planes. 3-D MIPS images are created and assessed. IV contrast was administered without com plication. All measurements were calculated based on NASCET criteria. A dose lowering technique was utilized adhering to the principles of ALARA. CT DOSE: 1287.71 mGy.cm FINDINGS: Prior median sternotomy. The opacified pulmonary arterial tree is unremarkable. Mixed plaque of the t horacic aortic arch. Patency of the imaged subclavian arteries and innominate artery. Study is mildly motion degraded. Patent common carotid arteries. Mixed plaque of the carotid bulbs and proximal inte rnal carotid arteries without high-grade stenosis. Calcified plaque of the cavernous segments. There is occlusion of the right carotid terminus, image 123 series 5 with resultant occlusion of the right M1 segment. There is mild reconstitution of flow noted within the distal M2 and M3 branches. The opac ified right A1 segment is likely secondary to collateral flow through the [place]. The left middle cerebral artery is patent. The left anterior cerebral artery is also patent. Diminutive distal right A2 segment. Codominant vertebral arteries are patent. Calcified plaque of the V4 segment left vertebral artery wi th areas of mild luminal narrowing. Patent basilar artery. There is moderate narrowing of the distal basilar artery and proximal left P1 segment. origin of the right posterior cerebral artery. The opacified cerebral venous sinuses appear patent. Large acute or subacute appearing right MCA territo rial infarct. No abnormal enhancement. No aneurysm or dissection. Mosaic attenuation of the lung apices suggests air-trapping. Mild intralobular septal thickening sugg est a degree of pulmonary edema. Enlarged heterogeneous thyroid. Multilevel degenerative changes of t he spine. IMPRESSION: 1. Large acute versus subacute right MCA territorial infarct with occlusion of the right carotid term inus and M1 segment of the middle cerebral artery. There is mild reconstitution of flow within the di stal M2 and M3 branches. 2. Moderate luminal narrowing of the distal basilar artery and proximal left P1 segment. ACT 112: Negative or not required by law. The above report was generated using voice recognition software. It may contain grammatical, syntax o r spelling errors. Electronically signed by: Lemuel Moncada M.D. 09/26/2019 6:02 PM
[2019-09-26] MEDS ORDERED: LABETALOL HCL IV 5 MG/ML 20ML IV STA ×2 (18:10→18:55)
--- NOTE | 2019-09-26 18:10 | Emergency Department Note ---
Impression & Plan Acute CVA (cerebrovascular accident) ED Provider Note NAME: TWYLA SMITH AGE: 84 SEX: F : 1935 ARRIVES VIA: Ambulance INFORMANT: Patient, prehospital personnel as well as the patient's family ED PROVIDER(S): Castillo Vargas DO CHIEF COMPLAINT: Weakness HPI: The patient is an 84-year-old female who presented to the emergency department as a stroke alert. The patient had a last known well time of 10:30 PM last evening. Family was at work and when they came home today at approximately 3 PM they noticed that she was not acting herself. When they noticed she was having left sided weakness and slurred speech they called 911. The patient arrived at the emergency department and was made a stroke alert prior to arrival. The patient offers no complaints at this time but does seem to be in extremis. Additional history was obtained from the prehospital personnel as well as the family. The patient does have a history of atrial fibrillation but currently she is not taking any anticoagulation. She had no episodes of emesis. She has had no recent falls according to the prehospital personnel. 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 Further history was obtained from the grandchildren when they arrived. They state that earlier in the week the patient was seen at her primary care physician's office because of back pain. They states she was very uncomfortable and when she was seen in the office she was started on a muscle relaxer. Lately she still been complaining of the back pain as of last evening. They deny any falls. ROS: See above HPI for pertinent positives & negatives. A total of 10 systems reviewed and were otherwise negative. PAST MEDICAL HISTORY: See Below PAST SURGICAL HISTORY: See Below FAMILY HISTORY: See Below SOCIAL HISTORY: See Below HOME MEDICATIONS: See Below ALLERGIES: See Below VITALS: See Below PHYSICAL EXAMINATION: GENERAL: The patient is listless and slow to respond to questioning. She does respond to verbal commands. EYES: The conjunctivae are clear. The pupils are round and reactive. The patient has left-sided neglect EARS, NOSE, MOUTH AND THROAT: The nose is without any evidence of any deformity. NECK: The neck is nontender and supple. RESPIRATORY: Normal respiratory effort is noted there is no evidence of wheezing rhonchi or rales CARDIOVASCULAR: Regular rate and rhythm noted there no murmurs rubs or gallops normal S1 normal S2. GASTROINTESTINAL: The abdomen is soft. Abdomen is nontender. MUSCULOSKELETAL/EXTREMITIES: There is no evidence of gross deformity full range of motion is noted in the hips and shoulders. SKIN: There is no obvious evidence of any rash. There are no petechiae, pallor or cyanosis noted. NEUROLOGIC: The patient is awake and answering questions. Speech is pressured. There is a left facial droop. The patient has absent strength in the left upper and left lower extremity. MEDICAL DECISION MAKING: The patient is an 84-year-old female who presented to the emergency department as a stroke alert. The patient had a large vessel occlusion suggested by physical exam and presentation. This was confirmed on CT of the brain as well a s CT angiography of the brain. The patient's presentation was greater than 4 and half hours and the patient would not be a candidate for TPA given the findings on CAT scan. I initially discussed her case with the [facility] stroke neurologist. The patient was not felt to be a good candidate for interventional treatment as the changes on CT were already present in the last known well time was last evening. At the family's request I also discussed this case with the stroke neurology group at [facility]. After reviewing the patient's imaging they also agree that the patient would not likely benefit from interventional therapy at this time. I do agree with this evaluation and I tried to convey this to the best my ability to the patient's family members. Ultimately they were agreeable to treatment at our facility. I discussed the patient's laboratory and radiographic studies with the patient's family members. She was treated with IV antihypertensive medication in the emergency department. She was reevaluated multiple times. Her condition remained relatively stable. I discussed this case with the on-call [facility] hospitalist. They will evaluate the patient in the emergency department for further management and disposition. Triage Nursing notes reviewed. Prior medical records reviewed Vital Signs: reviewed and remarkable for elevated blood pressure Differential diagnosis: Infection, dehydration, metabolic abnormality, hypo/hyperglycemia, electrolyte disturbance, anemia, hypoxia, cardiac sources, intracerebral event, toxicologic, neurologic, as well as other pathologies. ER treatment provided: See below Diagnostics interpreted by me: ECG: EKG was obtained in the emergency department. My interpretation is ventricular paced rhythm at 76 bpm. No point lay ira beats were noted. Left bundle branch block pattern was suggested. There was no significant change compared to a tracing from September 202018. Cardiac Monitoring: An order was placed for continuous cardiac monitoring. The monitor shows a rate of 65 with sinus rhythm. Laboratory studies: As stated above and show below. Imaging studies: See below Consultation(s): 1754: I discussed this case with Dr. Arita at [facility] who is on- call for the stroke neurology group. At this time she agrees that TPA would be contraindicated given the findings noted on CT. She also agrees that given the onset of symptoms and the findings on CAT scan she would not likely be a candidate for a large vessel intervention even though the patient has a high likelihood of the large vessel occlusion given her physical exam and her findings on initial CAT scan. 1839: I discussed the case with Dr. Gaona at [facility] in [place]. He will review the patient's radiographic studies to determine if any interventional treatment can be offered. 1924: I discussed this case with Dr. Lopez who is relieving Dr. Gaona at [facility]. They were able to review the films and feel the patient would not benefit from interventional therapy at this time. 1999: I discussed this case with Dr. Smyth. He will evaluate the patient in the emergency department for further management and disposition. ED COURSE: Procedures: none PDMP:reviewed and no issues Critical Care: I have personally spent greater than 60 minutes of critical care time in the direct management of this patient. This includes bedside care, interpretation of diagnostic studies, and testing, discussion with consultants, patient, and family members, and other required patient management activities. This 60 minutes is in excess of all separately billable procedures. Past Med/Surg History Medical History Afib Aortic stenosis AVN of femur CAD (coronary artery disease) "S/P CABG x 3 1997 Cardiac cath 03/2016 demonstrated patent stents" Chronic diastolic CHF (congestive heart failure) CKD (chronic kidney disease), stage III Complete heart block DM2 (diabetes mellitus, type 2) GI bleed History of cardioversion History of pacemaker History of revision of total replacement of left hip joint HLD (hyperlipidemia) HTN (hypertension) Hypertension Thoracic compression fracture Surgical History History of appendectomy History of cataract surgery History of partial hysterectomy History of total left hip replacement History of total right hip replacement S/P right knee arthroscopy S/P TAVR (transcatheter aortic valve replacement) Status post coronary artery bypass grafting Family History Other Family history non-contributory Social History Smoking Status: Never smoker Hx Alcohol Use: No Hx Substance Use: No Preferred Language: Slovenian Communication Ability: Effective Helmet Hat Puncher Required: No Beliefs That Will Affect Care: None Current Living Situation: Alone Other Information That Helps Us Care for You: No Feels Safe at Home: Yes Safety Concerns: Feels Safe At This Time Allergies Allergies Allergy/AdvReac Type Severity Reaction Status Date / Time Iodinated Contrast Media Allergy Intermediate HIVES/ Verified 09/26/19 19:23 LOST VOICE clonazepam Allergy Unknown Rash, hives Verified 09/26/19 19:23 lisinopril AdvReac Mild COUGH Verified 09/26/19 19:23 meperidine AdvReac Unknown Hallucinati Unverified 09/26/19 19:23 ons Home Meds Home Medications Medication Instructions Recorded Confirmed acetaminophen [Tylenol Extra 500 - 1,000 mg PO Q8H PRN 09/20/18 09/26/19 Strength] aspirin [Adult Aspirin Regimen] 81 mg PO DAILY 09/20/18 09/26/19 atorvastatin 20 mg PO HS 09/20/18 09/26/19 cholecalciferol (vitamin D3) 2,000 unit PO DAILY 09/20/18 09/26/19 [Vitamin D3] docusate sodium 100 mg PO BID 09/20/18 09/26/19 glimepiride 2 mg PO DAILY 09/20/18 09/26/19 ipratropium-albuterol [Combivent 1 puff INHALATION QID 09/20/18 09/26/19 Respimat] losartan 50 mg PO DAILY 09/20/18 09/26/19 metoprolol succinate 50 mg PO DAILY 09/20/18 09/26/19 nitroglycerin 0.4 mg SUBLINGUAL DIRECTED PRN 09/20/18 09/26/19 pyridoxine (vitamin B6) 100 mg PO DAILY 09/20/18 09/26/19 sitagliptin [Januvia] 50 mg PO QAM 09/20/18 09/26/19 baclofen 10 mg PO BID PRN 09/26/19 09/26/19 furosemide 20 mg PO 2XWK 09/26/19 09/26/19 furosemide 40 mg PO 5XWK 09/26/19 09/26/19 isosorbide mononitrate 60 mg PO DAILY 09/26/19 09/26/19 prednisone 20 mg PO .DAILY/UD 09/26/19 09/26/19 Results & Data (ED) Vital Signs Vital Signs - 24 hr 09/26/19 17:54 09/26/19 18:00 09/26/19 18:01 Temperature Temperature Source Pulse Rate 71 73 70 Pulse Rate from SpO2 Sensor Respiratory Rate 15 17 18 Blood Pressure 182/159 H Blood Pressure [Left Arm] Blood Pressure Mean 172 Blood Pressure Mean [Left Arm] Pulse Oximetry Oxygen Delivery Method Oxygen Flow Rate Sepsis Recent Fever Within 48 Hours Sepsis New/Unexplained Change in Mental Status Sepsis Action Taken by Nursing 09/26/19 18:04 09/26/19 18:11 09/26/19 18:20 Temperature 35.9 C L Temperature Source Rectal Pulse Rate 72 67 61 Pulse Rate from SpO2 Sensor 61 Respiratory Rate 22 19 25 H Blood Pressure 182/159 H Blood Pressure [Left Arm] Blood Pressure Mean 166 Blood Pressure Mean [Left Arm] Pulse Oximetry 94 99 100 Oxygen Delivery Method Room Air Oxygen Flow Rate Sepsis Recent Fever Within 48 Hours No Sepsis New/Unexplained Change in Mental Status N/A Sepsis Action Taken by Nursing No Action Required 09/26/19 18:30 09/26/19 18:33 09/26/19 18:40 Temperature Temperature Source Pulse Rate 60 60 61 Pulse Rate from SpO2 Sensor 60 61 Respiratory Rate 21 18 24 Blood Pressure 203/94 H Blood Pressure [Left Arm] Blood Pressure Mean 110 Blood Pressure Mean [Left Arm] Pulse Oximetry 100 97 Oxygen Delivery Method Oxygen Flow Rate Sepsis Recent Fever Within 48 Hours Sepsis New/Unexplained Change in Mental Status Sepsis Action Taken by Nursing 09/26/19 18:42 09/26/19 18:52 09/26/19 19:01 Temperature Temperature Source Pulse Rate 60 60 60 Pulse Rate from SpO2 Sensor 60 60 60 Respiratory Rate 21 20 20 Blood Pressure 205/100 H 210/92 H 206/93 H Blood Pressure [Left Arm] Blood Pressure Mean 131 128 115 Blood Pressure Mean [Left Arm] Pulse Oximetry 100 99 99 Oxygen Delivery Method Oxygen Flow Rate 5 Sepsis Recent Fever Within 48 Hours Sepsis New/Unexplained Change in Mental Status Sepsis Action Taken by Nursing 09/26/19 19:04 09/26/19 19:11 09/26/19 19:21 Temperature Temperature Source Pulse Rate 60 63 60 Pulse Rate from SpO2 Sensor 60 63 61 Respiratory Rate 18 21 20 Blood Pressure 195/89 H 204/98 H 198/101 H Blood Pressure [Left Arm] Blood Pressure Mean 116 139 133 Blood Pressure Mean [Left Arm] Pulse Oximetry 99 99 99 Oxygen Delivery Method Oxygen Flow Rate 5 Sepsis Recent Fever Within 48 Hours Sepsis New/Unexplained Change in Mental Status Sepsis Action Taken by Nursing 09/26/19 19:31 09/26/19 19:41 09/26/19 19:51 Temperature Temperature Source Pulse Rate 60 60 60 Pulse Rate from SpO2 Sensor 60 61 60 Respiratory Rate 20 20 18 Blood Pressure 214/107 H 194/95 H 193/93 H Blood Pressure [Left Arm] Blood Pressure Mean 129 140 112 Blood Pressure Mean [Left Arm] Pulse Oximetry 99 99 100 Oxygen Delivery Method Oxygen Flow Rate 5 5 Sepsis Recent Fever Within 48 Hours Sepsis New/Unexplained Change in Mental Status Sepsis Action Taken by Nursing 09/26/19 20:10 09/26/19 20:22 09/26/19 20:30 Temperature Temperature Source Pulse Rate 60 60 Pulse Rate from SpO2 Sensor 60 60 Respiratory Rate 20 19 Blood Pressure 204/113 H 192/94 H Blood Pressure [Left Arm] 210/88 H Blood Pressure Mean 136 126 Blood Pressure Mean [Left Arm] 128 Pulse Oximetry 99 99 Oxygen Delivery Method Oxygen Flow Rate 5 Sepsis Recent Fever Within 48 Hours Sepsis New/Unexplained Change in Mental Status Sepsis Action Taken by Nursing 09/26/19 20:40 09/26/19 20:51 09/26/19 21:01 Temperature Temperature Source Pulse Rate 60 60 60 Pulse Rate from SpO2 Sensor 60 60 60 Respiratory Rate 20 18 19 Blood Pressure 206/100 H 197/96 H 196/93 H Blood Pressure [Left Arm] Blood Pressure Mean 140 107 116 Blood Pressure Mean [Left Arm] Pulse Oximetry 99 99 99 Oxygen Delivery Method Oxygen Flow Rate 5 5 5 Sepsis Recent Fever Within 48 Hours Sepsis New/Unexplained Change in Mental Status Sepsis Action Taken by Nursing 09/26/19 21:11 09/26/19 21:21 09/26/19 21:30 Temperature Temperature Source Pulse Rate 60 67 60 Pulse Rate from SpO2 Sensor 60 60 60 Respiratory Rate 20 14 20 Blood Pressure 201/94 H 192/93 H 191/93 H Blood Pressure [Left Arm] Blood Pressure Mean 116 111 112 Blood Pressure Mean [Left Arm] Pulse Oximetry 99 98 98 Oxygen Delivery Method Oxygen Flow Rate 5 5 Sepsis Recent Fever Within 48 Hours Sepsis New/Unexplained Change in Mental Status Sepsis Action Taken by Nursing 09/26/19 21:40 09/26/19 21:51 09/26/19 22:01 Temperature Temperature Source Pulse Rate 60 60 60 Pulse Rate from SpO2 Sensor 60 60 60 Respiratory Rate 19 19 18 Blood Pressure 195/97 H 189/95 H 197/95 H Blood Pressure [Left Arm] Blood Pressure Mean 120 113 128 Blood Pressure Mean [Left Arm] Pulse Oximetry 99 99 97 Oxygen Delivery Method Oxygen Flow Rate 5 5 Sepsis Recent Fever Within 48 Hours Sepsis New/Unexplained Change in Mental Status Sepsis Action Taken by Group Home Medications Current Medication List: was personally reviewed by me Laboratory Data Attestation: I reviewed the patient's lab results. Result diagrams: 09/27/19 05:21 09/27/19 05:21 Lab Results 09/26/19 09/26/19 09/26/19 Range/Units 17:55 18:32 18:32 WBC 10.43 (4.8-10.8) K/uL RBC 4.78 (4.2-5.4) M/uL Hgb 15.6 (12.0-16.0) g/dL Hct 45.9 (37-47) % MCV 96.0 (80-100) fL MCH 32.6 (25-34) pg MCHC 34.0 (32-36) g/dL RDW Std Deviation 52.3 H (36.4-46.3) fL RDW Coeff of Francois 14.9 H (11.5-14.5) % Plt Count 112 L (130-400) K/uL MPV 12.4 H (7.4-10.4) fL Immature Gran % (Auto) 0.7 % Neut % (Auto) 69.8 % Lymph % (Auto) 18.2 % [place] % (Auto) 10.2 % Eos % (Auto) 1.1 % Baso % (Auto) 0.0 % Neut # (Auto) 7.29 H (1.4-6.5) K/uL Lymph # (Auto) 1.90 (1.2-3.4) K/uL [place] # (Auto) 1.06 H (0.11-0.59) K/uL Eos # (Auto) 0.11 (0-0.5) K/uL Baso # (Auto) 0.00 (0-0.2) K/uL Immature Gran # (Auto) 0.07 H (0.00-0.02) K/uL PT (9.0-12.0) Seconds INR (0.9-1.1) APTT (21.0-31.0) Seconds PTT Ratio VBG pH (7.36-7.41) VBG pCO2 (38-50) mmHg VBG pO2 mmHg VBG HCO3 mmol/L VBG O2 Saturation % VBG Base Excess mEq/L Barometric Pressure mm/Hg Sodium (136-145) mmol/L Potassium (3.5-5.1) mmol/L Chloride (98-107) mmol/L Carbon Dioxide (21-32) mmol/L Anion Gap (3-11) BUN (7-18) mg/dl Creatinine (0.6-1.2) mg/dl Est Cr Clr Drug Dosing ml/min Est GFR ( Amer) Est GFR (Non-Af Amer) BUN/Creatinine Ratio (10-20) Glucose (70-99) mg/dl POC Glucose 77 (70-99) mg/dl Calcium (8.5-10.1) mg/dl Magnesium (1.8-2.4) mg/dl Total Bilirubin (0.2-1) mg/dl AST (15-37) U/L ALT (12-78) U/L Alkaline Phosphatase (45-117) U/L Troponin I (0-0.045) ng/ml Total Protein (6.4-8.2) gm/dl Albumin (3.4-5.0) gm/dl Globulin (2.5-4.0) gm/dl Albumin/Globulin Ratio (0.9-2) Blood Type A Positive Antibody Screen NEGATIVE 09/26/19 09/26/19 09/26/19 Range/Units 18:32 18:32 18:32 WBC (4.8-10.8) K/uL RBC (4.2-5.4) M/uL Hgb (12.0-16.0) g/dL Hct (37-47) % MCV (80-100) fL MCH (25-34) pg MCHC (32-36) g/dL RDW Std Deviation (36.4-46.3) fL RDW Coeff of Francois (11.5-14.5) % Plt Count (130-400) K/uL MPV (7.4-10.4) fL Immature Gran % (Auto) % Neut % (Auto) % Lymph % (Auto) % [place] % (Auto) % Eos % (Auto) % Baso % (Auto) % Neut # (Auto) (1.4-6.5) K/uL Lymph # (Auto) (1.2-3.4) K/uL [place] # (Auto) (0.11-0.59) K/uL Eos # (Auto) (0-0.5) K/uL Baso # (Auto) (0-0.2) K/uL Immature Gran # (Auto) (0.00-0.02) K/uL PT 11.6 (9.0-12.0) Seconds INR 1.1 (0.9-1.1) APTT 25.7 (21.0-31.0) Seconds PTT Ratio 0.9 VBG pH 7.40 (7.36-7.41) VBG pCO2 37 L (38-50) mmHg VBG pO2 179 mmHg VBG HCO3 22 mmol/L VBG O2 Saturation 99.4 % VBG Base Excess -2.0 mEq/L Barometric Pressure 731.1 mm/Hg Sodium 139 (136-145) mmol/L Potassium 4.0 (3.5-5.1) mmol/L Chloride 111 H (98-107) mmol/L Carbon Dioxide 22 (21-32) mmol/L Anion Gap 6.0 (3-11) BUN 24 H (7-18) mg/dl Creatinine 0.97 (0.6-1.2) mg/dl Est Cr Clr Drug Dosing 47.4 ml/min Est GFR ( Amer) 61.7 Est GFR (Non-Af Amer) 53.3 BUN/Creatinine Ratio 24.4 H (10-20) Glucose 96 (70-99) mg/dl POC Glucose (70-99) mg/dl Calcium 9.1 (8.5-10.1) mg/dl Magnesium 2.6 H (1.8-2.4) mg/dl Total Bilirubin 1.0 (0.2-1) mg/dl AST 22 (15-37) U/L ALT 26 (12-78) U/L Alkaline Phosphatase 71 (45-117) U/L Troponin I 0.019 (0-0.045) ng/ml Total Protein 7.2 (6.4-8.2) gm/dl Albumin 3.3 L (3.4-5.0) gm/dl Globulin 3.9 (2.5-4.0) gm/dl Albumin/Globulin Ratio 0.8 L (0.9-2) Blood Type Antibody Screen Administered Medications Sodium Chloride (Nss 1000ml) 1,000 mls @ 60 mls/hr IV .[id number] DARRYL Stop: 09/28/19 00:09 Last Admin: 09/27/19 07:40 Dose: 60 mls/hr Documented by: [id number] Insulin Aspart (Insulin Aspart 100 Units/Ml 3 Ml Pen) 0 units SC ACHS DARRYL Stop: 10/27/19 07:29 Last Admin: 09/27/19 05:53 Dose: 4 units Documented by: [id number] Cosigned by: [id number] Metoprolol Tartrate (Metoprolol Tartrate 1 Mg/Ml Vial) 2.5 mg IV Q6 DARRYL Stop: 10/27/19 00:00 Last Admin: 09/27/19 05:44 Dose: 2.5 mg Documented by: [id number] Admin: 09/26/19 23:25 Dose: 2.5 mg Documented by: [id number] Discontinued Medications Aspirin (Aspirin 300 Mg Supp) 300 mg TN ONE ONE Stop: 09/26/19 22:46 Last Admin: 09/26/19 23:25 Dose: 300 mg Documented by: [id number] Diphenhydramine HCl (Diphenhydramine Hcl 50 Mg/Ml Vial) 25 mg IV NOW STA Stop: 09/26/19 17:28 Last Admin: 09/26/19 18:44 Dose: 25 mg Documented by: [id number] Sodium Chloride (Nss 1000ml) 1,000 mls @ 50 mls/hr IV .Q20H DARRYL Stop: 10/26/19 17:29 Last Infusion: 09/26/19 23:11 Dose: 0 mls/hr Documented by: [id number] Infusion: 09/26/19 23:11 Dose: 0 mls/hr Documented by: [id number] Admin: 09/26/19 18:44 Dose: 50 mls/hr Documented by: [id number] Sodium Chloride (Nss 1000ml) 1,000 mls @ 100 mls/hr IV .Q10H DARRYL Stop: 10/26/19 22:44 Last Infusion: 09/27/19 07:28 Dose: 0 mls/hr Documented by: [id number] Admin: 09/26/19 23:20 Dose: 100 mls/hr Documented by: [id number] Ioversol (Optiray 320 125ml) 118 ml IV ONCE ONE Stop: 09/26/19 17:28 Last Admin: 09/26/19 17:27 Dose: 118 ml Documented by: [id number] Labetalol HCl (Labetalol Hcl Iv 5 Mg/Ml 20ml) 10 mg IV NOW STA Stop: 09/26/19 18:11 Last Admin: 09/26/19 18:44 Dose: 10 mg Documented by: [id number] Cosigned by: [id number] Labetalol HCl (Labetalol Hcl Iv 5 Mg/Ml 20ml) 10 mg IV NOW STA Stop: 09/26/19 18:56 Last Admin: 09/26/19 19:00 Dose: 10 mg Documented by: [id number] Cosigned by: [id number] Methylprednisolone (Methylprednisolone 125 Mg/2 Ml Vial) 125 mg IV NOW STA Stop: 09/26/19 17:28 Last Admin: 09/26/19 18:44 Dose: 125 mg Documented by: [id number] Imaging Data Radiologist's Impression: CT angio neck with con, CT angio head w con CLINICAL HISTORY: 84 years-old Female with Stroke evaluation. Acute strokelike symptoms COMPARISON STUDY: Head CT of same day TECHNIQUE: Following the IV administration of 118 mL of Optiray 320, CT angiogram of the head and neck was performed from the aortic arch to the skull apex. Images are reviewed in the axial, sagittal, and coronal planes. 3-D MIPS images are created and assessed. IV contrast was administered without complication. All measurements were calculated based on NASCET criteria. A dose lowering technique was utilized adhering to the principles of ALARA. CT DOSE: 1287.71 mGy.cm FINDINGS: Prior median sternotomy. The opacified pulmonary arterial tree is unremarkable. Mixed plaque of the thoracic aortic arch. Patency of the imaged subclavian arteries and innominate artery. Study is mildly motion degraded. Patent common carotid arteries. Mixed plaque of the carotid bulbs and proximal internal c arotid arteries without high-grade stenosis. Calcified plaque of the cavernous segments. There is occlusion of the right carotid terminus, image 123 series 5 with resultant occlusion of the right M1 segment. There is mild reconstitution of flow noted within the distal M2 and M3 branches. The opacified right A1 segment is likely secondary to collateral flow through the [place] of [place]. The left middle cerebral artery is patent. The left anterior cerebral artery is also patent. Diminutive distal right A2 segment. Codominant vertebral arteries are patent. Calcified plaque of the V4 segment left vertebral artery with areas of mild luminal narrowing. Patent basilar artery. There is moderate narrowing of the distal basilar artery and proximal left P1 segment. origin of the right posterior cerebral artery. The opacified cerebral venous sinuses appear patent. Large acute or subacute appe aring right MCA territorial infarct. No abnormal enhancement. No aneurysm or dissection. Mosaic attenuation of the lung apices suggests air-trapping. Mild intralobular septal thickening suggest a degree of pulmonary edema. Enlarged heterogeneous thyroid. Multilevel degenerative changes of the spine. IMPRESSION: 1. Large acute versus subacute right MCA territorial infarct with occlusion of the right carotid terminus and M1 segment of the middle cerebral artery. There is mild reconstitution of flow within the distal M2 and M3 branches. 2. Moderate luminal narrowing of the distal basilar artery and proximal left P1 segment. ACT 112: Negative or not required by law. The above report was generated using voice recognition software. It may contain grammatical, syntax or spelling errors. Electronically signed by: Lemuel Moncada M.D. 09/26/2019 6:02 PM Dictated: 09/26/191753 Transcribed: 09/26/[address] head/brain wo con CLINICAL HISTORY: 84 years-old Female with Stroke evaluation . Acute strokelike symptoms TECHNIQUE: Multiple axial CT images of the head were obtained without contrast. A dose lowering technique was utilized adhering to the principles of ALARA. COMPARISON: Head CT 09/20/2018 FINDINGS: No acute intracranial hemorrhage, midline shift, intracranial mass, hydrocephalus, or abnormal extra-axial collection. Age-related involutional changes. Senescent calcifications of the right lentiform nucleus. There is a large area of decreased attenuation with blurring of the freeman-white interface involving the right frontal and temporal lobes, right caudate nucleus, lentiform nucleus and right insula/external capsule. This results in partial effacement of the frontal horn right lateral ventricle with local gyral expansion and partial sulcal effacement. This overall measures up to approximately 8.5 cm in AP dimension. The calvarium is intact. The paranasal sinuses, mastoid air cells, and middle ear cavities are clear. 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 Associated cytotoxic edema results in partial effacement of the right lateral ventricle with areas of associated gyral expansion and partial sulcal effacement. ACT 112: Negative or not required by law. The above report was generated using voice recognition software. It may contain grammatical, syntax or spelling errors. Electronically signed by: Lemuel Moncada M.D. 09/26/2019 5:53 PM Dictated: 09/26/191748 Transcribed: 09/26/191748 XR chest 1V portable HISTORY: 84 years-old Female weak acute weakness with acute strokelike symptoms COMPARISON: Chest radiograph 09/19/2017 TECHNIQUE: Portable AP view of the chest FINDINGS: Cardiac silhouette is enlarged. Prior median sternotomy with aortic valvular endograft. Left subclavian pacer. Pulmonary vascular congestion with interstitial coarsening. No pneumothorax, pleural effusion or airspace consolidation typical for pneumonia. Degenerative changes of the shoulders and spine. IMPRESSION: Cardiomegaly with pulmonary vascular congestion and interstitial coa rsening, possibly reflective of pulmonary edema. ACT 112: Negative or not required by law. The above report was generated using voice recognition software. It may contain grammatical, syntax or spelling errors. Electronically signed by: Lemuel Moncada M.D. 09/26/2019 7:15 PM Dictated: 09/26/191913 Transcribed: 09/26/191913 Blood Pressure Blood Pressure Findings: Elevated blood pressure Blood Pressure Disposition: further management by hospitalist Discharge Plan Visit Data Chief Complaint: Stroke Alert ED Provider: Castillo Vargas Discharge Problem: Acute CVA (cerebrovascular accident) Patient Disposition: Admitted As Inpatient Condition: Good Discharge Instructions Interventions: ED Discharge Assessment Last Done: 09/26/19 22:30
[2019-09-26 18:44] LABS: Oxygen Saturation VBG 99.4 %; pH VBG 7.4 (7.36-7.41)
[2019-09-26 18:52] LABS: Hematocrit (blood only) 45.9 % (37-47); Hemoglobin 15.6 g/dL (12.0-16.0); INR 1.1 (0.9-1.1); Mean Corpuscular Hemoglobin 32.6 pg (25-34); Mean Platelet Volume 12.4 fL (7.4-10.4); Partial Thromboplastin Ratio 0.9; Partial Thromboplastin Time 25.7 Seconds (21.0-31.0); Platelet Count 112 K/uL (130-400); Prothrombin Time 11.6 Seconds (9.0-12.0); RDW Coefficient of Variation 14.9 % (11.5-14.5); RDW Standard Deviation 52.3 fL (36.4-46.3); Red Blood Count 4.78 M/uL (4.2-5.4); White Blood Count 10.43 K/uL (4.8-10.8)
[2019-09-26 18:57] LABS: Albumin Level 3.3 gm/dl (3.4-5.0); BUN Creatinine Ratio 24.4 (10-20); Calcium 9.1 mg/dl (8.5-10.1); Creatinine Clr Calc Pharmacy 47.4 ml/min; Est GFR (African American) 61.7; Est GFR (Non-African American) 53.3; Magnesium 2.6 mg/dl (1.8-2.4)
[2019-09-26 19:02] LABS: Albumin Globulin Ratio 0.8 (0.9-2); Globulin 3.9 gm/dl (2.5-4.0); Total Protein 7.2 gm/dl (6.4-8.2); Troponin I 0.019 ng/ml (0-0.045)
[2019-09-26 19:11] LABS: Eosinophils # (auto) 0.11 K/uL (0-0.5); Eosinophils % (auto) 1.1 %; Immature Granulocytes # (auto) 0.07 K/uL (0.00-0.02); Immature Granulocytes % (auto) 0.7 %; Lymphocytes % (auto) 18.2 %; Monocytes # (auto) 1.06 K/uL (0.11-0.59); Monocytes % (auto) 10.2 %; Neutrophils # (auto) 7.29 K/uL (1.4-6.5); Neutrophils % (auto) 69.8 %
--- NOTE | 2019-09-26 19:16 | XRay Report ---
XR chest 1V portable HISTORY: 84 years-old Female weak acute weakness with acute strokelike symptoms COMPARISON: Chest radiograph 09/19/2017 TECHNIQUE: Portable AP view of the chest FINDINGS: Cardiac silhouette is enlarged. Prior median sternotomy with aortic valvular endograft. Left subclavi an pacer. Pulmonary vascular congestion with interstitial coarsening. No pneumothorax, pleural effusi on or airspace consolidation typical for pneumonia. Degenerative changes of the shoulders and spine. IMPRESSION: Cardiomegaly with pulmonary vascular congestion and interstitial coarsening, possibly ref lective of pulmonary edema. ACT 112: Negative or not required by law. The above report was generated using voice recognition software. It may contain grammatical, syntax o r spelling errors. Electronically signed by: Lemuel Moncada M.D. 09/26/2019 7:15 PM
[2019-09-26] MEDS ORDERED: ASPIRIN 300 MG SUPP PR ONE (22:45)
[2019-09-26] MEDS ORDERED: SODIUM CHLORIDE 0.9% 1000ML 1,000 ML IV SCH (22:45)
[2019-09-26] MEDS ORDERED: HydrALAZINE HCL 20 MG/ML VIAL IV PRN (22:45)
[2019-09-26] MEDS ORDERED: ONDANSETRON INJ 2 MG/ML 2 ML VIAL IV PRN (22:45)
[2019-09-26] MEDS ORDERED: PHARMACIST DISCHARGE MED REC CONSULT PRN (22:45)
[2019-09-26] MEDS ORDERED: NITROGLYCERIN SL 0.4 MG/TAB TAB SL PRN (22:45)
[2019-09-26] MEDS: METOPROLOL TARTRATE 1 MG/ML VIAL IV SCH (23:25)
--- NOTE | 2019-09-27 01:13 | History and Physical Report ---
DATE OF ADMISSION: 09/26/2019 CHIEF COMPLAINT: Acute CVA. HISTORY OF PRESENT ILLNESS: This is an 84-year-old female with past medical history significant for type 2 diabetes; hyperlipidemia; gout; obstructive sleep apnea, noncompliant with CPAP; COPD moderate; nonseasonal allergic rhinitis; chronic atrial fibrillation, no longer on Coumadin since last 5 years because of diverticular bleed as per family; chronic kidney disease stage III; venous insufficiency; hypertension; status post TAVR; left bundle branch block; ,status post pacemaker; degenerative disc disease; chronic thrombocytopenia; coronary artery disease status post coronary artery bypass graft. The patient presents with acute CVA. The patient generally lives at home, but sometimes lives with her grandson. Yesterday, she was living with her grandson and last well known time was yesterday evening at 10:30 p.m. Family was at work. When they came around 3:00 p.m. today, they noticed she was not acting herself and had left-sided weakness and slurred speech, so they called 911. The patient was stroke alert and her CT of the head is showing large acute versus subacute territorial infarct of the right MCA territory associated with cytotoxic edema resulting in partial effacement of the right lateral ventricle with areas of associated gyral expansion and partial sulcal effacement. CTA of the head shows large acute versus subacute right MCA territorial infarct with occlusion of the right carotid terminus and M1 segment of the middle cerebral artery. ER physician talked to the neurology second shift supervisor at [facility]. They felt that she was not a TPA candidate given the CAT scan findings and also at that time she was thought to be not a good candidate for interventional treatment as the changes on the CT were already present and the last well known time was last evening. As per the ER physician, as per the family request, they also called the [facility] and they also agreed with [facility]. The patient currently has closed her eyes, but able to move her right side extremities and able to answer questions appropriately. She can tell her name, she knows today's month and today's year, knows that she is in the [facility], knows her date of . Denies any headache, denies any chest pain. Denies any abdominal pain. No nausea, no cough, no recent fever, chills. The patient does not want to be on mechanical ventilation, does not want to be shocked but okay for CPR. Currently her hemodynamics, the blood pressure is somewhat on the higher side. Temperature is 37.9, she is saturating okay. She does not have any other complaints at this time. ALLERGIES: IODINATED CONTRAST MEDIA, CLONAZEPAM, LISINOPRIL, MEPERIDINE. PAST MEDICAL HISTORY: As mentioned above. PAST SURGICAL HISTORY: CABG, cardiac stent placement, colonoscopy, EGDs, multiple cardioversions, incisional hernia repair, hemorrhoidectomy, right knee arthroscopy, partial hysterectomy, appendectomy, cataract surgeries, TAVR, revision of left total hip replacement, right total hip replacement. MEDICATIONS: The patient is on baclofen 10 mg p.o. t.i.d. p.r.n., Imdur 60 mg p.o. daily, Januvia 50 mg p.o. daily, Lasix 40 mg Tuesday through Tuesday and 20 mg on the weekends, Combivent 1 inhalation 4 times daily, losartan 50 mg p.o. daily, nitroglycerin 0.4 mg sublingual p.r.n., Glimepiride 2 mg p.o. daily, metoprolol succinate 50 mg p.o. daily, Colace 100 mg p.o. b.i.d. p.r.n., aspirin 81 mg p.o. daily, Lipitor 20 mg p.o. daily, Tylenol 1000 mg p.o. t.i.d. p.r.n., vitamin D 2000 units p.o. daily, vitamin B6 100 mg p.o. daily. FAMILY HISTORY: Significant for sister has arthritis; father had throat cancer; mother had diabetes, heart disorder, stroke; son has CABG in late 40s. SOCIAL HISTORY: Single. No smoking, no alcohol, no drug use as per records. REVIEW OF SYSTEMS: As per HPI, could not get complete review of systems. The patient is somewhat drowsy and she had an acute stroke. PHYSICAL EXAMINATION: GENERAL: The patient has closed her eyes and not in acute distress. VITAL SIGNS: Temperature 35.9, pulse 60, respiratory rate 19, blood pressure 118/95, oxygen 99% on room air. HEENT: Pupils equal, round, reactive to light. NECK: No JVD, no neck masses. CARDIOVASCULAR: S1, S2 heard. Regular rate and rhythm, no murmur, no gallop. RESPIRATORY SYSTEM: Normal AP diameter. No accessory muscle use. No wheezing, no crackles. ABDOMEN: Soft, bowel sounds present, nontender. No distention. CENTRAL NERVOUS SYSTEM: Alert and oriented. Speech is normal. Left facial droop is present and left-sided paralysis, can move her right. Sensations as per patient is intact. EXTREMITIES: No edema, no erythema. LABORATORY DATA: WBC 10.4, hemoglobin 15.6, hematocrit 45.9, platelets 112. PT 11.6, INR 1.1, APTT 25.2. Venous blood gas, pH of 7.4, pCO2 of 37, pO2 of 179, bicarbonate 22. Sodium 139, potassium 4, chloride 111, CO2 of 22, BUN 24, creatinine 0.9, serum glucose 96, calcium 9.1, magnesium 2.6, total bilirubin 1, AST 22, ALT 26, alkaline phosphatase 71. Troponin I of 0.019. IMAGING DATA: Chest x-ray, no acute findings. CT of the head, large acute versus subacute infarct of the right MCA territory with associated cytotoxic edema, results in partial effacement of the right lateral ventricle with areas of associated gyral expansion and partial sulcal effacement. Head CTA, large acute versus subacute right MCA territorial infarct with occlusion of the right carotid terminus and M1 segment of the right middle cerebral artery. There is a mild reconstitution of flow within the distal M2 and M3 branches, moderate luminal narrowing of the distal basilar artery and proximal left P1 segment. Neck CTA, same as above. ASSESSMENT AND PLAN: This is an 84-year-old female who presents with acute cerebrovascular accident. 1. 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 Last well known was 10:30 p.m. last evening. Based on imaging study findings, the patient was not deemed a candidate for TPA and also intervention. Initially [facility] neurologist was contacted. And as per the family's request, [facility] neurology was also contacted, and no intervention is planned at this time. We will admit to the tele floor. We will do permissive hypertension and we will hold all p.o. medications until evaluated by speech in the a.m. We will place her on AR aspirin. Consult neurology in a.m., speech therapy in a.m., PT and OT and social service in a.m. Monitor for any deterioration of the condition because of edema on the CAT scan.NPO, IV fluids. 2. Coronary artery disease status post coronary artery bypass graft. Will continue her aspirin. Holding p.o. medications. Will place her on IV Lopressor. Will monitor. 3. History of hypertension. We will allow permissive hypertension. The patient is on Imdur, losartan, Toprol-XL at home. Will continue with IV Lopressor 2.5 q. 6 hours and IV hydralazine p.r.n. and monitor the blood pressure. 4. Diabetes. Hold Januvia and glimepiride. Placed on insulin sliding scale. 5. Chronic obstructive pulmonary disease, continue Combivent. 6. History of atrial fibrillation, status post placement of cardiac pacemaker. Continue with IV Lopressor. The patient is no longer on Coumadin because of diverticular bleed since last 5 years. 7. Hyperlipidemia. Will restart statin as soon as possible. Follow the lipid profile. 8. Obstructive sleep apnea, noncompliant with CPAP. Will continue oxygen in the nighttime. 9. Chronic kidney disease stage III, creatinine 0.9. Will follow the labs. 10. History of thrombocytopenia, platelets of 112, will follow. 11. History of venous insufficiency. Holding the Lasix. On IV fluids. Monitor for any volume overload. 12. Deep venous thrombosis prophylaxis, sequential compression devices for now. 13. Disposition: Closely monitor in the tele floor. CODE STATUS: Conditional code with no mechanical ventilation, no shocks, okay for CPR and meds. Social service to help with discharge planning. MINDY
[2019-09-27] MEDS: METOPROLOL TARTRATE 1 MG/ML VIAL IV SCH ×3 (05:44→17:01)
[2019-09-27] MEDS: INSULIN ASPART 100 UNITS/ML 3 ML PEN SC SCH ×4 (05:53→21:45)
[2019-09-27 05:57] LABS: Hematocrit (blood only) 47.2 % (37-47); Hemoglobin 15.3 g/dL (12.0-16.0); Mean Corpuscular Hemoglobin 31.5 pg (25-34); Mean Corpuscular Hgb Conc 32.4 g/dL (32-36); Mean Corpuscular Volume 97.3 fL (80-100); Mean Platelet Volume 12.5 fL (7.4-10.4); Platelet Count 107 K/uL (130-400); RDW Coefficient of Variation 15.2 % (11.5-14.5); RDW Standard Deviation 54.2 fL (36.4-46.3); Red Blood Count 4.85 M/uL (4.2-5.4); White Blood Count 9.37 K/uL (4.8-10.8)
[2019-09-27 06:11] LABS: Immature Granulocytes # (auto) 0.04 K/uL (0.00-0.02); Immature Granulocytes % (auto) 0.4 %; Lymphocytes # (auto) 0.44 K/uL (1.2-3.4); Lymphocytes % (auto) 4.7 %; Monocytes # (auto) 0.17 K/uL (0.11-0.59); Monocytes % (auto) 1.8 %; Neutrophils # (auto) 8.72 K/uL (1.4-6.5); Neutrophils % (auto) 93.1 %; RBC Morphology Unremarkable
[2019-09-27 06:30] LABS: BUN Creatinine Ratio 24.6 (10-20); Calcium 8.7 mg/dl (8.5-10.1); Creatinine Clr Calc Pharmacy 44.5 ml/min; Est GFR (African American) 56.1; Est GFR (Non-African American) 48.4; Magnesium 2.2 mg/dl (1.8-2.4); Potassium 4.7 mmol/L (3.5-5.1)
[2019-09-27] MEDS ORDERED: ACETAMINOPHEN 1,000 MG/100 ML VIAL IV PRN (07:26)
[2019-09-27 07:30] LABS: Estimated Average Glucose 146 mg/dl; Hemoglobin A1C 6.7 % (4.5-5.6)
[2019-09-27] MEDS ORDERED: SODIUM CHLORIDE 0.9% 1000ML 1,000 ML IV SCH (07:30)
[2019-09-27] MEDS ORDERED: ASPIRIN 300 MG SUPP PR SCH (09:00)
[2019-09-27] MEDS ORDERED: IPRATROPIUM BROMIDE/ALBUTEROL respimat INH INH SCH (09:00)
[2019-09-27] MEDS: Ipratropium HFA Inhaler (Combivent Respimat P&T Subs) INH SCH ×3 (09:15→15:37)
[2019-09-27] MEDS: Albuterol HFA 8 GM Inhaler (Combivent Respimat P&T Subs) INH SCH ×3 (09:16→15:37)
--- NOTE | 2019-09-27 11:12 | Hospitalist Progress Note ---
Date of Service September 27, 2019 Assessment & Plan (1) Acute CVA (cerebrovascular accident): -As per admission note that "This is an 84-year-old female who presents with acute cerebrovascular accident. 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 Last well known was 10:30 p.m. last evening. Based on imaging study findings, the patient was not deemed a candidate for TPA and also intervention. Initially [place] neurologist was contacted. And as per the family's request, [facility] neurology was also contacted, and no intervention is planned at this time. -09/27/2019: Patient cannot open her eyes but she answers question appropriately.When eye lids are opened for her, patient has a right lateral gaze preference. left sided facial droop. when patient is asked to move her extremities she can make some right arm and right leg movements but cannot move her left side. -patient to be formally evaluated by speech and swallow service and inpatient neurology service and PT/OT, will likely need assistance with feeding and discussed with grand son Matthew [phone] about placement to SNF given current stroke deficits and if patient demonstrates medical stability Hypertension History of venous insufficiency -will continue with IV Lopressor 2.5 q. 6 hours and IV hydralazine p.r.n. and monitor the blood pressure. -holding scheduled diuretics currently History of atrial fibrillation, status post placement of cardiac pacemaker Coronary artery disease status post coronary artery bypass graft in the past Hyperlipidemia -Continue with IV Lopressor. The patient was not on Coumadin because of diverticular bleed since last 5 years. -on telemetry -when patient can demonstrate stability with swallowing then can titrate to home oral cardiovascular medications Thrombocytopenia, -admission platelets of 112 -monitor Type 2 diabetes mellitus with out alf current use of insulin Chronic kidney disease stage III -Hold home dose Januvia and glimepiride -Placed on insulin sliding scale. -follow renal function Chronic obstructive pulmonary disease -continue Combivent. Obstructive sleep apnea, noncompliant with CPAP -Will continue oxygen in the nighttime Deep venous thrombosis prophylaxis, sequential compression devices for now Conditional code: allows for chest compressions but no defibrillation or intubation Admission and Anticipated Discharge Date Admission Date: September 26, 2019 Subjective Patient cannot open her eyes but she answers question appropriately.When eye lids are opened for her, patient has a right lateral gaze preference. left sided facial droop. when patient is asked to move her extremities she can make some right arm and right leg movements but cannot move her left side. Review of Systems Review of Systems: All systems reviewed & are unremarkable except as noted in Subjective Physical Exam Constitutional: + obese Eyes: Patient cannot open her eyes but she answers question appropriately.When eye lids are opened for her, patient has a right lateral gaze preference ENMT: left sided facial droop Neck: trachea midline, no thyromegaly normal visual inspection Respiratory: normal respiratory effort, lungs clear to auscultation Cardiovascular: Rate/Rhythm: regular rhythm and + bradycardic Gastrointestinal (Abdomen): normal bowel sounds, soft, nontender, no hepatosplenomegaly Musculoskeletal: Head/Neck/Chest: normocephalic Neurologic: when patient is asked to move her extremities she can make some right arm and right leg movements but cannot move her left side Psychiatric: Orientation: alert and cooperative Results & Data Results & Data ([facility]) Vital Signs (Past 12 Hours) Vital Signs Temp Pulse Pulse Resp BP BP BP 09/27/19 07:54 36.4 C L 61 22 163/68 H 09/27/19 05:44 65 170/88 H 09/27/19 04:00 36.5 C 67 16 168/109 H 09/27/19 01:27 60 09/26/19 23:30 36.7 C 74 16 185/84 H 09/26/19 23:25 68 198/93 H Pulse Ox 09/27/19 07:54 98 09/27/19 05:44 09/27/19 04:00 95 09/27/19 01:27 09/26/19 23:30 97 09/26/19 23:25
[2019-09-27] MEDS: ASPIRIN 81 MG CHEW PO SCH (11:34)
--- NOTE | 2019-09-27 16:37 | Communication Note ---
Date of Service: September 27, 2019 I saw Mrs. Alexander today. Her family unfortunately was not around. I had discussed her case last night with the emergency room physicians and have reviewed her imaging studies She has chronic atrial fibrillation not on anticoagulation due to diverticular bleeding and a host of other medical problems as outlined below including chronic renal disease aortic stenosis congestive heart failure hypertension obesity has a pacemaker in place and has had an aortic valve replacement and other issues In this setting she presented with acute assumedly embolic right middle cerebral artery distribution infarction with positive MCA sign on CT scan and has a very dense left hemiparesis with neglect yet is arousable will converse although makes not a great degree of sense, has dysarthric speech, and tonic deviation of the head and eyes to the right with a dense left sean-field cut Thus far she has not had a great degree of developing cerebral edema clinically but probably does have a fair amount of cortical atrophy in her brain may well be able to tolerate this cytotoxic edema and she may well survive this event but it is premature to make this statement Obviously she is not an anticoagulation candidate and was not a TPA candidate I agree with any plans to have limited resuscitation should she decline as a prognosis if this occurs would be very poor. I do not think she is a rehabilitation candidate at this point and I would plan for an extended care facility post discharge I am going off service tomorrow. Dr. Hermosillo will be covering and I will ask him to at least make a single visit to check her status tomorrow I would suggest that some time to get a repeat CT scan to check for increasing edema and hemorrhagic conversion but frankly I am not sure we would do anything different with the result I have put an order in for a noncontrast CT to be done tomorrow but after that the decision regarding further imaging will rest with her hospitalist service and with Dr. Bay Mccarthy MD
[2019-09-27] MEDS ORDERED: FUROSEMIDE 20 MG in SYRINGE 0 ML IV ONE (18:00)
[2019-09-27] MEDS: ALBUT/IPRATROP 3MG/0.5MG NEB 3 ML VIAL NEB SCH (20:18)
[2019-09-28] MEDS: METOPROLOL TARTRATE 1 MG/ML VIAL IV SCH ×3 (00:12→13:04)
--- NOTE | 2019-09-28 05:12 | Electrocardiogram Report ---
Test Reason : Blood Pressure : / mmHG Vent. Rate : 076 BPM Atrial Rate : 068 BPM P-R Int : 000 ms QRS Dur : 164 ms QT Int : 450 ms P-R-T Axes : 000 -88 086 degrees QTc Int : 506 ms Poor data quality, interpretation may be adversely affected Ventricular-paced rhythm Abnormal ECG When compared with ECG of 20-SEP-2018 16:24, Vent. rate has increased BY 10 BPM Confirmed by Elias Ambrose ([id number]) on 09/28/2019 5:11:54 AM Referred By: REFERRED SELF Confirmed By:Elias Ambrose
[2019-09-28] MEDS: ALBUT/IPRATROP 3MG/0.5MG NEB 3 ML VIAL NEB SCH (07:17)
[2019-09-28 07:31] LABS: Hematocrit (blood only) 49.1 % (37-47); Mean Corpuscular Hemoglobin 32.6 pg (25-34); Mean Corpuscular Hgb Conc 32.6 g/dL (32-36); Mean Platelet Volume 12.4 fL (7.4-10.4); Platelet Count 113 K/uL (130-400); RDW Standard Deviation 58.9 fL (36.4-46.3); Red Blood Count 4.91 M/uL (4.2-5.4); White Blood Count 13.27 K/uL (4.8-10.8)
[2019-09-28] MEDS: INSULIN ASPART 100 UNITS/ML 3 ML PEN SC SCH ×3 (07:47→15:49)
[2019-09-28 08:02] LABS: Basophils # (auto) 0.01 K/uL (0-0.2); Basophils % (auto) 0.1 %; Eosinophils # (auto) 0.08 K/uL (0-0.5); Eosinophils % (auto) 0.6 %; Immature Granulocytes # (auto) 0.08 K/uL (0.00-0.02); Immature Granulocytes % (auto) 0.6 %; Lymphocytes # (auto) 0.81 K/uL (1.2-3.4); Lymphocytes % (auto) 6.1 %; Monocytes # (auto) 1.71 K/uL (0.11-0.59); Monocytes % (auto) 12.9 %; Neutrophils # (auto) 10.58 K/uL (1.4-6.5); Neutrophils % (auto) 79.7 %
[2019-09-28] MEDS: ASPIRIN 81 MG CHEW PO SCH (08:05)
[2019-09-28 08:07] LABS: Calcium 9.5 mg/dl (8.5-10.1); Est GFR (African American) 47.7; Est GFR (Non-African American) 41.2; Potassium 4.1 mmol/L (3.5-5.1)
[2019-09-28] MEDS ORDERED: SCOPOLAMINE 1.5 MG TDSY TD ONE (09:00)
[2019-09-28] MEDS ORDERED: D5W AND 1/2NSS 1,000 ML IV SCH (09:00)
--- NOTE | 2019-09-28 09:05 | Hospitalist Progress Note ---
Date of Service September 28, 2019 Assessment & Plan (1) Acute CVA (cerebrovascular accident): Acute cerebrovascular accident with large right MCA stroke with left-sided facial droop and left-sided weakness -As per admission note that "This is an 84-year-old female who presents with acute cerebrovascular accident. 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 Last well known was 10:30 p.m. last evening. Based on imaging study findings, the patient was not deemed a candidate for TPA and also intervention. Initially [facility] neurologist was contacted. And as per the family's request, [facility] neurology was also contact ed, and no intervention is planned at this time. -09/27/2019: Patient cannot open her eyes but she answers question appropriately.When eye lids are opened for her, patient has a right lateral gaze preference. left sided facial droop. when patient is asked to move her extremities she can make some right arm and right leg movements but cannot move her left side. her family did report that later was able to open her eyes with her own power periodically and noted that patient can see them only if they are at her right side. Patient was initially deemed to be allowed to have oral diet by speech and swallow services but then have more difficulties with eating. Neurology Dr. Mccarthy ordered CT head for 09/28/2019 but appears to suggest that patient will have poor prognosis from the stroke in his notes -By 09/28/2019 AM, nurse noted more oral secretions and patient needed suctioning. Patient is able to answer some simple answers but more lethargic today. Discussed with her grandson Matthew ([phone]) who helps patient make medical decisions that her condition appears to not be improving - Matthew allows for Scopolamine patch to minimize the oral secretions to prevent aspiration, Matthew affirms that patient had said that she would not want feeding tube, currently patient to resume IV hydration with dextrose for calories and hydration, Matthew understands that IV hydration is not a residential solution, Matthew agrees that code status to be changed from conditional code to DNR/DNI, he plans to arrange a family meeting and agrees for palliative care consultation Coronary artery disease status post coronary artery bypass graft in the past other cardiology history from outpatient cardiology notes 08/21/2019 of Multifactorial fluid retention including diastolic congestive heart failure; Status post 12/07/2016 TAVR (#26 mm Pavon Sasha S3 aortic valve); Complete heart block s/p single chamber [employer] pacemaker implantation on 12/22/2016 Hypertension Hyperlipidemia -The patient was not on Coumadin because of diverticular bleed since last 5 years. -stable heart rates on telemetry currently -there is prn IV Lopressor if needed for tachycardia -there is IV hydralazine p.r.n. if hypertensive Thrombocytopenia, -admission platelets of 112 -oral aspirin is held because of excessive oral secretions Type 2 diabetes mellitus with out residential current use of insulin Chronic kidney disease stage III -Hold home dose Januvia and glimepiride -Placed on insulin sliding scale. -renal function stable currently Chronic obstructive pulmonary disease -nebulizers prn Obstructive sleep apnea, noncompliant with CPAP -Will continue oxygen in the nighttime Deep venous thrombosis prophylaxis, sequential compression devices for now Code Status: DNR/DNI family:talat Castro ([phone]) Admission and Anticipated Discharge Date Admission Date: September 26, [address] Mccarthy ordered CT head for 09/28/2019 but appears to suggest that patient will have poor prognosis from the stroke in his notes By 09/28/2019 AM, nurse noted more oral secretions and patient needed suctioning. Patient is able to answer some simple answers but more lethargic today. Discussed with her grandson Matthew ([phone]) who helps patient make medical decisions that her condition appears to not be improving - Matthew allows for Scopolamine patch to minimize the oral secretions to prevent aspiration, Matthew affirms that patient had said that she would not want feeding tube, currently p atient to resume IV hydration with dextrose for calories and hydration, Matthew understands that IV hydration is not a residential solution, Matthew agrees that code status to be changed from conditional code to DNR/DNI, he plans to arrange a family meeting and agrees for palliative care consultation Review of Systems Review of Systems: Unobtainable due to cognitive status Physical Exam Constitutional: + obese Eyes: patient cannot open her eyes on command, right gaze preference ENMT: external ear and nose normal, oropharynx normal Neck: trachea midline, no thyromegaly normal visual inspection Respiratory: normal respiratory effort, lungs clear to auscultation Cardiovascular: Rate/Rhythm: regular rhythm and + bradycardic Gastrointestinal (Abdomen): normal bowel sounds, soft, nontender, no hepatosplenomegaly Musculoskeletal: Head/Neck/Chest: normocephalic Neurologic: left sided weakness Psychiatric: Orientation: alert and cooperative Results & Data Results & Data ([facility]) Vital Signs (Past 12 Hours) Vital Signs Temp Pulse Pulse Pulse Resp BP BP 09/28/19 07:21 63 22 09/28/19 07:06 36.9 C 60 16 117/75 09/28/19 06:12 60 151/77 H 09/28/19 03:20 36.4 C L 62 16 202/72 H 09/28/19 00:12 60 166/87 H 09/27/19 23:37 36.6 C 61 16 166/78 H Pulse Ox 09/28/19 07:21 95 09/28/19 07:06 96 09/28/19 06:12 09/28/19 03:20 93 09/28/19 00:12 09/27/19 23:37 92
[2019-09-28] MEDS ORDERED: ALBUT/IPRATROP 3MG/0.5MG NEB 3 ML VIAL NEB PRN (11:00)
[2019-09-28] MEDS ORDERED: LORazepam 0.5 MG/1 ML VIAL IV PRN (12:48)
[2019-09-28] MEDS ORDERED: LORazepam 0.5 MG TAB PO PRN (12:48)
[2019-09-28] MEDS ORDERED: ONDANSETRON 4 MG OD TAB SL PRN (12:48)
[2019-09-28] MEDS ORDERED: ONDANSETRON INJ 2 MG/ML 2 ML VIAL IV PRN (12:48)
[2019-09-28] MEDS: CHECK SCOPOLAMINE PATCH PLACEMENT SCH (15:49)
[2019-09-28] MEDS: ATROPINE SULFATE 1% OP SOLN 2 ML BTL SL PRN ×2 (17:01→18:55)
[2019-09-29] MEDS: CHECK SCOPOLAMINE PATCH PLACEMENT SCH ×3 (00:38→16:25)
[2019-09-29 06:07] LABS: BUN Creatinine Ratio 28.2 (10-20); Calcium 8.8 mg/dl (8.5-10.1); Creatinine Clr Calc Pharmacy 47.3 ml/min; Est GFR (African American) 60.2; Potassium 4.3 mmol/L (3.5-5.1)
[2019-09-29 06:09] LABS: Basophils # (auto) 0.02 K/uL (0-0.2); Basophils % (auto) 0.2 %; Eosinophils % (auto) 1.7 %; Immature Granulocytes # (auto) 0.08 K/uL (0.00-0.02); Immature Granulocytes % (auto) 0.7 %; Lymphocytes # (auto) 1.26 K/uL (1.2-3.4); Lymphocytes % (auto) 10.8 %; Mean Corpuscular Hemoglobin 31.6 pg (25-34); Mean Corpuscular Hgb Conc 31.9 g/dL (32-36); Mean Corpuscular Volume 99.2 fL (80-100); Mean Platelet Volume 12.2 fL (7.4-10.4); Monocytes # (auto) 1.24 K/uL (0.11-0.59); Monocytes % (auto) 10.7 %; Neutrophils # (auto) 8.84 K/uL (1.4-6.5); Neutrophils % (auto) 75.9 %; Platelet Count 109 K/uL (130-400); RDW Standard Deviation 58.4 fL (36.4-46.3); Red Blood Count 4.74 M/uL (4.2-5.4); White Blood Count 11.64 K/uL (4.8-10.8)
[2019-09-29] MEDS ORDERED: MoRPHine SULFATE 5 MG/0.25 ML UDP PO PRN (07:43)
--- NOTE | 2019-09-29 10:12 | Hospitalist Progress Note ---
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 Last well known was 10:30 p.m. last evening. Based on imaging study findings, the patient was not deemed a candidate for TPA and also intervention. Initially [place] neurologist was contacted. And as per the family's request, [facility] neurology was also contacted, and no intervention is planned at this time. -09/27/2019: Patient cannot open her eyes but she answers question appropriately.When eye lids are opened for her, patient has a right lateral gaze preference. left sided facial droop. when patient is asked to move her extremities she can make some right arm and right leg movements but cannot move her left side. her family did report that later was able to open her eyes with her own power periodically and noted that patient can see them only if they are at her right side. Patient was initially deemed to be allowed to have oral diet by speech and swallow services but then have more difficulties with eating. Neurology Dr. Mccarthy ordered CT head for 09/28/2019 but appears to suggest that patient will have poor prognosis from the stroke in his notes -By 09/28/2019 AM, nurse noted more oral secretions and patient needed suctioning. Patient is able to answer some simple answers but more lethargic today. Discussed with her grandson Matthew ([phone]) who helps patient make medical decisions that her condition appears to not be improving - Matthew allows for Scopolamine patch to minimize the oral secretions to prevent aspiration, Matthew affirms that patient had said that she would not want feeding tube, currently patient to resume IV hydration with dextrose for calories and hydration, Matthew understands that IV hydration is not a exterminator helper solution, Matthew agrees that code status to be changed from conditional code to DNR/DNI, he plans to arrange a family meeting and agrees for palliative care consultation. hospitalist had family meeting with grandambrocio Castro and patient's son Rush Rios ([phone]) and other family members and they are all in agreement for comfort care measures and to pursue hospice. case manger updated. IV hydration to be stopped. no further imaging or labs. medications that will continued to be used will be to treat for pain or excessive oral secretions or dyspnea. transferred off telemetry -09/29/2019: patient on comfort care. patient with snoring with sleep, grandson at bedside since AM and patient not speaking to him, patient does make sporadic movements of left foot while sleeping and snoring. patient not appear to be in acute distress. Coronary artery disease status post coronary artery bypass graft in the past other cardiology history from outpatient cardiology notes 08/21/2019 of Multifactorial fluid retention including diastolic congestive heart failure; Status post 12/07/2016 TAVR (#26 mm Pavon Sasha S3 aortic valve); Complete heart block s/p single chamber Medtronic pacemaker implantation on 12/22/2016 Hypertension Hyperlipidemia -The patient was not on Coumadin because of diverticular bleed since last 5 years. Thrombocytopenia, -admission platelets of 112 -no further labs on comfort care Type 2 diabetes mellitus with out exterminator helper current use of insulin Chronic kidney disease stage III -no further labs on comfort care Chronic obstructive pulmonary disease -nebulizers prn Obstructive sleep apnea, noncompliant with CPAP -oxygen as needed, HS Deep venous thrombosis prophylaxis, sequential compression devices for now Code Status: DNR/DNI family:talat Castro ([phone]), son Rush Rios ([phone]) Admission and Anticipated Discharge Date Admission Date: September 26, 2019 Subjective patient on comfort care. patient with snoring with sleep, grandson at bedside since AM and patient not speaking to him, patient does make sporadic movements of left foot while sleeping and snoring. patient not appear to be in acute distress. Review of Systems Review of Systems: Unobtainable due to cognitive status Physical Exam Constitutional: + obese ENMT: external ear and nose normal, oropharynx normal Neck: trachea midline, no thyromegaly normal visual inspection Respiratory: normal respiratory effort, lungs clear to auscultation Cardiovascular: Rate/Rhythm: regular rhythm and + bradycardic Gastrointestinal (Abdomen): Inspection/Auscultation: normal bowel sounds Musculoskeletal: Head/Neck/Chest: normocephalic Neurologic: patient on comfort care. patient with snoring with sleep, grandson at bedside since AM and patient not speaking to him, patient does make sporadic movements of left foot while sleeping and snoring. patient not appear to be in acute distress. Psychiatric: Orientation: alert and cooperative
[2019-09-30] MEDS: CHECK SCOPOLAMINE PATCH PLACEMENT SCH ×3 (01:00→16:14)
--- NOTE | 2019-09-30 08:20 | Hospitalist Progress Note ---
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 Last well known was 10:30 p.m. last evening. Based on imaging study findings, the patient was not deemed a candidate for TPA and also intervention. Initially [place] neurologist was contacted. And as per the family's request, [facility] neurology was also contacted, and no intervention is planned at this time. -09/27/2019: Patient cannot open her eyes but she answers question appropriately.When eye lids are opened for her, patient has a right lateral gaze preference. left sided facial droop. when patient is asked to move her extremities she can make some right arm and right leg movements but cannot move her left side. her family did report that later was able to open her eyes with her own power periodically and noted that patient can see them only if they are at her right side. Patient was initially deemed to be allowed to have oral diet by speech and swallow services but then have more difficulties with eating. Neurology Dr. Mccarthy ordered CT head for 09/28/2019 but appears to suggest that patient will have poor prognosis from the stroke in his notes -By 09/28/2019 AM, nurse noted more oral secretions and patient needed suctioning. Patient is able to answer some simple answers but more lethargic today. Discussed with her grandson Matthew ([phone]) who helps patient make medical decisions that her condition appears to not be improving - Matthew allows for Scopolamine patch to minimize the oral secretions to prevent aspiration, Matthew affirms that patient had said that she would not want feeding tube, currently patient to resume IV hydration with dextrose for calories and hydration, Matthew understands that IV hydration is not a senior care solution, Matthew agrees that code status to be changed from conditional code to DNR/DNI, he plans to arrange a family meeting and agrees for palliative care consultation. hospitalist had family meeting with grandambrocio Castro and patient's son Rush Rios ([phone]) and other family members and they are all in agreement for comfort care measures and to pursue hospice. case manger updated. IV hydration to be stopped. no further imaging or labs. medications that will continued to be used will be to treat for pain or excessive oral secretions or dyspnea. transferred off telemetry -09/29/2019: patient on comfort care. patient with snoring with sleep, grandson at bedside since AM and patient not speaking to him, patient does make sporadic movements of left foot while sleeping and snoring. patient not appear to be in acute distress. -09/30/2019: patient on comfort care, she is more awake and alert today and asking for water. when medical doctor gives her a wet oral care sponge in her mouth, patient coughing. discussed with talat Matthew that patient high risk for aspirating but we can try nectar thick diet for comfort. patient able to follow directions to raise the right arm or right leg - cannot move the left side. she can open her eyes on her own but not always fully and continues to have right lateral gaze preference. patient not in acute pain at this time. discussed with ambrocio Castro that palliative care nurse will talk about POLST forms and preferences today and that patient's family will be at bedside later today. Coronary artery disease status post coronary artery bypass graft in the past outpatient cardiology notes 08/21/2019 of "Multifactorial fluid retention including diastolic congestive heart failure; Status post 12/07/2016 TAVR (#26 mm Pavon Sasha S3 aortic valve); Complete heart block s/p single chamber Medtronic pacemaker implantation on 12/22/2016" History of Atrial Fibrillation Hypertension Hyperlipidemia -The patient was not on Coumadin because of diverticular bleed since last 5 years. Thrombocytopenia, -admission platelets of 112 -no further labs on comfort care Type 2 diabetes mellitus with out meterman current use of insulin Chronic kidney disease stage III -no further labs on comfort care Chronic obstructive pulmonary disease -nebulizers prn Obstructive sleep apnea -nonadherent to CPAP as outpatient -oxygen as needed, HS Deep venous thrombosis prophylaxis, sequential compression devices for now Code Status: DNR/DNI family:talat Castro ([phone]), son Rush Rios ([phone]) Admission and Anticipated Discharge Date Admission Date: September 26, 2019 Subjective patient on comfort care, she is more awake and alert today and asking for water. when medical doctor gives her a wet oral care sponge in her mouth, patient coughing. discussed with talat Castro that patient high risk for aspirating but we can try nectar thick diet for comfort. patient able to follow directions to raise the right arm or right leg - cannot move the left side. she can open her eyes on her own but not always fully and continues to have right lateral gaze preference. patient not in acute pain at this time. discussed with talat Castro that palliative care nurse will talk about POLST forms and preferences today and that patient's family will be at bedside later today. Review of Systems Review of Systems: Unobtainable due to cognitive status Physical Exam Constitutional: + obese ENMT: external ear and nose normal, oropharynx normal Neck: trachea midline, no thyromegaly normal visual inspection Respiratory: normal respiratory effort, lungs clear to auscultation Cardiovascular: Rate/Rhythm: + bradycardic Gastrointestinal (Abdomen): normal bowel sounds, soft, nontender, no hepatosplenomegaly Inspection/Auscultation: normal bowel sounds Musculoskeletal: Head/Neck/Chest: normocephalic Neurologic: she is more awake and alert today and asking for water. when medical doctor gives her a wet oral care sponge in her mouth, patient coughing. discussed with talat Castro that patient high risk for aspirating but we can try nectar thick diet for comfort. patient able to follow directions to raise the right arm or right leg - cannot move the left side. she can open her eyes on her own but not always fully and continues to have right lateral gaze preference. Psychiatric: Orientation: cooperative
[2019-09-30] MEDS: ACETAMINOPHEN 1,000 MG/100 ML VIAL IV PRN ×2 (08:44→18:21)
--- NOTE | 2019-09-30 10:35 | Palliative Care Consultation ---
Date of Consultation September 30, 2019 Assessment & Plan (1) Goals of care, counseling/discussion: This is an 84 year old female who presented to the [facility] with symptoms of an acute CVA that includes left-sided facial droop and weakness. Additional PMH includes HTN, CAD s/p CABG x3 in 1997, DM2, HLD, CKD Stage III, Aortic Stenosis, CHF, and Thoracic compression fracture. She was known to be last well at 10:30 AM the day before. Imaging and collaboration was done with both [facility] based on the results that showed her to have suffered a large right MCA CVA. Based on timeframes, she was deemed not a candidate for TPA and no medicinal intervention was planned. Lengthy discussions have been held with the patients family by Dr. Faustin, the hospitalist, over the past few days regarding goals of care which is appreciated. The family has decided to forgo aggressive treatment and focus on FOOD PREPARER. Palliative Care was consulted to continue these discussions. -I first had conversation with Dr. Faustin regarding this patient and current condition and family state. -I visited the patient, no family at bedside. Patient was asleep and did not open her eyes to verbal or tactile stimulli. She did have spontaneous movement of her right leg and foot and moaned, but no purposeful engagement. -The patient has been transitioned to FOOD PREPARER; however, now the family is feeling concerns that her mental status is fluctuating, being more awake yesterday. -The patient is a care home resident at [facility] and previous discussions were held regarding returning with Hospice Services. -I had a lengthy conversation with the patients grandson and main decision maker, Matthew at ([phone]). He agreed that the family had waffled and were confused to see her more interactive yesterday. -We discussed rehab potential, blood draws, etc. Of course, you could pursue all of these things; however, looking at the quality of life (which is different for each person), and the likely continued outcome, all while taking risk vs benefit into consideration. -I provided comfort and reassurance that for strokes, with the extent of severity, along with taking into consideration her other comorbidities, the risk may outweigh benefits. Matthew agreed and all questions answered. -He said that this AM he had an internal conversation with the rest of his family and agreed she would not want intervention. Apparently multiple family members, including one of the patients parents and even her suffered from stroke related illness. -I explained how if she has a good day and is more interactive, focus on quality of life and embrace those days. If she has lethargic or uncomfortable days, treat with medications to keep her comfortable. -Dr. Faustin has already ordered comfort medications, including PRN Ativan, Roxanol, and Atropine. Atropine was given two days prior for copious secretions. -We discussed IV fluids and aspiration risk. Knowing aspiration is likely to continue regardless of ST intervention, family has decided to forgo further investigation for recommendations and will focus on comfort feedings. -A POLST form was completed over the phone indicating: DNR.DNI, SMO, trial abx (ok to trial abx for suspection aspiration PNA or UTI, if she responds, great...if not, would like to focus more on comfort and no IV intervention), and no artificial nutrition.hydration. Grandson to sign POLST when he comes to hospital. -Family would like to pursue returning to [facility] with Hospice services. They have no preference for hospice agency and would like case management to chose based on [facility] preference. -Patient does appear comfortable and stable for discharge at this time. -Life expectancy days to weeks without nutritional intervention. -The above was communicated with the hospitalist. -PPS: 20% (2) Acute CVA (cerebrovascular accident): (3) Chronic diastolic CHF (congestive heart failure): (4) CKD (chronic kidney disease), stage III: (5) CAD (coronary artery disease): History of Present Illness Reason for Consultation: Goals of care Requesting Physician: Dr. Faustin Attending Physician: Manuel Faustin MD History of Present Illness This is an 84 year old female who presented to the [facility] with symptoms of an acute CVA that includes left-sided facial droop and weakness. Additional PMH includes HTN, CAD s/p CABG x3 in 1997, DM2, HLD, CKD Stage III, Aortic Stenosis, CHF, and Thoracic compression fracture. She was known to be last well at 10:30 AM the day before. Imaging and collaboration was done with both [facility] and [facility] neurolog[place] based on the results that showed her to have suffered a large right MCA CVA. Based on timeframes, she was deemed not a candidate for TPA and no medicinal intervention was planned. Lengthy discussions have been held with the patients family by Dr. Faustin, the hospitalist, over the past few days regarding goals of care which is appreciated. The family has decided to forgo aggressive treatment and focus on FOOD PREPARER. Palliative Care was consulted to continue these discussions. Please see A/P for further details. Thank you kindly for involving the palliative care service with this patient. Allergies Allergy/AdvReac Type Severity Reaction Status Date / Time Iodinated Contrast Media Allergy Intermediate HIVES/ Verified 09/26/19 19:23 LOST VOICE clonazepam Allergy Unknown Rash, hives Verified 09/26/19 19:23 lisinopril AdvReac Mild COUGH Verified 09/26/19 19:23 meperidine AdvReac Unknown Hallucinati Unverified 09/26/19 19:23 ons Home Medications Home Medications Medication Instructions Recorded Confirmed Type acetaminophen [Tylenol Extra 500 - 1,000 mg PO Q8H PRN 09/20/18 09/26/19 History Strength] aspirin [Adult Aspirin Regimen] 81 mg PO DAILY 09/20/18 09/26/19 History atorvastatin 20 mg PO HS 09/20/18 09/26/19 History cholecalciferol (vitamin D3) 2,000 unit PO DAILY 09/20/18 09/26/19 History [Vitamin D3] docusate sodium 100 mg PO BID 09/20/18 09/26/19 History glimepiride 2 mg PO DAILY 09/20/18 09/26/19 History ipratropium-albuterol [Combivent 1 puff INHALATION QID 09/20/18 09/26/19 History Respimat] losartan 50 mg PO DAILY 09/20/18 09/26/19 History metoprolol succinate 50 mg PO DAILY 09/20/18 09/26/19 History nitroglycerin 0.4 mg SUBLINGUAL DIRECTED PRN 09/20/18 09/26/19 History pyridoxine (vitamin B6) 100 mg PO DAILY 09/20/18 09/26/19 History sitagliptin [Januvia] 50 mg PO QAM 09/20/18 09/26/19 History baclofen 10 mg PO BID PRN 09/26/19 09/26/19 History furosemide 20 mg PO 2XWK 08/19/20 08/19/20 History furosemide 40 mg PO 5XWK 09/26/19 09/26/19 History isosorbide mononitrate 60 mg PO DAILY 09/26/19 09/26/19 History prednisone 20 mg PO .DAILY/UD 09/26/19 09/26/19 History Patient History Medical History Afib Aortic stenosis AVN of femur CAD (coronary artery disease) "S/P CABG x 3 1997 Cardiac cath 03/2016 demonstrated patent stents" Chronic diastolic CHF (congestive heart failure) CKD (chronic kidney disease), stage III Complete heart block DM2 (diabetes mellitus, type 2) GI bleed Goals of care, counseling/discussion History of cardioversion History of pacemaker History of revision of total replacement of left hip joint HLD (hyperlipidemia) HTN (hypertension) Hypertension Thoracic compression fracture Surgical History History of appendectomy History of cataract surgery History of partial hysterectomy History of total left hip replacement History of total right hip replacement S/P right knee arthroscopy S/P TAVR (transcatheter aortic valve replacement) Status post coronary artery bypass grafting Family History Other Family history non-contributory Social History Smoking Status: Never smoker Hx Alcohol Use: No Hx Substance Use: No Preferred Language: Azeri Communication Ability: Impaired Transportation Design Engineer Required: No Beliefs That Will Affect Care: None Current Living Situation: Alone Other Information That Helps Us Care for You: No Feels Safe at Home: Yes Safety Concerns: Feels Safe At This Time Physical Exam Constitutional: + ill appearing, + morbidly obese and + lethargic Respiratory: normal respiratory effort Auscultation: + diminished lung sounds and + rhonchi Cardiovascular: RRR, no murmur, no edema Gastrointestinal (Abdomen): normal bowel sounds, soft, nontender, no hepatosplenomegaly Percussion/Palpation: abdomen soft Psychiatric: Insight: + impaired insight Judgement: + impaired judgement PG Care Time/CCT Total # of Minutes Spent Total Time Spent with Patient: Total time spent is greater than 50% in coordination of care (as documented) at patient's floor/unit and/or counseling patient: 100 Coding Level of Care Code 68223 Inpt Consult Level 4 Diagnoses Goals of care, counseling/discussion Z71.89 Acute CVA (cerebrovascular accident) I63.9 Chronic diastolic CHF (congestive heart failure) I50.32 CKD (chronic kidney disease), stage III N18.3 CAD (coronary artery disease) I25.10 Time Spent (min) 100 Time Spent Midlevel Time spent 100 minutes with > 50% of that time spent assessing the patient, discussing goals of care with the family and IDT, all while completing a POLST form.
[2019-10-01] MEDS: CHECK SCOPOLAMINE PATCH PLACEMENT SCH ×3 (00:22→18:17)
--- NOTE | 2019-10-01 09:06 | Hospitalist Progress Note ---
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 Last well known was 10:30 p.m. last evening. Based on imaging study findings, the patient was not deemed a candidate for TPA and also intervention. Initially [place] neurologist was contacted. And as per the family's request, [facility] neurology was also contacted, and no intervention is planned at this time. -09/27/2019: Patient cannot open her eyes but she answers question appropriately.When eye lids are opened for her, patient has a right lateral gaze preference. left sided facial droop. when patient is asked to move her extremities she can make some right arm and right leg movements but cannot move her left side. her family did report that later was able to open her eyes with her own power periodically and noted that patient can see them only if they are at her right side. Patient was initially deemed to be allowed to have oral diet by speech and swallow services but then have more difficulties with eating. Neurology Dr. Mccarthy ordered CT head for 09/28/2019 but appears to suggest that patient will have poor prognosis from the stroke in his notes -By 09/28/2019 AM, nurse noted more oral secretions and patient needed suctioning. Patient is able to answer some simple answers but more lethargic today. Discussed with her grandson Matthew ([phone]) who helps patient make medical decisions that her condition appears to not be improving - Matthew allows for Scopolamine patch to minimize the oral secretions to prevent aspiration, Matthew affirms that patient had said that she would not want feeding tube, currently patient to resume IV hydration with dextrose for calories and hydration, Matthew understands that IV hydration is not a retirement solution, Matthew agrees that code status to be changed from conditional code to DNR/DNI, he plans to arrange a family meeting and agrees for palliative care consultation. hospitalist had family meeting with grandambrocio Castro and patient's son Rush Rios ([phone]) and other family members and they are all in agreement for comfort care measures and to pursue hospice. case manger updated. IV hydration to be stopped. no further imaging or labs. medications that will continued to be used will be to treat for pain or excessive oral secretions or dyspnea. transferred off telemetry -09/29/2019: patient on comfort care. patient with snoring with sleep, grandson at bedside since AM and patient not speaking to him, patient does make sporadic movements of left foot while sleeping and snoring. patient not appear to be in acute distress. -09/30/2019: patient on comfort care, she is more awake and alert today and asking for water. when medical doctor gives her a wet oral care sponge in her mouth, patient coughing. discussed with talat Castro that patient high risk for aspirating but we can try nectar thick diet for comfort. patient able to follow directions to raise the right arm or right leg - cannot move the left side. she can open her eyes on her own but not always fully and continues to have right lateral gaze preference. patient not in acute pain at this time. discussed with talat Castro that palliative care nurse will talk about POLST forms and preferences. Palliative affirmed comfort care and comments that patient may try medications as tolerated -10/01/2019 patient continues to be on comfort care. She is awake and able to open her eyes and talk with medical doctor, continues to have right lateral gaze preference and left sided paralysis. Patient reports she was able to eat eggs fro breakfast but nurse reports that when patient was fed the eggs she had coughed all over. since palliative care did comment that patient can take medications as tolerated when on hospice, nurse is asked to try to see patient can take any oral medications at all - will try aspirin 81 mg, and home medication dosing of losartan 50 mg and metoprolol succinate 50 mg daily Coronary artery disease status post coronary artery bypass graft in the past outpatient cardiology notes 08/21/2019 of "Multifactorial fluid retention including diastolic congestive heart failure; Status post 12/07/2016 TAVR (#26 mm Pavon Sasha S3 aortic valve); Complete heart block s/p single chamber Medtronic pacemaker implantation on 12/22/2016" History of Atrial Fibrillation Hypertension Hyperlipidemia -The patient was not on Coumadin because of diverticular bleed since last 5 years. Thrombocytopenia, -admission platelets of 112 -no further labs on comfort care Type 2 diabetes mellitus with out retirement current use of insulin Chronic kidney disease stage III -no further labs on comfort care Chronic obstructive pulmonary disease -nebulizers prn Obstructive sleep apnea -nonadherent to CPAP as outpatient -oxygen as needed, HS Deep venous thrombosis prophylaxis, sequential compression devices for now Code Status: DNR/DNI family:grandambrocio Castro ([phone]), son Rush Rios ([phone]) Admission and Anticipated Discharge Date Admission Date: September 26, 2019 Subjective patient continues to be on comfort care. She is awake and able to open her eyes and talk with medical doctor, continues to have right lateral gaze preference and left sided paralysis. Patient reports she was able to eat eggs fro breakfast but nurse reports that when patient was fed the eggs she had coughed all over. since palliative care did comment that patient can take medications as tolerated when on hospice, nurse is asked to try to see patient can take any oral medications at all - will try aspirin 81 mg, and home medication dosing of losartan 50 mg and metoprolol succinate 50 mg daily Review of Systems Review of Systems: All systems reviewed & are unremarkable except as noted in Subjective Physical Exam Constitutional: + obese Eyes: right lateral gaze preference ENMT: external ear and nose normal, oropharynx normal Neck: trachea midline, no thyromegaly normal visual inspection Respiratory: normal respiratory effort, lungs clear to auscultation Cardiovascular: Rate/Rhythm: + bradycardic Gastrointestinal (Abdomen): normal bowel sounds, soft, nontender, no hepatosplenomegaly Inspection/Auscultation: normal bowel sounds Musculoskeletal: Head/Neck/Chest: normocephalic Neurologic: left sided paralysis Psychiatric: Orientation: cooperative
[2019-10-01] MEDS: ASPIRIN 81 MG ECTAB PO SCH (10:30)
[2019-10-01] MEDS: LOSARTAN POTASSIUM 50 MG TAB PO SCH (10:30)
[2019-10-01] MEDS: METOPROLOL SUCC 50MG EXT REL TAB PO SCH (10:30)
[2019-10-01] MEDS: ACETAMINOPHEN 1,000 MG/100 ML VIAL IV PRN (16:23)
[2019-10-01] MEDS: ISOSORBIDE MONO EXTENDED REL 60 MG TABCR PO SCH (18:31)
[2019-10-02] MEDS: ISOSORBIDE MONO EXTENDED REL 60 MG TABCR PO SCH (08:18)
[2019-10-02] MEDS: LOSARTAN POTASSIUM 50 MG TAB PO SCH (08:18)
[2019-10-02] MEDS: ASPIRIN 81 MG ECTAB PO SCH (08:18)
[2019-10-02] MEDS: METOPROLOL SUCC 50MG EXT REL TAB PO SCH (08:18)
--- NOTE | 2019-10-02 10:44 | Hospitalist Progress Note ---
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 Last well known was 10:30p.m. last evening. Based on imaging study findings, the patient was not deemed a candidate for TPA and also intervention. Initially [place] neurologist was contacted. And as per the family's request, [facility] neurology was also contacted, and no intervention is planned at this time." -09/27/2019: Patient cannot open her eyes but she answers question appropriat fay.When eye lids are opened for her, patient has a right lateral gaze preference. left sided facial droop. when patient is asked to move her extremities she can make some right arm and right leg movements but cannot move her left side. her family did report that later was able to open her eyes with her own power periodically and noted that patient can see them only if they are at her right side. Patient was initially deemed to be allowed to have oral diet by speech and swallow services but then have more difficulties with eating. Neurology Dr. Mccarthy ordered CT head for 09/28/2019 but appears to suggest that patient will have poor prognosis from the stroke in his notes -By 09/28/2019 AM, nurse noted more oral secretions and patient needed suctioning. Patient is able to answer some simple answers but more lethargic today. 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 hospitalist had family meeting with grandambrocio Castro and patient's son Rush Alexander [facility] ([phone]) and other family members and they are all in agreement for comfort care measures and to pursue hospice. case asiya updated. IV hydration to be stopped. no further imaging or labs. medications that will c ontinued to be used will be to treat for pain or excessive oral secretions or dyspnea. transferred off telemetry -09/29/2019: patient on comfort care. patient with snoring with sleep, grandson at bedside since AM and patient not speaking to him, patient does make sporadic movements of left foot while sleeping and snoring. patient not appear to be in acute distress. -09/30/2019: patient on comfort care, she is more awake and alert today and asking for water. when medical doctor gives her a wet oral care sponge in her mouth, patient coughing. discussed with talat Castro that patient high risk for aspirating but we can try nectar thick diet for comfort. patient able to follow directions to raise the right arm or right leg - cannot move the left side. she can open her eyes on her own but not always fully and continues to have right lateral gaze preference. patient not in acute pain at this time. discussed with talat Castro that palliative care nurse will talk about POLST forms and prefer ences. Palliative affirmed comfort care and comments that patient may try medications as tolerated -10/01/2019 patient continues to be on comfort care. She is awake and able to open her eyes and talk with medical doctor, continues to have right lateral gaze preference and left sided paralysis. Patient reports she was able to eat eggs fro breakfast but nurse reports that when patient was fed the eggs she had coughed all over. since palliative care did comment that patient can take medications as tolerated when on hospice, nurse was asked to try to see patient can take any oral medications at all - will try aspirin 81 mg, and home medication dosing of losartan 50 mg and metoprolol succinate 50 mg daily. met with patient's family (i.e. Matthew) again try to discuss with them about future plans since patient meeting some stability while on comfort care. patient was awake but could not seem to appreciate complicated medical decisions. Matthew agrees to slowly allow for medical measures to be re-instituted such as if patient can tolerate oral medications, which will need to have monitored vital signs, allow for speech and swallow evaluations as tolerated -10/02/2019 updates: will request PT/OT evaluations. patient to continue diet and oral cardiovascular medications with aspirin as tolerated. will not give home dose furosemide because of concerns for poor oral intake, speech and swallow evaluations as tolerated Coronary artery disease status post coronary artery bypass graft in the past outpatient cardiology notes 08/21/2019 of "Multifactorial fluid retention including diastolic congestive heart failure; Status post 12/07/2016 TAVR (#26 mm Pavon Sasha S3 aortic valve); Complete heart block s/p single chamber Medtronic pacemaker implantation on 12/22/2016" History of Atrial Fibrillation Hypertension Hyperlipidemia -The patient was not on Coumadin because of diverticular bleed since last 5 years. Thrombocytopenia, -admission platelets of 112 -no further labs while on comfort care Type 2 diabetes mellitus with out care home current use of insulin Chronic kidney disease stage III -no further labs while on comfort care Chronic obstructive pulmonary disease -nebulizers prn Obstructive sleep apnea -nonadherent to CPAP as outpatient -oxygen as needed, HS Deep venous thrombosis prophylaxis, sequential compression devices for now Code Status: DNR/DNI family:grandambrocio Castro ([phone]), son Rush Alexander [facility] ([phone]) Admission and Anticipated Discharge Date Admission Date: September 26, 2019 Subjective patient sleeping and medical doctor did not wish to wake her up. nurse did report patient able to cooperate with cleaning and eating Review of Systems Review of Systems: Unobtainable due to cognitive status Physical Exam Constitutional: + obese patient sleeping ENMT: external ear and nose normal, oropharynx normal Neck: trachea midline, no thyromegaly normal visual inspection Respiratory: normal respiratory effort, lungs clear to auscultation Cardiovascular: Rate/Rhythm: + bradycardic Gastrointestinal (Abdomen): normal bowel sounds, soft, nontender, no hepatosplenomegaly Inspection/Auscultation: normal bowel sounds Musculoskeletal: Head/Neck/Chest: normocephalic Results & Data Results & Data ([facility]) Vital Signs (Past 12 Hours) Vital Signs BP 0825/20 07:29 150/73 H
--- NOTE | 2019-10-02 14:51 | Palliative Care Progress Note ---
Date of Service October 02, 2019 Assessment & Plan (1) Goals of care, counseling/discussion: Pt is an 84 yo female who presented to the [facility] on 09/25 with symptoms of an acute CVA that includes left-sided facial droop and left-sided weakness. Additional PMH includes HTN, CAD s/p CABG x3 in 1997, DM2, HLD, CKD Stage III, Aortic Stenosis, CHF, and Thoracic compression fracture. Imaging and collaboration was done with both [facility] and [facility] [place] [place] neurology based on the results that showed her to have suffered a large right MCA CVA. Based on timeframes, she was deemed not a candidate for tPA and no medicinal intervention was planned. Lengthy discussions have been held with the patients family by Dr. Faustin, the hospitalist, over the past few days regarding goals of care which is appreciated. The family has decided to forgo aggressive treatment and focus on TUNNEL INSPECTOR. Palliative Care was consulted to continue these discussions. -Patient seen and examined, no family at bedside. Patient was awake but did not open her eyes, she would nod yes or no to some simple questions. -The patient has been transitioned to TUNNEL INSPECTOR; however, some family members expressed concerns that her mental status is fluctuating, being more awake over the weekend. Spoke with patient's grandson-goal is still for placement with hospice care. -The patient is a long-term resident at [facility] and plan is to return with hospice services, they will not have a bed available to the end of the week, [facility] has given approval to locate a bed at [facility] if possible. -Family aware that she will continue to have "good" days as well as "bad" days - focus on quality of life and enjoy the good days. If she has lethargic or u ncomfortable days, treat with medications to keep her comfortable. -A POLST form was completed over the phone indicating: DNR.DNI, SMO, trial abx (ok to trial abx for suspection aspiration PNA or UTI, if she responds, great...if not, would like to focus more on comfort and no IV intervention), and no artificial nutrition.hydration. Grandson signed POLST -he stated it is c urrently in her chart. -Family would like to pursue returning to [facility] with Hospice services or [facility] - they have no preference for hospice agency and would like case management to chose based on facility preference. -Patient does appear comfortable and stable for discharge at this time. -Life expectancy days to weeks without nutritional intervention. -PPS: 20% (2) Acute CVA (cerebrovascular accident): (3) Chronic diastolic CHF (congestive heart failure): (4) CKD (chronic kidney disease), stage III: (5) CAD (coronary artery disease): Admission and Anticipated Discharge Date Admission Date: September 26, 2019 Subjective Chart reviewed, patient seen and examined. No family present at bedside. Patient is status post right CVA with left hemiparesis and left neglect. Patient is on TUNNEL INSPECTOR. Spoke with patient's POA, her grandson Matthew, at 2:50 PM today-plan is to continue comfort care, can continue medications that she is able to take for comfort, plan is for SNF placement with hospice. Review of Systems Review of Systems: Unobtainable due to cognitive status Physical Exam Physical Exam: PE: Patient appears comfortable at rest. Patient could not yes or no to simple questions only. HEENT: Right gaze preference, did not open eyes on her own during exam, no excess oral secretions Respirations: Unlabored, clear breath sounds CV: Regular rate, no edema Abdomen: Soft, no grimace on palpation Extremities: Dense left hemiparesis Neuro: Left neglect, dysphasia, aphasia. Results & Data ([facility]) Vital Signs (Past 12 Hours) Vital Signs BP 08/25/20 07:29 150/73 H PG Care Time/CCT Total # of Minutes Spent Total Time Spent with Patient: Total time spent 35 minutes with greater than 50% of the time spent at bedside assessing patient's current function and comfort level as well as collaborating with family regarding goals of care. Is greater than 50% in coordination of care (as documented) at patient's floor/unit and/or counseling patient: Coding Level of Care Code 13512 Subseq Hosp Care Lvl 3 Diagnoses Goals of care, counseling/discussion Z71.89 Acute CVA (cerebrovascular accident) I63.9 Chronic diastolic CHF (congestive heart failure) I50.32 CKD (chronic kidney disease), stage III N18.3 CAD (coronary artery disease) I25.10 Time Spent (min) 35
[2019-10-03] MEDS: LOSARTAN POTASSIUM 50 MG TAB PO SCH (08:34)
[2019-10-03] MEDS: ASPIRIN 81 MG ECTAB PO SCH (08:34)
[2019-10-03] MEDS: METOPROLOL SUCC 50MG EXT REL TAB PO SCH (08:34)
[2019-10-03] MEDS: ISOSORBIDE MONO EXTENDED REL 60 MG TABCR PO SCH (08:34)
--- NOTE | 2019-10-03 18:48 | Hospitalist Progress Note ---
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 Last well known was 10:30p.m. last evening. Based on imaging study findings, the patient was not deemed a candidate for TPA and also intervention. Initially [facility] neurologist was contacted. And as per the family's request, [facility] neurology was also contacted, and no intervention is planned at this time." -09/27/2019: Patient cannot open her eyes but she answers question appropriately.When eye lids are opened for her, patient has a right lateral gaze preference. left sided facial droop. when patient is asked to move her extremities she can make some right arm and right leg movements but cannot move her left side. her family did report that later was able to open her eyes with her own power periodically and noted that patient can see them only if they are at her right side. Patient was initially deemed to be allowed to have oral diet by speech and swallow services but then have more difficulties with eating. Neurology Dr. Mccarthy ordered CT head for 09/28/2019 but appears to suggest that patient will have poor prognosis from the stroke in his notes -By 09/28/2019 AM, nurse noted more oral secretions and patient needed suctioning. Patient is able to answer some simple answers but more lethargic today. Discussed with her grandson Matthew ([phone]) who helps patient make medical decisions that her condition appears to not be improving - Matthew allows for Scopolamine patch to minimize the oral secretions to prevent aspiration, Matthew affirms that patient had said that she would not want feeding tube, currently patient to resume IV hydration with dextrose for calories and hydration, Matthew understands that IV hydration is not a penitentiary solution, Matthew agrees that code status to be changed from conditional code to DNR/DNI, he plans to arrange a family meeting and agrees for palliative care consultation. hospitalist had family meeting with talat Matthew and patient's son Rush Rios ([phone]) and other family members and they are all in agreement for comfort care measures and to pursue hospice. case manger updated. IV hydration to be stopped. no further imaging or labs. medications that will continued to be used will be to treat for pain or excessive oral secretions or dyspnea. transferred off telemetry -09/29/2019: patient on comfort care. patient with snoring with sleep, grandson at bedside since AM and patient not speaking to him, patient does make sporadic movements of left foot while sleeping and snoring. patient not appear to be in acute distress. -09/30/2019: patient on comfort care, she is more awake and alert today and asking for water. when medical doctor gives her a wet oral care sponge in her mouth, patient coughing. discussed with talat Castro that patient high risk for aspirating but we can try nectar thick diet for comfort. patient able to follow directions to raise the right arm or right leg - cannot move the left side. she can open her eyes on her own but not always fully and continues to have right lateral gaze preference. patient not in acute pain at this time. discussed with taalt Castro that palliative care nurse will talk about POLST forms and preferences. Palliative affirmed comfort care and comments that patient may try medications as tolerated -10/01/2019 patient continues to be on comfort care. She is awake and able to open her eyes and talk with medical doctor, continues to have right lateral gaze preference and left sided paralysis. Patient reports she was able to eat eggs fro breakfast but nurse reports that when patient was fed the eggs she had coughed all over. since palliative care did comment that patient can take medications as tolerated when on hospice, nurse was asked to try to see patient can take any oral medications at all - will try aspirin 81 mg, and home medic ation dosing of losartan 50 mg and metoprolol succinate 50 mg daily. met with patient's family (i.e. Matthew) again try to discuss with them about future plans since patient meeting some stability while on comfort care. patient was awake but could not seem to appreciate complicated medical decisions. Matthew agrees to slowly allow for medical measures to be re-instituted such as if patient can tolerate oral medications, which will need to have monitored vital signs, allow for speech and swallow evaluations as tolerated -10/02/2019 updates: will request PT/OT evaluations. patient to continue diet and oral cardiovascular medications with aspirin as tolerated. will not give home dose furosemide because of concerns for poor oral intake, speech and swallow evaluations as tolerated 10/03/19 Palliative care on board POLST form completed Plan to go [facility] or [facility] with Hospice services Case management on bioard Code Status: DNR/DNI family:grandambrocio Castro ([phone]), son Rush Rios ([phone]) Admission and Anticipated Discharge Date Admission Date: September 26, 2019 Subjective Pt was seen and examined Lying in bed with no distress Pt continues to have left upper extremity deficit due to the recent CVA Family plan to discharge to [facility] on hospice care Denies any chest pain, palpitation, dizziness and SOB Physical Exam Physical Exam: General- No acute distress Head- atraumatic Eyes- PERRL, EOMI, ENT- oropharynx clear Neck- supple, no JVD Lungs- clear to auscultation Heart- regular rhythm; no murmur Abdomen- normal bowel sounds, soft, nontender Extremities- no calf tenderness, Left arm weakness Neuro- alert, oriented x 3; PERRL, EOMI, follow command Skin- warm & dry Results & Data Results & Data ([facility]) Vital Signs (Past 12 Hours) Vital Signs Temp Pulse Resp BP Pulse Ox 10/03/19 15:24 37.2 C 60 18 130/56 L 93 10/03/19 07:00 36.9 C 60 20 159/81 H 95
[2019-10-04] MEDS: ASPIRIN 81 MG ECTAB PO SCH (08:27)
[2019-10-04] MEDS: ISOSORBIDE MONO EXTENDED REL 60 MG TABCR PO SCH (08:27)
[2019-10-04] MEDS: METOPROLOL SUCC 50MG EXT REL TAB PO SCH (08:27)
[2019-10-04] MEDS: LOSARTAN POTASSIUM 50 MG TAB PO SCH (08:27)
--- NOTE | 2019-10-04 13:25 | Discharge Summary ---
Date of Service October 04, 2019 Admission HPI Per Admitting Provider CHIEF COMPLAINT: Acute CVA. HISTORY OF PRESENT ILLNESS: This is an 84-year-old female with past medical history significant for type 2 diabetes; hyperlipidemia; gout; obstructive sleep apnea, noncompliant with CPAP; COPD moderate; nonseasonal allergic rhinitis; chronic atrial fibrillation, no longer on Coumadin since last 5 years because of diverticular bleed as per family; chronic kidney disease stage III; venous insufficiency; hypertension; status post TAVR; left bundle branch block; ,status post pacemaker; degenerative disc disease; chronic thrombocytopenia; coronary artery disease status post coronary artery bypass graft. The patient presents with acute CVA. The patient generally lives at home, but sometimes lives with her grandson. Yesterday, she was living with her grandson and last well known time was yesterday evening at 10:30 p.m. Family was at work. When they came around 3:00 p.m. today, they noticed she was not acting herself and had left-sided weakness and slurred speech, so they called 911. The patient was stroke alert and her CT of the head is showing large acute versus subacute territorial infarct of the right MCA territory associated with cytotoxic edema resulting in partial effacement of the right lateral ventricle with areas of associated gyral expansion and partial sulcal effacement. CTA of the head shows large acute versus subacute right MCA territorial infarct with occlusion of the right carotid terminus and M1 segment of the middle cerebral artery. ER physician talked to the neurology intervention nurse at [facility]. They felt that she was not a TPA candidate given the CAT scan findings and also at that time she was thought to be not a good candidate for interventional treatment as the changes on the CT were already present and the last well known time was last evening. As per the ER physician, as per the family request, they also called the [facility] and they also agreed with [facility]. The patient currently has closed her eyes, but able to move her right side extremities and able to answer questions appropriately. She can tell her name, she knows today's month and today's year, knows that she is in the [facility], knows her date of . Denies any headache, denies any chest pain. Denies any abdominal pain. No nausea, no cough, no recent fever, chills. The patient does not want to be on mechanical ventilation, does not want to be shocked but okay for CPR. Currently her hemodynamics, the blood pressure is somewhat on the higher side. Temperature is 37.9, she is saturating okay. She does not have any other complaints at this time. Admission Exam Per Admitting Provider GENERAL: The patient has closed her eyes and not in acute distress. VITAL SIGNS: Temperature 35.9, pulse 60, respiratory rate 19, blood pressure 118/95, oxygen 99% on room air. HEENT: Pupils equal, round, reactive to light. NECK: No JVD, no neck masses. CARDIOVASCULAR: S1, S2 heard. Regular rate and rhythm, no murmur, no gallop. RESPIRATORY SYSTEM: Normal AP diameter. No accessory muscle use. No wheezing, no crackles. ABDOMEN: Soft, bowel sounds present, nontender. No distention. CENTRAL NERVOUS SYSTEM: Alert and oriented. Speech is normal. Left facial droop is present and left-sided paralysis, can move her right. Sensations as per patient is intact. EXTREMITIES: No edema, no erythema. 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 Coronary artery disease status post coronary artery bypass graft in the past Discharge Exam General- No acute distress Head- atraumatic Eyes- PERRL, EOMI, ENT- oropharynx clear Neck- supple, no JVD Lungs- clear to auscultation Heart- regular rhythm; no murmur Abdomen- normal bowel sounds, soft, nontender Extremities- no calf tenderness, Left arm weakness Neuro- alert, oriented x 3; PERRL, EOMI, follow command Skin- warm & dry Discharge Data Allergies Allergy/AdvReac Type Severity Reaction Status Date / Time Iodinated Contrast Media Allergy Intermediate HIVES/ Verified 09/26/19 19:23 LOST VOICE clonazepam Allergy Unknown Rash, hives Verified 09/26/19 19:23 lisinopril AdvReac Mild COUGH Verified 09/26/19 19:23 meperidine AdvReac Unknown Hallucinati Unverified 09/26/19 19:23 ons Consultations 09/26/19 19:58 ED Decision to Admit Stat 09/26/19 22:45 Consult Case Management - Discharge Planning Routine 09/27/19 08:00 Consult Neurology Routine 09/28/19 08:55 Consult Palliative Care Routine Ordered Studies 09/26/19 17:18 CT angio head w con Stat CT angio neck with con Stat CT head/brain wo con Stat XR chest 1V portable HISTORY: 84 years-old Female weak acute weakness with acute strokelike symptoms COMPARISON: Chest radiograph 09/19/2017 TECHNIQUE: Portable AP view of the chest FINDINGS: Cardiac silhouette is enlarged. Prior median sternotomy with aortic valvular endograft. Left subclavian pacer. Pulmonary vascular congestion with interstitial coarsening. No pneumothorax, pleural effusion or airspace consolidation typical for pneumonia. Degenerative changes of the shoulders and spine. IMPRESSION: Cardiomegaly with pulmonary vascular congestion and interstitial coarsening, possibly reflective of pulmonary edema. ACT 112: Negative or not required by law. The above report was generated using voice recognition software. It may contain grammatical, syntax or spelling errors. Electronically signed by: Lemuel Moncada M.D. 09/26/2019 7:15 PM Dictated: 09/26/191913 Transcribed: 09/26/191913 CT angio neck with con, CT angio head w con CLINICAL HISTORY: 84 years-old Female with Stroke evaluation. Acute strokelike symptoms COMPARISON STUDY: Head CT of same day TECHNIQUE: Following the IV administration of 118 mL of Optiray 320, CT angiogram of the head and neck was performed from the aortic arch to the skull apex. Images are reviewed in the axial, sagittal, and coronal planes. 3-D MIPS images are created and assessed. IV contrast was administered without complication. All measurements were calculated based on NASCET criteria. A dose lowering technique was utilized adhering to the principles of ALARA. CT DOSE: 1287.71 mGy.cm FINDINGS: Prior median sternotomy. The opacified pulmonary arterial tree is unremarkable. Mixed plaque of the thoracic aortic arch. Patency of the imaged subclavian arteries and innominate artery. Study is mildly motion degraded. Patent common carotid arteries. Mixed plaque of the carotid bulbs and proximal internal carotid arteries without high-grade stenosis. Calcified plaque of the cavernous segments. There is occlusion of the right carotid terminus, image 123 series 5 with resultant occlusion of the right M1 segment. There is mild reconstitution of flow noted within the distal M2 and M3 branches. The opacified right A1 segment is likely secondary to collateral flow through the [place]. The left middle cerebral artery is patent. The left anterior cerebral artery is also patent. Diminutive distal right A2 segment. Codominant vertebral arteries are patent. Calcified plaque of the V4 segment left vertebral artery with areas of mild luminal narrowing. Patent basilar artery. There is moderate narrowing of the distal basilar artery and proximal left P1 segment. origin of the right posterior cerebral artery. The opacified cerebral venous sinuses appear patent. Large acute or subacute appearing right MCA territorial infarct. No abnormal enhancement. No aneurysm or dissection. Mosaic attenuation of the lung apices suggests air-trapping. Mild intralobular septal thickening suggest a degree of pulmonary edema. Enlarged heterogeneous thyroid. Multilevel degenerative changes of the spine. IMPRESSION: 1. Large acute versus subacute right MCA territorial infarct with occlusion of the right carotid terminus and M1 segment of the middle cerebral artery. There is mild reconstitution of flow within the distal M2 and M3 branches. 2. Moderate luminal narrowing of the distal basilar artery and proximal left P1 segment. ACT 112: Negative or not required by law. The above report was generated using voice recognition software. It may contain grammatical, syntax or spelling errors. Electronically signed by: Lemuel Moncada M.D. 09/26/2019 6:02 PM Dictated: 09/26/191753 Transcribed: 09/26/191753 CT angio neck with con, CT angio head w con CLINICAL HISTORY: 84 years-old Female with Stroke evaluation. Acute strokelike symptoms COMPARISON STUDY: Head CT of same day TECHNIQUE: Following the IV administration of 118 mL of Optiray 320, CT angiogram of the head and neck was performed from the aortic arch to the skull apex. Images are reviewed in the axial, sagittal, and coronal planes. 3-D MIPS images are created and assessed. IV contrast was administered without complication. All measurements were calculated based on NASCET criteria. A dose lowering technique was utilized adhering to the principles of ALARA. CT DOSE: 1287.71 mGy.cm FINDINGS: Prior median sternotomy. The opacified pulmonary arterial tree is unremarkable. Mixed plaque of the thoracic aortic arch. Patency of the imaged subclavian arteries and innominate artery. Study is mildly motion degraded. Patent common carotid arteries. Mixed plaque of the carotid bulbs and proximal internal carotid arteries without high-grade stenosis. Calcified plaque of the cavernous segments. There is occlusion of the right carotid terminus, image 123 series 5 with resultant occlusion of the right M1 segment. There is mild reconstitution of flow noted within the distal M2 and M3 branches. The opacified right A1 segment is likely secondary to collateral flow through the [place]. The left middle cerebral artery is patent. The left anterior cerebral artery is also patent. Diminutive distal right A2 segment. Codominant vertebral arteries are patent. Calcified plaque of the V4 segment left vertebral artery with areas of mild luminal narrowing. Patent basilar artery. There is moderate narrowing of the distal basilar artery and proximal left P1 segment. origin of the right posterior cerebral artery. The opacified cerebral venous sinuses appear patent. Large acute or subacute appearing right MCA territorial infarct. No abnormal enhancement. No aneurysm or dissection. Mosaic attenuation of the lung apices suggests air-trapping. Mild intralobular septal thickening suggest a degree of pulmonary edema. Enlarged heterogeneous thyroid. Multilevel degenerative changes of the spine. IMPRESSION: 1. Large acute versus subacute right MCA territorial infarct with occlusion of the right carotid terminus and M1 segment of the middle cerebral artery. There is mild reconstitution of flow within the distal M2 and M3 branches. 2. Moderate luminal narrowing of the distal basilar artery and proximal left P1 segment. ACT 112: Negative or not required by law. The above report was generated using voice recognition software. It may contain grammatical, syntax or spelling errors. Electronically signed by: Lemuel Moncada M.D. 09/26/2019 6:02 PM Dictated: 09/26/191753 Transcribed: 09/26/191753 CT head/brain wo con CLINICAL HISTORY: 84 years-old Female with Stroke evaluation . Acute strokelike symptoms TECHNIQUE: Multiple axial CT images of the head were obtained without contrast. A dose lowering technique was utilized adhering to the principles of ALARA. COMPARISON: Head CT 09/20/2018 FINDINGS: No acute intracranial hemorrhage, midline shift, intracranial mass, hydrocephalus, or abnormal extra-axial collection. Age-related involutional changes. Senescent calcifications of the right lentiform nucleus. There is a large area of decreased attenuation with blurring of the freeman-white interface involving the right frontal and temporal lobes, right caudate nucleus, lentiform nucleus and right insula/external capsule. This results in partial effacement of the frontal horn right lateral ventricle with local gyral expansion and partial sulcal effacement. This overall measures up to approximately 8.5 cm in AP dimension. The calvarium is intact. The paranasal sinuses, mastoid air cells, and middle ear cavities are clear. 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 Associated cytotoxic edema results in partial effacement of the right lateral ventricle with areas of associated gyral expansion and partial sulcal effacement. ACT 112: Negative or not required by law. The above report was generated using voice recognition software. It may contain grammatical, syntax or spelling errors. Electronically signed by: Lemuel Moncada M.D. 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 Last well known was 10:30p.m. last evening. Based on imaging study findings, the patient was not deemed a candidate for TPA and also intervention. Initially [facility] neurologist was contacted. And as per the family's request, [facility] neurology was also contacted, and no intervention is planned at this time." -09/27/2019: Patient cannot open her eyes but she answers question appropriately.When eye lids are opened for her, patient has a right lateral gaze preference. left sided facial droop. when patient is asked to move her extremities she can make some right arm and right leg movements but cannot move her left side. her family did report that later was able to open her eyes with her own power periodically and noted that patient can see them only if they are at her right side. Patient was initially deemed to be allowed to have oral diet by speech and swallow services but then have more difficulties with eating. Neurology Dr. Mccarthy ordered CT head for 09/28/2019 but appears to suggest that patient will have poor prognosis from the stroke in his notes -By 09/28/2019 AM, nurse noted more oral secretions and patient needed suctioning. Patient is able to answer some simple answers but more lethargic today. Discussed with her grandambrocio Castro ([phone]) who helps patient make medical decisions that her condition appears to not be improving - Matthew allows for Scopolamine patch to minimize the oral secretions to prevent aspiration, Matthew affirms that patient had said that she would not want feeding tube, currently patient to resume IV hydration with dextrose for calories and hydration, Matthew understands that IV hydration is not a long-term solution, Matthew agrees that code status to be changed from conditional code to DNR/DNI, he plans to arrange a family meeting and agrees for palliative care consultation. hospitalist had family meeting with talat Matthew and patient's son Rush Rios ([phone]) and other family members and they are all in agreement for comfort care measures and to pursue hospice. case manger updated. IV hydration to be stopped. no further imaging or labs. medications that will continued to be used will be to treat for pain or excessive oral secretions or dyspnea. transferred off telemetry -09/29/2019: patient on comfort care. patient with snoring with sleep, grandson at bedside since AM and patient not speaking to him, patient does make sporadic movements of left foot while sleeping and snoring. patient not appear to be in acute distress. -09/30/2019: patient on comfort care, she is more awake and alert today and asking for water. when medical doctor gives her a wet oral care sponge in her mouth, patient coughing. discussed with talat Castro that patient high risk for aspirating but we can try nectar thick diet for comfort. patient able to follow directions to raise the right arm or right leg - cannot move the left side. she can open her eyes on her own but not always fully and continues to have right lateral gaze preference. patient not in acute pain at this time. discussed with talat Castro that palliative care nurse will talk about POLST forms and preferences. Palliative affirmed comfort care and comments that patient may try medications as tolerated -10/01/2019 patient continues to be on comfort care. She is awake and able to open her eyes and talk with medical doctor, continues to have right lateral gaze preference and left sided paralysis. Patient reports she was able to eat eggs fro breakfast but nurse reports that when patient was fed the eggs she had coughed all over. since palliative care did comment that patient can take medications as tolerated when on hospice, nurse was asked to try to see patient can take any oral medications at all - will try aspirin 81 mg, and home medication dosing of losartan 50 mg and metoprolol succinate 50 mg daily. met with patient's family (i.e. Matthew) again try to discuss with them about future plans since patient meeting some stability while on comfort care. patient was awake but could not seem to appreciate complicated medical decisions. Matthew agrees to slowly allow for medical measures to be re-instituted such as if patient can tolerate oral medications, which will need to have monitored vital signs, allow for speech and swallow evaluations as tolerated -10/02/2019 updates: will request PT/OT evaluations. patient to continue diet and oral cardiovascular medications with aspirin as tolerated. will not give home dose furosemide because of concerns for poor oral intake, speech and swallow evaluations as tolerated 10/03/19 Palliative care on board POLST form completed Plan to go to [facility] or [facility] with Hospice services Case management on bioard Code Status: DNR/DNI family:grandambrocio Castro ([phone]), son Rush Rios ([phone]) Total Time Total Time Spent Total Time Spent (In Minutes): 35 minutes Total Time Includes: Examination of the Patient, Discharge Planning, Medication Reconciliation, Communication With Other Providers and Other Discharge Plan Discharge Items Patient Disposition: Hospice - Medical Facility Reason For Visit: ACUTE CVA Discharge Diagnosis: Acute cerebrovascular accident with large right MCA stroke with left-sided facial droop and left-sided weakness Comfort Care Measures Only Hypertension History of atrial fibrillation 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 Coronary artery disease status post coronary artery bypass graft in the past Condition on Discharge: Good Activity: As commented below Non-emergency contact: Primary Care Provider Call non-emergency contact if: you have any medication questions Follow-up/Referrals: Timothy Nathan MD [Primary Care Provider] - Diet: Heart Healthy Diet Texture: Pureed (blended smooth) Addtl Attending Provider Instructions: upcoming appointments on [facility] 11/27/2019 11:30 AM Provider Josh Smith PA-C Department Cardiology [facility] 12/04/2019 1:00 PM Provider Preston Pereira Department Cardiology [facility] 01/25/2020 2:00 PM Provider Timothy Nathan MD Department Internal Medicine [facility] Add Website Developer Provider Instructions: Discharge to [facility] with Hospice Follow up a puree diet and honey thick liquid Aspiration precaution Activity gradually as tolerated Fall precaution Ok to discharge with the xavier catheter Oxygen supplement as needed if develops any respiratory distress (Hospice will order it if she needs it in the future) Pending Studies at Discharge: No Stand-Alone Forms: My [place] Skilled Items Patient informed of condition?: Yes DNR: Yes Discharge Level of Care: Skilled Communicable Disease: No Discharge Prognosis: Stable Lines: None Urinary Catheter: Yes Medications and DC Order Prescriptions: New lorazepam 0.5 mg Tablet 0.5 mg PO Q8H PRN (Reason: anxiety) Qty: 10 RF: 0 Continued atorvastatin 20 mg Tablet 20 mg PO HS RF: 0 metoprolol succinate 50 mg tablet extended release 24 hr 50 mg PO DAILY RF: 0 aspirin [Adult Aspirin Regimen] 81 mg Tablet,Delayed Release (Dr/Ec) 81 mg PO DAILY RF: 0 acetaminophen [Tylenol Extra Strength] 500 mg Tablet 500 - 1,000 mg PO Q8H PRN (Reason: Pain) RF: 0 losartan 25 mg tablet 50 mg PO DAILY RF: 0 nitroglycerin 0.4 mg Tablet, Sublingual 0.4 mg sublingual DIRECTED PRN (Reason: Chest Pain) RF: 0 docusate sodium 100 mg Capsule 100 mg PO BID RF: 0 Combivent Respimat 20-100 mcg/actuation Mist 1 puff INHALATION QID RF: 0 furosemide 20 mg tablet 40 mg PO 5XWK RF: 0 furosemide 20 mg tablet 20 mg PO 2XWK RF: 0 isosorbide mononitrate 60 mg tablet extended release 24 hr 60 mg PO DAILY RF: 0 Discontinued glimepiride 2 mg tablet 2 mg PO DAILY RF: 0 pyridoxine (vitamin B6) 100 mg Tablet 100 mg PO DAILY RF: 0 Januvia 50 mg tablet 50 mg PO QAM RF: 0 cholecalciferol (vitamin D3) [Vitamin D3] 2,000 unit Capsule 2,000 unit PO DAILY RF: 0 baclofen 10 mg tablet 10 mg PO BID PRN (Reason: Muscle Spasm) RF: 0 prednisone 20 mg tablet 20 mg PO .DAILY/UD RF: 0 Discharge Orders: Discharge Order (Routine); Ordered 10/04/19 Ordered By: Shakira Majano Admission Data Admit Date/Time: 09/26/19 22:05 Attending Provider: Shakira Majano Admit Provider: Vlad Smyth Primary Care Provider: Timothy Nathan Other Providers: Vlad Smyth ; Ras Mccarthy ; Elodia Rodriguez ; Axel Hahn ; Manuel Faustin Other Interventions: Discharge Summary Assessment (RN) Last Done: 10/04/19 13:02
== END 2019-10-04 16:36 | disposition hospice, inpatient (51) | DRG 65 ==
LOC: ED 17:36 → 2S 22:05 → SUATTDRO 22:05 → 2S 22:30 → 3E 09-28 16:46